=== PATIENT | female | born 1965 | race Two or more races ===

== ENCOUNTER 2020-09-06 08:56 | Outpatient (REF) | payer OTHER, SELFPAY ==
--- NOTE | ~2020-09-06 | XR_ITS ---
EXAMINATION: XR CHEST CLINICAL INFORMATION: R07.89 - Other chest pain COMPARISON: Chest radiographs 06/17/2019, 05/02/2019. TECHNIQUE: 2 views of the chest were obtained. FINDINGS: The lungs are clear. There is no pneumothorax or pleural reaction. No airspace consolidation or groundglass opacity. The costophrenic sulci are well-defined. The heart is normal in size. The hilar and mediastinal contours and bony structures are unremarkable. XR/XR chest 2V IMPRESSION: Unremarkable examination.
[2020-09-06 09:47] LABS: MANUAL DIFF FLAG NO
[2020-09-06 09:50] LABS: Basophils Percent Auto 0.3 % (0-2); Eosinophils Absolute Auto 0.1 X10*3/uL (0.0-0.4); Eosinophils Percent Auto 0.9 % (0-4); Hematocrit 39.3 % (37-47); Imm Gran Abs Auto 0.03 X10*3/uL (0.00-0.03); Imm Gran Pct Auto 0.3 % (0.0-0.4); Lymphocytes Percent Auto 31.1 % (20-40); Mean Corpuscular HGB Conc 33.1 g/dl (31.0-35.0); Mean Corpuscular Hemoglobin 29.7 pg (27.0-33.0); Mean Corpuscular Volume 89.7 fL (80-98); Mean Platelet Volume 10.3 fL (9.4-12.3); Monocytes Absolute Auto 0.7 X10*3/uL (0.1-1.2); Neutrophils Absolute Auto 5.9 X10*3/uL (2.0-8.3); Neutrophils Percent Auto 60.4 % (45-73); Platelet Count 316 X10*3/uL (160-400); Red Blood Count 4.38 X10*6/uL (4.20-5.50); Red Cell Distribution Width 11.9 % (11.0-16.0); White Blood Count 9.7 X10*3/uL (4.8-10.8)
[2020-09-06 09:59] LABS: Estimated Average Glucose 292 mg/dL; Hemoglobin A1c % 11.8 %
[2020-09-06 10:15] LABS: Anion Gap 14 (12-20); Blood Urea Nitrogen 13 mg/dL (9-16); Calcium 8.6 mg/dL (8.4-10.2); Carbon Dioxide 28 mmol/L (22-29); Chloride 99 mmol/L (96-108); Cholesterol 138 mg/dL; Estimated Glomerular Filt Rate > 60; Glucose Fasting 326 mg/dL (60-99); HDL Cholesterol 40 mg/dL; LDL Cholesterol Calculated 83 mg/dl; Potassium 4.3 mmol/L (3.3-5.1); Sodium 137 mmol/L (135-145); Triglycerides 79 mg/dL
[2020-09-06 10:18] LABS: Troponin-I High Sensitivity < 3.5 ng/L (<3.5-17.0)
== END 2020-09-06 08:57 | disposition home or self-care (01) ==
LOC: HO.LAB 08:56
PROVIDERS: PCP Internal Medicine; Visit Provider Nurse Practitioner Family
DX: E11.65 Type 2 diabetes mellitus with hyperglycemia (principal); R07.89 Other chest pain
CPT/HCPCS: 36415; 71046; 80048; 80061; 83036; 84484; 85025

== ENCOUNTER → 2020-10-15 11:13 | Outpatient (BNVA) | payer OTHER, SELFPAY | PROVIDERS: PCP Nurse Practitioner Family; Referring Provider Nurse Practitioner Family; Visit Provider Internal Medicine Endocrinology, Diabetes & Metabolism | DX: E11.65 Type 2 diabetes mellitus with hyperglycemia (principal); Z79.4 Long term (current) use of insulin; E78.5 Hyperlipidemia, unspecified; E55.9 Vitamin D deficiency, unspecified; E66.9 Obesity, unspecified | CPT/HCPCS: 82947; 99212 ==

== ENCOUNTER 2020-11-03 14:07 | Outpatient (REF) | payer OTHER, SELFPAY ==
[2020-11-03 15:33] LABS: COVID-19 Test Negative (Negative)
== END 2020-11-03 14:08 | disposition home or self-care (01) ==
LOC: HO.LAB 14:07
PROVIDERS: Visit Provider Internal Medicine
DX: Z20.822 Contact with and (suspected) exposure to COVID-19 (principal)
CPT/HCPCS: 36415; 87635; C9803

== ENCOUNTER → 2021-01-14 10:38 | Outpatient (BNVA) | payer OTHER, SELFPAY | PROVIDERS: Visit Provider Internal Medicine Endocrinology, Diabetes & Metabolism | DX: E11.65 Type 2 diabetes mellitus with hyperglycemia (principal); E78.5 Hyperlipidemia, unspecified; E55.9 Vitamin D deficiency, unspecified; E66.9 Obesity, unspecified; Z79.4 Long term (current) use of insulin | CPT/HCPCS: 82947; 99212 ==

== ENCOUNTER → 2021-01-31 15:42 | Outpatient (BNVA) | payer OTHER, SELFPAY | PROVIDERS: Visit Provider Nurse Practitioner ==

== ENCOUNTER 2021-03-10 09:37 | Outpatient (REF) | payer OTHER, SELFPAY ==
--- NOTE | 2021-03-10 09:41 | ECG_ITS ---
Test Reason : CHEST PAIN Blood Pressure : / mmHG Vent. Rate : 081 BPM Atrial Rate : 081 BPM P-R Int : 168 ms QRS Dur : 078 ms QT Int : 398 ms P-R-T Axes : 072 034 041 degrees QTc Int : 462 ms Normal sinus rhythm Normal ECG When compared with ECG of 17-JUN-2019 19:48, Vent. rate has decreased BY 41 BPM Nonspecific T wave abnormality no longer evident in Inferior leads T wave inversion no longer evident in Anterior leads Referred By: Mindy Marks Electronically Signed By:JANEEN GUAJARDO
[2021-03-10 11:00] LABS: Alanine Aminotransferase 21 U/L (0-31); Albumin Level 3.9 g/dL (3.5-5.0); Alkaline Phosphatase 85 U/L (39-117); Anion Gap 13 (12-20); Aspartate Amino Transferase 15 U/L (5-31); Bilirubin Total 0.4 mg/dL (0.0-1.0); Blood Urea Nitrogen 10 mg/dL (9-16); Calcium 8.9 mg/dL (8.4-10.2); Carbon Dioxide 25 mmol/L (22-29); Chloride 106 mmol/L (96-108); Cholesterol 171 mg/dL; Estimated Glomerular Filt Rate > 60; Glucose Fasting 153 mg/dL (60-99); HDL Cholesterol 36 mg/dL; LDL Cholesterol Calculated 105 mg/dl; Potassium 4.1 mmol/L (3.3-5.1); Sodium 140 mmol/L (135-145); Total Protein 6.5 g/dL (6.5-8.0); Triglycerides 151 mg/dL
[2021-03-10 11:23] LABS: Creatinine Urine 159.49 mg/dL; Microalbum/Creatinine Ratio Ur 10.6 ug/mg cr
[2021-03-18 13:26] LABS: Vitamin D 25-OH, D2 <4 ng/mL; Vitamin D 25-OH, D3 18 ng/mL; Vitamin D 25-OH, Total 18 ng/mL (30-100)
== END 2021-03-10 09:38 | disposition home or self-care (01) ==
LOC: HO.LAB 09:37
PROVIDERS: PCP Internal Medicine; Visit Provider Internal Medicine
DX: R07.89 Other chest pain (principal); E55.9 Vitamin D deficiency, unspecified; E11.9 Type 2 diabetes mellitus without complications; K21.9 Gastro-esophageal reflux disease without esophagitis; E78.5 Hyperlipidemia, unspecified
CPT/HCPCS: 36415; 80053; 80061; 82043; 82306; 93005

== ENCOUNTER 2021-04-20 10:22 | Outpatient (REF) | payer OTHER, SELFPAY ==
--- NOTE | ~2021-04-20 | MM_ITS ---
EXAMINATION: MM SCREENING DIGITAL BREAST TOMOSYNTHESIS, BILATERAL CLINICAL INFORMATION: Screening. Asymptomatic. The lifetime risk of breast cancer based on the Tyrer-Cuzick Model is 10%. COMPARISON: Mammography: 11/02/2018, 10/13/2017, 05/23/2016 TECHNIQUE: Digital breast tomosynthesis is performed in both the craniocaudal and mediolateral oblique views along with computer-aided detection (CAD). Synthesized 2D images are generated from the tomosynthesis. Additional right CC and bilateral MLO views are provided. FINDINGS: There are scattered areas of fibroglandular density (ACR BI-RADS breast composition Category b). There are no significant masses, abnormal calcifications, or other abnormalities. The the axilla and skin contours are unremarkable. No significant changes. MM/MM tomosynthesis screening BI IMPRESSION: No mammographic evidence of malignancy. ASSESSMENT: BI-RADS 1: Negative RECOMMENDATION: Routine annual mammography screening. This patient's information was entered into a reminder system with a target due date for their next mammogram.
== END 2021-04-20 10:23 | disposition home or self-care (01) ==
LOC: HO.MAMMO 10:22
PROVIDERS: Visit Provider Internal Medicine
DX: Z12.31 Encounter for screening mammogram for malignant neoplasm of breast (principal)
CPT/HCPCS: 77063; 77067

== ENCOUNTER → 2021-04-26 10:35 | Outpatient (BNVA) | payer OTHER, SELFPAY | PROVIDERS: PCP Internal Medicine; Visit Provider Nurse Practitioner Gerontology | DX: E11.65 Type 2 diabetes mellitus with hyperglycemia (principal); E78.5 Hyperlipidemia, unspecified; E55.9 Vitamin D deficiency, unspecified; E66.9 Obesity, unspecified; Z79.4 Long term (current) use of insulin | CPT/HCPCS: 82947; 83036; 99212 ==

== ENCOUNTER → 2021-06-15 12:11 | Outpatient (BNVA) | payer OTHER, SELFPAY | PROVIDERS: PCP Internal Medicine; Referring Provider Internal Medicine; Visit Provider Internal Medicine | DX: Z01.810 Encounter for preprocedural cardiovascular examination (principal); R06.02 Shortness of breath; E11.8 Type 2 diabetes mellitus with unspecified complications | CPT/HCPCS: 93005; 99202 ==

== ENCOUNTER 2021-09-05 09:51 | Outpatient (REF) | payer OTHER, SELFPAY ==
--- NOTE | 2021-09-05 17:18 | PFT_ITS ---
Forced vital capacity 59%, FEV1 45%, FEV1/FVC ratio is 62, ZOT12-99 is 22% and MVV 48%. Post bronchodilator therapy, there is a small, but significant improvement in FVC, FEV1, [id number]. Total lung capacity 77% and residual volume is 99%. Diffusion capacity is 55% and DL/VA 73%. CONCLUSION: Severe obstructive airway disorder. Partial reversibility after bronchodilator therapy is noted. Compared to the results of 2018, there is no significant change in the flow volumes. Total lung capacity is actually little better and diffusion capacity is moderately decreased. Clinical correlation recommended. MD URBANO Magdaleno/MILLI / [phone]
== END 2021-09-05 09:52 | disposition home or self-care (01) ==
LOC: HO.RESP 09:51
PROVIDERS: PCP Internal Medicine; Visit Provider Internal Medicine
DX: R06.02 Shortness of breath (principal)
CPT/HCPCS: 94060; 94727; 94729

== ENCOUNTER → 2021-09-09 10:09 | Outpatient (REF) | payer OTHER, SELFPAY ==
--- NOTE | 2021-09-09 10:12 | CA_ITS ---
Transthoracic Echocardiogram Patient (Last, First, Middle): Dyana Calderon L Gender: Female Date of : 1965 Age: 55 Procedure Date: 09/09/2021 Procedure Type: Transthoracic Echocardiogram Location: OP Height: 162.56 cm Weight: 87.54 kg BSA: 1.93 m2 Heart Rate: bpm BP: 115 / 70 mmHg Favor Maker: ROBSON Referring MD: Cy Cormier MD Neighborhood Aide: Samir Mora MD Symptoms: R06.02 - Shortness of breath Study Quality: Fair/contrast ECG Rhythm: Sinus Conclusions: - Essentially normal study Findings Procedure Information Contrast agent, definity, is being given per protocol without apparent complications. Left Ventricle Normal left ventricular size, thickness, and systolic function. The visually estimated ejection fraction is between 60-65%. Diastolic function is normal for age. Right Ventricle Normal right ventricular cavity size and systolic function. Atria Both atria are normal in size. There is no evidence of interatrial shunt. Aortic Valve Normal aortic valve structure and function. There is no aortic valve stenosis. There is no aortic valve regurgitation. Mitral Valve Normal mitral valve structure and function. There is trace mitral valve regurgitation. There is no mitral valve stenosis. Pulmonic Valve The pulmonic valve was not well visualized. Tricuspid Valve Likely normal tricuspid valve structure and function. There is trace tricuspid valve regurgitation. The right ventricular systolic pressure is normal. The right ventricular systolic pressure is 22 mmHg. Normal right atrial pressure. There is no evidence of pulmonary hypertension. Great Vessels All visible segments of the aorta are normal in size. The pulmonary artery was not well visualized. Venous The inferior vena cava is normal in size and collapses greater than 50% with inspiration. Pericardium/Pleural There is no evidence of pericardial effusion. Prior Study Comparison no previous study in the last 5 years for comparison Measurements 2D Linear Measurements IVSd: 0.76 0.6-0.9/0.6-1.0 cm LVIDd: 4.18 3.9-5.3/4.2-5.9 cm LVIDd Index: 2.17 2.4-3.2/2.2-3.1 cm/m2 LVIDs: 1.90 2.0-3.6 cm LVPWd: 0.73 0.7-1.1 cm Ao Root: 2.80 2.1-3.5 cm LA Diam: 2.80 2.7-3.8/3.0-4.0 cm LAIDs Index: 1.45 1.5-2.3 cm/m2 LV Mass: 113.72 67-162/88-224 g LV Mass Index: 58.92 43-95/49-115 g/m2 LVOT Diam: 2.00 3.0+(-)1.3 cm 2D Systolic Function EF 4C: 63.90 >55% EF 2C: 66.60 >55% EF BiP: 64.90 >55% Mitral Valve E'Lateral: 13.70 E'Medial: 10.30 Aortic Valve AoV Pk Bobby: 1.41 AoV Mn Bobby: 1.05 AoV VTI: 0.30 AoV Pk Grad: 8.00 Aov Mn Grad: 5.00 DERIC Cont.VTI: 2.65 LVOT LVOT Pk Bobby: 1.12 LVOT Mn Bobby: 0.76 LVOT VTI: 0.25 LVOT Pk Grad: 5.00 LVOT Mn Grad: 3.00 LVOT Diam: 2.00 LVOT Area: 3.14 Diastolic Function E'Medial: 10.30 E' Laterial: 13.70 Right Ventricle TAPSE (mm): 20.40 TVS' Bobby: 10.00 Tricuspid Valve TR Pk Bobby: 1.89 TR Pk Grad: 14.00 RA Press: 8.00 RVSP: 22.00 Great Vessels Aorta Ao Root-2D: 2.80 2.0-3.7 cm Ao Asc: 2.80 2.1-3.4 cm Ao Arch: 3.20 Updated in Other Vendor System with Status of Final Samir Mora MD electronically signed on 09/10/2021 11:55:48 AM with status of Final
== END ==
LOC: HO.CARD 10:09
PROVIDERS: PCP Internal Medicine; Visit Provider Internal Medicine
DX: R06.02 Shortness of breath (principal)
CPT/HCPCS: 93306; Q9957

== ENCOUNTER → 2021-10-19 10:05 | Outpatient (BNVA) | payer OTHER, SELFPAY | PROVIDERS: PCP Internal Medicine; Visit Provider Hospitalist | DX: Z23 Encounter for immunization (principal); J44.9 Chronic obstructive pulmonary disease, unspecified; G47.33 Obstructive sleep apnea (adult) (pediatric); R91.1 Solitary pulmonary nodule | CPT/HCPCS: 90471; 90732; 99202 ==

== ENCOUNTER 2021-10-22 07:32 | Outpatient (REF) | payer OTHER, SELFPAY ==
[2021-10-22 09:55] LABS: Microalbum/Creatinine Ratio Ur 41.6 ug/mg cr
[2021-10-22 09:56] LABS: B Type Natriuretic Peptide < 10 pg/mL (<100)
[2021-10-22 09:57] LABS: Alanine Aminotransferase 24 U/L (0-31); Alkaline Phosphatase 93 U/L (39-117); Anion Gap 10 (12-20); Aspartate Amino Transferase 16 U/L (5-31); Bilirubin Total 0.5 mg/dL (0.0-1.0); Blood Urea Nitrogen 10 mg/dL (9-16); C Reactive Protein 1.33 mg/dL (< or = 0.50); Calcium 8.9 mg/dL (8.4-10.2); Carbon Dioxide 29 mmol/L (22-29); Chloride 104 mmol/L (96-108); Cholesterol 166 mg/dL; Estimated Glomerular Filt Rate > 60; Glucose Fasting 218 mg/dL (60-99); HDL Cholesterol 37 mg/dL; LDL Cholesterol Calculated 113 mg/dl; Potassium 4.7 mmol/L (3.3-5.1); Rheumatoid Factor < 15.0 IU/mL (<15.0); Sodium 138 mmol/L (135-145); Total Protein 6.8 g/dL (6.5-8.0); Triglycerides 83 mg/dL
[2021-10-22 10:17] LABS: Erythrocyte Sedimentation Rate 19 MM/HR (0-20)
[2021-10-24 13:17] LABS: Cyclic Citrullinated Peptide <16 UNITS
[2021-10-24 21:25] LABS: Anti DNA DS Antibody 2 IU/mL
[2021-10-25 07:36] LABS: Anti Nuclear Antibody Screen NEGATIVE (NEGATIVE)
[2021-10-26 13:27] LABS: Vitamin D 25-OH, D2 <4 ng/mL; Vitamin D 25-OH, D3 20 ng/mL; Vitamin D 25-OH, Total 20 ng/mL (30-100)
== END 2021-10-22 07:33 | disposition home or self-care (01) ==
LOC: HO.LAB 07:32
PROVIDERS: PCP Internal Medicine; Visit Provider Internal Medicine
DX: R53.82 Chronic fatigue, unspecified (principal); R06.02 Shortness of breath; E11.8 Type 2 diabetes mellitus with unspecified complications; E78.5 Hyperlipidemia, unspecified; E55.9 Vitamin D deficiency, unspecified
CPT/HCPCS: 36415; 80053; 80061; 82043; 82306; 83880; 85652; 86038; 86039; 86140; 86200; 86225; 86431

== ENCOUNTER → 2021-10-27 11:51 | Outpatient (BNVA) | payer OTHER, SELFPAY | PROVIDERS: PCP Internal Medicine; Referring Provider Internal Medicine; Visit Provider Nurse Practitioner | DX: K59.04 Chronic idiopathic constipation (principal); K21.9 Gastro-esophageal reflux disease without esophagitis; R11.2 Nausea with vomiting, unspecified; R12 Heartburn; E11.9 Type 2 diabetes mellitus without complications; E78.5 Hyperlipidemia, unspecified; E55.9 Vitamin D deficiency, unspecified; E66.01 Morbid (severe) obesity due to excess calories; F12.11 Cannabis abuse, in remission; Z68.34 Body mass index [BMI] 34.0-34.9, adult; Z87.891 Personal history of nicotine dependence; Z87.898 Personal history of other specified conditions; Z80.0 Family history of malignant neoplasm of digestive organs | CPT/HCPCS: 99212 ==

== ENCOUNTER 2021-11-03 10:18 | Outpatient (REF) | payer OTHER, SELFPAY ==
--- NOTE | ~2021-11-03 | CT_ITS ---
EXAMINATION: CT CHEST WITHOUT CONTRAST CLINICAL INFORMATION: Solitary pulmonary nodule. COMPARISON: CT chest 06/17/2019 TECHNIQUE: Multidetector volumetric CT imaging of the chest was done. Axial MIP volume rendering provided. Sagittal and coronal reformatted images were obtained. This CT examination was performed using dose optimization techniques as appropriate, variously including the following: *Automated exposure control *Adjustment of mA and/or kV according to patient size (this includes techniques or standardized protocols for targeted exams where dose is matched to indication/reason for exam; i.e. extremities or head) *Use of iterative reconstruction technique DLP: 188 mGy-cm FINDINGS: PRE SCHOOL MANAGER: Well-expanded lungs without acute process. LUNGS: There is a 2 mm nodule right lung apex medially axial image 112/5, stable. Small 1 mm calcifications in the left upper lobe on axial image 123/5, stable, tree-in-bud appearance left lung apex medially axial images 143 through 147/5, left upper lobe images 192 through 200/5, 4 mm nodule left upper lobe axial image 199/5, previously measured 5 mm. There is minimal bronchial wall thickening in bilateral lower lobes but no bronchiectasis or debris. MEDIASTINUM: The thyroid lobes are symmetric and normal. The central trachea and the bronchi are widely patent. The heart size and the great vessels are normal caliber. No pericardial effusion is seen. No abnormal sized mediastinal or hilar lymph nodes are seen. PLEURA: There is no pleural effusion. No pleural mass or thickening. AXILLA: There are small shotty lymph nodes in the axillae. The larger lymph node in the right axilla appears benign. UPPER ABDOMEN: Visualized liver, spleen, pancreas, and bilateral adrenal glands are unremarkable. There are no radiopaque gallstones. OSSEOUS STRUCTURES: Mild ventral spondylosis upper/mid dorsal spine. No aggressive lytic or sclerotic process seen. CT/CT chest wo con IMPRESSION: Small nodules, tree-in-bud appearance and mild bronchial wall thickening suggestive of small airway disease is unchanged to previous study. Small semisolid nodule left upper lobe is also stable or minimally improved. There are no new nodules, acute consolidation or abnormal mediastinal or axillary lymphadenopathy. Fleischner guidelines were followed.
== END 2021-11-03 10:19 | disposition home or self-care (01) ==
LOC: HO.CT 10:18
PROVIDERS: Visit Provider Hospitalist
DX: R91.1 Solitary pulmonary nodule (principal)
CPT/HCPCS: 71250

== ENCOUNTER → 2021-11-21 10:29 | Outpatient (BNVA) | payer OTHER, SELFPAY | PROVIDERS: PCP Internal Medicine; Referring Provider Internal Medicine; Visit Provider Physician Assistant | DX: Z13.89 Encounter for screening for other disorder (principal) ==

== ENCOUNTER → 2021-11-22 14:59 | Outpatient (REF) | payer OTHER, SELFPAY ==
[2021-11-23 12:16] LABS: BV Int Neg Control Negative (Negative); BV Int Pos Control Positive (Positive)
== END ==
LOC: HO.SL 14:59
PROVIDERS: Nurse Practitioner Family; PCP Internal Medicine; Visit Provider Hospitalist
DX: G47.33 Obstructive sleep apnea (adult) (pediatric) (principal); N89.8 Other specified noninflammatory disorders of vagina
CPT/HCPCS: 87480; 87510; 87660; 95806

== ENCOUNTER → 2021-12-01 09:39 | Outpatient (BNVA) | payer OTHER, SELFPAY | PROVIDERS: PCP Internal Medicine; Referring Provider Internal Medicine; Visit Provider Nurse Practitioner | DX: K59.04 Chronic idiopathic constipation (principal); K21.9 Gastro-esophageal reflux disease without esophagitis; K59.9 Functional intestinal disorder, unspecified; Z80.0 Family history of malignant neoplasm of digestive organs | CPT/HCPCS: 99212 ==

== ENCOUNTER 2021-12-22 09:16 | Day surgery (SDC) | payer OTHER, SELFPAY ==
[2021-12-15 15:16] VITALS: BMI 32.9
--- NOTE | 2021-12-21 09:24 | HO.ANESPROP2 ---
Documented by User: Chana Reynoso NP 12/21/21 09:26 HPI - Anesthesia Eval Consult details Narrative: 56yo F for Colonoscopy Cardiac cleared [facility] Active Problems Active Problems: All Active Problems (Updated 12/15/21 @ 15:05 by Brandy Sanchez RN) Asthma (Acute) GERD (gastroesophageal reflux disease) (Acute) Family history of colon cancer (Acute) SOB (shortness of breath) (Acute) ORLIN (obstructive sleep apnea) (Acute) Epigastric pain (Acute) Vaginal itching (Acute) Small bowel motility disorder (Acute) Hyperlipidemia LDL goal <100 (Acute) Microalbuminuria (Acute) Class 1 obesity with serious comorbidity and body mass index (BMI) of 33.0 to 33.9 in adult (Acute) Asthma-COPD overlap syndrome (Acute) Pulmonary nodule (Acute) Chronic idiopathic constipation (Acute) Diabetes type 2, uncontrolled (Acute ~2016) penitentiary (current) use of insulin (Acute) Dyslipidemia (Acute) Severe asthma (Acute) Personal history of nicotine dependence (Acute) Obesity (BMI 30-39.9) (Acute) Vitamin D deficiency (Acute) Chronic fatigue (Acute) Right shoulder pain (Acute) Past Medical History Medical History Asthma Asthma-COPD overlap syndrome Chronic fatigue Chronic idiopathic constipation Class 1 obesity with serious comorbidity and body mass index (BMI) of 33.0 to 33.9 in adult COVID-19 vaccine series completed Diabetes type 2, uncontrolled (~2016) Dyslipidemia Foot abscess GERD (gastroesophageal reflux disease) History of sleep study Hyperlipidemia LDL goal <100 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 Brother In good health Brother In good health Surgical History Surgical History History of section History of colonoscopy History of dilation and curettage (~2004) History of hysterectomy (~2010) Social History Social History (Reviewed 12/01/21 @ 09:45 by TATA Ndiaye Housing: Apartment Alcohol intake: never Patient Tobacco Use Status: Former Tobacco user Quit Date: 2012 Tobacco use type: Cigarette e-Cigarette/Vaping Use: Never Used Second Hand Smoke Exposure: No Substance Use Type: Former Substance User and Marijuana service: No Current occupational status: employed Current occupational exposures/hazards: No Cognitive needs: No Hearing needs: No Vision needs: No Meds Allergies Allergy/AdvReac Type Severity Reaction Status Date / Time No Known Allergies Allergy Verified 12/01/21 09:44 Home Medications Medication Instructions Recorded Confirmed Last Taken Type pen needle, diabetic 32 gauge x #50 ea 10/15/20 11/22/21 Unknown History Exam Exam Date and Time: December 21, 2021 0924 Height,Weight and Vital Signs: Height 5 ft 3 in Weight 84.368 kg Pertinent Lab Results Pertinent Lab Results: Laboratory Tests 09/06/20 10/22/21 09:05 07:58 WBC 9.7 Hgb 13.0 Hct 39.3 Plt Count 316 Sodium 138 Potassium 4.7 Chloride 104 Carbon Dioxide 29 BUN 10 Creatinine 0.74 Narrative Narrative: ECHO 08/2021 Conclusions: - Essentially normal study ? Findings Procedure Information Contrast agent, definity, is being given per protocol without apparent complications. Left Ventricle Normal left ventricular size, thickness, and systolic function. The visually estimated ejection fraction is between 60-65%.? Diastolic function is normal for age. EKG 05/2021 sinus rhythm with 83/Min; no significant ST-T changes and otherwise unremarkable.? Normal IA/QTc. Assessment and Plan Assessment Anesthesia Assessment: Chart Reviewed Documented by User: Rafael Sy MD 12/22/21 16:26 [facility] Past Medical History Medical History Asthma Asthma-COPD overlap syndrome Chronic fatigue Chronic idiopathic constipation Class 1 obesity with serious comorbidity and body mass index (BMI) of 33.0 to 33.9 in adult COVID-19 vaccine series completed Diabetes type 2, uncontrolled (~2015) Dyslipidemia Foot abscess GERD (gastroesophageal reflux disease) History of sleep study Hyperlipidemia LDL goal <100 penitentiary (current) use of insulin Microalbuminuria Obesity (BMI 30-39.9) Personal history of nicotine dependence Pulmonary nodule Right shoulder pain Severe asthma Vitamin D deficiency Family History Family History Father Heart disease Diabetes Hypertension Mother Heart disease Hypertension Diabetes Uterine cancer Sister Uterine cancer Daughter In good health Daughter In good health Son No problems noted. Brother In good health Brother In good health Family history of problems with anesthesia: No Surgical History Surgical History History of section History of colonoscopy History of dilation and curettage (~2004) History of hysterectomy (~2010) History of Problems with Anesthesia: No Social History Social History Housing: Apartment Alcohol intake: never Patient Tobacco Use Status: Former Tobacco user Quit Date: 2012 Tobacco use type: Cigarette e-Cigarette/Vaping Use: Never Used Second Hand Smoke Exposure: No Substance Use Type: Former Substance User and Marijuana service: No Current occupational status: employed Current occupational exposures/hazards: No Cognitive needs: No Hearing needs: No Vision needs: No Meds Allergies Allergy/AdvReac Type Severity Reaction Status Date / Time No Known Allergies Allergy Verified 12/01/21 09:44 Home Medications Medication Instructions Recorded Confirmed Last Taken Type pen needle, diabetic 32 gauge x #50 ea 10/15/20 11/22/21 Unknown History Exam Airway Mallampati Class: III TM Dist: >3cm Neck ROM: Full Denture: Upper Loose/Missing/Broken Teeth: Yes (Lower chipped teeth ) Heart: s1, s2 Lungs: b/l breath Assessment and Plan Final Anesthetic Review Family History of Problems with Anesthesia: No History of Problems with Anesthesia: No NPO: Yes ASA Class: III Final Preanesthetic Review: Meds/Allgs Chart Reviewed, Consent Obtained/Reviewed and Anes Risks/Benef Reviewed Patient Risk: Intermediate Procedure Risk: Intermediate Anesthetic Plan Anesthetic Plan: MAC: Disposition: Standard PACU
--- NOTE | 2021-12-22 09:38 | MHC.SHP ---
Pre-Procedural Eval Section A Date of Service: 12/22/21 Section B Chief Complaint: screening colonoscopy Details of Present Illness: aunt with CRC Relevant Family History (Specify if Yes): Yes Relevant Social History: None (ex smoker) Present Medications: see Short Stay Collaborative assessment Medical History: Significant History (Asthma Asthma-COPD overlap syndrome Chronic fatigue Chronic idiopathic constipation Class 1 obesity with serious comorbidity and body mass index (BMI) of 33.0 to 33.9 in adult COVID-19 vaccine series completed Diabetes type 2, uncontrolled (~2015) Dyslipidemia Foot abscess GERD (gastroesophageal ref) History of Previous Operations: Relevant previous surgery/procedure and date(s) (History of section History of colonoscopy History of dilation and curettage (~2004) History of hysterectomy (~2010)) Allergies: Allergies Allergy/AdvReac Type Severity Reaction Status Date / Time No Known Allergies Allergy Verified 12/01/21 09:44 Review of Systems Sugical H&P ROS: Negative: Constitution, Cardiovascular, Respiratory, Neurological, Psychiatric, Hem-Onc, Allergic/Immunologic, Gastrointestinal, Genitourinary, Musculoskeletal, Integumentary, Endocrine and Eyes/Ears/Nose/Throat Exam Surgical H&P Exam: Normal: HEENT, Normal: Heart, Normal: Lungs, Normal: Extremities, Normal: Abdomen, Normal: Skin and Normal: Neurological Plan Diagnosis/Plan: Unchanged I have reviewed the history and physical and performed a pertinent physical examination on my patient. No changes have occurred unless specified.
[2021-12-22 09:42] VITALS: BP 119/77; PULSE 88; RESP 16; TEMP 36.1; O2SAT 98
[2021-12-22] MEDS: Lactated Ringers 1,000 ML 100 ML IVCONT (09:53)
[2021-12-22 10:00] LABS: Glucose, Whole Blood 169 mg/dL (60-115)
--- NOTE | 2021-12-22 10:37 | P.OP_ITS ---
Operative Note Operative Note Date of Service: 12/22/21 Narrative: Operative Information Procedure Description: Colonoscopy Indication: screening colonoscopy Anesthesia: MAC COLONOSCOPY Instrument: Olympus variable stiffness pediatric scope 190L Colonoscopy Monitoring: Vital signs and clinical assessment, continuous EKG monitoring, Pulse oximetry, Carbon Dioxide monitoring and blood pressure monitoring were done throughout the procedure. Colon withdrawal time was 5 minutes. Procedure: The patient was placed in the left lateral decubitis position and pre-procedure medications were administered. After a digital rectal examination of the ano-rectum, the video colonoscope was inserted into the rectum and advanced through the colon to the cecum/TI. The colonoscope was slowly withdrawn in a retrograde panoramic fashion and the colon mucosa was carefully examined including a retroflexed view of the rectum. Findings and interventions are described below. Procedure Difficulty: easy Findings: Terminal Ileum-normal Cecum:normal Ascending Colon: normal Transverse Colon -normal Descending Colon:normal Sigmoid Colon: normal Rectum: Retroflexion with small internal hemorrhoids, grade I Anorectum - normal Colon preparation: [place] Bowel Preparation Scale Right colon; 1 Transverse colon: 1 Left colon; 1 (0 = Unprepared colon segment with mucosa not seen due to solid stool that cannot be cleared. 1 = Portion of mucosa of the colon segment seen, but other areas of the colon segment not well seen due to staining, residual stool and/or opaque liquid. 2 = Minor amount of residual staining, small fragments of stool and/or opaque liquid, but mucosa of colon segment seen well. 3 = Entire mucosa of colon segment seen well with no residual staining, small fragments of stool or opaque liquid) Impression and Post Procedure Diagnosis: internal hemorrhoids poor prep, no masses seen but flat or smaller polyps could have been missed Plan: High fiber diet leaflet Avoid straining at stool, epsom salts and sitz bath, anusol supps or cream Repeat Colonoscopy in 6-12 months or earlier if clinically indicated, next time needs to be compliant with prep and diet instructions. Above findings were reviewed with the patient and relevant handouts were provided if indicated.
--- NOTE | 2021-12-22 10:37 | PM.OP ---
Brief Operative Note Date of Service: 12/22/21 Pre-op diagnosis: screening colonoscopy Post-op diagnosis: same Procedure: see op note Surgeon: Malcolm Vasquez MD Anesthesia: MAC Was an Tubular Stock Glass Bulb Machine Former used for this Procedure?: No Estimated blood loss (mL): 0 Condition: stable Disposition: PACU
[2021-12-22 11:26] VITALS: BP 115/70; PULSE 84; RESP 16; TEMP 37; O2SAT 97
[2021-12-22 11:41] VITALS: BP 104/69; PULSE 85; RESP 16; O2SAT 99
== END 2021-12-22 12:20 | disposition home or self-care (01) ==
PROVIDERS: PCP Internal Medicine; Visit Provider Internal Medicine Gastroenterology
PROC: 0DJD8ZZ Inspection of Lower Intestinal Tract, Via Natural or Artificial Opening Endoscopic (ICD-10-PCS; CPT 45378; principal; 2021-12-22 11:00)
DX: Z12.11 Encounter for screening for malignant neoplasm of colon (principal); Z80.0 Family history of malignant neoplasm of digestive organs; K64.0 First degree hemorrhoids; K59.04 Chronic idiopathic constipation; K59.9 Functional intestinal disorder, unspecified; K21.9 Gastro-esophageal reflux disease without esophagitis; R10.13 Epigastric pain; J44.9 Chronic obstructive pulmonary disease, unspecified; R91.1 Solitary pulmonary nodule; G47.33 Obstructive sleep apnea (adult) (pediatric); E66.9 Obesity, unspecified; Z68.32 Body mass index [BMI] 32.0-32.9, adult; E78.5 Hyperlipidemia, unspecified; E55.9 Vitamin D deficiency, unspecified; E11.9 Type 2 diabetes mellitus without complications; Z79.4 Long term (current) use of insulin; Z87.891 Personal history of nicotine dependence; Z79.899 Other long term (current) drug therapy
CPT/HCPCS: 45378; 82947

== ENCOUNTER 2022-01-07 22:43 | Emergency (ER) | payer OTHER, SELFPAY ==
[2022-01-07 23:45] VITALS: BP 128/78; PULSE 97; RESP 20; TEMP 37; O2SAT 97; BMI 33.1
--- NOTE | 2022-01-07 23:51 | PC.NURSE ---
BS 480 conveyor line battery charger made aware
[2022-01-08] LABS: Basophils Percent Auto 0.3 % (0-2); Eosinophils Absolute Auto 0.1 X10*3/uL (0.0-0.4); Eosinophils Percent Auto 0.7 % (0-4); Hematocrit 37.1 % (37.0-47.0); Hemoglobin 12.6 g/dl (12.0-16.0); Imm Gran Abs Auto 0.03 X10*3/uL (0.00-0.03); Imm Gran Pct Auto 0.3 % (0.0-0.4); Lymphocytes Absolute Auto 3.4 X10*3/uL (1.2-4.9); Lymphocytes Percent Auto 31.8 % (20-40); MANUAL DIFF FLAG NO; Mean Corpuscular Hemoglobin 29.3 pg (27.0-33.0); Mean Corpuscular Volume 86.3 fL (80.0-98.0); Mean Platelet Volume 10.1 fL (9.4-12.3); Monocytes Absolute Auto 0.8 X10*3/uL (0.1-1.2); Monocytes Percent Auto 7.2 % (2-11); Neutrophils Absolute Auto 6.5 x10*3/uL (2.0-8.3); Neutrophils Percent Auto 59.7 % (45-73); Platelet Count 274 X10*3/uL (160-400); White Blood Count 10.8 X10*3/uL (4.8-10.8)
[2022-01-08 00:21] VITALS: BP 147/90; PULSE 89; RESP 18; O2SAT 98
[2022-01-08 00:22] LABS: Anion Gap 16 (12-20); Blood Urea Nitrogen 8 mg/dL (9-16); Carbon Dioxide 20 mmol/L (22-29); Chloride 100 mmol/L (96-108); Creatinine Clr Calc Pharmacy 71.7; Potassium 4.3 mmol/L (3.3-5.1); Sodium 132 mmol/L (135-145)
[2022-01-08 00:23] LABS: Calcium 8.5 mg/dL (8.4-10.2); Estimated Glomerular Filt Rate > 60; Glucose Random 553 mg/dL (60-115)
--- NOTE | 2022-01-08 00:38 | ED_ITS ---
HPI - General Adult General Chief complaint: Abdominal Pain Stated complaint: blood sugar problem Time Seen by Provider: 01/08/22 00:24 Source: patient Mode of arrival: ambulatory Limitations: no limitations History of Present Illness HPI narrative: Patient comes to the emergency room complaining of elevated blood sugar. Patient checked her blood sugar at home and it was over 500. Patient states that she takes 45 units of insulin at bedtime, Trulicity, and 8-10 units of lispro at home. Patient denies chest pain, no shortness of breath, no abdominal pain, no visual changes Related Data Home Medications Medication Instructions Recorded Confirmed pen needle, diabetic 32 gauge x #50 ea 10/15/20 11/22/21 Previous Rx's Medication Instructions Recorded albuterol sulfate 2.5 mg (3 mL) inhalation Q4-6H PRN 06/04/20 shortness of breath or wheezing #180 mL blood sugar diagnostic (FreeStyle #25 ea 08/10/20 Precision Paul Strips) colloidal oatmeal (Aveeno Soothing 1 packet topical DAILY 8 days #8 ea 09/02/20 Bath) metformin 1,000 mg tablet 1,000 mg PO BID #60 tabs 04/26/21 albuterol sulfate 90 mcg/actuation 2 puff inhalation Q6H PRN 07/13/21 aerosol inhaler (ProAir HFA) shortness of breath or wheezing 30 days #6.7 grams aspirin 81 mg tablet,delayed 81 mg PO DAILY 90 days #90 tabs 07/13/21 release (Enteric Coated Aspirin) atorvastatin 40 mg tablet 40 mg PO BEDTIME #90 tabs 07/13/21 cetirizine 10 mg tablet (Zyrtec) 10 mg PO DAILY 90 days #90 tabs 07/13/21 dulaglutide 4.5 mg/0.5 mL 4.5 mg (0.5 mL) subcut QWEEK #2 mL 07/13/21 subcutaneous pen injector ([facility] fluticasone fur. 200 mcg-umeclid 1 inh inhalation DAILY 30 days #60 10/19/21 62.5 mcg-vilant 25 mcg ea inhalat.powder (Trelegy Ellipta) atorvastatin 80 mg tablet 80 mg PO BEDTIME 90 days #90 tabs 10/25/21 budesonide-formoterol HFA 160 2 puff inhalation BID 30 days 10/25/21 mcg-4.5 mcg/actuation aerosol #10.2 grams inhaler (Symbicort) furosemide 20 mg tablet 20 mg PO DAILY #90 tabs 10/25/21 insulin degludec 100 unit/mL (3 45 unit (0.45 mL) subcut DAILY 90 10/25/21 mL) subcutaneous pen days #40.5 mL tiotropium bromide 2.5 2 puff inhalation DAILY 30 days #1 10/25/21 mcg/actuation mist for inhalation ea (Spiriva Respimat) cholecalciferol (vitamin D3) 50 2,000 unit PO DAILY 90 days #90 10/26/21 mcg (2,000 unit) capsule caps famotidine 40 mg tablet (Pepcid) 40 mg PO BEDTIME #30 tabs 10/27/21 linaclotide 290 mcg capsule 290 mcg PO QAM 30 days #30 caps 10/27/21 (Linzess) pantoprazole 40 mg tablet,delayed 40 mg PO DAILY 90 days #90 tabs 10/27/21 release fluconazole 150 mg tablet 150 mg PO Q3D 2 doses #2 tabs 11/22/21 (Diflucan) insulin lispro 100 unit/mL See Rx Instructions subcut DAILY 12/01/21 subcutaneous pen (Humalog KwikPen #15 mL (U-100) Insulin) metoclopramide HCl 5 mg tablet 5 mg PO .TIDAC #90 tabs 12/01/21 (Reglan) Allergies Allergy/AdvReac Type Severity Reaction Status Date / Time No Known Allergies Allergy Verified 01/07/22 23:50 [facility] Past Medical History Medical History Asthma COVID-19 vaccine series completed Foot abscess GERD (gastroesophageal reflux disease) History of sleep study Surgical History History of section History of colonoscopy History of dilation and curettage (~2004) History of hysterectomy (~2010) Family History Family History Father Heart disease Diabetes Hypertension Mother Heart disease Hypertension Diabetes Uterine cancer Sister Uterine cancer Daughter In good health Daughter In good health Son No problems noted. Brother In good health Brother In good health Social History Social History Housing: Apartment Alcohol intake: never Patient Tobacco Use Status: Former Tobacco user Quit Date: 2012 Tobacco use type: Cigarette e-Cigarette/Vaping Use: Never Used Second Hand Smoke Exposure: No Substance Use Type: Former Substance User and Marijuana Advance Directives: No Advance Directives Information Provided: Yes service: No Current occupational status: employed Current occupational exposures/hazards: No Cognitive needs: No Hearing needs: No Vision needs: No Physical Exam ED Vital Signs: Vital Signs - 24 hr 01/07/22 23:45 01/08/22 00:21 Temperature 98.6 F Pulse Rate 97 89 Respiratory Rate 20 18 Blood Pressure 128/78 147/90 H Pulse Oximetry 97 98 Oxygen Delivery Method Room Air Room Air BMI result Body Mass Index 33.1 Const Other: Appearance: Alert. Oriented X3. No acute distress. Eyes: Pupils equal, round and reactive to light. ENT: Pharynx normal. Neck: Normal inspection. Neck supple. No lymph nodes noted. No crepitus CVS: Normal heart rate and rhythm. Pulses normal. Normal S1 and S2 Respiratory: No respiratory distress. Breath sounds normal. No Wheezing. No rales Abdomen: Soft and nontender. No rigidity. No distention. Skin: Skin warm and dry. Normal skin color. Normal skin turgor. Extremities: No lower extremity edema. No Lacerations. No Rash Neuro: Oriented X 3. No motor deficit. No sensory deficit. Moving all extremities. No slurred speech. CN 2 through 12 grossly intact Psych: calm, cooperative, normal affect Course Course Course Narrative: Patient is a five view it and 10 units of insulin. Patient's blood glucose dropped from 553 to 390. Patient is receiving another L of normal saline and 10 additional units of insulin. Sign-out given to Dr. Mancuso Plan of care to be checked after the 2 L of normal saline and insulin. Patient states that whenever she wakes up, her insulin is in the mid 300s. I discussed with the patient to increase her insulin from 45 units at bedtime to 55 Medical Decision Making Lab Data Result diagrams: 01/07/22 23:53 01/07/22 23:53 Labs: Lab Results 01/07/22 01/07/22 Range/Units 23:53 23:53 WBC 10.8 (4.8-10.8) X10*3/uL RBC 4.30 (4.20-5.50) X10*6/uL Hgb 12.6 (12.0-16.0) g/dl Hct 37.1 (37.0-47.0) % MCV 86.3 (80.0-98.0) fL MCH 29.3 (27.0-33.0) pg MCHC 34.0 (31.0-35.0) g/dl RDW 12.0 (11.0-16.0) % Plt Count 274 (160-400) X10*3/uL MPV 10.1 (9.4-12.3) fL Immature Gran % (Auto) 0.3 (0.0-0.4) % Neut % (Auto) 59.7 (45-73) % Lymph % (Auto) 31.8 (20-40) % Schleicher % (Auto) 7.2 (2-11) % Eos % (Auto) 0.7 (0-4) % Baso % (Auto) 0.3 (0-2) % Lymph # (Auto) 3.4 (1.2-4.9) X10*3/uL Schleicher # (Auto) 0.8 (0.1-1.2) X10*3/uL Eos # (Auto) 0.1 (0.0-0.4) X10*3/uL Baso # (Auto) 0.0 (0.0-0.2) X10*3/uL Abs Immat Gran (auto) 0.03 (0.00-0.03) X10*3/uL Absolute Neuts (auto) 6.5 (2.0-8.3) x10*3/uL Absolute Nucleated RBC 0.000 (0.0-0.012) X10*3/uL Nucleated RBC % (auto) 0.0 (0.0-0.2) /100WBC Sodium 132 L (135-145) mmol/L Potassium 4.3 (3.3-5.1) mmol/L Chloride 100 (96-108) mmol/L Carbon Dioxide 20 L (22-29) mmol/L Anion Gap 16 (12-20) BUN 8 L (9-16) mg/dL Creatinine 0.95 (0.5-1.4) mg/dL Estim Creat Clear Calc 71.7 Estimated GFR > 60 Random Glucose 553 H* (60-115) mg/dL Calcium 8.5 (8.4-10.2) mg/dL Discharge Plan Discharge Clinical Impression: Hyperglycemia Patient Disposition: Home, Self-Care Instructions: Diabetic Hyperglycemia (ED), Diabetes and Exercise (ED) Additional Instructions: Please increase your night insulin to 55 units. Prescriptions: No Action albuterol sulfate 2.5 mg /3 mL (0.083 %) solution for nebulization 2.5 mg inhalation Q4-6H PRN (Reason: shortness of breath or wheezing) Qty: 180 3RF (DME) FreeStyle Precision Paul Strips Strip See Rx Instructions .MEDSUPPLY Qty: 25 6RF Rx Instructions: once a day for calibration Spiriva Respimat 2.5 mcg/actuation mist 2 puff inhalation DAILY 30 Days Qty: 1 11RF budesonide-formoterol [Symbicort] 160-4.5 mcg/actuation HFA aerosol inhaler 2 puff inhalation BID 30 Days Qty: 10.2 11RF cholecalciferol (vitamin D3) 50 mcg (2,000 unit) capsule 2,000 unit PO DAILY 90 Days Qty: 90 1RF insulin lispro [Humalog KwikPen Insulin] 100 unit/mL insulin pen See Rx Instructions subcut DAILY Qty: 15 1RF Rx Instructions: Humalog 8 units with dinner, +2 units for blood glucose over 200, +4 units for blood glucose over 300 subcut daily; Aveeno Soothing Bath Packet 1 packet topical DAILY 8 Days Qty: 8 0RF albuterol sulfate [ProAir HFA] 90 mcg/actuation HFA aerosol inhaler 2 puff inhalation Q6H PRN (Reason: shortness of breath or wheezing) 30 Days Qty: 6.7 2RF aspirin [Enteric Coated Aspirin] 81 mg tablet,delayed release (DR/EC) 81 mg PO DAILY 90 Days Qty: 90 3RF atorvastatin 40 mg tablet 40 mg PO BEDTIME Qty: 90 2RF Hold Instructions: Dose Change cetirizine [Zyrtec] 10 mg tablet 10 mg PO DAILY 90 Days Qty: 90 2RF Trulicity 4.5 mg/0.5 mL pen injector 4.5 mg subcut QWEEK Qty: 2 6RF fluconazole [Diflucan] 150 mg tablet 150 mg PO Q3D Qty: 2 0RF furosemide 20 mg tablet 20 mg PO DAILY Qty: 90 1RF atorvastatin 80 mg tablet 80 mg PO BEDTIME 90 Days Qty: 90 1RF insulin degludec 100 unit/mL (3 mL) insulin pen 45 unit subcut DAILY 90 Days Qty: 40.5 1RF (DME) pen needle, diabetic 32 gauge x 5/32 needle See Rx Instructions .ROUTE QID Qty: 50 Rx Instructions: As directed metformin 1,000 mg tablet 1,000 mg PO BID Qty: 60 6RF Trelegy Ellipta 200-62.5-25 mcg blister with device 1 inh inhalation DAILY 30 Days Qty: 60 12RF metoclopramide HCl [Reglan] 5 mg tablet 5 mg PO .TIDAC Qty: 90 3RF Linzess 290 mcg capsule 290 mcg PO QAM 30 Days Qty: 30 6RF famotidine [Pepcid] 40 mg tablet 40 mg PO BEDTIME Qty: 30 6RF pantoprazole 40 mg tablet,delayed release (DR/EC) 40 mg PO DAILY 90 Days Qty: 90 1RF
[2022-01-08] MEDS: 0.9 % Sodium Chloride 1,000 ML 999 ML IVCONT (00:40)
[2022-01-08] MEDS: Insulin Regular, Human 100 UNIT/ML 3 ML VIAL 10 UNIT IVPUSH (00:56)
[2022-01-08 02:00] LABS: Glucose, Whole Blood 390 mg/dL (60-115)
[2022-01-08 02:10] VITALS: BP 142/89; PULSE 86; RESP 18; O2SAT 99
--- NOTE | 2022-01-08 03:12 | PC.NURSE ---
Per Isaías, primary RN, pt noted to not be in her room @ 0300. Isaías unable to locate pt within the ED, per registration, pt had waved janusz and walked out. This RN calling pt, pt answering her phone, states she is at home because she is tired. Pt states she is feeling well and didn't want to be in the hospital anymore. This RN expressing concern as pt left with an IV in her LAC. Pt states I pulled it out, I know how to do it, it was in my left arm, I'm not even bleeding. Pt advised to return to the ED @ any point if she changed her mind. Nursing safety deposit supervisor aware of incident.
[2022-01-09 10:20] LABS: Glucose, Whole Blood 480 mg/dL (60-115)
== END 2022-01-08 03:34 | disposition left against medical advice (07) ==
PROVIDERS: Emergency Provider Emergency Medicine; PCP Internal Medicine
DX: E11.65 Type 2 diabetes mellitus with hyperglycemia (principal); Z87.891 Personal history of nicotine dependence; Z79.899 Other long term (current) drug therapy; Z79.4 Long term (current) use of insulin
CPT/HCPCS: 36415; 80048; 82947; 85025; 96374; 96375; 99283; 99284

== ENCOUNTER → 2022-02-17 10:47 | Outpatient (BNVA) | payer OTHER, SELFPAY | PROVIDERS: PCP Internal Medicine; Visit Provider Hospitalist | DX: J44.9 Chronic obstructive pulmonary disease, unspecified (principal); R91.1 Solitary pulmonary nodule; G47.33 Obstructive sleep apnea (adult) (pediatric); R60.0 Localized edema; Z79.899 Other long term (current) drug therapy | CPT/HCPCS: 99212 ==

== ENCOUNTER → 2022-03-07 08:40 | Outpatient (BNVA) | payer OTHER, SELFPAY | PROVIDERS: PCP Internal Medicine; Visit Provider Nurse Practitioner | DX: K59.04 Chronic idiopathic constipation (principal); K21.9 Gastro-esophageal reflux disease without esophagitis; K59.9 Functional intestinal disorder, unspecified | CPT/HCPCS: 99212 ==

== ENCOUNTER 2022-05-20 20:22 | Emergency (ER) | payer OTHER, SELFPAY ==
[2022-05-20 20:30] VITALS: BP 133/75; PULSE 97; RESP 17; TEMP 36.6; O2SAT 98; BMI 30.9
[2022-05-20 20:45] LABS: MANUAL DIFF FLAG NO
[2022-05-20 20:46] LABS: Basophils Percent Auto 0.4 % (0-2); Eosinophils Absolute Auto 0.2 X10*3/uL (0.0-0.4); Eosinophils Percent Auto 2.5 % (0-4); Hematocrit 36.1 % (37.0-47.0); Hemoglobin 11.9 g/dl (12.0-16.0); Imm Gran Abs Auto 0.01 X10*3/uL (0.00-0.03); Imm Gran Pct Auto 0.1 % (0.0-0.4); Lymphocytes Percent Auto 28.9 % (20-40); Mean Corpuscular Hemoglobin 29.8 pg (27.0-33.0); Mean Corpuscular Volume 90.5 fL (80.0-98.0); Monocytes Absolute Auto 0.7 X10*3/uL (0.1-1.2); Monocytes Percent Auto 10.7 % (2-11); Neutrophils Absolute Auto 3.9 x10*3/uL (2.0-8.3); Neutrophils Percent Auto 57.4 % (45-73); Platelet Count 256 X10*3/uL (160-400); Red Blood Count 3.99 X10*6/uL (4.20-5.50); Red Cell Distribution Width 12.1 % (11.0-16.0); White Blood Count 6.8 X10*3/uL (4.8-10.8)
[2022-05-20 21:13] LABS: Alanine Aminotransferase 25 U/L (0-31); Albumin Level 4.1 g/dL (3.5-5.0); Alkaline Phosphatase 99 U/L (39-117); Anion Gap 15 (12-20); Aspartate Amino Transferase 17 U/L (5-31); Bilirubin Total 0.4 mg/dL (0.0-1.0); Blood Urea Nitrogen 11 mg/dL (9-16); Calcium 9.4 mg/dL (8.4-10.2); Carbon Dioxide 26 mmol/L (22-29); Chloride 102 mmol/L (96-108); Creatinine Clr Calc Pharmacy 70.6; Estimated Glomerular Filt Rate > 60; Glucose Fasting 370 mg/dL (60-99); Potassium 4.3 mmol/L (3.3-5.1); Sodium 139 mmol/L (135-145); Total Protein 6.8 g/dL (6.5-8.0)
[2022-05-20 21:29] LABS: Influenza A PCR NEGATIVE (Negative); Influenza B PCR NEGATIVE (Negative); Resp Syncy Virus RNA Qual PCR POSITIVE (Negative); SARS COV2 PCR INHOUSE NEGATIVE (Negative)
--- NOTE | 2022-05-20 21:49 | ED.URI ---
HPI - URI/Sore Throat General Chief Complaint: Upper Respiratory Symptoms Stated Complaint: sob,congestion ,fever hx of asthma Time Seen by Provider: 05/20/22 21:43 Source: patient Mode of arrival: ambulatory Limitations: language barrier History of Present Illness HPI Narrative: 56-year-old female presents for evaluation for 2 days of upper respiratory symptoms. She states that she has had elevated temperatures as high as 103, has had a cough, wheeze, and headache. She has been using albuterol regularly with poor effect. She states that her lungs burn when she breathes and that she is unable to sleep because of coughing. MD elicited complaint: fever, cough, nasal congestion and other (Wheezing) Pertinent past history: asthma Onset (ago): day(s) (2) Consistency: constant and progressively worsening Severity: moderate Pain scale (0-10): 4 Description of mucous: clear Able to tolerate fluids by mouth: Yes Exacerbating factors: exertion and deep breaths Relieving factors: nothing Context: sick contacts Associated symptoms: fever, voice changes, headache, nasal congestion, cough, chest pain and shortness of breath Treatments prior to arrival: acetaminophen and ibuprofen Related Data Home Medications Medication Instructions Recorded Confirmed pen needle, diabetic 32 gauge x #50 ea 10/15/20 03/20/22 Previous Rx's Medication Instructions Recorded albuterol sulfate 2.5 mg/3 mL 2.5 mg (3 mL) inhalation Q4-6H PRN 06/04/20 (0.083 %) solution for nebulization shortness of breath or wheezing #180 mL blood sugar diagnostic (FreeStyle #25 ea 08/10/20 Precision Paul Strips) colloidal oatmeal (Aveeno Soothing 1 packet topical DAILY 8 days #8 ea 09/02/20 Bath packet) albuterol sulfate 90 mcg/actuation 2 puff inhalation Q6H PRN 07/13/21 aerosol inhaler (ProAir HFA) shortness of breath or wheezing 30 days #6.7 grams aspirin 81 mg tablet,delayed 81 mg PO DAILY 90 days #90 tabs 07/13/21 release (Enteric Coated Aspirin) cetirizine 10 mg tablet (Zyrtec) 10 mg PO DAILY 90 days #90 tabs 07/13/21 fluticasone fur. 200 mcg-umeclid 1 inh inhalation DAILY 30 days #60 10/19/21 62.5 mcg-vilant 25 mcg ea inhalat.powder (Trelegy Ellipta) budesonide-formoterol HFA 160 2 puff inhalation BID 30 days 10/25/21 mcg-4.5 mcg/actuation aerosol #10.2 grams inhaler (Symbicort) furosemide 20 mg tablet 20 mg PO DAILY #90 tabs 10/25/21 tiotropium bromide 2.5 2 puff inhalation DAILY 30 days #1 10/25/21 mcg/actuation mist for inhalation ea (Spiriva Respimat) cholecalciferol (vitamin D3) 50 2,000 unit PO DAILY 90 days #90 10/26/21 mcg (2,000 unit) capsule caps famotidine 40 mg tablet (Pepcid) 40 mg PO BEDTIME #30 tabs 10/27/21 linaclotide 290 mcg capsule 290 mcg PO QAM 30 days #30 caps 10/27/21 (Linzess) pantoprazole 40 mg tablet,delayed 40 mg PO DAILY 90 days #90 tabs 10/27/21 release fluconazole 150 mg tablet 150 mg PO Q3D 2 doses #2 tabs 11/22/21 (Diflucan) metformin 1,000 mg tablet 1,000 mg PO BID #60 tabs 01/10/22 compress.stocking,knee,reg,med #2 ea 02/17/22 docusate sodium 100 mg capsule 100 mg PO .DAILY WITH FOOD 30 days 03/07/22 (Colace) #30 caps metoclopramide HCl 10 mg tablet 10 mg PO .TIDac #90 tabs 03/07/22 (Reglan) cyclobenzaprine 10 mg tablet 10 mg PO BEDTIME PRN muscle spasm 03/20/22 90 days #90 tabs insulin degludec 100 unit/mL (3 18 unit (0.18 mL) subcut BID 90 03/20/22 mL) subcutaneous pen days #32.4 mL atorvastatin 80 mg tablet 80 mg PO BEDTIME 90 days #90 tabs 04/14/22 benzonatate 200 mg capsule 200 mg PO TID PRN cough #20 caps 05/20/22 Allergies Allergy/AdvReac Type Severity Reaction Status Date / Time d[facility]aglutide [[facility] AdvReac Intermediate Palpitation Verified 04/04/22 11:23 s Review of Systems Review of Systems: Constitutional: Positive Fever, No Chills ENT/Mouth: No sore throat, No Rhinorrhea, No Swallowing Difficulty Eyes: No Eye Pain, No Swelling, No Redness Cardiovascular: No Chest Pain, positive SOB, No Orthopnea, no Edema Respiratory: Positive Cough, No Sputum, positive Wheezing, positive dyspnea Gastrointestinal: No Nausea, No Vomiting, No Diarrhea, No abdominal Pain, No Hematochezia, No Melena Genitourinary: No Dysuria, No Urinary Frequency, No Hematuria Musculoskeletal: No joint pain, No Myalgias Skin: No Skin Lesions, No rash Neuro: No Weakness, No Numbness, No Dizziness, No Headache Psych: No Anxiety/Panic, No Depression Heme/Lymph: No Bruising, No Lymphadenopathy Endocrine: No Polyuria, No Polydipsia Yes all other systems are reviewed and are negative [facility] Past Medical History Attestation statement: The following information was validated with the patient. Source: old records reviewed Medical History Asthma Asthma-COPD overlap syndrome Chronic fatigue Chronic idiopathic constipation Class 1 obesity with serious comorbidity and body mass index (BMI) of 33.0 to 33.9 in adult COVID-19 vaccine series completed Diabetes type 2, uncontrolled (~2015) Dyslipidemia Foot abscess GERD (gastroesophageal reflux disease) History of sleep study Hyperlipidemia LDL goal <100 penitentiary (current) use of insulin Microalbuminuria Obesity (BMI 30-39.9) Personal history of nicotine dependence Pulmonary nodule Right shoulder pain Severe asthma Vitamin D deficiency Surgical History History of section History of colonoscopy History of dilation and curettage (~2004) History of hysterectomy (~2010) Family History Family History Father Heart disease Diabetes Hypertension Mother Heart disease Hypertension Diabetes Uterine cancer Sister Uterine cancer Daughter In good health Daughter In good health Son No problems noted. Brother In good health Brother In good health Social History Social History Housing: Apartment Alcohol intake: never Patient Tobacco Use Status: Former Tobacco user Quit Date: 2012 Tobacco use type: Cigarette e-Cigarette/Vaping Use: Never Used Second Hand Smoke Exposure: No Substance Use Type: Former Substance User and Marijuana Advance Directives: No service: No Current occupational status: employed Current occupational exposures/hazards: No Cognitive needs: No Hearing needs: No Vision needs: No Physical Exam Vital Signs: Vital Signs: Last Vital Signs Temp 97.9 F 05/20/22 20:30 Pulse 123 H 05/20/22 22:06 Resp 18 05/20/22 22:06 BP 133/75 05/20/22 20:30 Pulse Ox 98 05/20/22 20:30 O2 Del Method 05/20/22 20:30 BMI result Body Mass Index 30.9 Appearance: Alert. Oriented X3. Mild distress. Appears fatigued. Eyes: Pupils equal, round and reactive to light. Sclera nonicteric. ENT: Pharynx normal. Moist mucous membranes Neck: Normal inspection. Neck supple. No vertebral tenderness or step-offs. No nuchal rigidity. No mass or tenderness. CVS: Normal heart rate and rhythm. Pulses normal. Respiratory: No respiratory distress. Expiratory wheezing throughout. Abdomen: Soft and nontender. Skin: Skin warm and dry. Normal skin color. Normal skin turgor. Extremities: No lower extremity edema. Gait well-balanced well coordinated. Neuro: No motor deficit. No sensory deficit. Cranial nerves 2-12 intact. Course Course Course Narrative: 56-year-old female presents for evaluation of upper respiratory symptoms. Patient has had fevers as high as 103, cough, wheezing, and fatigue. She has been using her albuterol on a regular basis with minimal effect. She has had multiple sick contacts. 21:49 labs drawn while patient was in the emergency department waiting room, patient positive for RSV, blood sugar 400. Patient usually takes lispro sliding scale, and would give herself 40 units for blood sugar of 400. Will give her 25 units, significant wheezing throughout all lobes. Will order dexamethasone, albuterol hour long. 23:29 lung sounds have improved. Plan of care is to discharge home. criminal investigator customs utilized for correspondence. Google translate utilized for discharge instructions. Patient verbalized understanding of and and agrees to plan of care discharge home. MDM - URI/Sore Throat Differential Diagnosis Differential diagnosis: Likely upper respiratory infection, croup, otitis media, viral infection, bronchitis, influenza and pharyngitis Medical Records Attestation: I reviewed the patient's medical records. Lab Data Attestation: I reviewed the patient's lab results. Result diagrams: 05/20/22 20:40 05/20/22 20:40 Labs: Lab Results 05/20/22 05/20/22 05/20/22 Range/Units 20:38 20:40 20:40 WBC 6.8 (4.8-10.8) X10*3/uL RBC 3.99 L (4.20-5.50) X10*6/uL Hgb 11.9 L (12.0-16.0) g/dl Hct 36.1 L (37.0-47.0) % MCV 90.5 (80.0-98.0) fL MCH 29.8 (27.0-33.0) pg MCHC 33.0 (31.0-35.0) g/dl RDW 12.1 (11.0-16.0) % Plt Count 256 (160-400) X10*3/uL MPV 10.0 (9.4-12.3) fL Immature Gran % (Auto) 0.1 (0.0-0.4) % Neut % (Auto) 57.4 (45-73) % Lymph % (Auto) 28.9 (20-40) % Rolette % (Auto) 10.7 (2-11) % Eos % (Auto) 2.5 (0-4) % Baso % (Auto) 0.4 (0-2) % Lymph # (Auto) 2.0 (1.2-4.9) X10*3/uL [place] # (Auto) 0.7 (0.1-1.2) X10*3/uL Eos # (Auto) 0.2 (0.0-0.4) X10*3/uL Baso # (Auto) 0.0 (0.0-0.2) X10*3/uL Abs Immat Gran (auto) 0.01 (0.00-0.03) X10*3/uL Absolute Neuts (auto) 3.9 (2.0-8.3) x10*3/uL Absolute Nucleated RBC 0.000 (0.0-0.012) X10*3/uL Nucleated RBC % (auto) 0.0 (0.0-0.2) /100WBC Sodium 139 (135-145) mmol/L Potassium 4.3 (3.3-5.1) mmol/L Chloride 102 (96-108) mmol/L Carbon Dioxide 26 (22-29) mmol/L Anion Gap 15 (12-20) BUN 11 (9-16) mg/dL Creatinine 0.93 (0.5-1.4) mg/dL Estim Creat Clear Calc 70.6 Estimated GFR > 60 Random Glucose Not Reportable Fasting Glucose 370 H* (60-99) mg/dL Calcium 9.4 D (8.4-10.2) mg/dL Total Bilirubin 0.4 (0.0-1.0) mg/dL AST 17 (5-31) U/L ALT 25 (0-31) U/L Alkaline Phosphatase 99 (39-117) U/L Total Protein 6.8 (6.5-8.0) g/dL Albumin 4.1 (3.5-5.0) g/dL Influenza Type A (PCR) NEGATIVE (Negative) Influenza Type B (PCR) NEGATIVE (Negative) RSV RNA Qual (PCR) POSITIVE A (Negative) SARS-CoV-2 RNA (RT-PCR) NEGATIVE (Negative) Discharge Plan Discharge Clinical Impression: Respiratory syncytial virus (RSV), Hyperglycemia Patient Disposition: Home, Self-Care Instructions: Respiratory Syncytial Virus (ED), Diabetic Hyperglycemia (ED) Additional Instructions: Le evaluaron por infecci?n de las v?as respiratorias superiores. Usted angel positivo por RSV. Le dimos esteroides mientras estaba en el departamento de emergencias. Puede esperar que vazquez nivel de az?car en la pari sea elevado. Preste derek atenci?n a radha niveles de az?car en la pari y ajuste las dosis de insulina seg?n sea necesario. Use inhaladores de albuterol seg?n sea necesario, use nebulizadores seg?n las indicaciones. No necesita antibi?ticos para esta infecci?n. Esta es ayaka infecci?n viral. [place] Tessalon Perles seg?n sea necesario para la tos. Le tratamos con 25 unidades de lispro por un nivel elevado de az?car en pari de 400. Mylene por elegir iliana departamento de emergencias para vazquez evaluaci?n. Por favor, go un seguimiento con el m?dico de atenci?n primaria seg?n sea necesario. Regrese al departamento de emergencias por cualquier s?ntoma nuevo, preocupante o que empeore. You were evaluated for upper respiratory infection. You tested positive for RSV. We gave you steroids while you were in the emergency department. You can expect her blood sugar to be elevated. Please pay close attention to your blood sugars, and adjust insulin dosages as needed. Use albuterol inhalers as needed, use nebulizers as directed. You do not need antibiotics for this infection. This is a viral infection. Please take Tessalon Perles as needed for cough. We treated you with 25 units of lispro for an elevated blood sugar of 400. Thank you for choosing this emergency department for evaluation. Please follow-up with primary care physician as needed. Return to the emergency department for any new, concerning, or worsening symptoms. Prescriptions: New benzonatate 200 mg capsule 200 mg PO TID PRN (Reason: cough) Qty: 20 0RF No Action albuterol sulfate 2.5 mg /3 mL (0.083 %) solution for nebulization 2.5 mg inhalation Q4-6H PRN (Reason: shortness of breath or wheezing) Qty: 180 3RF (DME) FreeStyle Precision Paul Strips Strip See Rx Instructions .MEDSUPPLY Qty: 25 6RF Rx Instructions: once a day for calibration Spiriva Respimat 2.5 mcg/actuation mist 2 puff inhalation DAILY 30 Days Qty: 1 11RF budesonide-formoterol [Symbicort] 160-4.5 mcg/actuation HFA aerosol inhaler 2 puff inhalation BID 30 Days Qty: 10.2 11RF cholecalciferol (vitamin D3) 50 mcg (2,000 unit) capsule 2,000 unit PO DAILY 90 Days Qty: 90 1RF metformin 1,000 mg tablet 1,000 mg PO BID Qty: 60 6RF atorvastatin 80 mg tablet 80 mg PO BEDTIME 90 Days Qty: 90 1RF Aveeno Soothing Bath Packet 1 packet topical DAILY 8 Days Qty: 8 0RF albuterol sulfate [ProAir HFA] 90 mcg/actuation HFA aerosol inhaler 2 puff inhalation Q6H PRN (Reason: shortness of breath or wheezing) 30 Days Qty: 6.7 2RF aspirin [Enteric Coated Aspirin] 81 mg tablet,delayed release (DR/EC) 81 mg PO DAILY 90 Days Qty: 90 3RF cetirizine [Zyrtec] 10 mg tablet 10 mg PO DAILY 90 Days Qty: 90 2RF fluconazole [Diflucan] 150 mg tablet 150 mg PO Q3D Qty: 2 0RF furosemide 20 mg tablet 20 mg PO DAILY Qty: 90 1RF insulin degludec 100 unit/mL (3 mL) insulin pen 18 unit subcut BID 90 Days Qty: 32.4 3RF cyclobenzaprine 10 mg tablet 10 mg PO BEDTIME PRN (Reason: muscle spasm) 90 Days Qty: 90 1RF (DME) pen needle, diabetic 32 gauge x 5/32 needle See Rx Instructions .ROUTE QID Qty: 50 Rx Instructions: As directed Trelegy Ellipta 200-62.5-25 mcg blister with device 1 inh inhalation DAILY 30 Days Qty: 60 12RF metoclopramide HCl [Reglan] 10 mg tablet 10 mg PO .TIDac Qty: 90 6RF docusate sodium [Colace] 100 mg capsule 100 mg PO .DAILY WITH FOOD 30 Days Qty: 30 3RF (DME) compress.stocking,knee,reg,med Misc See Rx Instructions .Route Qty: 2 0RF Rx Instructions: 15-20 cm Linzess 290 mcg capsule 290 mcg PO QAM 30 Days Qty: 30 6RF famotidine [Pepcid] 40 mg tablet 40 mg PO BEDTIME Qty: 30 6RF pantoprazole 40 mg tablet,delayed release (DR/EC) 40 mg PO DAILY 90 Days Qty: 90 1RF Stand Alone Forms: Work/School Release
[2022-05-20] MEDS: Albuterol Sulfate 7.5 MG, Albuterol Sulfate (0.083%) 2.5 MG 10 MG INHALE (22:03)
[2022-05-20 22:06] VITALS: PULSE 123; RESP 18; O2SAT 98
[2022-05-20] MEDS: dexAMETHasone 2 MG TABLET 10 MG PO (22:08)
[2022-05-20] MEDS: Insulin Lispro 100 UNIT/ML 3 ML VIAL 25 UNIT SUBCUT (22:09)
[2022-05-20] MEDS: Benzonatate 100 MG CAPSULE 200 MG PO (23:44)
== END 2022-05-20 23:51 | disposition home or self-care (01) ==
PROVIDERS: Emergency Provider Emergency Medicine; PCP Internal Medicine
DX: J22 Unspecified acute lower respiratory infection (principal); R06.02 Shortness of breath; R51.9 Headache, unspecified; Z20.822 Contact with and (suspected) exposure to COVID-19; Z79.899 Other long term (current) drug therapy; Z87.891 Personal history of nicotine dependence
CPT/HCPCS: 0241U; 36415; 80053; 85025; 94640; 99283; 99284; J8540

== ENCOUNTER 2022-07-05 09:28 | Outpatient (REF) | payer OTHER, SELFPAY ==
[2022-07-05 11:14] LABS: Microalbum/Creatinine Ratio Ur 62.6 ug/mg cr
[2022-07-05 16:55] LABS: Alanine Aminotransferase 23 U/L (0-31); Albumin Level 4.2 g/dL (3.5-5.0); Alkaline Phosphatase 100 U/L (39-117); Anion Gap 17 (12-20); Aspartate Amino Transferase 14 U/L (5-31); Bilirubin Total 0.9 mg/dL (0.0-1.0); Blood Urea Nitrogen 8 mg/dL (9-16); Calcium 8.9 mg/dL (8.4-10.2); Carbon Dioxide 24 mmol/L (22-29); Chloride 98 mmol/L (96-108); Cholesterol 205 mg/dL; Estimated Glomerular Filt Rate > 60; Glucose Fasting 343 mg/dL (60-99); HDL Cholesterol 41 mg/dL; LDL Cholesterol Calculated 134 mg/dl; Potassium 4.1 mmol/L (3.3-5.1); Sodium 135 mmol/L (135-145); Total Protein 6.9 g/dL (6.5-8.0); Triglycerides 150 mg/dL; Vitamin D 25-OH Total 26.1 ng/mL (>30)
== END 2022-07-05 09:29 | disposition home or self-care (01) ==
LOC: HO.LAB 09:28
PROVIDERS: PCP Internal Medicine; Visit Provider Internal Medicine
DX: E55.9 Vitamin D deficiency, unspecified (principal); E78.5 Hyperlipidemia, unspecified; E11.65 Type 2 diabetes mellitus with hyperglycemia
CPT/HCPCS: 36415; 80053; 80061; 82043; 82306

== ENCOUNTER 2022-09-02 10:03 | Outpatient (REF) | payer OTHER, SELFPAY ==
--- NOTE | ~2022-09-02 | MM_ITS ---
EXAMINATION: MM SCREENING DIGITAL BREAST TOMOSYNTHESIS, BILATERAL CLINICAL INFORMATION: Screening. Asymptomatic. The lifetime risk of breast cancer based on the Tyrer-Cuzick Model is 10%. COMPARISON: Mammography: 04/20/2021, 11/02/2018, 10/13/2017 TECHNIQUE: Digital breast tomosynthesis is performed in both the craniocaudal and mediolateral oblique views along with computer-aided detection (CAD). Synthesized 2D images are generated from the tomosynthesis. Additional bilateral MLO views are provided. FINDINGS: The breasts are almost entirely fatty (ACR BI-RADS breast composition Category a). There are no significant masses, abnormal calcifications, or other abnormalities. Background stromal markings are normal. Incidental small intramammary node again seen mid upper outer right breast. No developing density or architectural abnormality. The axilla and skin contours are unremarkable. MM/MM tomosynthesis screening BI IMPRESSION: No mammographic evidence of malignancy. ASSESSMENT: BI-RADS 2: Benign RECOMMENDATION: Routine annual mammography screening. This patient's information was entered into a reminder system with a target due date for their next mammogram.
== END 2022-09-02 10:04 | disposition home or self-care (01) ==
LOC: HO.MAMMO 10:03
PROVIDERS: PCP Internal Medicine; Visit Provider Internal Medicine
DX: Z12.31 Encounter for screening mammogram for malignant neoplasm of breast (principal)
CPT/HCPCS: 77063; 77067

== ENCOUNTER 2022-11-08 08:13 | Outpatient (REF) | payer OTHER, SELFPAY ==
[2022-11-08 09:22] LABS: Microalbum/Creatinine Ratio Ur 7.6 ug/mg cr
[2022-11-08 09:36] LABS: Alanine Aminotransferase 19 U/L (0-31); Albumin Level 3.9 g/dL (3.5-5.0); Alkaline Phosphatase 86 U/L (39-117); Anion Gap 12 (12-20); Aspartate Amino Transferase 12 U/L (5-31); Bilirubin Total 0.7 mg/dL (0.0-1.0); Blood Urea Nitrogen 13 mg/dL (9-16); Calcium 9.3 mg/dL (8.4-10.2); Carbon Dioxide 28 mmol/L (22-29); Chloride 105 mmol/L (96-108); Cholesterol 152 mg/dL; Estimated Glomerular Filt Rate > 60; Glucose Fasting 170 mg/dL (60-99); HDL Cholesterol 35 mg/dL; LDL Cholesterol Calculated 91 mg/dl; Potassium 4.2 mmol/L (3.3-5.1); Sodium 141 mmol/L (135-145); Total Protein 6.4 g/dL (6.5-8.0); Triglycerides 131 mg/dL
[2022-11-08 09:42] LABS: Vitamin D 25-OH Total 27.3 ng/mL (>30)
== END 2022-11-08 08:14 | disposition home or self-care (01) ==
LOC: HO.LAB 08:13
PROVIDERS: PCP Internal Medicine; Visit Provider Internal Medicine
DX: E55.9 Vitamin D deficiency, unspecified (principal); E78.5 Hyperlipidemia, unspecified; E11.65 Type 2 diabetes mellitus with hyperglycemia
CPT/HCPCS: 36415; 80053; 80061; 82043; 82306

== ENCOUNTER 2023-02-05 09:12 | Outpatient (AMB) | payer OTHER, SELFPAY ==
[2023-02-05 09:18] VITALS: BP 120/70; PULSE 73; O2SAT 97; BMI 31.6
--- NOTE | 2023-02-05 09:18 | A.OFFVIS_ITS ---
Intake Vital Signs 02/05/23 09:18 Height 5 ft 4 in Weight 184 lb BMI 31.6 BP 120/70 Blood Pressure Location Lt brachial Position Standing Pulse 73 Pulse Source Pulse Oximeter Pulse Oximetry (%) 97 Oxygen Delivery Method Room Air Intake Visit Reasons: Obstructive sleep apnea Intake Note: pt is here for follow up and states she is is feeling good, she does cough, wheeze, and short of breath at night, she does feel tight today and for the couple days. 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 She gets very winded very quickly With any activities of daily living. The patient does have a rescue inhaler and she also has Flovent. She was prescribed another inhaler but she is not aware of the name. She was sent for pulmonary function studies which we personally reviewed. It appears that she has severe obstruction concerning for asthma COPD overlap syndrome. The patient did have a significant response to bronchodilators noted. In addition to that she also had a restrictive process and a moderate diffusion impairment. We were able to look back at previous imaging studies. She did have a chest x-ray back in 2020 which demonstrated no acute disease. In addition to that we looked at a CT scan from 2019 that she had in the ER where demonstrated she had a 5-6 mm pulmonary nodule in the left hemithorax. But, no evidence of any interstitial lung disease or emphysema. The patient did have evidence of some chronic bronchitis. At this point will maximize her respiratory therapy. The patient also will need further imaging studies in regards of the nodule follow-up. I am hoping we can maximize her respiratory therapy at this time with the use of Trelegy. On further questioning 6, the patient does have significant daytime drowsiness. She does have headaches in the morning. Her Buffalo score is elevated 12/24. The patient also has lower extremity edema and significant cardiac or vascular risk factors. the patient does need a sleep study at this time. 02/17/2022 the patient is here for a pulmonary follow-up visit. Overall she is responding well to the Trelegy inhaler. She has not had to use her rescue inhaler more than twice a week. Overall she is feeling a lot better from that standpoint. She did have blood work which is reassuring. The patient also had a home sleep study because of symptoms of daytime drowsiness and her AHI was within normal limits. Therefore the patient is reassured that she does not have sleep apnea. Indeed she has some snoring but that is not pathologic the patient otherwise is feeling better. She did have a CT scan that we did review back in October 2021 demonstrating some evidence of minimal tree-in-bud. This is minimal along with very small subcentimeter pulmonary nodules. appears to be suspicious for inflammatory process. Otherwise patient is without any other complaints. 02/05/2023 the patient is here for pulmonary follow-up visit. The patient overall has been feeling fair. She her asthma has been acting up. She had to go on some prednisone recently. She tells that chest tightness. She also has some pleuritic chest discomfort. Denies any cough or fevers or chills. The patient has not been using the Trelegy inhaler. She did not tolerate the powder. She also did not tolerate the Spiriva. She is only taking the Symbicort. She also has a nebulizer that she uses as needed. The patient does have diabetes and has a very careful with any prednisone. I will send additional prednisone because of her chest tightness. However, she response to her other medicines she can hold off on it. I will put in for chest x-ray. She develops any further chest discomfort or pleurisy she is to come in for chest x- ray. FORMERLY [facility], [facility]–1983 Medical History Asthma Asthma-COPD overlap syndrome Chronic fatigue Chronic idiopathic constipation Class 1 obesity with serious comorbidity and body mass index (BMI) of 33.0 to 33.9 in adult COVID-19 vaccine series completed Diabetes type 2, uncontrolled (~2016) Dyslipidemia Foot abscess GERD (gastroesophageal reflux disease) History of sleep study Hyperlipidemia LDL goal <100 terminal carman (current) use of insulin Microalbuminuria Obesity (BMI 30-39.9) Personal history of nicotine dependence Pulmonary nodule Right shoulder pain Severe asthma Vitamin D deficiency Surgical History History of section History of colonoscopy History of dilation and curettage (~2004) History of hysterectomy (~2010) Family History Father Heart disease Diabetes Hypertension Mother Heart disease Hypertension Diabetes Uterine cancer Sister Uterine cancer Daughter In good health Daughter In good health Son No problems noted. Brother In good health Brother In good health Social History Housing: Apartment Alcohol intake: never Patient Tobacco Use Status: Former Tobacco user Quit Date: 2012 Tobacco use type: Cigarette e-Cigarette/Vaping Use: Never Used Second Hand Smoke Exposure: No Substance Use Type: Former Substance User and Marijuana service: No Current occupational status: employed Current occupational exposures/hazards: No Cognitive needs: No Hearing needs: No Vision needs: No Review of Systems Const Reports daytime sleepiness, Reports headache(s) and Reports weight gain Eyes Denies change in vision ENT Reports Normal hearing present, Denies change in voice and Reports headache(s) Card Denies chest pain and Reports dyspnea on exertion Resp Reports cough and Reports dyspnea on exertion GI Reports no additional complaints Musc Reports no additional complaints Skin/Breast Denies rash Neuro Reports Normal hearing present, Denies Abnormal speech present and Reports headache(s) Physical Exam Vital Signs: Last Vital Signs Pulse 73 02/05/23 09:18 BP 120/70 02/05/23 09:18 Pulse Ox 97 02/05/23 09:18 Oxygen Delivery Method Room Air 02/05/23 09:18 BMI result Body Mass Index 31.6 Const General: cooperative, no acute distress, well developed and well groomed Nutritional Appearance: well nourished and obese Orientation/consciousness: oriented to person, oriented to place and oriented to time Limitations: No language barrier HEENT Head: Yes normocephalic and Yes atraumatic Eyes General: appearance normal, both eyes and all related structures Pupils: Equal, round and reactive pupils present Neck Neck: Yes normal visual inspection and Yes no lymphadenopathy Thyroid: Thyroid normal Resp Effort & Inspection: normal respiratory effort Auscultation: clear to auscultation bilaterally Cardio Rate: regular rate Rhythm: regular rhythm Heart sounds: Normal, physiologic split S2 sound present Peripheral pulses: radial pulses present and posterior tibial pulses present GI Inspection: No distended, No Abdominal panniculus present and Yes obesity Palpation (GI): Soft to palpation, nontender, no guarding, not rigid and No hepatosplenomegaly present Percussion: Yes normal to percussion Auscultation: normal bowel sounds Rectal Exam - Female: deferred Skin General skin exam: no rashes or lesions noted, turgor normal, skin not dry, no jaundice, No spider nevi and no striae Rashes: no rashes Nails: normal Neuro General: oriented to person, oriented to place and oriented to time Cranial nerves: Yes Equal, round and reactive pupils present and Yes Normal hearing present Speech: No Abnormal speech present Extrem General: Yes normal to inspection, No clubbing, No cyanosis and Yes edema Psych Appearance: grossly normal and well kempt Mental Status: mental status grossly normal Speech and movement: Normal speech and movement present Affect: normal affect Attitude: cooperative Thought process: Normal thought process present and not confabulating Thought content: Normal thought content present Insight: Limited insight present (Psych) Judgement: Limited judgement present (Psych) Assessment & Plan Assessment & Plan (1) ORLIN (obstructive sleep apnea): Code(s): G47.33 - Obstructive sleep apnea (adult) (pediatric) (2) Pulmonary nodule: Code(s): R91.1 - Solitary pulmonary nodule (3) Asthma-COPD overlap syndrome: Code(s): J44.9 - Chronic obstructive pulmonary disease, unspecified Plan continue Symbicort stopped spiriva ELISABETH as needed prednisone taper benzonates as needed CXR compression stockings during the daytime F/U 6-8 months or sooner if she develops any worsening symptoms Orders: Orders XR chest 2V Today J45.909 - Unspecified asthma, uncomplicated Medications: New benzonatate 200 mg PO BID 30 days PRN 60 caps 3RF cough prednisone PO daily; Take 6 tabs daily x 2 days, then 5 tabs x 2 days, then 4 tabs x 2 days, then 3 tabs x 2 days, then 2 tabs daily x 2 days, then 1 tab x 2 days to complete. 12 days 30 tabs 0RF montelukast 10 mg PO DAILY 30 days 30 tabs 11RF J45.909 - Unspecified asthma, uncomplicated Changed From albuterol sulfate 2.5 mg (3 mL) inhalation Q4-6H PRN 180 mL 3RF shortness of breath or wheezing To albuterol sulfate 2.5 mg (3 mL) inhalation Q6H 30 days PRN 180 mL 9RF shortness of breath or wheezing Discontinued tiotropium bromide 2.5 mcg/actuation (Spiriva Respimat) Discontinued Reason: Doctor's Order 2 puffs inhalation DAILY 30 days 1 ea 11RF Coding Level of Care Code Est Pt Level 4 (86978) Diagnoses ORLIN (obstructive sleep apnea) G47.33 Pulmonary nodule R91.1 Asthma-COPD overlap syndrome J44.9 Time Spent (min) 18
== END 2023-02-05 09:34 | disposition home or self-care (01) ==
PROVIDERS: PCP Internal Medicine; Visit Provider Hospitalist
DX: G47.33 Obstructive sleep apnea (adult) (pediatric) (principal); R91.1 Solitary pulmonary nodule; J44.9 Chronic obstructive pulmonary disease, unspecified
CPT/HCPCS: 99214

== ENCOUNTER → 2023-02-05 09:12 | Outpatient (BNVA) | payer OTHER, SELFPAY | PROVIDERS: PCP Internal Medicine; Visit Provider Hospitalist | DX: G47.33 Obstructive sleep apnea (adult) (pediatric) (principal); J44.9 Chronic obstructive pulmonary disease, unspecified; R91.1 Solitary pulmonary nodule; Z79.899 Other long term (current) drug therapy | CPT/HCPCS: 99212 ==

== ENCOUNTER 2023-02-06 16:29 | Outpatient (AMB) | payer OTHER, SELFPAY ==
--- NOTE | 2023-02-06 16:34 | A.OFFPC_ITS ---
Vital Signs 02/06/23 16:35 Height 5 ft 4 in Weight 184 lb BMI 31.6 BP 130/70 Blood Pressure Location Lt brachial Position Sitting Intake Visit Reasons: DM Intake Note: Patient here for a follow up DM, ? dom medication Soil Scientist Required: No Accompanied by: Self / Same As Patient Allergies [facility] Adverse Reaction (Intermediate, Verified 02/06/23 16:53) Palpitations Medication List - Last Reconciled 02/06/23 by Katy Roberson MD albuterol sulfate 90 mcg/actuation 2 puffs inhalation Q6H PRN 30 days NS albuterol sulfate 2.5 mg (3 mL) inhalation Q6H PRN 30 days aspirin (Enteric Coated Aspirin) 81 mg PO DAILY 90 days atorvastatin 80 mg PO BEDTIME 90 days benzonatate 200 mg PO BID PRN 30 days blood sugar diagnostic (FreeStyle Precision Paul Strips) once a day for calibrat ion budesonide-formoterol 160-4.5 mcg/actuation (Symbicort) 2 puffs inhalation BID 30 days cetirizine (Zyrtec) 10 mg PO DAILY 90 days cholecalciferol (vitamin D3) 2,000 units PO DAILY 90 days colloidal oatmeal (Aveeno Soothing Bath packet) 1 packet topical DAILY 8 days compress.stocking,knee,reg,med 15-20 cm cyclobenzaprine 10 mg PO BEDTIME PRN 90 days docusate sodium (Colace) 100 mg PO .DAILY WITH FOOD 30 days famotidine (Pepcid) 40 mg PO BEDTIME furosemide 20 mg PO DAILY linaclotide (Linzess) 290 mcg PO QAM 30 days metformin 1,000 mg PO BID 90 days metoclopramide HCl (Reglan) 10 mg PO .TIDac montelukast 10 mg PO DAILY 30 days pantoprazole 40 mg PO DAILY 90 days pen needle, diabetic As directed prednisone PO daily; Take 6 tabs daily x 2 days, then 5 tabs x 2 days, then 4 tabs x 2 days, then 3 tabs x 2 days, then 2 tabs daily x 2 days, then 1 tab x 2 days to complete. 12 days semaglutide (Ozempic) 0.25 mg (0.2 mL) subcut QWEEK 30 days Tobacco use date assessed: 02/06/23 Dental Screening Dental Screen Date: 02/06/23 Did you have a dental visit in the last 12 months?: No Did you have a dental problem in the last 6 months where you did not have access to dental care?: No Was dental information given to patient?: Patient has dentist HPI HPI Comments History of Present Illness Details This is a 57-year-old female with diabetes mellitus type 2, hyperlipidemia, asthma-COPD overlap syndrome, chronic idiopathic constipation, GERD and low vitamin-D that comes today for follow-up on her conditions. A1c very close to goal and I will increase Ozempic for this matter. LDL also close to goal and dietary changes were advised. Asthma-COPD overlap syndrome stable with longstanding inhaler and this is follow by pulmonology. Constipation well controlled with Linzess. GERD stable with famotidine. Vitamin-D has markedly improved with vitamin-D supplements. [facility] Medical History (Updated 02/06/23 @ 18:38 by Katy Roberson MD) Asthma Asthma-COPD overlap syndrome Chronic fatigue Chronic idiopathic constipation Class 1 obesity with serious comorbidity and body mass index (BMI) of 33.0 to 33.9 in adult COVID-19 vaccine series completed Diabetes type 2, uncontrolled (~2015) Dyslipidemia Foot abscess GERD (gastroesophageal reflux disease) History of sleep study Hyperlipidemia LDL goal <100 halfway (current) use of insulin Microalbuminuria Obesity (BMI 30-39.9) Personal history of nicotine dependence Pulmonary nodule Right shoulder pain Severe asthma Vitamin D deficiency Surgical History History of section History of colonoscopy History of dilation and curettage (~2004) History of hysterectomy (~2010) Family History Father Heart disease Diabetes Hypertension Mother Heart disease Hypertension Diabetes Uterine cancer Sister Uterine cancer Daughter In good health Daughter In good health Son No problems noted. Brother In good health Brother In good health Social History Housing: Apartment Alcohol intake: never Patient Tobacco Use Status: Former Tobacco user Quit Date: 2012 Tobacco use type: Cigarette e-Cigarette/Vaping Use: Never Used Second Hand Smoke Exposure: No Substance Use Type: Former Substance User and Marijuana service: No Current occupational status: employed Current occupational exposures/hazards: No Cognitive needs: No Hearing needs: No Vision needs: No Questionnaire PHQ-9 Over the last 2 weeks, how often have you been bothered by any of the following problems? 1. Little interest or pleasure in doing things: not at all 2. Feeling down, depressed, or hopeless: not at all 3. Trouble falling or staying asleep, or sleeping too much: not at all 4. Feeling tired or having little energy: not at all 5. Poor appetite or overeating: not at all 6. Feeling bad about yourself - or that you are a failure or have let yourself or your family down: not at all 7. Trouble concentrating on things, such as reading the newspaper or watching television: not at all 8. Moving or speaking so slowly that other people could have noticed. Or the opposite - being so fidgety or restless that you have been moving around a lot more than usual: not at all 9. Thoughts that you would be better off or of hurting yourself in some way: not at all Total score: 0 Depression Screening Interpretation: Negative 03038 - PHQ-9 Billing: Yes Source: Developed by Drs. Aron Coleman, Caro Rodriguez, Landen Strauss and colleagues, with an educational judd from [employer]. Thrive Questionnaire Date Thrive assessed: 02/06/23 I am a: Patient What is your living situation today?: I have a steady place to live Within the past 12 months, did the food you bought not last and you didn't have the money to get more?: Never true Within the past 12 months, did you worry whether your food would run out before you got money to buy more?: Never true Do you have trouble paying for medicines?: No Do you have trouble getting transportation to medical appointments?: No Do you have trouble paying your heating and electricity bill?: No Do you have trouble taking care of your child, family member or friend?: No Do you have trouble with day-to-day activities such as bathing, preparing meals, shopping, managing finances, etc.?: No Are you currently unemployed and looking for a job?: No Are you interested in more education?: No Please select the resources that you would like help with: None Currently or been in a relationship where the following occur: no concerns reported AUDIT C Alcohol Use Questionnaire (AUDIT-C) 1. How often do you have a drink containing alcohol?: Never Total Score: 0 VEENA-7 AMB Questionnaire VEENA-7 Date VEENA - 7 assessed: 02/06/23 Feeling nervous, anxious, or on edge: 0 = Not at all Not being able to stop or control worryin = Not at all Worrying too much about different things: 0 = Not at all Trouble relaxin = Not at all Being so restless that it is hard to sit still: 0 = Not at all Becoming easily annoyed or irritable: 0 = Not at all Feeling afraid as if something awful might happen: 0 = Not at all Total VEENA-7 score (0-4 normal; 5-9 mild; 10-14 moderate; 15-21 severe): 0 Source: Developed by Drs. Aron Coleman, Caro Rodriguez, Landen Strauss and colleagues, with an educational judd from [employer]. VEENA-7 Assessment Billing VEENA-7 Assessment Tool: VEENA-7 Assessment 54497 Review of Systems Const All systems reviewed & are unremarkable except as noted in HPI and below Eyes Reports no additional complaints, Denies change in vision and Denies other visual disturbances Card Denies chest pain at rest, Denies chest pain with activity, Denies edema, Denies irregular heart rhythm, Denies claudication, Denies dyspnea, Denies dyspnea on exertion, Denies orthopnea, Denies paroxysmal nocturnal dyspnea and Denies slow heart rate Resp Denies cough, Denies dyspnea and Denies dyspnea on exertion GI Denies abdominal pain, Denies change in bowel habits, Denies excessive flatus, Denies nausea and Denies vomiting Denies urinary incontinence, Denies urinary hesitancy and Denies urinary urgency Musc Denies abnormal gait, Denies atrophy, Denies deformity and Denies limited range of motion Skin/Breast Denies bleeding lesions, Denies changing lesions and Denies rash Neuro Denies abnormal gait and Denies lack of coordination Physical exam (Primary Care) Vital Signs: Last Vital Signs BP 130/70 02/06/23 16:35 BMI result Body Mass Index 31.6 Tobacco/Smoking Status: Tobacco use Status Tobacco use date assessed 02/06/23 02/06/23 16:45 Patient Tobacco Use Status Former Tobacco user 02/06/23 16:45 Tobacco use type Cigarette 02/06/23 16:45 e-Cigarette/Vaping Use Never Used 02/06/23 16:45 PHQ-9: PHQ-9 Score PHQ-9: Total score 0 02/06/23 17:12 Depression Screening Interpretation: Negative Thrive Assessment: Date of Thrive Assessment Date Thrive assessed 02/06/23 02/06/23 16:45 Currently or been in a relationship where the following occur: no concerns reported Eyes General: appearance normal, both eyes and all related structures Eyelids: Yes eyelids normal Conjunctivae: conjunctivae normal Neck Neck: Yes normal visual inspection and Yes supple Resp Effort & Inspection: normal respiratory effort Auscultation: clear to auscultation bilaterally Cardio Jugular venous distension: no JVD Rate: regular rate Rhythm: regular rhythm Heart sounds: S1 normal heart sound present and S2 normal heart sound present Extrem General: Yes full ROM Results AMB Hemoglobin A1c AMB Hemoglobin A1c 7.1 % Last Edit by EMILY Maloney on 02/06/23 16:4 6 Results Reviewed Results Reviewed: Laboratory Last Values Hgb A1c (Clinic) 7.1 % (4.0-6.0) H 02/06/23 16:34 Assessment and Plan Assessment & Plan (1) Asthma-COPD overlap syndrome: Code(s): J44.9 - Chronic obstructive pulmonary disease, unspecified Plan: Continue Symbicort. Use rescue inhaler as needed. Follow-up with pulmonology. (2) Diabetes type 2, uncontrolled: Onset Date: ~2015 Comment: (IDDM2 - Dx 2015) Code(s): E11.65 - Type 2 diabetes mellitus with hyperglycemia Qualifiers: Glycemic state: with hyperglycemia Qualified Code(s): E11.65 - Type 2 diabetes mellitus with hyperglycemia Plan: Continue metformin. Increase Ozempic. A1c goal is equal or less than 7% (3) GERD (gastroesophageal reflux disease): Code(s): K21.9 - Gastro-esophageal reflux disease without esophagitis Plan: Continue famotidine. (4) Hyperlipidemia LDL goal <70: Code(s): E78.5 - Hyperlipidemia, unspecified Plan: Continue statins. Repeat lipid panel. LDL goal is less than 70. (5) Chronic idiopathic constipation: Code(s): K59.04 - Chronic idiopathic constipation Plan: Continue Linzess (6) Vitamin D deficiency: Code(s): E55.9 - Vitamin D deficiency, unspecified Plan: Continue vitamin-D supplements Orders: Orders Lipid Panel 5 Months E78.5 - Hyperlipidemia, unspecified Microalbumin, Random (w Creat) 5 Months E11.9 - Type 2 diabetes mellitus without complications Vitamin D 25-OH Total 5 Months E55.9 - Vitamin D deficiency, unspecified Complete Blood Count Auto Diff 5 Months D64.9 - Anemia, unspecified IRON PROFILE 5 Months D64.9 - Anemia, unspecified Vitamin B12 and Folate 5 Months E53.8 - Deficiency of other specified B group vitamins Comprehensive [place]. Panel Fast 5 Months E11.65 - Type 2 diabetes mellitus with hyperglycemia AMB Hemoglobin A1c Today E11.65 - Type 2 diabetes mellitus with hyperglycemia Referrals Podiatry Referral M79.673 - Pain in unspecified foot Gastroenterology Referral Z12.11 - Encounter for screening for malignant neoplasm of colon Medications: New semaglutide (Ozempic) 1 mg (0.75 mL) subcut QWEEK 30 days 3.75 mL 6RF E11.65 - Type 2 diabetes mellitus with hyperglycemia Refilled aspirin (Enteric Coated Aspirin) 81 mg PO DAILY 90 days 90 tabs 3RF E11.65 - Type 2 diabetes mellitus with hyperglycemia atorvastatin 80 mg PO BEDTIME 90 days 90 tabs 1RF E11.65 - Type 2 diabetes mellitus with hyperglycemia budesonide-formoterol 160-4.5 mcg/actuation (Symbicort) 2 puffs inhalation BID 30 days 10.2 grams 11RF J44.9 - Chronic obstructive pulmonary disease, unspecified cetirizine (Zyrtec) 10 mg PO DAILY 90 days 90 tabs 2RF E11.65 - Type 2 diabetes mellitus with hyperglycemia cholecalciferol (vitamin D3) 2,000 units PO DAILY 90 days 90 caps 1RF E11.65 - Type 2 diabetes mellitus with hyperglycemia cyclobenzaprine 10 mg PO BEDTIME 90 days PRN 90 tabs 1RF muscle spasm E11.65 - Type 2 diabetes mellitus with hyperglycemia docusate sodium (Colace) 100 mg PO .DAILY WITH FOOD 30 days 30 caps 3RF K59.04 - Chronic idiopathic constipation famotidine (Pepcid) 40 mg PO BEDTIME 30 tabs 6RF R10.13 - Epigastric pain furosemide 20 mg PO DAILY 90 tabs 1RF E11.65 - Type 2 diabetes mellitus with hyperglycemia linaclotide (Linzess) 290 mcg PO QAM 30 days 30 caps 6RF K59.04 - Chronic idiopathic constipation, R10.13 - Epigastric pain metformin 1,000 mg PO BID 90 days 180 tabs 1RF E11.65 - Type 2 diabetes mellitus with hyperglycemia, Z79.4 - superintendent terminal (current) use of insulin metoclopramide HCl (Reglan) 10 mg PO .TIDac 90 tabs 6RF K59.04 - Chronic idiopathic constipation, K59.9 - Functional intestinal disorder, unspecified montelukast 10 mg PO DAILY 30 days 30 tabs 11RF J45.909 - Unspecified asthma, uncomplicated pantoprazole 40 mg PO DAILY 90 days 90 tabs 1RF E11.65 - Type 2 diabetes mellitus with hyperglycemia Discontinued semaglutide (Ozempic) for 4 doses Discontinued Reason: Patient Completed Course 0.25 mg (0.2 mL) subcut QWEEK 30 days 1.5 mL 3RF E11.65 - Type 2 diabetes mellitus with hyperglycemia prednisone Discontinued Reason: Patient Completed Course PO daily; Take 6 tabs daily x 2 days, then 5 tabs x 2 days, then 4 tabs x 2 days, then 3 tabs x 2 days, then 2 tabs daily x 2 days, then 1 tab x 2 days to complete. 12 days 30 tabs 0RF Coding Level of Care Code Est Pt Level 4 (57821) Diagnoses Asthma-COPD overlap syndrome J44.9 Diabetes type 2, uncontrolled E11.65 Glycemic state: with hyperglycemia GERD (gastroesophageal reflux disease) K21.9 Hyperlipidemia LDL goal <70 E78.5 Chronic idiopathic constipation K59.04 Vitamin D deficiency E55.9 Additional Codes VEENA-7 Assessment Billing - VEENA-7 Assessment Tool: VEENA-7 Assessment 11748 ([id number]) Time Spent (min) 24
[2023-02-06 16:35] VITALS: BP 130/70; BMI 31.6
== END 2023-02-06 17:06 | disposition home or self-care (01) ==
PROVIDERS: Visit Provider Internal Medicine
DX: J44.9 Chronic obstructive pulmonary disease, unspecified (principal); E11.65 Type 2 diabetes mellitus with hyperglycemia; K21.9 Gastro-esophageal reflux disease without esophagitis; E55.9 Vitamin D deficiency, unspecified; E78.5 Hyperlipidemia, unspecified; K59.04 Chronic idiopathic constipation
CPT/HCPCS: 83036; 99214

== ENCOUNTER 2023-04-11 11:34 | Outpatient (AMB) | payer OTHER, SELFPAY ==
--- NOTE | 2023-04-11 11:39 | MHC.OFFVIS ---
Intake Vital Signs 04/11/23 11:49 Height 5 ft 4 in Weight 179 lb 7.3 oz BMI 30.8 BP 123/84 Blood Pressure Location Lt brachial Position Sitting Intake Visit Reasons: Colonoscopy screening Intake Note: Patient presents in office today in follow up for colonoscopy screening. CC: Patient reports occasional constipation and nausea. Denies having other GI concerns today. Occupational Health Coordinator Required: Yes Accompanied by: Self / Same As Patient Allergies dulaglutide [From Trulicity] Adverse Reaction (Intermediate, Verified 02/06/23 16:53) Palpitations HPI Colonoscopy screening HPI Details Assessment & Plan (1) Chronic idiopathic constipation: ?Code(s): K59.04 - Chronic idiopathic constipation ?Plan: [place] #declines She did not understand the prep instructions and ate until 6pm the day before!! We review this and will do better next procedure; there was a long lag between the initial presentation and scheduling r/t computer problems, so obviously something was lost in the education. She continues to have trouble with CIC with very hard stools. She feels that my body gets used to medications and they stop working. Based on this assumption, after discussion she admits she is only taking the Linzess qod as she fears my body will get used to it. I tell her that with this many medications on board, I think it will confuse her body and it will not stop working.? This is not what I really think, obviously she has severe constipation that she simply does not respond well to chronic medication but trying to could and terms that will promote her compliance in the appropriate manner.? Obviously her strategies not working because she still feels bloated is not moving her bowels well with very hard stools.? I am also going to add Colace to the regimen to help soften stools and she will continue her Linzess.? She has absolutely no adverse effects from the Reglan so will increase it to 10 mg 3 times a day.? Obviously, she has some compliance issues related to lack of understanding so I right up all of the instructions using [employer] in her [place] language of [place] to try to make it easier for her. I will see her in 3 weeks to assess her results. (2) GERD (gastroesophageal reflux disease): ?Code(s): K21.9 - Gastro-esophageal reflux disease without esophagitis (3) Small bowel motility disorder: ?Code(s): K59.9 - Functional intestinal disorder, unspecified ? ? ? Medications: New metoclopramide HCl (Reglan) 10 mg? PO .TIDac 90 tabs 6RF K59.04 - Chronic i diopathic constipa tion, K59.9 - Func tional intestinal disorder, unspecif ied ? docusate sodium (C olace) 100 mg? PO .DAILY WITH FOOD 30 days 30 caps 3RF K59.04 - Chronic i diopathic constipa tion ? Discontinued metoclopramide HCl (Reglan) ?? Disco ntinued Reason:? D octor's Order 5 mg? PO .TIDAC 9 0 tabs 3RF K59.9 - Functional intestinal disord er, unspecified ?Patient Instructions: Dyana Calderon Para hacer que radha intestinos se muevan, tome vazquez Linzess TODOS LOS D? a primera hora de la ma?prema con un vaso de agua. Tambi?n estoy aumentando la metaclopramida a 10 mg 3 veces al d?a antes de las comidas. Tambi?n estoy agregando docusato ayaka vez al d?a, t?nelson con alimentos. Quiero verte 3 semanas para nohemi si esto est? funcionando. LABS: TODAY'S VISIT [place]an #declines THE PROCEDURE NEEDS TO BE REPEATED IN 6-12 MONTHS SHE WAS NOT PREPPED FOR THE 12/2021 PROCEDURE, SHE HAS BEEN LOST TO FOLLOW-UP SINCE 02/2022 She still is still struggling with severe constipation despite taking Linzess 290 mcg, Reglan 10 mg 4 times a day and Colace once a day. Were going to add Dulcolax up to 3 tablets a day. It might be Linzess is working as well because she has to take in the afternoon because she fears going to the bathroom when she works in the morning. However she has not had a thyroid and while I think this should be checked to see if there is any underlying metabolic reason for the severity of her condition. She is agreeable to having the colonoscopy rescheduled given the difficulties with constipation I think we need to 2 day prep with PEG and magnesium citrate. She was not clear enough we tried to do this year ago. There are no prior problems with anesthesia or sedation. She denies any serious cardiac or respiratory problems. There are no infectious disease problems. She has a family history of colorectal cancer. Return office visit in 4 weeks to see how she is doing and to continue to titrate her regimen for constipation. 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 Brother In good health Brother In good health Social History Housing: Apartment Alcohol intake: never Patient Tobacco Use Status: Former Tobacco user Quit Date: 2012 Tobacco use type: Cigarette e-Cigarette/Vaping Use: Never Used Second Hand Smoke Exposure: No Substance Use Type: Former Substance User and Marijuana service: No Current occupational status: employed Current occupational exposures/hazards: No Cognitive needs: No Hearing needs: No Vision needs: No Review of Systems Const Denies fatigue, Denies fever(s), Denies night sweats, Denies poor appetite and Denies weight loss ENT Reports Normal hearing present, Denies dental pain, Denies dysphagia, Denies hearing loss, Denies mouth pain, Denies odynophagia, Denies throat swelling, Denies tongue swelling and Reports other (Dentition adequate) Card Reports no additional complaints Resp Reports no additional complaints GI Denies abdominal pain, Denies melena, Reports bloating, Denies hematochezia, Reports constipation, Denies GI cramping, Denies dysphagia, Denies excessive flatus, Denies early satiety, Reports heartburn, Denies diarrhea, Denies nausea, Denies odynophagia, Denies vomiting and Denies hematemesis Skin/Breast Denies pruritus, Denies lesions, Denies rash and Denies jaundice Neuro Reports Normal hearing present and Denies Abnormal speech present Endo Denies fatigue Aller/Immun Denies throat swelling and Denies tongue swelling Physical Exam Vital Signs: Last Vital Signs BP 123/84 04/11/23 11:49 BMI result Body Mass Index 30.8 Const General: cooperative, no acute distress, well developed and well groomed Nutritional Appearance: well nourished and obese Orientation/consciousness: oriented to person, oriented to place and oriented to time Limitations: No language barrier HEENT Head: Yes normocephalic and Yes atraumatic Eyes General: appearance normal, both eyes and all related structures Pupils: Equal, round and reactive pupils present Neck Neck: Yes normal visual inspection and Yes no lymphadenopathy Thyroid: Thyroid normal Resp Effort & Inspection: normal respiratory effort and able to speak in complete sentences Auscultation: clear to auscultation bilaterally Cardio Rate: regular rate Rhythm: regular rhythm Heart sounds: Normal, physiologic split S2 sound present Peripheral pulses: radial pulses present and posterior tibial pulses present GI Inspection: No distended, No Abdominal panniculus present and Yes obesity Palpation (GI): Soft to palpation, nontender, no guarding, not rigid and No hepatosplenomegaly present Percussion: Yes normal to percussion Auscultation: normal bowel sounds Rectal Exam - Female: deferred Skin General skin exam: no rashes or lesions noted, turgor normal, skin not dry, no jaundice, No spider nevi and no striae Rashes: no rashes Nails: normal Neuro General: oriented to person, oriented to place and oriented to time Cranial nerves: Yes Equal, round and reactive pupils present and Yes Normal hearing present Speech: No Abnormal speech present Extrem General: Yes normal to inspection, No clubbing, No cyanosis and No edema Psych Appearance: grossly normal and well kempt Mental Status: mental status grossly normal Speech and movement: Normal speech and movement present Affect: normal affect Attitude: cooperative Thought process: Normal thought process present and not confabulating Thought content: Normal thought content present Insight: Limited insight present (Psych) Judgement: Limited judgement present (Psych) Assessment & Plan Assessment & Plan (1) Chronic idiopathic constipation: Code(s): K59.04 - Chronic idiopathic constipation Plan: [place]an #declines THE PROCEDURE NEEDS TO BE REPEATED IN 6-12 MONTHS SHE WAS NOT PREPPED FOR THE 12/2021 PROCEDURE, SHE HAS BEEN LOST TO FOLLOW-UP SINCE 02/2022 She still is still struggling with severe constipation despite taking Linzess 290 mcg, Reglan 10 mg 4 times a day and Colace once a day. Were going to add Dulcolax up to 3 tablets a day. It might be Linzess is working as well because she has to take in the afternoon because she fears going to the bathroom when she works in the morning. However she has not had a thyroid and while I think this should be checked to see if there is any underlying metabolic reason for the severity of her condition. She continues on pantoprazole 40 mg once a day with good control of her GERD. She also has famotidine 40 mg available for breakthrough. She is agreeable to having the colonoscopy rescheduled given the difficulties with constipation I think we need to 2 day prep with PEG and magnesium citrate. She was not clear enough we tried to do this year ago. There are no prior problems with anesthesia or sedation. She denies any serious cardiac or respiratory problems. There are no infectious disease problems. She has a family history of colorectal cancer. Return office visit in 4 weeks to see how she is doing and to continue to titrate her regimen for constipation. (2) Screen for colon cancer: Code(s): Z12.11 - Encounter for screening for malignant neoplasm of colon (3) Family history of colon cancer: Comment: Her maternal aunt was diagnosed with CRC recently in her 60's. 2018 scope she was insufficiently prepped to see well repeat 1-2 years but then COVID happened Code(s): Z80.0 - Family history of malignant neoplasm of digestive organs Orders: Orders Colonoscopy - GI Use Only 04/11/23 Z80.0 - Family history of malignant neoplasm of digestive organs TSH reflex Free T4 04/11/23 K59.04 - Chronic idiopathic constipation, R53.82 - Chronic fatigue, unspecified Medications: New magnesium citrate 150 mL PO DAILY 300 mL 0RF Z12.11 - Encounter for screening for malignant neoplasm of colon, Z80.0 - Family history of malignant neoplasm of digestive organs peg 3350-electrolytes [id number] -5.86 gram (Golytely) until fecal effluent is clear; do not exceed a total volume of 2,000 mL 240 mL PO Q10M 4,000 mL 0RF 1 day Z12.11 - Encounter for screening for malignant neoplasm of colon bisacodyl (Dulcolax (bisacodyl)) 15 mg (3 x 5 mg) PO BEDTIME 90 tabs 6RF 30 days K59.04 - Chronic idiopathic constipation Refilled linaclotide (Linzess) 290 mcg PO QAM 30 caps 6RF 30 days K59.04 - Chronic idiopathic constipation, R10.13 - Epigastric pain metoclopramide HCl (Reglan) 10 mg PO .TIDac 90 tabs 6RF K59.9 - Functional intestinal disorder, unspecified, K59.04 - Chronic idiopathic constipation docusate sodium (Colace) 100 mg PO .DAILY WITH FOOD 30 caps 3RF 30 days K59.04 - Chronic idiopathic constipation Coding Level of Care Code Est Pt Level 4 (45242) Diagnoses Chronic idiopathic constipation K59.04 Screen for colon cancer Z12.11 Family history of colon cancer Z80.0
[2023-04-11 11:49] VITALS: BP 123/84; BMI 30.8
== END 2023-04-11 12:19 | disposition home or self-care (01) ==
PROVIDERS: PCP Internal Medicine; Visit Provider Nurse Practitioner
DX: K59.04 Chronic idiopathic constipation (principal); Z12.11 Encounter for screening for malignant neoplasm of colon; Z80.0 Family history of malignant neoplasm of digestive organs
CPT/HCPCS: 99214

== ENCOUNTER → 2023-04-11 11:34 | Outpatient (BNVA) | payer OTHER, SELFPAY | PROVIDERS: PCP Internal Medicine; Visit Provider Nurse Practitioner | DX: Z12.11 Encounter for screening for malignant neoplasm of colon (principal); K59.04 Chronic idiopathic constipation; Z80.0 Family history of malignant neoplasm of digestive organs | CPT/HCPCS: 99212 ==

== ENCOUNTER 2023-05-10 10:19 | Outpatient (AMB) | payer OTHER, SELFPAY ==
--- NOTE | 2023-05-10 10:23 | A.OFFVIS_ITS ---
Intake Vital Signs 05/10/23 10:24 Height 5 ft 4 in Weight 182 lb 15.739 oz BMI 31.4 BP 126/76 Blood Pressure Location Lt brachial Position Sitting Pulse 85 Intake Visit Reasons: 4 week follow Intake Note: Patient presents in office today in 4 weeks follow up of constipation. CC: Patient reports doing better and denies having other GI concerns today. 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 Accompanied by: Self / Same As Patient Allergies dulaglutide [From [facility]] Adverse Reaction (Intermediate, Verified 02/06/23 16:53) Palpitations HPI 4 week follow HPI Details Assessment & Plan (1) Chronic idiopathic constipation: Code(s): K59.04 - Chronic idiopathic constipation Plan: Turkmen #declines THE PROCEDURE NEEDS TO BE REPEATED IN 6-12 MONTHS SHE WAS NOT PREPPED FOR THE 12/2021 PROCEDURE, SHE HAS BEEN LOST TO FOLLOW-UP SINCE 02/2022 She still is still struggling with severe constipation despite taking Linzess 290 mcg, Reglan 10 mg 4 times a day and Colace once a day. Were going to add Dulcolax up to 3 tablets a day. It might be Linzess is working as well because she has to take in the afternoon because she fears going to the bathroom when she works in the morning. However she has not had a thyroid and while I think this should be checked to see if there is any underlying metabolic reason for the severity of her condition. She continues on pantoprazole 40 mg once a day with good control of her GERD. She also has famotidine 40 mg available for breakthrough. She is agreeable to having the colonoscopy rescheduled given the difficulties with constipation I think we need to 2 day prep with PEG and magnesium citrate. She was not clear enough we tried to do this year ago. There are no prior problems with anesthesia or sedation. She denies any serious cardiac or respiratory problems. There are no infectious disease problems. She has a family history of colorectal cancer. Return office visit in 4 weeks to see how she is doing and to continue to titrate her regimen for constipation. (2) Screen for colon cancer: Code(s): Z12.11 - Encounter for screening for malignant neoplasm of colon (3) Family history of colon cancer: Comment: Her maternal aunt was diagnosed with CRC recently in her 60's. 2018 scope she was insufficiently prepped to see well repeat 1-2 years but then COVID happened Code(s): Z80.0 - Family history of malignant neoplasm of digestive organs Orders: Orders Colonoscopy - GI U se Only 04/11/23 Z80.0 - Family his tory of malignant neoplasm of digest jermaine organs TSH reflex Free T4 04/11/23 K59.04 - Chronic i diopathic constipa tion, R53.82 - Chr onic fatigue, unsp ecified Medications: New magnesium citrate 150 mL PO DAILY 30 0 mL 0RF Z12.11 - Encounter for screening for malignant neoplas m of colon, Z80.0 - Family history o f malignant neopla sm of digestive or kevin peg 3350-electroly eliel [id number] -5.86 gram (Golyt stephani) until feca l effluent is andrés r; do not exceed a total volume of 2 ,000 mL 240 mL PO Q10M 4,0 00 mL 0RF 1 day Z12.11 - Encounter for screening for malignant neoplas m of colon bisacodyl (Dulcola x (bisacodyl)) 15 mg (3 x 5 mg) P O BEDTIME 90 tabs 6RF 30 days K59.04 - Chronic i diopathic constipa tion Refilled linaclotide (Linze ss) 290 mcg PO QAM 30 caps 6RF 30 days K59.04 - Chronic i diopathic constipa tion, R10.13 - Epi gastric pain metoclopramide HCl (Reglan) 10 mg PO .TIDac 90 tabs 6RF K59.9 - Functional intestinal disord er, unspecified, K 59.04 - Chronic id iopathic constipat ion docusate sodium (C olace) 100 mg PO .DAILY W ITH FOOD 30 caps 3 RF 30 days K59.04 - Chronic i diopathic constipa tion LABS: TSH not obtained COLONOSCOPY Was 05/24 but was in afternoon and she needs earlier appt BIOPSY THE PROCEDURE NEEDS TO BE REPEATED IN 6-12 MONTHS SHE WAS NOT PREPPED FOR THE 12/2021 PROCEDURE, SHE HAS BEEN LOST TO FOLLOW-UP SINCE 02/2022 TODAY'S VISIT Turkmen #declines She is moving her bowels better but still not optimally. She still moves it every 2-3 days now. The stools are soft. Still, she can feel bloated and she never passes gas/flatulence. She does have a lot of bloating. This is really a testament to the poor motility overall of her stomach and GI system. She continues on pantoprazole the morning and famotidine at night for her GERD. She is going for the TSH today. I think this is important given the severity of her CIC. SHe is on metformin and Trulicity that complicate her presentation but TSH really should be evaled. She is already on Linzess 290, bisacodyl 3 tabs at night, Colace, fiber, and metoclopramide 10 mg 3 times a day. I think we will add a 4th dose of metoclopramide at this time as rib beginning to run out of viable combinations. She has also tolerated this medication well without any adverse effects. She asks why she can not have a sharepoint web developer colonoscopy prep ?like my friend has,? which apparently is just some MiraLax mixed in juice. I explained to her that her friend probably does not have the severity of constipation that she has and that sort of prep would not clear her system enough. This was also a problem on the last colonoscopy so we do not want to repeat failure. With this she understands better. She has a prep the consists of GoLYTELY, magnesium citrate, and bisacodyl. ROV 6 weeks or whatever makes sense around colonoscopy reschedule. [facility] Medical History History of sleep study Hyperlipidemia LDL goal <100 Microalbuminuria Class 1 obesity with serious comorbidity and body mass index (BMI) of 33.0 to 33.9 in adult Asthma-COPD overlap syndrome Pulmonary nodule Personal history of nicotine dependence Severe asthma Chronic fatigue Right shoulder pain COVID-19 vaccine series completed GERD (gastroesophageal reflux disease) Asthma Obesity (BMI 30-39.9) Vitamin D deficiency care home (current) use of insulin Chronic idiopathic constipation Diabetes type 2, uncontrolled (~2015) Foot abscess Dyslipidemia Surgical History History of dilation and curettage (~2004) History of colonoscopy History of section History of hysterectomy (~2010) Family History Father Heart disease Diabetes Hypertension Mother Heart disease Hypertension Diabetes Uterine cancer Sister Uterine cancer Daughter In good health Daughter In good health Son No problems noted. Brother In good health Brother In good health Social History Housing: Apartment Alcohol intake: never Patient Tobacco Use Status: Former Tobacco user Quit Date: 2012 Tobacco use type: Cigarette e-Cigarette/Vaping Use: Never Used Second Hand Smoke Exposure: No Substance Use Type: Former Substance User and Marijuana service: No Current occupational status: employed Current occupational exposures/hazards: No Cognitive needs: No Hearing needs: No Vision needs: No Review of Systems Const Denies fatigue, Denies fever(s), Denies night sweats, Denies poor appetite and Denies weight loss ENT Reports Normal hearing present, Denies dental pain, Denies dysphagia, Denies hearing loss, Denies mouth pain, Denies odynophagia, Denies throat swelling, Denies tongue swelling and Reports other (Dentition adequate) Card Reports no additional complaints Resp Reports no additional complaints GI Denies abdominal pain, Denies melena, Reports bloating, Denies hematochezia, Reports constipation, Reports GI cramping, Denies dysphagia, Denies excessive flatus, Denies early satiety, Reports heartburn, Denies diarrhea, Denies nausea, Denies odynophagia, Denies vomiting and Denies hematemesis Skin/Breast Denies pruritus, Denies lesions, Denies rash and Denies jaundice Neuro Reports Normal hearing present and Denies Abnormal speech present Endo Denies fatigue Aller/Immun Denies throat swelling and Denies tongue swelling Physical Exam Vital Signs: BMI result Body Mass Index 31.4 Const General: cooperative, no acute distress, well developed and well groomed Nutritional Appearance: well nourished and obese Orientation/consciousness: oriented to person, oriented to place and oriented to time Limitations: No language barrier HEENT Head: Yes normocephalic and Yes atraumatic Eyes General: appearance normal, both eyes and all related structures Pupils: Equal, round and reactive pupils present Neck Neck: Yes normal visual inspection and Yes no lymphadenopathy Thyroid: Thyroid normal Resp Effort & Inspection: normal respiratory effort and able to speak in complete sentences Auscultation: clear to auscultation bilaterally Cardio Rate: regular rate Rhythm: regular rhythm Heart sounds: Normal, physiologic split S2 sound present Peripheral pulses: radial pulses present and posterior tibial pulses present GI Inspection: No distended, No Abdominal panniculus present and Yes obesity Palpation (GI): Soft to palpation, nontender, no guarding, not rigid and No hepatosplenomegaly present Percussion: Yes normal to percussion Auscultation: normal bowel sounds Rectal Exam - Female: deferred Skin General skin exam: no rashes or lesions noted, turgor normal, skin not dry, no jaundice, No spider nevi and no striae Rashes: no rashes Nails: normal Neuro General: oriented to person, oriented to place and oriented to time Cranial nerves: Yes Equal, round and reactive pupils present and Yes Normal hearing present Speech: No Abnormal speech present Extrem General: Yes normal to inspection, No clubbing, No cyanosis and No edema Psych Appearance: grossly normal and well kempt Mental Status: mental status grossly normal Speech and movement: Normal speech and movement present Affect: normal affect Attitude: cooperative Thought process: Normal thought process present and not confabulating Thought content: Normal thought content present Insight: Fair insight present (Psych) Judgement: Fair judgement present (Psych) Assessment & Plan Assessment & Plan (1) Family history of colon cancer: Comment: Her maternal aunt was diagnosed with CRC recently in her 60's. 2018 scope she was insufficiently prepped to see well repeat 1-2 years but then COVID happened Code(s): Z80.0 - Family history of malignant neoplasm of digestive organs Plan: Turk[place] #declines She is moving her bowels better but still not optimally. She still moves it every 2-3 days now. The stools are soft. Still, she can feel bloated and she never passes gas/flatulence. She does have a lot of bloating. This is really a testament to the poor motility overall of her stomach and GI system. She continues on pantoprazole the morning and famotidine at night for her GERD. She is going for the TSH today. I think this is important given the severity of her CIC. SHe is on metformin and Trulicity that complicate her presentation but TSH really should be evaled. She is already on Linzess 290, bisacodyl 3 tabs at night, Colace, fiber, and metoclopramide 10 mg 3 times a day. I think we will add a 4th dose of meto clopramide at this time as rib beginning to run out of viable combinations. She has also tolerated this medication well without any adverse effects. She asks why she can not have a sharepoint web developer colonoscopy prep ?like my friend has,? which apparently is just some MiraLax mixed in juice. I explained to her that her friend probably does not have the severity of constipation that she has and that sort of prep would not clear her system enough. This was also a problem on the last colonoscopy so we do not want to repeat failure. With this she understands better. She has a prep the consists of GoLYTELY, magnesium citrate, and bisacodyl. ROV 6 weeks or whatever makes sense around colonoscopy reschedule. COLONOSCOPY Was 05/24 but was in afternoon and she needs earlier appt BIOPSY THE PROCEDURE NEEDS TO BE REPEATED IN 6-12 MONTHS SHE WAS NOT PREPPED FOR THE 12/2021 PROCEDURE, SHE HAS BEEN LOST TO FOLLOW-UP SINCE 02/2022 (2) GERD (gastroesophageal reflux disease): Code(s): K21.9 - Gastro-esophageal reflux disease without esophagitis (3) Small bowel motility disorder: Code(s): K59.9 - Functional intestinal disorder, unspecified (4) Chronic idiopathic constipation: Code(s): K59.04 - Chronic idiopathic constipation Medications: Changed From metoclopramide HCl (Reglan) 10 mg PO .TIDac 90 tabs 6RF K59.04 - Chronic idiopathic constipation, K59.9 - Functional intestinal disorder, unspecified To metoclopramide HCl (Reglan) 10 mg PO QIDACHS 120 tabs 6RF K59.04 - Chronic idiopathic constipation, K59.9 - Functional intestinal disorder, unspecified Coding Level of Care Code Est Pt Level 3 (16736) Diagnoses Family history of colon cancer Z80.0 GERD (gastroesophageal reflux disease) K21.9 Small bowel motility disorder K59.9 Chronic idiopathic constipation K59.04
[2023-05-10 10:24] VITALS: BP 126/76; PULSE 85; BMI 31.4
== END 2023-05-10 10:45 | disposition home or self-care (01) ==
PROVIDERS: PCP Internal Medicine; Visit Provider Nurse Practitioner
DX: Z80.0 Family history of malignant neoplasm of digestive organs (principal); K21.9 Gastro-esophageal reflux disease without esophagitis; K59.9 Functional intestinal disorder, unspecified; K59.04 Chronic idiopathic constipation
CPT/HCPCS: 99213

== ENCOUNTER 2023-05-10 10:19 | Outpatient (REF) | payer OTHER, SELFPAY ==
[2023-05-10 13:23] LABS: TSH reflex Free T4 0.81 uIU/mL (0.32-4.0)
== END 2023-05-10 10:20 | disposition home or self-care (01) ==
LOC: HO.LAB 10:19
PROVIDERS: PCP Internal Medicine; Visit Provider Nurse Practitioner
DX: K59.04 Chronic idiopathic constipation (principal); K21.9 Gastro-esophageal reflux disease without esophagitis; K59.9 Functional intestinal disorder, unspecified; R53.82 Chronic fatigue, unspecified; Z80.0 Family history of malignant neoplasm of digestive organs; Z79.899 Other long term (current) drug therapy
CPT/HCPCS: 36415; 84443; 99212

== ENCOUNTER 2023-05-20 17:28 | Emergency (ER) | payer OTHER, SELFPAY ==
--- NOTE | ~2023-05-20 | XR_ITS ---
EXAMINATION: XR CHEST CLINICAL INFORMATION: Cough. COMPARISON: CT chest dated 11/03/2021; chest radiograph dated 09/06/2020. TECHNIQUE: Frontal view of the chest was obtained. FINDINGS: The heart, great vessels, pulmonary vasculature and mediastinum are stable. The lungs show no infiltrate, effusion or pneumothorax. There is a small focus of linear scar/subsegmental atelectasis abutting the left cardiac border. No acute osseous abnormality is seen. XR/XR chest 1V IMPRESSION: No active cardiopulmonary disease. There is no significant interim change.
[2023-05-20 17:51] VITALS: BP 130/77; PULSE 90; RESP 18; TEMP 36.7; O2SAT 97; BMI 33.2
--- NOTE | 2023-05-20 17:51 | ED_ITS ---
HPI - General Adult General Chief complaint: Upper Respiratory Symptoms Stated complaint: flu like symptoms Time Seen by Provider: 05/20/23 18:52 Source: patient Mode of arrival: ambulatory Limitations: no limitations History of Present Illness HPI narrative: Patient is a 57-year-old female who presents to the emergency department who presents emergency department for evaluation of productive cough with increasing yellow phlegm from baseline, shortness of breath with significant exertion, diffuse anterior chest discomfort only during episodes of cough, subjective fever. Symptom onset was 4 days ago. Denies known sick contacts. Took an at home COVID-19 test which is negative. She reports a history of asthma/COPD for which she has used Symbicort daily, she does not have an albuterol inhaler at home. She denies dizziness, lightheadedness, headache, pain, nausea, vomiting, abdominal pain, numbness or tingling of the extremities, lower extremity edema, erythema, warmth, or personal history of DVT/PE/malignancy. Related Data Home Medications Medication Instructions Recorded Confirmed pen needle, diabetic 32 gauge x #50 ea 10/15/20 02/06/23 Previous Rx's Medication Instructions Recorded blood sugar diagnostic (FreeStyle #25 ea 08/10/20 Precision Paul Strips) colloidal oatmeal (Aveeno Soothing 1 packet topical DAILY 8 days #8 ea 09/02/20 Bath packet) compress.stocking,knee,reg,med #2 ea 02/17/22 albuterol sulfate 90 mcg/actuation 2 puff inhalation Q6H PRN 07/06/22 aerosol inhaler shortness of breath or wheezing 30 days #8.5 grams albuterol sulfate 2.5 mg/3 mL 2.5 mg (3 mL) inhalation Q6H PRN 02/05/23 (0.083 %) solution for nebulization shortness of breath or wheezing 30 days #180 mL benzonatate 200 mg capsule 200 mg PO BID PRN cough 30 days 02/05/23 #60 caps aspirin 81 mg tablet,delayed 81 mg PO DAILY 90 days #90 tabs 02/06/23 release (Enteric Coated Aspirin) atorvastatin 80 mg tablet 80 mg PO BEDTIME 90 days #90 tabs 02/06/23 budesonide-formoterol HFA 160 2 puff inhalation BID 30 days 02/06/23 mcg-4.5 mcg/actuation aerosol #10.2 grams inhaler (Symbicort) cetirizine 10 mg tablet (Zyrtec) 10 mg PO DAILY 90 days #90 tabs 02/06/23 cholecalciferol (vitamin D3) 50 2,000 unit PO DAILY 90 days #90 02/06/23 mcg (2,000 unit) capsule caps cyclobenzaprine 10 mg tablet 10 mg PO BEDTIME PRN muscle spasm 02/06/23 90 days #90 tabs famotidine 40 mg tablet (Pepcid) 40 mg PO BEDTIME #30 tabs 02/06/23 furosemide 20 mg tablet 20 mg PO DAILY #90 tabs 02/06/23 metformin 1,000 mg tablet 1,000 mg PO BID 90 days #180 tabs 02/06/23 montelukast 10 mg tablet 10 mg PO DAILY 30 days #30 tabs 02/06/23 pantoprazole 40 mg tablet,delayed 40 mg PO DAILY 90 days #90 tabs 02/06/23 release semaglutide 1 mg/dose (4 mg/3 mL) 1 mg (0.75 mL) subcut QWEEK 30 02/06/23 subcutaneous pen injector (Ozempic) days #3.75 mL bisacodyl 5 mg tablet,delayed 15 mg (3 x 5 mg) PO BEDTIME 30 04/11/23 release (Dulcolax (bisacodyl)) days #90 tabs docusate sodium 100 mg capsule 100 mg PO .DAILY WITH FOOD 30 days 04/11/23 (Colace) #30 caps linaclotide 290 mcg capsule 290 mcg PO QAM 30 days #30 caps 04/11/23 (Linzess) magnesium citrate 150 ml PO DAILY #300 mL 04/11/23 peg 3350-electrolytes 236 240 ml PO Q10M 1 day #4,000 mL 04/11/23 gram-22.74 gram-6.74 gram-5.86 gram solution (Golytely) metoclopramide HCl 10 mg tablet 10 mg PO QIDACHS #120 tabs 05/10/23 (Reglan) albuterol sulfate 90 mcg/actuation 2 puff inhalation Q4-6H PRN 05/20/23 aerosol inhaler shortness of breath or wheezing #6.7 grams azithromycin 250 mg tablet See Rx Instructions PO .COMPLEX #6 05/20/23 tabs benzonatate 200 mg capsule 200 mg PO TID PRN cough #20 caps 05/20/23 prednisone 20 mg tablet 40 mg (2 x 20 mg) PO DAILY 5 days 05/20/23 #10 tabs Allergies Allergy/AdvReac Type Severity Reaction Status Date / Time dulaglutide [From Trulicity] AdvReac Intermediate Palpitation Verified 02/06/23 16:53 s Review of Systems Review of Systems: Yes all other systems are reviewed and are negative [facility] Past Medical History Attestation statement: The following information was validated with the patient. 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 Brother In good health Brother In good health Social History Social History Housing: Apartment Alcohol intake: never Patient Tobacco Use Status: Former Tobacco user Quit Date: 2012 Tobacco use type: Cigarette e-Cigarette/Vaping Use: Never Used Second Hand Smoke Exposure: No Substance Use Type: Former Substance User and Marijuana Advance Directives: No service: No Current occupational status: employed Current occupational exposures/hazards: No Cognitive needs: No Hearing needs: No Vision needs: No Physical Exam ED Vital Signs: Vital Signs - 24 hr 05/20/23 17:51 Temperature 98.0 F Pulse Rate 90 Respiratory Rate 18 Blood Pressure 130/77 Pulse Oximetry 97 Oxygen Delivery Method Room Air BMI result Body Mass Index 33.2 Appearance: Alert.?Oriented to person, place and time. No acute distress.?Normal affect. Eyes: Pupils equal, round and reactive to light.? ENT: Pharynx normal.?? Neck: Normal inspection.? Neck supple.?? CVS: Heart sounds normal. Normal heart rate and rhythm.? Pulses normal.?? Respiratory: No respiratory distress.? Lung sounds with expiratory wheezing and rhonchi bilaterally? Abdomen: Soft and non-tender. Normoactive bowel sounds. Skin: Skin warm and dry.? Normal skin color.? ? Extremities: No lower extremity edema.? No calf ttp? Neuro: Moves all extremities spontaneously. Sensation intact bilaterally. No focal neuro deficits. Ambulates with normal steady gait. Course Course Course Narrative: This is an RME: Additional HPI, ROS, PE not included below will be deferred to primary provider.57 yo f hx of asthma, copd, dm, htn, gregorio presents w/ cough, sob and chest discomfort only when she coughs X 4 days. No sick contacts. Tested - for covid at home. Medical Decision Making Medical Decision Making MDM Narrative: Patient is a 57-year-old female past medical history of type 2 diabetes, hyperlipidemia, constipation, GERD, vitamin-D deficiency, asthma-COPD overlap presenting to emergency department with upper respiratory symptoms. At the time of my examination she appears fatigued, generally ill, she is afebrile without tachycardia tachypnea or hypoxia. She is able to speak clear full sentences. She is ambulatory with a steady gait and without significant dyspnea on exertion. COVID-19 was obtained prior to my assumption of care which was negative. Chest x-ray is without acute cardiopulmonary process. Not consistent with ACS/PE/pneumonia. I discussed with patient possible influenza for which we could do testing for she declines at this time, her symptoms have been greater than 48 hours, there would not be indication for Tamiflu. Discussed patient conservative treatment including rest, hydration, Tylenol as needed for fever, body aches. Concern for COPD exacerbation, will send prescription for vancomycin and prednisone to pharmacy in addition to Tessalon and a refill of albuterol inhaler. Reviewed worrisome signs and symptoms that would warrant re- evaluation in the emergency department. Advised outpatient follow-up with her primary care provider. All questions were answered. Stable for discharge. Differential Diagnosis Differential Diagnoses: The differential diagnosis associated with the presentation includes (As noted above) Lab Data MDM Lab Attestation statement: I reviewed the patient's lab results. (As noted above) Labs: Lab Results 05/20/23 Range/Units 18:29 COVID-19 (ANNETTE) Negative (Negative) COVID-19 Clin Com See Note Independent Interpretation I performed an independent interpretation of an: Plain X-Ray (I present turbid chest x-ray and agree with radiologist impression.) Radiology Impression Discussion of test interpretation with radiology: I have reviewed the radiologist's reading. Radiologist Impression: XR/XR chest 1V IMPRESSION: No active cardiopulmonary disease. There is no significant interim change. External Record Review External record reviewed: Outpatient record Prescription Management I considered prescription management with: Antibiotic Discharge Plan Discharge Clinical Impression: COPD exacerbation Patient Disposition: Home, Self-Care Instructions: COPD (Chronic Obstructive Pulmonary Disease) (ED) Prescriptions: New prednisone 20 mg tablet 40 mg PO DAILY 5 Days Qty: 10 0RF azithromycin 250 mg tablet See Rx Instructions .ROUTE .COMPLEX Qty: 6 0RF Rx Instructions: For 250 mg dose pack: take 500 mg today (day 1), then 250 mg for 4 days (days 2-5) albuterol sulfate 90 mcg/actuation HFA aerosol inhaler 2 puff inhalation Q4-6H PRN (Reason: shortness of breath or wheezing) Qty: 6.7 0RF benzonatate 200 mg capsule 200 mg PO TID PRN (Reason: cough) Qty: 20 0RF No Action (DME) FreeStyle Precision Paul Strips Strip See Rx Instructions .MEDSUPPLY Qty: 25 6RF Rx Instructions: once a day for calibration Aveeno Soothing Bath Packet 1 packet topical DAILY 8 Days Qty: 8 0RF albuterol sulfate 90 mcg/actuation HFA aerosol inhaler 2 puff inhalation Q6H PRN (Reason: shortness of breath or wheezing) 30 Days Qty: 8.5 2RF Ozempic 1 mg/dose (4 mg/3 mL) pen injector 1 mg subcut QWEEK 30 Days Qty: 3.75 6RF aspirin [Enteric Coated Aspirin] 81 mg tablet,delayed release (DR/EC) 81 mg PO DAILY 90 Days Qty: 90 3RF atorvastatin 80 mg tablet 80 mg PO BEDTIME 90 Days Qty: 90 1RF budesonide-formoterol [Symbicort] 160-4.5 mcg/actuation HFA aerosol inhaler 2 puff inhalation BID 30 Days Qty: 10.2 11RF cetirizine [Zyrtec] 10 mg tablet 10 mg PO DAILY 90 Days Qty: 90 2RF cholecalciferol (vitamin D3) 50 mcg (2,000 unit) capsule 2,000 unit PO DAILY 90 Days Qty: 90 1RF cyclobenzaprine 10 mg tablet 10 mg PO BEDTIME PRN (Reason: muscle spasm) 90 Days Qty: 90 1RF famotidine [Pepcid] 40 mg tablet 40 mg PO BEDTIME Qty: 30 6RF furosemide 20 mg tablet 20 mg PO DAILY Qty: 90 1RF metformin 1,000 mg tablet 1,000 mg PO BID 90 Days Qty: 180 1RF montelukast 10 mg tablet 10 mg PO DAILY 30 Days Qty: 30 11RF pantoprazole 40 mg tablet,delayed release (DR/EC) 40 mg PO DAILY 90 Days Qty: 90 1RF (DME) pen needle, diabetic 32 gauge x 5/32 needle See Rx Instructions .ROUTE QID Qty: 50 Rx Instructions: As directed (DME) compress.stocking,knee,reg,med Misc See Rx Instructions .Route Qty: 2 0RF Rx Instructions: 15-20 cm benzonatate 200 mg capsule 200 mg PO BID PRN (Reason: cough) 30 Days Qty: 60 3RF albuterol sulfate 2.5 mg /3 mL (0.083 %) solution for nebulization 2.5 mg inhalation Q6H PRN (Reason: shortness of breath or wheezing) 30 Days Qty: 180 9RF Linzess 290 mcg capsule 290 mcg PO QAM 30 Days Qty: 30 6RF docusate sodium [Colace] 100 mg capsule 100 mg PO .DAILY WITH FOOD 30 Days Qty: 30 3RF bisacodyl [Dulcolax (bisacodyl)] 5 mg tablet,delayed release (DR/EC) 15 mg PO BEDTIME 30 Days Qty: 90 6RF magnesium citrate Solution 150 ml PO DAILY Qty: 300 0RF peg 3350-electrolytes [Golytely] 236-22.74-6.74 -5.86 gram recon soln 240 ml PO Q10M 1 Days Qty: 4000 0RF Rx Instructions: until fecal effluent is clear; do not exceed a total volume of 2,000 mL metoclopramide HCl [Reglan] 10 mg tablet 10 mg PO QIDACHS Qty: 120 6RF Referrals: Katy Nazario MD [Primary Care Provider] -
[2023-05-20 18:53] LABS: COVID-19 Test Negative (Negative); IDNOW Serial# BCCEAD1C
== END 2023-05-20 20:38 | disposition home or self-care (01) ==
PROVIDERS: Physician Assistant; Emergency Provider Internal Medicine; PCP Internal Medicine
DX: J44.1 Chronic obstructive pulmonary disease with (acute) exacerbation (principal); R05.9 Cough, unspecified; R06.02 Shortness of breath; Z11.52 Encounter for screening for COVID-19; Z20.822 Contact with and (suspected) exposure to COVID-19
CPT/HCPCS: 71045; 87635; 99282; 99283

== ENCOUNTER 2023-06-30 07:37 | Outpatient (REF) | payer OTHER, SELFPAY ==
[2023-06-30 07:57] LABS: MANUAL DIFF FLAG NO
[2023-06-30 08:13] LABS: Basophils Percent Auto 0.5 % (0-2); Eosinophils Absolute Auto 0.1 X10*3/uL (0.0-0.4); Eosinophils Percent Auto 0.8 % (0-4); Hematocrit 39.7 % (37.0-47.0); Imm Gran Abs Auto 0.03 X10*3/uL (0.00-0.03); Imm Gran Pct Auto 0.3 % (0.0-0.4); Lymphocytes Absolute Auto 3.1 X10*3/uL (1.2-4.9); Lymphocytes Percent Auto 35.8 % (20-40); Mean Corpuscular HGB Conc 32.7 g/dl (31.0-35.0); Mean Corpuscular Volume 88.6 fL (80.0-98.0); Mean Platelet Volume 9.9 fL (9.4-12.3); Monocytes Absolute Auto 0.7 X10*3/uL (0.1-1.2); Monocytes Percent Auto 7.9 % (2-11); Neutrophils Absolute Auto 4.7 x10*3/uL (2.0-8.3); Neutrophils Percent Auto 54.7 % (45-73); Platelet Count 287 X10*3/uL (160-400); Red Blood Count 4.48 X10*6/uL (4.20-5.50); Red Cell Distribution Width 12.1 % (11.0-16.0); White Blood Count 8.7 X10*3/uL (4.8-10.8)
[2023-06-30 08:42] LABS: Alanine Aminotransferase 29 U/L (0-31); Albumin Level 4.1 g/dL (3.5-5.0); Alkaline Phosphatase 95 U/L (39-117); Anion Gap 14 (12-20); Aspartate Amino Transferase 18 U/L (5-31); Bilirubin Total 0.6 mg/dL (0.0-1.0); Blood Urea Nitrogen 13 mg/dL (9-16); Calcium 9.4 mg/dL (8.4-10.2); Carbon Dioxide 24 mmol/L (22-29); Chloride 105 mmol/L (96-108); Cholesterol 148 mg/dL (<200); Estimated Glomerular Filt Rate > 60; Glucose Fasting 208 mg/dL (60-99); HDL Cholesterol 41 mg/dL (>40); Iron 66 mcg/dL (30-160); LDL Cholesterol Calculated 83 mg/dL (<100); Percent Iron Saturation 21 % (15-50); Potassium 4.2 mmol/L (3.3-5.1); Sodium 139 mmol/L (135-145); Total Iron Binding Capacity 311 mcg/dL (228-428); Total Protein 7.1 g/dL (6.5-8.0); Triglycerides 121 mg/dL (<150); Unsaturated Iron Binding 245 ug/dL
[2023-06-30 08:58] LABS: Vitamin D 25-OH Total 22.3 ng/mL (>30)
[2023-06-30 09:15] LABS: Folate 12.8 ng/mL (> or = 4.0); Vitamin B12 675 pg/mL (200-900)
[2023-06-30 09:20] LABS: Creatinine Urine 241.66 mg/dL; Microalbum/Creatinine Ratio Ur 46.7 ug/mg cr (<30)
== END 2023-06-30 07:38 | disposition home or self-care (01) ==
LOC: HO.LAB 07:37
PROVIDERS: PCP Internal Medicine; Visit Provider Internal Medicine
DX: E11.65 Type 2 diabetes mellitus with hyperglycemia (principal); E78.5 Hyperlipidemia, unspecified; E55.9 Vitamin D deficiency, unspecified; D64.9 Anemia, unspecified; E53.8 Deficiency of other specified B group vitamins; E11.9 Type 2 diabetes mellitus without complications
CPT/HCPCS: 36415; 80053; 80061; 82043; 82306; 82570; 82607; 82746; 83540; 85025

== ENCOUNTER 2023-07-19 10:06 | Outpatient (AMB) | payer OTHER, SELFPAY ==
[2023-07-19 10:17] VITALS: BP 112/70; BMI 30.9
--- NOTE | 2023-07-19 10:17 | MHC.PC.OV ---
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 Accompanied by: Self / Same As Patient Allergies dulaglutide [[facility]] Adverse Reaction (Intermediate, Verified 07/19/23 10:40) Palpitations Medication List - Last Reconciled 07/19/23 by Katy Roberson MD albuterol sulfate 90 mcg/actuation 2 puffs inhalation Q4-6H PRN albuterol sulfate 2.5 mg (3 mL) inhalation Q6H PRN 30 days aspirin (Enteric Coated Aspirin) 81 mg PO DAILY 90 days atorvastatin 80 mg PO BEDTIME 90 days bisacodyl (Dulcolax (bisacodyl)) 15 mg (3 x 5 mg) PO BEDTIME 30 days blood sugar diagnostic (FreeStyle Precision Paul Strips) once a day for calibration budesonide-formoterol 160-4.5 mcg/actuation (Symbicort) 2 puffs inhalation DAILY cholecalciferol (vitamin D3) 2,000 units PO DAILY 90 days compress.stocking,knee,reg,med 15-20 cm cyclobenzaprine 10 mg PO BEDTIME PRN 90 days docusate sodium (Colace) 100 mg PO .DAILY WITH FOOD 30 days famotidine (Pepcid) 40 mg PO BEDTIME furosemide 20 mg PO DAILY linaclotide (Linzess) 290 mcg PO QAM 30 days magnesium citrate 150 mL PO DAILY metformin 1,000 mg PO BID 90 days montelukast 10 mg PO DAILY 30 days pantoprazole 40 mg PO DAILY 90 days peg 3350-electrolytes 236-22.74-6.74 -5.86 gram (Golytely) 240 mL PO Q10M 1 day pen needle, diabetic As directed semaglutide (Ozempic) 2 mg (1.5 mL) subcut QWEEK 30 days Tobacco use date assessed: 02/06/23 Dental Screening Dental Screen Date: 07/19/23 Did you have a dental visit in the last 12 months?: No Did you have a dental problem in the last 6 months where you did not have access to dental care?: No Was dental information given to patient?: Patient has dentist HPI HPI Comments History of Present Illness Details This is a 57-year-old female with asthma-COPD overlap syndrome and diabetes mellitus type 2 that comes today for her physical exam. Mammogram done 2022 and was normal. Colonoscopy was done 2017 and will be repeated next year. No need for Pap smear due to hysterectomy. Asthma-COPD overlap syndrome stable with longstanding inhaler. A1c not on goal and I will add Jardiance. No chest pain or shortness of breath. Complains of a productive cough that started about 3 days ago with no fever. She does have sick contacts. Last diabetic eye exam was over a year ago because her insurance does not cover eye exam. 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 Brother In good health Brother In good health Social History Housing: Apartment Alcohol intake: never Patient Tobacco Use Status: Former Tobacco user Quit Date: 2012 Tobacco use type: Cigarette e-Cigarette/Vaping Use: Never Used Second Hand Smoke Exposure: No Substance Use Type: Former Substance User and Marijuana service: No Current occupational status: employed Current occupational exposures/hazards: No Cognitive needs: No Hearing needs: No Vision needs: No Questionnaire Thrive Questionnaire Date Thrive assessed: 02/06/23 VEENA-7 AMB Questionnaire VEENA-7 Date VEENA - 7 assessed: 02/06/23 Source: Developed by Drs. Aron Coleman, Caro Rodriguez, Landen Strauss and colleagues, with an educational judd from [employer]. Review of Systems Const All systems reviewed & are unremarkable except as noted in HPI and below Eyes Reports no additional complaints, Denies change in vision and Denies other visual disturbances Card Denies chest pain at rest, Denies chest pain with activity, Denies edema, Denies irregular heart rhythm, Denies claudication, Denies dyspnea, Denies dyspnea on exertion, Denies orthopnea, Denies paroxysmal nocturnal dyspnea and Denies slow heart rate Resp Denies cough, Denies dyspnea and Denies dyspnea on exertion GI Denies abdominal pain, Denies change in bowel habits, Denies excessive flatus, Denies nausea and Denies vomiting Denies urinary incontinence, Denies urinary hesitancy and Denies urinary urgency Musc Denies abnormal gait, Denies atrophy, Denies deformity and Denies limited range of motion Skin/Breast Denies bleeding lesions, Denies changing lesions and Denies rash Neuro Denies abnormal gait, Denies behavioral changes, Denies confusion and Denies lack of coordination Psych Denies behavioral changes and Denies confusion Physical exam (Primary Care) Vital Signs: Last Vital Signs BP 112/70 07/19/23 10:17 BMI result Body Mass Index 30.9 Tobacco/Smoking Status: Tobacco use Status Tobacco use date assessed 02/06/23 07/19/23 10:24 Patient Tobacco Use Status Former Tobacco user 07/19/23 10:24 Tobacco use type Cigarette 07/19/23 10:24 e-Cigarette/Vaping Use Never Used 07/19/23 10:24 Thrive Assessment: Date of Thrive Assessment Date Thrive assessed 02/06/23 07/19/23 10:24 Const General: No confusion Orientation/consciousness: patient oriented x3 and No confusion HENMT Head: Yes normal to inspection, Yes normocephalic and Yes atraumatic Ears: external ears normal Eyes General: appearance normal, both eyes and all related structures Eyelids: Yes eyelids normal Conjunctivae: conjunctivae normal Neck Neck: Yes normal visual inspection and Yes supple Resp Effort & Inspection: normal respiratory effort Auscultation: clear to auscultation bilaterally Cardio Jugular venous distension: no JVD Rate: regular rate Rhythm: regular rhythm Heart sounds: S1 normal heart sound present and S2 normal heart sound present GI Inspection: Yes normal to inspection Palpation (GI): Soft to palpation and nontender Auscultation: normal bowel sounds Skin General skin exam: no rashes or lesions noted Neuro General: patient oriented x3, no focal motor deficits and No confusion Extrem General: Yes full ROM Psych Appearance: grossly normal Office Procedures Flu Questionnaire Does the patient have a severe egg allergy?: No Results AMB Hemoglobin A1c AMB Hemoglobin A1c 9.3 % Last Edit by EMILY Maloney on 07/19/23 10:27 Immunizations flu vacc [id number] 6mos up(PF) 60 mcg(15 mcgx4)/0.5 mL IM syringe Performing Provider: Katy Roberson MD [facility] [place] [facility] Documented (not given) by: EMILY Maloney on 07/19/23 10:24 Reason Not Given: Patient Refused Results Reviewed Results Reviewed: Laboratory Last Values Hgb A1c (Clinic) 9.3 % (4.0-6.0) H 07/19/23 10:16 Assessment and Plan Assessment & Plan (1) Physical exam: Code(s): Z00.00 - Encounter for general adult medical examination without abnormal findings Plan: Repeat in a year. (2) Asthma-COPD overlap syndrome: Code(s): J44.9 - Chronic obstructive pulmonary disease, unspecified Plan: Continue Symbicort. Use rescue inhaler as needed. (3) Diabetes type 2, uncontrolled: Onset Date: ~2015 Comment: (IDDM2 - Dx 2015) Code(s): E11.65 - Type 2 diabetes mellitus with hyperglycemia Qualifiers: Glycemic state: with hyperglycemia Qualified Code(s): E11.65 - Type 2 diabetes mellitus with hyperglycemia Plan: Continue metformin and Ozempic. Start Jardiance. A1c goal is equal or less than 7%. Orders: Orders AMB Hemoglobin A1c Today E11.65 - Type 2 diabetes mellitus with hyperglycemia Influenza [id number] Immunization Today Z23 - Encounter for immunization SARS-CoV2/FLU/RSV Today R09.89 - Other specified symptoms and signs involving the circulatory and respiratory systems US venous duplex LE RT Today M79.604 - Pain in right leg Medications: New empagliflozin (Jardiance) 10 mg PO DAILY 90 days 90 tabs 0RF E11.65 - Type 2 diabetes mellitus with hyperglycemia Refilled cholecalciferol (vitamin D3) 2,000 units PO DAILY 90 days 90 caps 1RF E11.65 - Type 2 diabetes mellitus with hyperglycemia Coding Level of Care Code Est Pt Prev Care 40-64y(10142) Diagnoses Physical exam Z00.00 Asthma-COPD overlap syndrome J44.9 Uncontrolled type 2 diabetes mellitus with hyperglycemia E11.65 Glycemic state: with hyperglycemia Time Spent (min) 33
== END 2023-07-19 10:55 | disposition home or self-care (01) ==
PROVIDERS: Visit Provider Internal Medicine
DX: Z00.00 Encounter for general adult medical examination without abnormal findings (principal); J44.9 Chronic obstructive pulmonary disease, unspecified; E11.65 Type 2 diabetes mellitus with hyperglycemia; Z79.4 Long term (current) use of insulin
CPT/HCPCS: 83036; 99396

== ENCOUNTER 2023-07-19 11:15 | Outpatient (REF) | payer OTHER, SELFPAY ==
--- NOTE | ~2023-07-19 | US_ITS ---
EXAMINATION: US VENOUS ULTRASOUND WITH DOPPLER LOWER EXTREMITY, RIGHT CLINICAL INFORMATION: Pain in right leg COMPARISON: None available. TECHNIQUE: Ultrasound of the deep veins is performed from the hip to the calf with compression sonography and color and pulse Doppler assessment. Spectral analysis with color-flow imaging is performed. FINDINGS: There is normal venous compression and respiratory variation and augmented flow. The visualized common femoral vein, superficial femoral vein, profunda femoral vein, popliteal vein, and the proximal posterior tibial and peroneal veins shows no evidence of deep venous thrombosis. The contralateral common femoral vein demonstrates normal respiratory variation. US/US venous duplex LE RT IMPRESSION: No DVT demonstrated in the right lower extremity.
[2023-07-19 13:04] LABS: Influenza A PCR NEGATIVE (Negative); Influenza B PCR NEGATIVE (Negative); Resp Syncy Virus RNA Qual PCR NEGATIVE (Negative); SARS COV2 PCR INHOUSE NEGATIVE (Negative)
== END 2023-07-19 11:16 | disposition home or self-care (01) ==
LOC: HO.US 11:15
PROVIDERS: PCP Internal Medicine; Visit Provider Physician Assistant
DX: M79.604 Pain in right leg (principal); Z11.52 Encounter for screening for COVID-19; R09.89 Other specified symptoms and signs involving the circulatory and respiratory systems
CPT/HCPCS: 0241U; 93971

== ENCOUNTER 2023-08-07 10:04 | Outpatient (AMB) | payer OTHER, SELFPAY ==
--- NOTE | 2023-08-07 10:05 | A.OFFPC_ITS ---
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 Required: No Accompanied by: Friend Allergies dulaglutide [From [facility]] Adverse Reaction (Intermediate, Verified 08/07/23 10:13) Palpitations Medication List - Last Reconciled 08/07/23 by Katy Roberson MD albuterol sulfate 90 mcg/actuation 2 puffs inhalation Q4-6H PRN albuterol sulfate 2.5 mg (3 mL) inhalation Q6H PRN 30 days aspirin (Enteric Coated Aspirin) 81 mg PO DAILY 90 days atorvastatin 80 mg PO BEDTIME 90 days azithromycin 250 mg PO DAILY 5 days bisacodyl (Dulcolax (bisacodyl)) 15 mg (3 x 5 mg) PO BEDTIME 30 days blood sugar diagnostic (FreeStyle Precision Paul Strips) once a day for calibration budesonide-formoterol 160-4.5 mcg/actuation (Symbicort) 2 puffs inhalation DAILY cholecalciferol (vitamin D3) 2,000 units PO DAILY 90 days compress.stocking,knee,reg,med 15-20 cm cyclobenzaprine 10 mg PO BEDTIME PRN 90 days docusate sodium (Colace) 100 mg PO .DAILY WITH FOOD 30 days empagliflozin (Jardiance) 10 mg PO DAILY 90 days famotidine (Pepcid) 40 mg PO BEDTIME furosemide 20 mg PO DAILY linaclotide (Linzess) 290 mcg PO QAM 30 days magnesium citrate 150 mL PO DAILY metformin 1,000 mg PO BID 90 days montelukast 10 mg PO DAILY 30 days pantoprazole 40 mg PO DAILY 90 days peg 3350-electrolytes 236-22.74-6.74 -5.86 gram (Golytely) 240 mL PO Q10M 1 day pen needle, diabetic As directed semaglutide (Ozempic) 2 mg (1.5 mL) subcut QWEEK 30 days Tobacco use date assessed: 08/07/23 Dental Screening Dental Screen Date: 08/07/23 Did you have a dental visit in the last 12 months?: No Did you have a dental problem in the last 6 months where you did not have access to dental care?: No Was dental information given to patient?: Patient has dentist HPI HPI Comments History of Present Illness Details This is a 57-year-old female with diabetes mellitus type 2, asthma-COPD overlap syndrome and chronic GERD that comes today accompanied by friend complaining of productive cough, shortness of breath and wheezing that started 2-3 days ago. No fever. She had similar symptoms 07/19/2023 which were treated with antibiotics and resolved. No sick contacts. A1c was elevated and I start her on Jardiance which she has not started yet. Has asthma-COPD overlap syndrome stable with long-acting inhaler and follow by pulmonology. GERD stable with medications as needed. [facility] Medical History (Updated 08/07/23 @ 10:09 by Katy Roberson MD) History of sleep study Hyperlipidemia LDL goal <100 Microalbuminuria Class 1 obesity with serious comorbidity and body mass index (BMI) of 33.0 to 33.9 in adult Asthma-COPD overlap syndrome Pulmonary nodule Personal history of nicotine dependence Severe asthma Chronic fatigue Right shoulder pain COVID-19 vaccine series completed GERD (gastroesophageal reflux disease) Asthma Obesity (BMI 30-39.9) Vitamin D deficiency senior care (current) use of insulin Chronic idiopathic constipation Diabetes type 2, uncontrolled (~2015) Foot abscess Dyslipidemia Surgical History History of dilation and curettage (~2004) History of colonoscopy History of section History of hysterectomy (~2010) Family History Father Heart disease Diabetes Hypertension Mother Heart disease Hypertension Diabetes Uterine cancer Sister Uterine cancer Daughter In good health Daughter In good health Son No problems noted. Brother In good health Brother In good health Social History Housing: Apartment Alcohol intake: never Patient Tobacco Use Status: Former Tobacco user Quit Date: 2012 Tobacco use type: Cigarette e-Cigarette/Vaping Use: Never Used Second Hand Smoke Exposure: No Substance Use Type: Former Substance User and Marijuana service: No Current occupational status: employed Current occupational exposures/hazards: No Cognitive needs: No Hearing needs: No Vision needs: No Questionnaire PHQ-9 Over the last 2 weeks, how often have you been bothered by any of the following problems? 1. Little interest or pleasure in doing things: not at all 2. Feeling down, depressed, or hopeless: not at all 3. Trouble falling or staying asleep, or sleeping too much: not at all 4. Feeling tired or having little energy: not at all 5. Poor appetite or overeating: not at all 6. Feeling bad about yourself - or that you are a failure or have let yourself or your family down: not at all 7. Trouble concentrating on things, such as reading the newspaper or watching television: not at all 8. Moving or speaking so slowly that other people could have noticed. Or the opposite - being so fidgety or restless that you have been moving around a lot more than usual: not at all 9. Thoughts that you would be better off or of hurting yourself in some way: not at all Total score: 0 Depression Screening Interpretation: Negative Depression Screening Done: Yes 46072 - PHQ-9 Billing: Yes Source: Developed by Drs. Aron Coleman, Caro Rodriguez, Landen Strauss and colleagues, with an educational judd from [employer]. Thrive Questionnaire Date Thrive assessed: 08/07/23 I am a: Patient What is your living situation today?: I have a steady place to live Within the past 12 months, did the food you bought not last and you didn't have the money to get more?: Never true Within the past 12 months, did you worry whether your food would run out before you got money to buy more?: Never true Do you have trouble paying for medicines?: No Do you have trouble getting transportation to medical appointments?: No Do you have trouble paying your heating and electricity bill?: No Do you have trouble taking care of your child, family member or friend?: No Do you have trouble with day-to-day activities such as bathing, preparing meals, shopping, managing finances, etc.?: No Are you currently unemployed and looking for a job?: No Are you interested in more education?: No Please select the resources that you would like help with: None AUDIT C Alcohol Use Questionnaire (AUDIT-C) 1. How often do you have a drink containing alcohol?: Never Total Score: 0 VEENA-7 AMB Questionnaire VEENA-7 Date VEENA - 7 assessed: 08/07/23 Feeling nervous, anxious, or on edge: 0 = Not at all Not being able to stop or control worryin = Not at all Worrying too much about different things: 0 = Not at all Trouble relaxin = Not at all Being so restless that it is hard to sit still: 0 = Not at all Becoming easily annoyed or irritable: 0 = Not at all Feeling afraid as if something awful might happen: 0 = Not at all Total VEENA-7 score (0-4 normal; 5-9 mild; 10-14 moderate; 15-21 severe): 0 Source: Developed by Drs. Aron Coleman, Caro Rodriguez, Landen Strauss and colleagues, with an educational judd from [employer]. VEENA-7 Assessment Billing VEENA-7 Assessment Tool: VEENA-7 Assessment 61906 Review of Systems Const All systems reviewed & are unremarkable except as noted in HPI and below Eyes Reports no additional complaints, Denies change in vision and Denies other visual disturbances Card Denies chest pain at rest, Denies chest pain with activity, Denies edema, Denies irregular heart rhythm, Denies claudication, Reports dyspnea, Denies dyspnea on exertion, Denies orthopnea, Denies paroxysmal nocturnal dyspnea and Denies slow heart rate Resp Reports cough, Reports dyspnea, Denies dyspnea on exertion and Reports wheezing GI Denies abdominal pain, Denies change in bowel habits, Denies excessive flatus, Denies nausea and Denies vomiting Denies urinary incontinence, Denies urinary hesitancy and Denies urinary urgency Musc Denies abnormal gait, Denies atrophy, Denies deformity and Denies limited range of motion Skin/Breast Denies bleeding lesions, Denies changing lesions and Denies rash Neuro Denies abnormal gait and Denies lack of coordination Aller/Immun Reports wheezing Physical exam (Primary Care) Vital Signs: Last Vital Signs BP 120/68 08/07/23 10:06 BMI result Body Mass Index 30.9 Tobacco/Smoking Status: Tobacco use Status Tobacco use date assessed 08/07/23 08/07/23 10:11 Patient Tobacco Use Status Former Tobacco user 08/07/23 10:11 Tobacco use type Cigarette 08/07/23 10:11 e-Cigarette/Vaping Use Never Used 08/07/23 10:11 PHQ-9: PHQ-9 Score PHQ-9: Total score 0 08/07/23 10:15 Depression Screening Interpretation: Negative Thrive Assessment: Date of Thrive Assessment Date Thrive assessed 08/07/23 08/07/23 10:11 Eyes General: appearance normal, both eyes and all related structures Eyelids: Yes eyelids normal Conjunctivae: conjunctivae normal Neck Neck: Yes normal visual inspection and Yes supple Resp Effort & Inspection: normal respiratory effort Auscultation: rhonchi and wheezes Cardio Jugular venous distension: no JVD Rate: regular rate Rhythm: regular rhythm Heart sounds: S1 normal heart sound present and S2 normal heart sound present Extrem General: Yes full ROM Assessment and Plan Assessment & Plan (1) Bronchitis: Code(s): J40 - Bronchitis, not specified as acute or chronic Plan: Start Z-Claudio. X-ray ordered. (2) Diabetes type 2, uncontrolled: Onset Date: ~2015 Comment: (IDDM2 - Dx 2015) Code(s): E11.65 - Type 2 diabetes mellitus with hyperglycemia Qualifiers: Glycemic state: with hyperglycemia Qualified Code(s): E11.65 - Type 2 diabetes mellitus with hyperglycemia Plan: Continue metformin and Ozempic. Start Jardiance. A1c goal is equal or less than 7%. (3) Asthma-COPD overlap syndrome: Code(s): J44.9 - Chronic obstructive pulmonary disease, unspecified Plan: Continue Symbicort. Use rescue inhaler as needed. Follow-up with pulmonology. (4) GERD (gastroesophageal reflux disease): Code(s): K21.9 - Gastro-esophageal reflux disease without esophagitis Plan: Continue famotidine as needed. Coding Level of Care Code Est Pt Level 4 (62377) Diagnoses Bronchitis J40 Uncontrolled type 2 diabetes mellitus with hyperglycemia E11.65 Glycemic state: with hyperglycemia Asthma-COPD overlap syndrome J44.9 GERD (gastroesophageal reflux disease) K21.9 Additional Codes VEENA-7 Assessment Billing - VEENA-7 Assessment Tool: VEENA-7 Assessment [id number] ([id number]) Time Spent (min) 24
[2023-08-07 10:06] VITALS: BP 120/68; BMI 30.9
== END 2023-08-07 11:49 | disposition home or self-care (01) ==
PROVIDERS: PCP Internal Medicine; Visit Provider Internal Medicine
DX: J40 Bronchitis, not specified as acute or chronic (principal); E11.65 Type 2 diabetes mellitus with hyperglycemia; J44.9 Chronic obstructive pulmonary disease, unspecified; K21.9 Gastro-esophageal reflux disease without esophagitis
CPT/HCPCS: 99214

== ENCOUNTER 2023-08-07 10:27 | Outpatient (REF) | payer OTHER, SELFPAY ==
--- NOTE | ~2023-08-07 | XR_ITS ---
EXAMINATION: XR CHEST 2 VIEWS CLINICAL INFORMATION: Bronchitis. COMPARISON: Chest endograft dated 05/20/2023; CT chest dated 11/03/2021. TECHNIQUE: Frontal and lateral views of the chest were obtained. FINDINGS: The heart, great vessels, pulmonary vasculature and mediastinum are normal. The lungs show no focal infiltrate, effusion or pneumothorax. There is mild chronic scar/subsegmental atelectasis along the left cardiac border. There is no acute osseous abnormality. XR/XR chest 2V IMPRESSION: No active cardiopulmonary disease.
[2023-08-07 11:38] LABS: Influenza A PCR NEGATIVE (Negative); Influenza B PCR NEGATIVE (Negative); Resp Syncy Virus RNA Qual PCR NEGATIVE (Negative); SARS COV2 PCR INHOUSE NEGATIVE (Negative)
== END 2023-08-07 10:28 | disposition home or self-care (01) ==
LOC: HO.XRAY 10:27
PROVIDERS: PCP Internal Medicine; Visit Provider Internal Medicine
DX: Z11.52 Encounter for screening for COVID-19 (principal); R09.89 Other specified symptoms and signs involving the circulatory and respiratory systems; J40 Bronchitis, not specified as acute or chronic
CPT/HCPCS: 0241U; 71046

== ENCOUNTER 2023-08-10 09:03 | Outpatient (AMB) | payer OTHER, SELFPAY ==
[2023-08-10 09:08] VITALS: BP 118/68; PULSE 87; O2SAT 98; BMI 34.1
--- NOTE | 2023-08-10 09:08 | MHC.OFFVIS ---
Intake Vital Signs 08/10/23 09:08 Height 5 ft 2 in Weight 186 lb 4.65 oz BMI 34.1 BP 118/68 Blood Pressure Location Rt brachial Position Sitting Pulse 87 Pulse Source Pulse Oximeter Pulse Oximetry (%) 98 Oxygen Delivery Method Room Air Intake Visit Reasons: Obstructive sleep apnea Allergies dulaglutide [From [facility]] Adverse Reaction (Intermediate, Verified 08/10/23 09:12) Palpitations HPI HPI Comments History of Present Illness Details The patient is a 57-year-old woman with a known history of asthma who apparently has been complaining worsening dyspnea on exertion. 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 She gets very winded very quickly With any activities of daily living. The patient does have a rescue inhaler and she also has Flovent. She was prescribed another inhaler but she is not aware of the name. She was sent for pulmonary function studies which we personally reviewed. It appears that she has severe obstruction concerning for asthma COPD overlap syndrome. The patient did have a significant response to bronchodilators noted. In addition to that she also had a restrictive process and a moderate diffusion impairment. We were able to look back at previous imaging studies. She did have a chest x-ray back in 2020 which demonstrated no acute disease. In addition to that we looked at a CT scan from 2019 that she had in the ER where demonstrated she had a 5-6 mm pulmonary nodule in the left hemithorax. But, no evidence of any interstitial lung disease or emphysema. The patient did have evidence of some chronic bronchitis. At this point will maximize her respiratory therapy. The patient also will need further imaging studies in regards of the nodule follow-up. I am hoping we can maximize her respiratory therapy at this time with the use of Trelegy. On further questioning 6, the patient does have significant daytime drowsiness. She does have headaches in the morning. Her [place] score is elevated 07/15. The patient also has lower extremity edema and significant cardiac or vascular risk factors. the patient does need a sleep study at this time. 02/17/2022 the patient is here for a pulmonary follow-up visit. Overall she is responding well to the Trelegy inhaler. She has not had to use her rescue inhaler more than twice a week. Overall she is feeling a lot better from that standpoint. She did have blood work which is reassuring. The patient also had a home sleep study because of symptoms of daytime drowsiness and her AHI was within normal limits. Therefore the patient is reassured that she does not have sleep apnea. Indeed she has some snoring but that is not pathologic the patient otherwise is feeling better. She did have a CT scan that we did review back in October 2021 demonstrating some evidence of minimal tree-in-bud. This is minimal along with very small subcentimeter pulmonary nodules. appears to be suspicious for inflammatory process. Otherwise patient is without any other complaints. 02/05/2023 the patient is here for pulmonary follow-up visit. The patient overall has been feeling fair. She her asthma has been acting up. She had to go on some prednisone recently. She tells that chest tightness. She also has some pleuritic chest discomfort. Denies any cough or fevers or chills. The patient has not been using the Trelegy inhaler. She did not tolerate the powder. She also did not tolerate the Spiriva. She is only taking the Symbicort. She also has a nebulizer that she uses as needed. The patient does have diabetes and has a very careful with any prednisone. I will send additional prednisone because of her chest tightness. However, she response to her other medicines she can hold off on it. I will put in for chest x-ray. She develops any further chest discomfort or pleurisy she is to come in for chest x-ray. 08/10/2023 the patient is here for a pulmonary follow-up visit. She is feeling fair. The patient again has been having worsening cough. This has been the case for the last 2 weeks. Feels some chest tightness and chest congestion. The cough is typically worse at nighttime. Does not let her sleep. She did have a chest x-ray which I personally reviewed demonstrating some degree bronchitis. Will go ahead and treat her for a lower respiratory infection along with an asthma exacerbation at this time. She does have concerns because of sugars go up when she uses prednisone so she will hold off at this time. If she noticed she does not respond to her respiratory therapy in the antibiotics then she can start the prednisone at that point with close monitoring of her blood sugars. [facility] Medical History History of sleep study Hyperlipidemia LDL goal <100 Microalbuminuria Class 1 obesity with serious comorbidity and body mass index (BMI) of 33.0 to 33.9 in adult Asthma-COPD overlap syndrome Pulmonary nodule Personal history of nicotine dependence Severe asthma Chronic fatigue Right shoulder pain COVID-19 vaccine series completed GERD (gastroesophageal reflux disease) Asthma Obesity (BMI 30-39.9) Vitamin D deficiency group home (current) use of insulin Chronic idiopathic constipation Diabetes type 2, uncontrolled (~2015) Foot abscess Dyslipidemia Surgical History History of dilation and curettage (~2004) History of colonoscopy History of section History of hysterectomy (~2010) Family History Father Heart disease Diabetes Hypertension Mother Heart disease Hypertension Diabetes Uterine cancer Sister Uterine cancer Daughter In good health Daughter In good health Son No problems noted. Brother In good health Brother In good health Social History Housing: Apartment Alcohol intake: never Patient Tobacco Use Status: Former Tobacco user Quit Date: 2012 Tobacco use type: Cigarette e-Cigarette/Vaping Use: Never Used Second Hand Smoke Exposure: No Substance Use Type: Former Substance User and Marijuana service: No Current occupational status: employed Current occupational exposures/hazards: No Cognitive needs: No Hearing needs: No Vision needs: No Review of Systems Const Reports daytime sleepiness, Reports headache(s) and Reports weight gain Eyes Denies change in vision ENT Reports Normal hearing present, Denies change in voice and Reports headache(s) Card Denies chest pain and Reports dyspnea on exertion Resp Reports chest congestion, Reports cough and Reports dyspnea on exertion GI Reports no additional complaints Musc Reports no additional complaints Skin/Breast Denies rash Neuro Reports Normal hearing present, Denies Abnormal speech present and Reports headache(s) Physical Exam Vital Signs: Last Vital Signs Pulse 87 08/10/23 09:08 BP 118/68 08/10/23 09:08 Pulse Ox 98 08/10/23 09:08 Oxygen Delivery Method Room Air 08/10/23 09:08 BMI result Body Mass Index 34.1 Const General: cooperative, no acute distress, well developed and well groomed Nutritional Appearance: well nourished and obese Orientation/consciousness: oriented to person, oriented to place and oriented to time Limitations: No language barrier HEENT Head: Yes normocephalic and Yes atraumatic Eyes General: appearance normal, both eyes and all related structures Pupils: Equal, round and reactive pupils present Neck Neck: Yes normal visual inspection and Yes no lymphadenopathy Thyroid: Thyroid normal Chest Chest palpation & inspection: normal inspection of the chest Resp Effort & Inspection: normal respiratory effort and prolonged expiratory phase Auscultation: wheezes and diminished lung sounds Cardio Rate: regular rate Rhythm: regular rhythm Heart sounds: Normal, physiologic split S2 sound present Peripheral pulses: radial pulses present and posterior tibial pulses present GI Inspection: No distended, No Abdominal panniculus present and Yes obesity Palpation (GI): Soft to palpation, nontender, no guarding, not rigid and No hepatosplenomegaly present Percussion: Yes normal to percussion Auscultation: normal bowel sounds Rectal Exam - Female: deferred Skin General skin exam: no rashes or lesions noted, turgor normal, skin not dry, no jaundice, No spider nevi and no striae Rashes: no rashes Nails: normal Neuro General: oriented to person, oriented to place and oriented to time Cranial nerves: Yes Equal, round and reactive pupils present and Yes Normal hearing present Speech: No Abnormal speech present Extrem General: Yes normal to inspection, No clubbing, No cyanosis and Yes edema Psych Appearance: grossly normal and well kempt Mental Status: mental status grossly normal Speech and movement: Normal speech and movement present Affect: normal affect Attitude: cooperative Thought process: Normal thought process present and not confabulating Thought content: Normal thought content present Insight: Limited insight present (Psych) Judgement: Limited judgement present (Psych) Assessment & Plan Assessment & Plan (1) Pulmonary nodule: Code(s): R91.1 - Solitary pulmonary nodule (2) Asthma-COPD overlap syndrome: Code(s): J44.9 - Chronic obstructive pulmonary disease, unspecified (3) Bronchitis: Code(s): J40 - Bronchitis, not specified as acute or chronic Plan start Doxycycline Prednisone taper if no better cough medicine continue Symbicort stopped spiriva ELISABETH as needed benzonates as needed compression stockings during the daytime F/U 4 months Medications: New doxycycline hyclate 100 mg PO BID 10 days 20 caps 0RF codeine-guaifenesin 10-100 mg/5 mL 10 mL PO Q6H 10 days PRN 300 mL 0RF cough prednisone PO daily; Take 2 tabs daily x 5 days, then 1 tablet daily x 5 days 10 days 15 tabs 0RF Coding Level of Care Code Est Pt Level 4 (27519) Diagnoses Pulmonary nodule R91.1 Asthma-COPD overlap syndrome J44.9 Bronchitis J40 Time Spent (min) 17
== END 2023-08-10 09:27 | disposition home or self-care (01) ==
PROVIDERS: PCP Internal Medicine; Visit Provider Hospitalist
DX: R91.1 Solitary pulmonary nodule (principal); J44.9 Chronic obstructive pulmonary disease, unspecified; J40 Bronchitis, not specified as acute or chronic
CPT/HCPCS: 99214

== ENCOUNTER → 2023-08-10 09:03 | Outpatient (BNVA) | payer OTHER, SELFPAY | PROVIDERS: PCP Internal Medicine; Visit Provider Hospitalist | DX: R91.1 Solitary pulmonary nodule (principal); J44.9 Chronic obstructive pulmonary disease, unspecified; J40 Bronchitis, not specified as acute or chronic | CPT/HCPCS: 99212 ==

== ENCOUNTER 2023-10-17 07:13 | Day surgery (SDC) | payer OTHER, SELFPAY ==
[2023-10-15 12:31] VITALS: BMI 30.9
--- NOTE | 2023-10-17 07:54 | HO.ANESPROP2 ---
[facility] Active Problems Active Problems: All Active Problems (Updated 10/15/23 @ 12:36 by Brandy Sanchez RN) Bronchitis (Acute) Right leg pain (Acute) Hyperlipidemia LDL goal <70 (Acute) Foot pain (Acute) Screen for colon cancer (Acute) Physical exam (Acute) Leg edema (Acute) Small bowel motility disorder (Acute) Vaginal itching (Acute) Epigastric pain (Acute) ORLIN (obstructive sleep apnea) (Acute) SOB (shortness of breath) (Acute) Family history of colon cancer (Acute) GERD (gastroesophageal reflux disease) (Acute) Asthma (Acute) Hyperlipidemia LDL goal <100 (Acute) Microalbuminuria (Acute) Class 1 obesity with serious comorbidity and body mass index (BMI) of 33.0 to 33.9 in adult (Acute) Asthma-COPD overlap syndrome (Acute) Pulmonary nodule (Acute) Chronic idiopathic constipation (Acute) Diabetes type 2, uncontrolled (Acute ~2016) 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 (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) Dyslipidemia (Acute) Severe asthma (Acute) Personal history of nicotine dependence (Acute) Obesity (BMI 30-39.9) (Acute) Vitamin D deficiency (Acute) Chronic fatigue (Acute) Right shoulder pain (Acute) Past Medical History Medical History (Updated 10/15/23 @ 12:36 by Brandy Sanchez RN) History of sleep study Hyperlipidemia LDL goal <100 Microalbuminuria Class 1 obesity with serious comorbidity and body mass index (BMI) of 33.0 to 33.9 in adult Asthma-COPD overlap syndrome Pulmonary nodule Personal history of nicotine dependence Severe asthma Chronic fatigue Right shoulder pain COVID-19 vaccine series completed GERD (gastroesophageal reflux disease) Asthma Obesity (BMI 30-39.9) Vitamin D deficiency 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 Brother In good health Brother In good health Family history of problems with anesthesia: No Surgical History Surgical History (Updated 10/15/23 @ 12:25 by Brandy Sanchez RN) History of dilation and curettage (~2004) History of colonoscopy History of section History of hysterectomy (~2010) History of Problems with Anesthesia: No Social History Social History Housing: Apartment Alcohol intake: never Patient Tobacco Use Status: Former Tobacco user Quit Date: 2012 Tobacco use type: Cigarette e-Cigarette/Vaping Use: Never Used Second Hand Smoke Exposure: No Substance Use Type: Former Substance User and Marijuana Advance Directives: No Advance Directives Information Provided: Yes service: No Current occupational status: employed Current occupational exposures/hazards: No Cognitive needs: No Hearing needs: No Vision needs: No Meds Allergies Allergy/AdvReac Type Severity Reaction Status Date / Time [facility] [[facility] AdvReac Intermediate Palpitation Verified 10/17/23 07:57 s Home Medications Medication Instructions Recorded Confirmed Last Taken Type pen needle, diabetic 32 gauge x #50 ea 10/15/20 10/17/23 Unknown History budesonide-formoterol HFA 160 2 puff inhalation DAILY 06/28/23 10/17/23 Unknown History mcg-4.5 mcg/actuation aerosol inhaler (Symbicort) Exam Height,Weight and Vital Signs: Height 5 ft 4 in Weight 81.647 kg Airway Mallampati Class: III TM Dist: <=3cm Neck ROM: Full Denture: Upper Loose/Missing/Broken Teeth: No Heart: rrr Lungs: cta b/l Assessment and Plan Final Anesthetic Review Family History of Problems with Anesthesia: No History of Problems with Anesthesia: No NPO: Yes ASA Class: III Final Preanesthetic Review: No Changes in Pt Med Stat, Meds/Allgs Chart Reviewed, Consent Obtained/Reviewed and Anes Risks/Benef Reviewed Patient Risk: Intermediate Procedure Risk: Intermediate Anesthetic Plan Anesthetic Plan: MAC: Disposition: Standard PACU
[2023-10-17 08:01] VITALS: BP 101/70; PULSE 82; RESP 16; TEMP 36.8; O2SAT 97; BMI 30.6
[2023-10-17 08:17] LABS: Glucose, Whole Blood 176 mg/dL (60-115)
--- NOTE | 2023-10-17 08:31 | MHC.SHP ---
Pre-Procedural Eval Section A - 24 Hr Update-Section A only Date of Service: 10/17/23 Section B - Complete if H&P > 30 days Chief Complaint: Family history of malignant neoplasm of digestive Details of Present Illness: aunt with CRC Relevant Family History (Specify if Yes): Yes Relevant Social History: None Present Medications: see Short Stay Collaborative assessment Medical History: Significant History (History of sleep study Hyperlipidemia LDL goal <100 Microalbuminuria Class 1 obesity with serious comorbidity and body mass index (BMI) of 33.0 to 33.9 in adult Asthma-COPD overlap syndrome Pulmonary nodule Personal history of nicotine dependence Severe asthma Chronic fatigue Right shoulder pain COV) History of Previous Operations: Relevant previous surgery/procedure and date(s) (History of dilation and curettage (~2004) History of colonoscopy History of section History of hysterectomy (~2010)) Allergies: Allergies Allergy/AdvReac Type Severity Reaction Status Date / Time dulaglutide [From [facility]] AdvReac Intermediate Palpitation Verified 10/17/23 07:57 s Review of Systems Sugical H&P ROS: Negative: Constitution, Cardiovascular, Respiratory, Neurological, Psychiatric, Hem-Onc, Allergic/Immunologic, Gastrointestinal, Genitourinary, Musculoskeletal, Integumentary, Endocrine and Eyes/Ears/Nose/Throat Exam Surgical H&P Exam: Normal: HEENT, Normal: Heart, Normal: Lungs, Normal: Extremities, Normal: Abdomen, Normal: Skin and Normal: Neurological Plan Diagnosis/Plan: Unchanged I have reviewed the history and physical and performed a pertinent physical examination on my patient. No changes have occurred unless specified. Time Spent With Patient Time: Total time managing care of this patient today ____ minutes.
--- NOTE | 2023-10-17 08:59 | P.OP_ITS ---
Operative Note Operative Note Date of Service: 10/17/23 Narrative: Operative Information Procedure Description: Colonoscopy Indication: screening Anesthesia: MAC COLONOSCOPY Instrument: Olympus variable stiffness pediatric scope 190L Colonoscopy Monitoring: Vital signs and clinical assessment, continuous EKG monitoring, Pulse oximetry, Carbon Dioxide monitoring and blood pressure monitoring were done throughout the procedure. Colon withdrawal time was 9 minutes. Procedure: The patient was placed in the left lateral decubitis position and pre-procedure medications were administered. After a digital rectal examination of the ano-rectum, the video colonoscope was inserted into the rectum and advanced through the colon to the cecum/TI. The colonoscope was slowly withdrawn in a retrograde panoramic fashion and the colon mucosa was carefully examined including a retroflexed view of the rectum. Findings and interventions are described below. Procedure Difficulty: easy Findings: Terminal Ileum-normal Cecum:normal Ascending Colon: normal Transverse Colon -normal Descending Colon:normal Sigmoid Colon: mild diverticulosis Rectum: Retroflexion with small internal hemorrhoids seen, grade I Anorectum - normal Intervention: none Colon preparation: [place] Bowel Preparation Scale Right colon; 2 Transverse colon: 2 Left colon; 2 (0 = Unprepared colon segment with mucosa not seen due to solid stool that cannot be cleared. 1 = Portion of mucosa of the colon segment seen, but other areas of the colon segment not well seen due to staining, residual stool and/or opaque liquid. 2 = Minor amount of residual staining, small fragments of stool and/or opaque liquid, but mucosa of colon segment seen well. 3 = Entire mucosa of colon segment seen well with no residual staining, small fragments of stool or opaque liquid) Impression and Post Procedure Diagnosis: diverticulosis internal hemorrhoids Plan: High fiber diet leaflet Avoid straining at stool, epsom salts and sitz bath, anusol supps or cream Repeat Colonoscopy in 10 years or earlier if clinically indicated Above findings were reviewed with the patient and relevant handouts were provided if indicated.
[2023-10-17 09:33] VITALS: BP 111/65; PULSE 79; RESP 17; TEMP 36.4; O2SAT 99
[2023-10-17 09:56] VITALS: BP 106/63; PULSE 91; RESP 17; TEMP 36.1; O2SAT 100
== END 2023-10-17 10:28 | disposition home or self-care (01) ==
PROVIDERS: PCP Internal Medicine; Visit Provider Internal Medicine Gastroenterology
PROC: 0DJD8ZZ Inspection of Lower Intestinal Tract, Via Natural or Artificial Opening Endoscopic (ICD-10-PCS; CPT 45378; principal; 2023-10-17 09:30)
DX: Z12.11 Encounter for screening for malignant neoplasm of colon (principal); K57.30 Diverticulosis of large intestine without perforation or abscess without bleeding; K64.0 First degree hemorrhoids; K59.04 Chronic idiopathic constipation; E78.5 Hyperlipidemia, unspecified; E66.8 Other obesity; E55.9 Vitamin D deficiency, unspecified; Z68.33 Body mass index [BMI] 33.0-33.9, adult; K21.9 Gastro-esophageal reflux disease without esophagitis; J44.9 Chronic obstructive pulmonary disease, unspecified; G47.33 Obstructive sleep apnea (adult) (pediatric); R91.1 Solitary pulmonary nodule; R53.82 Chronic fatigue, unspecified; E11.69 Type 2 diabetes mellitus with other specified complication; Z79.4 Long term (current) use of insulin; Z79.84 Long term (current) use of oral hypoglycemic drugs; Z79.85 Long-term (current) use of injectable non-insulin antidiabetic drugs; Z88.8 Allergy status to other drugs, medicaments and biological substances; Z87.891 Personal history of nicotine dependence
CPT/HCPCS: 45378; 82947; J2704

== ENCOUNTER → 2023-10-17 07:13 | Outpatient (BNV) | payer OTHER, SELFPAY | PROVIDERS: PCP Internal Medicine; Visit Provider Internal Medicine Gastroenterology | DX: Z12.11 Encounter for screening for malignant neoplasm of colon (principal); K57.30 Diverticulosis of large intestine without perforation or abscess without bleeding; K64.0 First degree hemorrhoids | CPT/HCPCS: 45378 ==

== ENCOUNTER 2023-11-22 10:35 | Outpatient (AMB) | payer OTHER, SELFPAY ==
[2023-11-22 10:40] VITALS: BP 112/68; BMI 30.6
--- NOTE | 2023-11-22 10:40 | A.OFFPC_ITS ---
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 Accompanied by: Self / Same As Patient Allergies [facility] Adverse Reaction (Intermediate, Verified 11/22/23 10:53) Palpitations Medication List - Last Reconciled 11/22/23 by Katy Roberson MD albuterol sulfate 90 mcg/actuation 2 puffs inhalation Q4-6H PRN albuterol sulfate 2.5 mg (3 mL) inhalation Q6H PRN 30 days aspirin (Enteric Coated Aspirin) 81 mg PO DAILY 90 days atorvastatin 80 mg PO BEDTIME 90 days blood sugar diagnostic (FreeStyle Precision Paul Strips) once a day for calibration budesonide-formoterol 160-4.5 mcg/actuation (Symbicort) 2 puffs inhalation DAILY canagliflozin (Invokana) 100 mg PO DAILY 30 days cholecalciferol (vitamin D3) 2,000 units PO DAILY 90 days compress.stocking,knee,reg,med 15-20 cm cyclobenzaprine 10 mg PO BEDTIME PRN 90 days docusate sodium (Colace) 100 mg PO .DAILY WITH FOOD 30 days famotidine (Pepcid) 40 mg PO BEDTIME furosemide 20 mg PO DAILY insulin degludec (Tresiba FlexTouch U-100 insulin) 10 units (0.1 mL) subcut DAILY 30 days linaclotide (Linzess) 290 mcg PO QAM 30 days magnesium citrate 150 mL PO DAILY metformin 1,000 mg PO BID 90 days montelukast 10 mg PO DAILY 30 days pantoprazole 40 mg PO DAILY 90 days pen needle, diabetic (CareFine Pen Needle) As directed pen needle, diabetic As directed semaglutide (Ozempic) 2 mg (1.5 mL) subcut QWEEK 30 days Tobacco use date assessed: 08/07/23 Dental Screening Dental Screen Date: 08/07/23 HPI HPI Comments History of Present Illness Details This is a 58-year-old female with diabetes mellitus type 2 on long-term current use of insulin, hyperlipidemia, asthma-COPD overlap syndrome and GERD that comes today complaining of bilateral pain in feet burning like in quality. She goes to raise [employer] and received local injection in feet which relieved the pain for few months but comes back again. The pain is constant and she has to sleep with feet outside of the bed. I will start her on low-dose gabapentin 3 times a day. Patient was advised that if she has to drive or do anything else that requires attention to not take her gabapentin because it can cause sleepiness, addiction and sedation. Her A1c is elevated but she has not start her Tresiba yet due to being not able to pay for it. Lipid panel was order and her LDL goal should be less than 70. Has asthma-COPD overlap syndrome follow by pulmonology and well controlled with Symbicort. Use rescue inhaler as needed. GERD stable with PPIs. 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 Brother In good health Brother In good health Social History Housing: Apartment Alcohol intake: never Patient Tobacco Use Status: Former Tobacco user Quit Date: 2012 Tobacco use type: Cigarette e-Cigarette/Vaping Use: Never Used Second Hand Smoke Exposure: No Substance Use Type: Former Substance User and Marijuana service: No Current occupational status: employed Current occupational exposures/hazards: No Cognitive needs: No Hearing needs: No Vision needs: No Questionnaire Thrive Questionnaire Date Thrive assessed: 08/07/23 VEENA-7 AMB Questionnaire VEENA-7 Date VEENA - 7 assessed: 08/07/23 Source: Developed by Drs. Aron Coleman, Caro Rodriguez, Landen Strauss and colleagues, with an educational judd from [employer]. Review of Systems Const All systems reviewed & are unremarkable except as noted in HPI and below Card Denies chest pain at rest, Denies chest pain with activity, Denies edema, Denies irregular heart rhythm, Denies claudication, Denies dyspnea, Denies dyspnea on exertion, Denies orthopnea, Denies paroxysmal nocturnal dyspnea and Denies slow heart rate Resp Denies cough, Denies dyspnea and Denies dyspnea on exertion Physical exam (Primary Care) Vital Signs: Last Vital Signs BP 112/68 11/22/23 10:40 BMI result Body Mass Index 30.6 Tobacco/Smoking Status: Tobacco use Status Tobacco use date assessed 08/07/23 11/22/23 10:44 Patient Tobacco Use Status Former Tobacco user 11/22/23 10:44 Tobacco use type Cigarette 11/22/23 10:44 e-Cigarette/Vaping Use Never Used 11/22/23 10:44 Thrive Assessment: Date of Thrive Assessment Date Thrive assessed 08/07/23 11/22/23 10:44 Resp Effort & Inspection: normal respiratory effort Auscultation: clear to auscultation bilaterally Cardio Jugular venous distension: no JVD Rate: regular rate Rhythm: regular rhythm Heart sounds: S1 normal heart sound present and S2 normal heart sound present Extrem General: Yes full ROM Results AMB Hemoglobin A1c AMB Hemoglobin A1c 10.2 % Last Edit by EMILY Maloney on 11/22/23 10: 55 Results Reviewed Results Reviewed: Laboratory Last Values Hgb A1c (Clinic) 10.2 % (4.0-6.0) H 11/22/23 10:40 Assessment and Plan Assessment & Plan (1) Diabetes type 2, uncontrolled: Onset Date: ~2015 Comment: (IDDM2 - Dx 2016) Code(s): E11.65 - Type 2 diabetes mellitus with hyperglycemia Qualifiers: Glycemic state: with hyperglycemia Qualified Code(s): E11.65 - Type 2 diabetes mellitus with hyperglycemia Plan: Start Tresiba. Continue metformin, Ozempic and Invokana. A1c goal is equal or less than 7%. (2) Asthma-COPD overlap syndrome: Code(s): J44.9 - Chronic obstructive pulmonary disease, unspecified Plan: Continue Symbicort. Use rescue inhaler as needed. Follow-up with pulmonology. (3) GERD (gastroesophageal reflux disease): Code(s): K21.9 - Gastro-esophageal reflux disease without esophagitis Plan: Continue PPIs. (4) Hyperlipidemia LDL goal <70: Code(s): E78.5 - Hyperlipidemia, unspecified Plan: Continue statins. LDL goal is less than 70. (5) Diabetic neuropathy: Code(s): E11.40 - Type 2 diabetes mellitus with diabetic neuropathy, unspecified Plan: Start gabapentin. Orders: Orders AMB Hemoglobin A1c Today E11.65 - Type 2 diabetes mellitus with hyperglycemia Lipid Panel Today E78.5 - Hyperlipidemia, unspecified Vitamin D 25-OH Total Today E55.9 - Vitamin D deficiency, unspecified Microalbumin, Random (w Creat) Today E11.9 - Type 2 diabetes mellitus without complications Comprehensive [place]. Panel Fast Today E11.65 - Type 2 diabetes mellitus with hyperglycemia Medications: New gabapentin 100 mg PO TID 90 caps 0RF 30 days Discontinued cyclobenzaprine Discontinued Reason: Patient Completed Course 10 mg PO BEDTIME 90 days PRN 90 tabs 1RF muscle spasm E11.65 - Type 2 diabetes mellitus with hyperglycemia Coding Level of Care Code Est Pt Level 4 (88893) Diagnoses Uncontrolled type 2 diabetes mellitus with hyperglycemia E11.65 Glycemic state: with hyperglycemia Asthma-COPD overlap syndrome J44.9 GERD (gastroesophageal reflux disease) K21.9 Hyperlipidemia LDL goal <70 E78.5 Diabetic neuropathy E11.40 Time Spent (min) 25
== END 2023-11-22 11:13 | disposition home or self-care (01) ==
PROVIDERS: PCP Internal Medicine; Visit Provider Internal Medicine
DX: E11.65 Type 2 diabetes mellitus with hyperglycemia (principal); J44.9 Chronic obstructive pulmonary disease, unspecified; K21.9 Gastro-esophageal reflux disease without esophagitis; E11.40 Type 2 diabetes mellitus with diabetic neuropathy, unspecified; E78.5 Hyperlipidemia, unspecified
CPT/HCPCS: 83036; 99214

== ENCOUNTER 2023-12-21 09:04 | Outpatient (AMB) | payer OTHER, SELFPAY ==
--- NOTE | 2023-12-21 09:11 | MHC.OFFVIS ---
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 She gets very winded very quickly With any activities of daily living. The patient does have a rescue inhaler and she also has Flovent. She was prescribed another inhaler but she is not aware of the name. She was sent for pulmonary function studies which we personally reviewed. It appears that she has severe obstruction concerning for asthma COPD overlap syndrome. The patient did have a significant response to bronchodilators noted. In addition to that she also had a restrictive process and a moderate diffusion impairment. We were able to look back at previous imaging studies. She did have a chest x-ray back in 2020 which demonstrated no acute disease. In addition to that we looked at a CT scan from 2019 that she had in the ER where demonstrated she had a 5-6 mm pulmonary nodule in the left hemithorax. But, no evidence of any interstitial lung disease or emphysema. The patient did have evidence of some chronic bronchitis. At this point will maximize her respiratory therapy. The patient also will need further imaging studies in regards of the nodule follow-up. I am hoping we can maximize her respiratory therapy at this time with the use of Trelegy. On further questioning 6, the patient does have significant daytime drowsiness. She does have headaches in the morning. Her Preston score is elevated 07/15. The patient also has lower extremity edema and significant cardiac or vascular risk factors. the patient does need a sleep study at this time. 02/17/2022 the patient is here for a pulmonary follow-up visit. Overall she is responding well to the Trelegy inhaler. She has not had to use her rescue inhaler more than twice a week. Overall she is feeling a lot better from that standpoint. She did have blood work which is reassuring. The patient also had a home sleep study because of symptoms of daytime drowsiness and her AHI was within normal limits. Therefore the patient is reassured that she does not have sleep apnea. Indeed she has some snoring but that is not pathologic the patient otherwise is feeling better. She did have a CT scan that we did review back in October 2021 demonstrating some evidence of minimal tree-in-bud. This is minimal along with very small subcentimeter pulmonary nodules. appears to be suspicious for inflammatory process. Otherwise patient is without any other complaints. 02/05/2023 the patient is here for pulmonary follow-up visit. The patient overall has been feeling fair. She her asthma has been acting up. She had to go on some prednisone recently. She tells that chest tightness. She also has some pleuritic chest discomfort. Denies any cough or fevers or chills. The patient has not been using the Trelegy inhaler. She did not tolerate the powder. She also did not tolerate the Spiriva. She is only taking the Symbicort. She also has a nebulizer that she uses as needed. The patient does have diabetes and has a very careful with any prednisone. I will send additional prednisone because of her chest tightness. However, she response to her other medicines she can hold off on it. I will put in for chest x-ray. She develops any further chest discomfort or pleurisy she is to come in for chest x-ray. 08/10/2023 the patient is here for a pulmonary follow-up visit. She is feeling fair. The patient again has been having worsening cough. This has been the case for the last 2 weeks. Feels some chest tightness and chest congestion. The cough is typically worse at nighttime. Does not let her sleep. She did have a chest x-ray which I personally reviewed demonstrating some degree bronchitis. Will go ahead and treat her for a lower respiratory infection along with an asthma exacerbation at this time. She does have concerns because of sugars go up when she uses prednisone so she will hold off at this time. If she noticed she does not respond to her respiratory therapy in the antibiotics then she can start the prednisone at that point with close monitoring of her blood sugars. 12/21/2023 the patient is here for a pulmonary follow-up visit. Overall she is doing well. She has not required any prednisone which is reassuring. She does have issues with elevated blood sugars and diabetes so she needs to be very careful with that. She continues use respiratory inhalers with good effect. We did go over her inhalers. She responds very well to the Symbicort. She has not using the Spiriva. Therefore will continue just the Symbicort. This is a little more expensive for her but it does work well for her. No recent imaging to review. The patient does have a smoking history. She quit about 8-9 years ago. She has a greater than 40 pack-year history of smoking. Therefore she has a great candidate for the lung cancer screening program. [facility] Medical History (Updated 12/21/23 @ 09:33 by Lalo Montenegro MD) Smoking history History of sleep study Hyperlipidemia LDL goal <100 Microalbuminuria Class 1 obesity with serious comorbidity and body mass index (BMI) of 33.0 to 33.9 in adult Asthma-COPD overlap syndrome Pulmonary nodule Personal history of nicotine dependence Severe asthma Chronic fatigue Right shoulder pain COVID-19 vaccine series completed GERD (gastroesophageal reflux disease) Asthma Obesity (BMI 30-39.9) Vitamin D deficiency detention (current) use of insulin Chronic idiopathic constipation Diabetes type 2, uncontrolled (~2015) Foot abscess Dyslipidemia Surgical History History of dilation and curettage (~2004) History of colonoscopy History of section History of hysterectomy (~2010) Family History Father Heart disease Diabetes Hypertension Mother Heart disease Hypertension Diabetes Uterine cancer Sister Uterine cancer Daughter In good health Daughter In good health Son No problems noted. Brother In good health Brother In good health Social History Housing: Apartment Alcohol intake: never Patient Tobacco Use Status: Former Tobacco user Tobacco use type: Cigarette e-Cigarette/Vaping Use: Never Used Second Hand Smoke Exposure: No Substance Use Type: Former Substance User and Marijuana service: No Current occupational status: employed Current occupational exposures/hazards: No Cognitive needs: No Hearing needs: No Vision needs: No Review of Systems Const Reports daytime sleepiness, Reports headache(s) and Reports weight gain Eyes Denies change in vision ENT Reports Normal hearing present, Denies change in voice and Reports headache(s) Card Denies chest pain and Reports dyspnea on exertion Resp Reports cough and Reports dyspnea on exertion GI Reports no additional complaints Musc Reports no additional complaints Skin/Breast Denies rash Neuro Reports Normal hearing present, Denies Abnormal speech present and Reports headache(s) Physical Exam Vital Signs: Last Vital Signs Pulse 83 12/21/23 09:12 Pulse Ox 99 12/21/23 09:12 Oxygen Delivery Method Room Air 12/21/23 09:12 BMI result Body Mass Index 30.3 Const General: cooperative, no acute distress, well developed and well groomed Nutritional Appearance: well nourished and obese Orientation/consciousness: oriented to person, oriented to place and oriented to time Limitations: No language barrier HEENT Head: Yes normocephalic and Yes atraumatic Eyes General: appearance normal, both eyes and all related structures Pupils: Equal, round and reactive pupils present Neck Neck: Yes normal visual inspection and Yes no lymphadenopathy Thyroid: Thyroid normal Chest Chest palpation & inspection: normal inspection of the chest Resp Effort & Inspection: normal respiratory effort Auscultation: no wheezes and diminished lung sounds Cardio Rate: regular rate Rhythm: regular rhythm Heart sounds: Normal, physiologic split S2 sound present Peripheral pulses: radial pulses present and posterior tibial pulses present GI Inspection: No distended, No Abdominal panniculus present and Yes obesity Palpation (GI): Soft to palpation, nontender, no guarding, not rigid and No hepatosplenomegaly present Percussion: Yes normal to percussion Auscultation: normal bowel sounds Rectal Exam - Female: deferred Skin General skin exam: no rashes or lesions noted, turgor normal, skin not dry, no jaundice, No spider nevi and no striae Rashes: no rashes Nails: normal Neuro General: oriented to person, oriented to place and oriented to time Cranial nerves: Yes Equal, round and reactive pupils present and Yes Normal hearing present Speech: No Abnormal speech present Extrem General: Yes normal to inspection, No clubbing, No cyanosis and Yes edema Psych Appearance: grossly normal and well kempt Mental Status: mental status grossly normal Speech and movement: Normal speech and movement present Affect: normal affect Attitude: cooperative Thought process: Normal thought process present and not confabulating Thought content: Normal thought content present Insight: Limited insight present (Psych) Judgement: Limited judgement present (Psych) Assessment & Plan Assessment & Plan (1) Pulmonary nodule: Code(s): R91.1 - Solitary pulmonary nodule Category: Medical (2) Asthma-COPD overlap syndrome: Code(s): J44.9 - Chronic obstructive pulmonary disease, unspecified Category: Medical Plan continue Symbicort stopped spiriva ELISABETH as needed benzonates as needed LDCT program F/U 6-8 months Orders: Referrals Lung Cancer Screening Referral Z87.241 - Personal history of nicotine dependence Medications: New prednisone PO daily; Take 4 tabs x 3 days, then 3 tabs x 3 days, then 2 tabs daily x 3 days, then 1 tab x 3 days to complete. 30 tabs 0RF 12 days Changed From budesonide-formoterol 160-4.5 mcg/actuation (Symbicort) 2 puffs inhalation DAILY J44.9 - Chronic obstructive pulmonary disease, unspecified To budesonide-formoterol 160-4.5 mcg/actuation (Symbicort) 2 puffs inhalation DAILY 3 ea 3RF 90 days J44.9 - Chronic obstructive pulmonary disease, unspecified Coding Level of Care Code Est Pt Level 4 (91726) Diagnoses Pulmonary nodule R91.1 Asthma-COPD overlap syndrome J44.9 Time Spent (min) 16
[2023-12-21 09:12] VITALS: PULSE 83; O2SAT 99; BMI 30.3
== END 2023-12-21 09:34 | disposition home or self-care (01) ==
PROVIDERS: PCP Internal Medicine; Visit Provider Hospitalist
DX: R91.1 Solitary pulmonary nodule (principal); J44.9 Chronic obstructive pulmonary disease, unspecified
CPT/HCPCS: 99214

== ENCOUNTER → 2023-12-21 09:04 | Outpatient (BNVA) | payer OTHER, SELFPAY | PROVIDERS: PCP Internal Medicine; Visit Provider Hospitalist | DX: J44.9 Chronic obstructive pulmonary disease, unspecified (principal); R91.1 Solitary pulmonary nodule | CPT/HCPCS: 99212 ==

== ENCOUNTER 2023-12-27 06:47 | Outpatient (REF) | payer OTHER, SELFPAY | END 2023-12-27 06:48 | disposition home or self-care (01) | LOC: HO.HOSX 06:47 | PROVIDERS: Visit Provider Orthopaedic Surgery | DX: Z13.89 Encounter for screening for other disorder (principal) ==

== ENCOUNTER → 2024-01-10 16:06 | Outpatient (BNVA) | payer OTHER, SELFPAY | PROVIDERS: PCP Internal Medicine; Visit Provider Hospitalist ==

== ENCOUNTER 2024-04-24 10:25 | Outpatient (AMB) | payer OTHER, SELFPAY ==
--- NOTE | 2024-04-24 08:28 | A.OFFVIS_ITS ---
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 She was last seen by endocrine nurse practitioner in 2020. She is loraine 65 antibody negative 03/2020. Past medical history: Diabetes type 2, hyperlipidemia, GERD, asthma Micro and macrovascular complications: + microalbuminuria She is intolerant of Jardiance due to vaginal pruritus. She developed tachycardia with Trulicity. Diabetes medications: Tresiba 15 units Invokana 100mg (never took) Metformin 1000 mg BID (not using didn't tolerate any metformin but has occasionally taken twice per month 500 mg) Ozempic 2 mg weekly (takes consistently) Symptoms reported: denies numbness, tingling, cramping in lower extremities has upcoming appointment with podiatry. She has had cortisone shots in the past. Hypoglycemia: none Hyperglycemia: readings in 300+ range, tests in consistently reports urinary frequency, denies nocturia, reports polydypsia Retinopathy: Denies Last eye exam:2023 +nephropathy: 07/14 eGFR >60, microalbumin 113 Breakfast: skips lunch skips Dinner: 1 large meal per day due to having to jobs. 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 at [facility] Dental exam: edentulous [facility] Medical History Diabetes type 2, uncontrolled (~2015) care home (current) use of insulin Hyperlipidemia LDL goal <100 GERD (gastroesophageal reflux disease) Asthma-COPD overlap syndrome History of sleep study Pulmonary nodule Personal history of nicotine dependence Chronic idiopathic constipation Chronic fatigue Obesity (BMI 30-39.9) Vitamin D deficiency Foot abscess Right shoulder pain COVID-19 vaccine series completed Surgical History History of dilation and curettage (~2004) History of colonoscopy History of section History of hysterectomy (~2010) Family History Father Heart disease Diabetes Hypertension Mother Heart disease Hypertension Diabetes Uterine cancer Sister Uterine cancer Daughter In good health Daughter In good health Son No problems noted. Brother In good health Brother In good health Social History Housing: Apartment Alcohol intake: never Patient Tobacco Use Status: Former Tobacco user Tobacco use type: Cigarette e-Cigarette/Vaping Use: Never Used Second Hand Smoke Exposure: No Substance Use Type: Former Substance User and Marijuana service: No Current occupational status: employed Current occupational exposures/hazards: No Cognitive needs: No Hearing needs: No Vision needs: No Physical Exam Vital Signs: Last Vital Signs Pulse 86 04/24/24 10:31 BP 112/68 04/24/24 10:31 BMI result Body Mass Index 31.0 Const Other: Absence of Cushingoid features. Absence of acromegalic features. Neck exam reveals nl size thyroid about 15 gms. No thyroid nodules palpable.Heart S1 S2, Reg R/R. No M/R G. Skin exam reveals absence of vitiligo or acanthosis nigricans. No edema Visual exam of foot performed. No ulcerations or open lesions. No inter digit maceration or fissuring. No onychomycosis, no callouses. Sensation intact to monofilament exam. Vibratory sensation is normal with 128 Hz tuning fork. Skin dry. Results AMB Hemoglobin A1c AMB Hemoglobin A1c 11.3 % Last Edit by EMILY Jama on 04/24/24 10:4 4 Results Reviewed Results Reviewed: Laboratory Last Values Glucose (Clinic) 226 mg/dL (60-115) H 04/24/24 10:36 Laboratory Tests 06/30/23 06/30/23 07/19/23 07:54 07:55 10:16 Plt Count 287 Potassium 4.2 Creatinine 0.70 Estimated GFR > 60 Hgb A1c (Clinic) 9.3 H AST 18 ALT 29 Triglycerides 121 Cholesterol 148 LDL Cholesterol, Calc 83 HDL Cholesterol 41 Urine Microalbumin 113.0 Microalb/Creat Ratio 46.7 H 11/22/23 10:40 Plt Count Potassium Creatinine Estimated GFR Hgb A1c (Clinic) 10.2 H AST ALT Triglycerides Cholesterol LDL Cholesterol, Calc HDL Cholesterol Urine Microalbumin Microalb/Creat Ratio Assessment & Plan Assessment & Plan (1) Diabetes type 2, uncontrolled: Onset Date: ~2015 Comment: (IDDM2 - Dx 2015) Code(s): E11.65 - Type 2 diabetes mellitus with hyperglycemia Category: Medical Qualifiers: Glycemic state: with hyperglycemia Qualified Code(s): E11.65 - Type 2 diabetes mellitus with hyperglycemia Plan: 58-year-old type 2 diabetic with nephropathy with poor glycemic control presents today to reestablish contact with Endocrine Clinic. We will obtain a prior authorization for his i3 membrane Jon 3+ and she will contact the office when she receives this set up training. In the interim she has agreed to start testing her fingerstick sugars. She declines restarting metformin at a low dose extended release and had been given a prescription for Invokana which she declin ed to take secondary to vaginal pruritus experienced with Jardiance. I discussed the need that she would most likely need to go on short-acting insulin to cover at least her largest meal of the day for now we will have her take Tresiba 30 units and continue with Ozempic 2 mg weekly. I will meet with her intensively over the next few months to get her under better control She has follow up with her silk trimmer last month and she was advised that his sugars should be under better control before she considers having any additional cortisone shots. At her next visit most likely will start short acting insulin and she will be given a sliding scale particularly in light of possible cortisone injection. She has blood work and urine tests ordered in the system from her PCP and I have ordered a BNP to rule out congestive heart failure. We will calculate fib 4 at next visit if she has had her labs drawn and at that time we will order an FLAQUITA. Orders: Orders B Type Natriuretic Peptide Today E11.65 - Type 2 diabetes mellitus with hyperglycemia Complete Blood Count no Diff Today E11.65 - Type 2 diabetes mellitus with hyperglycemia AMB Hemoglobin A1c Today E11.65 - Type 2 diabetes mellitus with hyperglycemia Medications: New blood-glucose sensor (FreeStyle Jno 3 Plus Sensor device) As directed every 15 days 2 ea 11RF Changed From insulin degludec (Tresiba FlexTouch U-100 insulin) 15 units (0.15 mL) subcut DAILY 30 days 4.5 mL 6RF E11.65 - Type 2 diabetes mellitus with hyperglycemia To insulin degludec (Tresiba FlexTouch U-100 insulin) 30 units (0.3 mL) subcut DAILY 30 days 9 mL 6RF E11.65 - Type 2 diabetes mellitus with hyperglycemia Discontinued prednisone Discontinued Reason: Doctor's Order PO daily; Take 4 tabs x 3 days, then 3 tabs x 3 days, then 2 tabs daily x 3 days, then 1 tab x 3 days to complete. 12 days 30 tabs 0RF metformin Discontinued Reason: Doctor's Order 1,000 mg PO BID 90 days 180 tabs 1RF E11.65 - Type 2 diabetes mellitus with hyperglycemia, Z79.4 - care home (current) use of insulin canagliflozin (Invokana) Discontinued Reason: Doctor's Order 100 mg PO DAILY 30 days 30 tabs 1RF Coding Level of Care Code Est Pt Level 5 (14041) Complex EM visit Add On G2211 Diagnoses Uncontrolled type 2 diabetes mellitus with hyperglycemia E11.65 Glycemic state: with hyperglycemia Time Spent (min) 45 Comment Time spent reviewing labs/provider notes, face to face, chart doc
[2024-04-24 10:31] VITALS: BP 112/68; PULSE 86; BMI 31.0
[2024-04-24 10:39] LABS: Glucose, Whole Blood 226 mg/dL (60-115)
== END 2024-04-24 11:06 | disposition home or self-care (01) ==
PROVIDERS: PCP Internal Medicine; Visit Provider Nurse Practitioner Adult Health
DX: E11.65 Type 2 diabetes mellitus with hyperglycemia (principal)
CPT/HCPCS: 99215; G2211

== ENCOUNTER → 2024-04-24 10:25 | Outpatient (BNVA) | payer OTHER, SELFPAY | PROVIDERS: PCP Internal Medicine; Visit Provider Nurse Practitioner Adult Health | DX: E11.65 Type 2 diabetes mellitus with hyperglycemia (principal) | CPT/HCPCS: 82947; 83036; 99212 ==

== ENCOUNTER 2024-05-07 09:10 | Outpatient (REF) | payer OTHER, SELFPAY ==
[2024-05-07 10:19] LABS: Microalbum/Creatinine Ratio Ur 10.2 ug/mg cr (<30)
[2024-05-07 10:21] LABS: Alanine Aminotransferase 20 U/L (0-31); Albumin Level 4.1 g/dL (3.5-5.0); Alkaline Phosphatase 94 U/L (39-117); Anion Gap 10 (12-20); Aspartate Amino Transferase 16 U/L (5-31); Bilirubin Total 0.5 mg/dL (0.0-1.0); Blood Urea Nitrogen 16 mg/dL (9-16); Calcium 9.1 mg/dL (8.4-10.2); Carbon Dioxide 27 mmol/L (22-29); Chloride 107 mmol/L (96-108); Cholesterol 218 mg/dL (<200); Estimated Glomerular Filt Rate > 60; Glucose Fasting 146 mg/dL (60-99); HDL Cholesterol 42 mg/dL (>40); LDL Cholesterol Calculated 150 mg/dL (<100); Potassium 4.1 mmol/L (3.3-5.1); Sodium 140 mmol/L (135-145); Triglycerides 133 mg/dL (<150)
[2024-05-07 10:39] LABS: Vitamin D 25-OH Total 21.4 ng/mL (>30)
== END 2024-05-07 09:11 | disposition home or self-care (01) ==
LOC: HO.LAB 09:10
PROVIDERS: PCP Internal Medicine; Visit Provider Internal Medicine
DX: E78.5 Hyperlipidemia, unspecified (principal); E11.65 Type 2 diabetes mellitus with hyperglycemia; E11.9 Type 2 diabetes mellitus without complications; E55.9 Vitamin D deficiency, unspecified
CPT/HCPCS: 36415; 80053; 80061; 82043; 82306; 82570

== ENCOUNTER 2024-05-08 10:13 | Outpatient (AMB) | payer OTHER, SELFPAY ==
--- NOTE | 2024-05-08 08:23 | A.OFFVIS_ITS ---
Intake Visit Reasons: Nontoxic single thyroid nodule/C Intake Note: Patient presents today for a follow-up on Nontoxic Single Thyroid Nodule: Pediatric Oncologist Required: No Accompanied by: Self / Same As Patient Allergies [facility] Adverse Reaction (Intermediate, Verified 04/24/24 10:29) Palpitations HPI Comments Details: Patient is a 58-year-old with DM type 2 diagnosed 2016 presents for management of diabetes. She was last seen by myself several weeks ago after not seeing endocrinology since 2020. At that time she was given a prescription for freestyle Jon 3 which was approved by insurance however the co-pay was high and she was not able to start this. She is loraine 65 antibody negative 03/2020. Past medical history: Diabetes type 2, hyperlipidemia, GERD, asthma Micro and macrovascular complications: + microalbuminuria She is intolerant of Jardiance due to vaginal pruritus. She previously declined prescription for Invokana and extended release metformin at her last visit. She has GI intolerance to metformin She developed tachycardia with Trulicity. Diabetes medications: Tresiba 15 units Metformin 1000 mg BID (not using didn't tolerate any metformin but has occasionally taken twice per month 500 mg) Ozempic 2 mg weekly (takes consistently) No neuropathy. Symptoms reported: denies numbness, tingling, cramping in lower extremities has upcoming appointment with podiatry. She has had cortisone shots in the past. Retinopathy: Denies Last eye exam:2023 +nephropathy: 07/14 eGFR >60, microalbumin 113 Hypoglycemia: none Hyperglycemia: readings in 300+ range, tests in consistently reports urinary frequency, denies nocturia, reports polydypsia Breakfast: skips lunch skips Dinner: 1 large meal per day due to having to jobs. 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 to [place] [facility] [place] Dental exam: edentulous [facility] Medical History Diabetes type 2, uncontrolled (~2015) shelter (current) use of insulin Hyperlipidemia LDL goal <100 GERD (gastroesophageal reflux disease) Asthma-COPD overlap syndrome History of sleep study Pulmonary nodule Personal history of nicotine dependence Chronic idiopathic constipation Chronic fatigue Obesity (BMI 30-39.9) Vitamin D deficiency Foot abscess Right shoulder pain COVID-19 vaccine series completed Surgical History History of dilation and curettage (~2004) History of colonoscopy History of section History of hysterectomy (~2010) Family History Father Heart disease Diabetes Hypertension Mother Heart disease Hypertension Diabetes Uterine cancer Sister Uterine cancer Daughter In good health Daughter In good health Son No problems noted. Brother In good health Brother In good health Social History Housing: Apartment Alcohol intake: never Patient Tobacco Use Status: Former Tobacco user Tobacco use type: Cigarette e-Cigarette/Vaping Use: Never Used Second Hand Smoke Exposure: No Substance Use Type: Former Substance User and Marijuana service: No Current occupational status: employed Current occupational exposures/hazards: No Cognitive needs: No Hearing needs: No Vision needs: No Physical Exam Const Other: Absence of Cushingoid features. Absence of acromegalic features. Neck exam reveals nl size thyroid about 15 gms. No thyroid nodules palpable. No carotid bruits present. Lungs CTA. Heart S1 S2, Reg R/R. No M/R G. Skin exam reveals absence of vitiligo or acanthosis nigricans. No edema Visual exam of foot performed. No ulcerations or open lesions. No inter digit maceration or fissuring. No onychomycosis, no callouses. Sensation intact to monofilament exam. Vibratory sensation is normal with 128 Hz tuning fork. Assessment & Plan Assessment & Plan (1) Diabetes type 2, uncontrolled: Onset Date: ~2015 Comment: (IDDM2 - Dx 2015) Code(s): E11.65 - Type 2 diabetes mellitus with hyperglycemia Category: Medical Qualifiers: Glycemic state: with hyperglycemia Qualified Code(s): E11.65 - Type 2 diabetes mellitus with hyperglycemia Plan: 58-year-old type 2 diabetic with nephropathy and poorly controlled A1c. Coding Diagnoses Uncontrolled type 2 diabetes mellitus with hyperglycemia E11.65 Glycemic state: with hyperglycemia
--- NOTE | 2024-05-08 10:23 | A.OFFVIS_ITS ---
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 She was last seen by myself earlier this month and previously by endocrine nurse practitioner in 2020. She is loraine 65 antibody negative 03/2020. Most recent A1c was 11.3% and she has a several year history of poorly controlled diabetes. At her last visit she was given a prescription for freestyle 3 which was approved by insurance but the co-pay was too high. Tresiba was increased to 30 units at her last visit and she has been testing her sugars twice daily readings in the morning 160s later in the day 160s at bedtime Past medical history: Diabetes type 2, hyperlipidemia, GERD, asthma Micro and macrovascular complications: + microalbuminuria She is intolerant of Jardiance due to vaginal pruritus. She developed tachycardia with Trulicity. Metformin regular strength had too much diarrhea Diabetes medications: Tresiba 30 units daily Ozempic 2 mg weekly Symptoms reported: denies numbness, tingling, cramping in lower extremities has upcoming appointment with podiatry. She has had cortisone shots in the past. Has new podiatry on [facility] she anticipates that she will need steroid shots for heel pain Hypoglycemia: none Hyperglycemia: readings in 300+ range, tests in consistently reports urinary frequency, denies nocturia, reports polydypsia Retinopathy: Denies Last eye exam:2023 +nephropathy: 07/14 eGFR >60, microalbumin 113 PFSH Medical History Diabetes type 2, uncontrolled (~2015) assisted (current) use of insulin Hyperlipidemia LDL goal <100 GERD (gastroesophageal reflux disease) Asthma-COPD overlap syndrome History of sleep study Pulmonary nodule Personal history of nicotine dependence Chronic idiopathic constipation Chronic fatigue Obesity (BMI 30-39.9) Vitamin D deficiency Foot abscess Right shoulder pain COVID-19 vaccine series completed Surgical History History of dilation and curettage (~2004) History of colonoscopy History of section History of hysterectomy (~2010) Family History Father Heart disease Diabetes Hypertension Mother Heart disease Hypertension Diabetes Uterine cancer Sister Uterine cancer Daughter In good health Daughter In good health Son No problems noted. Brother In good health Brother In good health Social History Housing: Apartment Alcohol intake: never Patient Tobacco Use Status: Former Tobacco user Tobacco use type: Cigarette e-Cigarette/Vaping Use: Never Used Second Hand Smoke Exposure: No Substance Use Type: Former Substance User and Marijuana service: No Current occupational status: employed Current occupational exposures/hazards: No Cognitive needs: No Hearing needs: No Vision needs: No Physical Exam Const Other: Absence of Cushingoid features. Absence of acromegalic features. No thyroid nodules palpable. Heart S1 S2, Reg R/R. No M/R G. Skin exam reveals absence of vitiligo or acanthosis nigricans. No edema Assessment & Plan Assessment & Plan (1) Diabetes type 2, uncontrolled: Onset Date: ~2015 Comment: (IDDM2 - Dx 2015) Code(s): E11.65 - Type 2 diabetes mellitus with hyperglycemia Category: Medical Qualifiers: Glycemic state: with hyperglycemia Qualified Code(s): E11.65 - Type 2 diabetes mellitus with hyperglycemia Plan: 58-year-old type 2 diabetic with nephropathy and poorly controlled diabetes: Patient did not bring in meter today but reports testing twice daily with a.m. and bedtime readings in the 160s which is dramatic improvement for her. Unfortunately due to high co-pay she is not able to use a glucose sensor. We will increase Tresiba and add low-dose metformin extended release At 500 mg as she has been unable to tolerate regular strength in the past Tresiba 34 units daily Ozempic 2 mg weekly Metformin 500 mg XR daily She was also given a prescription for short-acting insulin to be taken 6 units with meals if her sugars become elevated with cortisone shots or steroids for asthma flare. She was asked to closely follow her sugars. The patient had an opportunity to ask questions regarding treatment plan. The patient expressed understanding and agreement with the above treatment plan. The patient is aware they should contact our office by phone for worsening glucose readings or for any low blood sugars which may warrant a change in diabetes medication. Compliance is encouraged with any medications and followup testing that is ordered Medications: New insulin aspart U-100 (Novolog FlexPen U-100 Insulin aspart) 6 units (0.06 mL) subcut TID 30 days PRN 15 mL 1RF P.r.n. glucose elevation with steroid injections// metformin ER 500 mg PO DAILY 90 days 90 tabs 3RF Changed From insulin degludec (Tresiba FlexTouch U-100 insulin) 30 units (0.3 mL) subcut DAILY 30 days 9 mL 6RF E11.65 - Type 2 diabetes mellitus with hyperglycemia To insulin degludec (Tresiba FlexTouch U-100 insulin) 34 units (0.34 mL) subcut DAILY 30 days 12 mL 6RF E11.65 - Type 2 diabetes mellitus with hyperglycemia Discontinued FreeStyle Jon 3 Sensor (blood-glucose sensor) Discontinued Reason: No Longer Medically Relevant As directed 2 ea 11RF NS Patient Instructions: The patient was counseled to achieve a target A1C of 7% (154 avg). Fasting blood sugars should be 90-130 in the morning and less than 180 two hours after meals. Reviewed the relationship between poor diabetic control and the development of complications. Coding Level of Care Code Est Pt Level 4 (12650) Complex EM visit Add On G2211 Diagnoses Uncontrolled type 2 diabetes mellitus with hyperglycemia E11.65 Glycemic state: with hyperglycemia Time Spent (min) 30 Comment Time spent reviewing labs/provider notes, face to face, chart doc
[2024-05-08 10:26] VITALS: BP 108/68; PULSE 83; BMI 31.4
[2024-05-08 10:31] LABS: Glucose, Whole Blood 165 mg/dL (60-115)
== END 2024-05-08 10:41 | disposition home or self-care (01) ==
PROVIDERS: PCP Internal Medicine; Visit Provider Nurse Practitioner Adult Health
DX: E11.65 Type 2 diabetes mellitus with hyperglycemia (principal)
CPT/HCPCS: 99214; G2211

== ENCOUNTER → 2024-05-08 10:13 | Outpatient (BNVA) | payer OTHER, SELFPAY | PROVIDERS: PCP Internal Medicine; Visit Provider Nurse Practitioner Adult Health | DX: E11.65 Type 2 diabetes mellitus with hyperglycemia (principal); J44.9 Chronic obstructive pulmonary disease, unspecified; E78.5 Hyperlipidemia, unspecified; E55.9 Vitamin D deficiency, unspecified; Z79.4 Long term (current) use of insulin; Z79.85 Long-term (current) use of injectable non-insulin antidiabetic drugs; Z79.899 Other long term (current) drug therapy; Z28.21 Immunization not carried out because of patient refusal | CPT/HCPCS: 82947; 90471; 99212 ==

== ENCOUNTER 2024-05-08 10:48 | Outpatient (AMB) | payer OTHER, SELFPAY ==
[2024-05-08 11:14] VITALS: BP 120/72; BMI 30.7
--- NOTE | 2024-05-08 11:14 | A.OFFPC_ITS ---
Vital Signs 05/08/24 11:14 Height 5 ft 4 in Weight 179 lb BMI 30.7 BP 120/72 Blood Pressure Location Lt brachial Position Sitting Intake Visit Reasons: dm, NEEDS 30 MINUTES Intake Note: Patient here for a follow up DM Pre Billing Specialist Required: No Accompanied by: Self / Same As Patient [facility]ies [facility] Adverse Reaction (Intermediate, Verified 05/08/24 11:23) Palpitations Medication List - Last Reconciled 05/08/24 by Katy Roberson MD albuterol sulfate 90 mcg/actuation 2 puffs inhalation Q4-6H PRN albuterol sulfate 2.5 mg (3 mL) inhalation Q6H PRN 30 days aspirin (Enteric Coated Aspirin) 81 mg PO DAILY 90 days atorvastatin 80 mg PO BEDTIME 90 days blood sugar diagnostic (FreeStyle Precision Paul Strips) once a day for calibration budesonide-formoterol 160-4.5 mcg/actuation (Symbicort) 2 puffs inhalation DAILY 90 days cholecalciferol (vitamin D3) 2,000 units PO DAILY 90 days compress.stocking,knee,reg,med 15-20 cm docusate sodium (Colace) 100 mg PO .DAILY WITH FOOD 30 days famotidine (Pepcid) 40 mg PO BEDTIME furosemide 20 mg PO DAILY gabapentin 100 mg PO TID 30 days insulin aspart U-100 (Novolog FlexPen U-100 Insulin aspart) 6 units (0.06 mL) subcut TID PRN 30 days insulin degludec (Tresiba FlexTouch U-100 insulin) 34 units (0.34 mL) subcut DAILY 30 days linaclotide (Linzess) 290 mcg PO QAM 30 days magnesium citrate 150 mL PO DAILY metformin ER 500 mg PO DAILY 90 days montelukast 10 mg PO DAILY 30 days pantoprazole 40 mg PO DAILY 90 days pen needle, diabetic (CareFine Pen Needle) As directed semaglutide (Ozempic) 2 mg (0.75 mL) subcut QWEEK 4 weeks Tobacco use date assessed: 08/07/23 Dental Screening Dental Screen Date: 05/08/24 Did you have a dental visit in the last 12 months?: Yes Did you have a dental problem in the last 6 months where you did not have access to dental care?: No Was dental information given to patient?: Patient has dentist HPI HPI Comments History of Present Illness Details This is a 58-year-old female with diabetes mellitus type 2 on long-term current use of insulin, hyperlipidemia, vitamin-D deficiency and asthma-COPD overlap syndrome that comes today for follow-up on her conditions. A1c elevated and some adjustments in her insulin were made today by Endocrinology. LDL not on goal and I will add Zetia. Vitamin-D low and supplement was sent to the pharmacy. Asthma-COPD overlap syndrome has been well controlled with long- acting inhaler and use rescue inhaler as needed and this is follow by pulmonology. Denies any chest pain or shortness on breath. 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 Hyperlipidemia LDL goal <100 GERD (gastroesophageal reflux disease) Asthma-COPD overlap syndrome History of sleep study Pulmonary nodule Personal history of nicotine dependence Chronic idiopathic constipation Chronic fatigue Obesity (BMI 30-39.9) Vitamin D deficiency Foot abscess Right shoulder pain COVID-19 vaccine series completed Surgical History History of dilation and curettage (~2004) History of colonoscopy History of section History of hysterectomy (~2010) Family History Father Heart disease Diabetes Hypertension Mother Heart disease Hypertension Diabetes Uterine cancer Sister Uterine cancer Daughter In good health Daughter In good health Son No problems noted. Brother In good health Brother In good health Social History Housing: Apartment Alcohol intake: never Patient Tobacco Use Status: Former Tobacco user Tobacco use type: Cigarette e-Cigarette/Vaping Use: Never Used Second Hand Smoke Exposure: No Substance Use Type: Former Substance User and Marijuana service: No Current occupational status: employed Current occupational exposures/hazards: No Cognitive needs: No Hearing needs: No Vision needs: No Questionnaire Thrive Questionnaire Date Thrive assessed: 08/07/23 VEENA-7 AMB Questionnaire VEENA-7 Date VEENA - 7 assessed: 08/07/23 Source: Developed by Drs. Aron Coleman, Caro Rodriguez, Landen Strauss and colleagues, with an educational judd from [employer]. Review of Systems Const All systems reviewed & are unremarkable except as noted in HPI and below Card Denies chest pain at rest, Denies chest pain with activity, Denies edema, Denies irregular heart rhythm, Denies claudication, Denies dyspnea, Denies dyspnea on exertion, Denies orthopnea, Denies paroxysmal nocturnal dyspnea and Denies slow heart rate Resp Denies cough, Denies dyspnea and Denies dyspnea on exertion GI Denies abdominal pain, Denies change in bowel habits, Denies excessive flatus, Denies nausea and Denies vomiting Physical exam (Primary Care) Vital Signs: Last Vital Signs BP 120/72 05/08/24 11:14 BMI result Body Mass Index 30.7 BMI Assessment/Plan discussion: High BMI High, discussed plan: lifestyle, weight reduction, dietary and physical activity Tobacco/Smoking Status: Tobacco use Status Tobacco use date assessed 08/07/23 05/08/24 11:14 Patient Tobacco Use Status Former Tobacco user 05/08/24 11:14 Tobacco use type Cigarette 05/08/24 11:14 e-Cigarette/Vaping Use Never Used 05/08/24 11:14 Thrive Assessment: Date of Thrive Assessment Date Thrive assessed 08/07/23 05/08/24 11:14 Resp Effort & Inspection: normal respiratory effort Auscultation: clear to auscultation bilaterally Cardio Jugular venous distension: no JVD Rate: regular rate Rhythm: regular rhythm Heart sounds: S1 normal heart sound present and S2 normal heart sound present Extrem General: Yes full ROM Office Procedures Flu Questionnaire Does the patient have a severe egg allergy?: No Immunizations Fluarix Triv 1660-1933 (PF) 45 mcg (15 mcg x 3)/0.5 mL IM syringe Performing Provider: Katy Roberson MD [facility] Documented (not given) by: EMILY Maloney on 05/08/24 11:20 Reason Not Given: Patient Refused Coding Level of Care Code Est Pt Level 4 (40543) Complex EM visit Add On G2211 Diagnoses Uncontrolled type 2 diabetes mellitus with hyperglycemia E11.65 Glycemic state: with hyperglycemia Asthma-COPD overlap syndrome J44.9 Hyperlipidemia LDL goal <70 E78.5 Vitamin D deficiency E55.9 Time Spent (min) 22 Assessment & Plan Assessment & Plan (1) Diabetes type 2, uncontrolled: Onset Date: ~2016 Comment: (IDDM2 - Dx 2016) Code(s): E11.65 - Type 2 diabetes mellitus with hyperglycemia Category: Medical Qualifiers: Glycemic state: with hyperglycemia Qualified Code(s): E11.65 - Type 2 diabetes mellitus with hyperglycemia Plan: Start new insulin adjustment. Continue Ozempic. Decrease metformin. A1c goal is equal or less than 7%. Follow-up with endocrinology. (2) Asthma-COPD overlap syndrome: Code(s): J44.9 - Chronic obstructive pulmonary disease, unspecified Category: Medical Plan: Continue Symbicort. Use rescue inhaler as needed. (3) Hyperlipidemia LDL goal <70: Code(s): E78.5 - Hyperlipidemia, unspecified Category: Medical Plan: Continue statins. Start Zetia. Advise low-cholesterol diet. LDL goal is less than 70. (4) Vitamin D deficiency: Code(s): E55.9 - Vitamin D deficiency, unspecified Category: Medical Plan: Restart vitamin-D supplements. Orders: Orders Influenza [id number] Immunization Today Z23 - Encounter for immunization Medications: New ezetimibe 10 mg PO DAILY 90 tabs 0RF 90 days cyclobenzaprine 10 mg PO BEDTIME PRN 90 tabs 0RF muscle spasm 90 days Refilled cholecalciferol (vitamin D3) 2,000 units PO DAILY 90 caps 1RF 90 days E11.65 - Type 2 diabetes mellitus with hyperglycemia atorvastatin 80 mg PO BEDTIME 90 tabs 1RF 90 days E11.65 - Type 2 diabetes mellitus with hyperglycemia Discontinued gabapentin Discontinued Reason: Patient Completed Course 100 mg PO TID 30 days 90 caps 0RF
== END 2024-05-08 11:33 | disposition home or self-care (01) ==
PROVIDERS: PCP Internal Medicine; Visit Provider Internal Medicine
DX: E11.65 Type 2 diabetes mellitus with hyperglycemia (principal); J44.9 Chronic obstructive pulmonary disease, unspecified; E78.5 Hyperlipidemia, unspecified; E55.9 Vitamin D deficiency, unspecified; Z23 Encounter for immunization

== ENCOUNTER 2024-06-27 09:14 | Outpatient (AMB) | payer OTHER, SELFPAY ==
--- NOTE | 2024-06-27 09:18 | A.OFFVIS_ITS ---
Vital Signs 06/27/24 09:19 Height 5 ft 4 in Weight 181 lb BMI 31.1 BP 110/60 Blood Pressure Location Lt brachial Position Sitting Pulse 84 Pulse Source Pulse Oximeter Pulse Oximetry (%) 98 Oxygen Delivery Method Room Air Intake Visit Reasons: Obstructive sleep apnea Clinical Research Director Required: No Allergies dulaglutide [From Trulicity] Adverse Reaction (Intermediate, Verified 06/27/24 09:21) Palpitations HPI Comments Details: The patient is a 58-year-old woman with a known history of asthma who ap parently has been complaining worsening dyspnea on exertion. 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 She gets very winded very quickly With any activities of daily living. The patient does have a rescue inhaler and she also has Flovent. She was prescribed another inhaler but she is not aware of the name. She was sent for pulmonary function studies which we personally reviewed. It appears that she has severe obstruction concerning for asthma COPD overlap syndrome. The patient did have a significant response to bronchodilators noted. In addition to that she also had a restrictive process and a moderate diffusion impairment. We were able to look back at previous imaging studies. She did have a chest x-ray back in 2020 which demonstrated no acute disease. In addition to that we looked at a CT scan from 2019 that she had in the ER where demonstrated she had a 5-6 mm pulmonary nodule in the left hemithorax. But, no evidence of any interstitial lung disease or emphysema. The patient did have evidence of some chronic bronchitis. At this point will maximize her respiratory therapy. The patient also will need further imaging studies in regards of the nodule follow-up. I am hoping we can maximize her respiratory therapy at this time with the use of Trelegy. On further questioning 6, the patient does have significant daytime drowsiness. She does have headaches in the morning. Her Wahkiacus score is elevated 07/15. The patient also has lower extremity edema and significant cardiac or vascular risk factors. the patient does need a sleep study at this time. 02/17/2022 the patient is here for a pulmonary follow-up visit. Overall she is responding well to the Trelegy inhaler. She has not had to use her rescue inhaler more than twice a week. Overall she is feeling a lot better from that standpoint. She did have blood work which is reassuring. The patient also had a home sleep study because of symptoms of daytime drowsiness and her AHI was within normal limits. Therefore the patient is reassured that she does not have sleep apnea. Indeed she has some snoring but that is not pathologic the patient otherwise is feeling better. She did have a CT scan that we did review back in October 2021 demonstrating some evidence of minimal tree-in-bud. This is minimal along with very small subcentimeter pulmonary nodules. appears to be suspicious for inflammatory process. Otherwise patient is without any other complaints. 02/05/2023 the patient is here for pulmonary follow-up visit. The patient overall has been feeling fair. She her asthma has been acting up. She had to go on some prednisone recently. She tells that chest tightness. She also has some pleuritic chest discomfort. Denies any cough or fevers or chills. The patient has not been using the Trelegy inhaler. She did not tolerate the powder. She also did not tolerate the Spiriva. She is only taking the Symbicort. She also has a nebulizer that she uses as needed. The patient does have diabetes and has a very careful with any prednisone. I will send additional prednisone because of her chest tightness. However, she response to her other medicines she can hold off on it. I will put in for chest x-ray. She develops any further chest discomfort or pleurisy she is to come in for chest x- ray. 08/10/2023 the patient is here for a pulmonary follow-up visit. She is feeling fair. The patient again has been having worsening cough. This has been the case for the last 2 weeks. Feels some chest tightness and chest congestion. T he cough is typically worse at nighttime. Does not let her sleep. She did have a chest x-ray which I personally reviewed demonstrating some degree bronchitis. Will go ahead and treat her for a lower respiratory infection along with an asthma exacerbation at this time. She does have concerns because of sugars go up when she uses prednisone so she will hold off at this time. If she noticed she does not respond to her respiratory therapy in the antibiotics then she can start the prednisone at that point with close monitoring of her blood sugars. 12/21/2023 the patient is here for a pulmonary follow-up visit. Overall she is doing well. She has not required any prednisone which is reassuring. She does have issues with elevated blood sugars and diabetes so she needs to be very careful with that. She continues use respiratory inhalers with good effect. We did go over her inhalers. She responds very well to the Symbicort. She has not using the Spiriva. Therefore will continue just the Symbicort. This is a little more expensive for her but it does work well for her. No recent imaging to review. The patient does have a smoking history. She quit about 8-9 years ago. She has a greater than 40 pack-year history of smoking. Therefore she has a great candidate for the lung cancer screening program. 06/27/2024 the patient is here for a pulmonary follow-up visit. The patient overall still feels about the same. She does complaint of dyspnea on exertion and also body aches. Kind of chronic pains overall. The Symbicort inhaler and Spiriva have been effective for her. She quit smoking a few years back. She has about a 40 pack-year history of smoking. We had referred her to the lung cancer screening program back in November although the patient did not get an appointment. We will look into that to see if we can get her situated with the lung cancer screening program. 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 Hyperlipidemia LDL goal <100 GERD (gastroesophageal reflux disease) Asthma-COPD overlap syndrome History of sleep study Pulmonary nodule Personal history of nicotine dependence Chronic idiopathic constipation Chronic fatigue Obesity (BMI 30-39.9) Vitamin D deficiency Foot abscess Right shoulder pain COVID-19 vaccine series completed Surgical History History of dilation and curettage (~2004) History of colonoscopy History of section History of hysterectomy (~2010) Family History Father Heart disease Diabetes Hypertension Mother Heart disease Hypertension Diabetes Uterine cancer Sister Uterine cancer Daughter In good health Daughter In good health Son No problems noted. Brother In good health Brother In good health Social History Housing: Apartment Alcohol intake: never Patient Tobacco Use Status: Former Tobacco user Tobacco use type: Cigarette e-Cigarette/Vaping Use: Never Used Second Hand Smoke Exposure: No Substance Use Type: Former Substance User and Marijuana service: No Current occupational status: employed Current occupational exposures/hazards: No Cognitive needs: No Hearing needs: No Vision needs: No Review of Systems Const Reports daytime sleepiness, Reports headache(s) and Reports weight gain Eyes Denies change in vision ENT Reports Normal hearing present, Denies change in voice and Reports headache(s) Card Denies chest pain and Reports dyspnea on exertion Resp Reports cough and Reports dyspnea on exertion GI Reports no additional complaints Musc Reports myalgias Skin/Breast Denies rash Neuro Reports Normal hearing present, Denies Abnormal speech present and Reports headache(s) Physical Exam Vital Signs: Last Vital Signs Pulse 84 06/27/24 09:19 BP 110/60 06/27/24 09:19 Pulse Ox 98 06/27/24 09:19 Oxygen Delivery Method Room Air 06/27/24 09:19 BMI result Body Mass Index 31.1 Const General: cooperative, no acute distress, well developed and well groomed Nutritional Appearance: well nourished and obese Orientation/consciousness: oriented to person, oriented to place and oriented to time Limitations: No language barrier HEENT Head: Yes normocephalic and Yes atraumatic Eyes General: appearance normal, both eyes and all related structures Pupils: Equal, round and reactive pupils present Neck Neck: Yes normal visual inspection and Yes no lymphadenopathy Thyroid: Thyroid normal Chest Chest palpation & inspection: normal inspection of the chest Resp Effort & Inspection: normal respiratory effort Auscultation: no wheezes and diminished lung sounds Cardio Rate: regular rate Rhythm: regular rhythm Heart sounds: Normal, physiologic split S2 sound present Peripheral pulses: radial pulses present and posterior tibial pulses present GI Inspection: No distended, No Abdominal panniculus present and Yes obesity Palpation (GI): Soft to palpation, nontender, no guarding, not rigid and No hepatosplenomegaly present Percussion: Yes normal to percussion Auscultation: normal bowel sounds Rectal Exam - Female: deferred Skin General skin exam: no rashes or lesions noted, turgor normal, skin not dry, no jaundice, No spider nevi and no striae Rashes: no rashes Nails: normal Neuro General: oriented to person, oriented to place and oriented to time Cranial nerves: Yes Equal, round and reactive pupils present and Yes Normal hearing present Speech: No Abnormal speech present Extrem General: Yes normal to inspection, No clubbing, No cyanosis and Yes edema Psych Appearance: grossly normal and well kempt Mental Status: mental status grossly normal Speech and movement: Normal speech and movement present Affect: normal affect Attitude: cooperative Thought process: Normal thought process present and not confabulating Thought content: Normal thought content present Insight: Limited insight present (Psych) Judgement: Limited judgement present (Psych) Assessment & Plan Assessment & Plan (1) Pulmonary nodule: Code(s): R91.1 - Solitary pulmonary nodule Category: Medical (2) Asthma-COPD overlap syndrome: Code(s): J44.9 - Chronic obstructive pulmonary disease, unspecified Category: Medical Plan continue Symbicort stopped spiriva ELISABETH as needed benzonates as needed [facility] LDCT program referral F/U 6-8 months Medications: New azithromycin 500 mg PO DAILY 3 days 3 tabs 0RF azithromycin 500 mg PO DAILY 5 tabs 0RF 5 days Coding Level of Care Code Est Pt Level 4 (42390) Diagnoses Pulmonary nodule R91.1 Asthma-COPD overlap syndrome J44.9 Time Spent (min) 16
[2024-06-27 09:19] VITALS: BP 110/60; PULSE 84; O2SAT 98; BMI 31.1
== END 2024-06-27 09:38 | disposition home or self-care (01) ==
PROVIDERS: PCP Internal Medicine; Visit Provider Hospitalist
DX: R91.1 Solitary pulmonary nodule (principal); J44.9 Chronic obstructive pulmonary disease, unspecified
CPT/HCPCS: 99214

== ENCOUNTER → 2024-06-27 09:14 | Outpatient (BNVA) | payer OTHER, SELFPAY | PROVIDERS: PCP Internal Medicine; Visit Provider Hospitalist | DX: J44.9 Chronic obstructive pulmonary disease, unspecified (principal); R91.1 Solitary pulmonary nodule; G47.33 Obstructive sleep apnea (adult) (pediatric); Z87.891 Personal history of nicotine dependence | CPT/HCPCS: 99212 ==

== ENCOUNTER 2024-08-12 09:22 | Outpatient (AMB) | payer OTHER, SELFPAY ==
--- NOTE | 2024-08-12 09:25 | A.OFFPC_ITS ---
Vital Signs 08/12/24 09:28 Height 5 ft 4 in Weight 182 lb BMI 31.2 BP 128/76 Blood Pressure Location Lt brachial Position Sitting Intake Visit Reasons: Annual Exam Intake Note: Patient here for an annual physical exam Summer Sessions Director Required: Yes Summer Sessions Director Language: Laborer Name: Katy Roberson MD Information Interpreted: non-clinical & clinical Accompanied by: Self / Same As Patient Allergies [facility]aglut[facility] Adverse Reaction (Intermediate, Verified 08/12/24 09:38) Palpitations Medication List - Last Reconciled 08/12/24 by Katy Roberson MD albuterol sulfate 90 mcg/actuation 2 puffs inhalation Q4-6H PRN albuterol sulfate 2.5 mg (3 mL) inhalation Q6H PRN 30 days aspirin (Enteric Coated Aspirin) 81 mg PO DAILY 90 days atorvastatin 80 mg PO BEDTIME 90 days blood sugar diagnostic (FreeStyle Precision Paul Strips) once a day for calibration budesonide-formoterol 160-4.5 mcg/actuation (Symbicort) 2 puffs inhalation DAILY 90 days cholecalciferol (vitamin D3) 2,000 units PO DAILY 90 days compress.stocking,knee,reg,med 15-20 cm cyclobenzaprine 10 mg PO BEDTIME PRN 90 days docusate sodium (Colace) 100 mg PO .DAILY WITH FOOD 30 days ezetimibe 10 mg PO DAILY 90 days famotidine (Pepcid) 40 mg PO BEDTIME furosemide 20 mg PO DAILY insulin aspart U-100 (Novolog FlexPen U-100 Insulin aspart) 6 units (0.06 mL) subcut TID PRN 30 days insulin degludec (Tresiba FlexTouch U-100 insulin) 34 units (0.34 mL) subcut DAILY 30 days linaclotide (Linzess) 290 mcg PO QAM 30 days magnesium citrate 150 mL PO DAILY metformin ER 500 mg PO DAILY 90 days montelukast 10 mg PO DAILY 30 days pantoprazole 40 mg PO DAILY 90 days pen needle, diabetic (CareFine Pen Needle) As directed semaglutide (Ozempic) 2 mg (0.75 mL) subcut QWEEK 4 weeks Tobacco use date assessed: 08/12/24 Dental Screening Dental Screen Date: 08/12/24 Did you have a dental visit in the last 12 months?: Yes Did you have a dental problem in the last 6 months where you did not have access to dental care?: No Was dental information given to patient?: Patient has dentist HPI HPI Comments History of Present Illness Details The patient is a 58-year-old female presenting for an annual physical examination. She has a history of Asthma-Chronic Obstructive Pulmonary Disease (COPD) overlap syndrome, managed with a bronchodilator and medications prescribed by a lineman. She also has a history of Type 2 Diabetes Mellitus, with a recent Hemoglobin A1c of 7.6%. Hyperlipidemia is being managed with atorvastatin, and she takes several medications for other health concerns, including aspirin and furosemide. Her last colonoscopy was in 2021 with recommendations for follow-up in 2023. Her last mammogram was in August 2022. A history of uterine fibroids required surgical intervention in 2010, and she had a dilation and curettage (D&C) procedure in 2004. She experiences constipation, for which she takes medication. The patient reports palpitations when using Trulicity. She quit smoking previously. She had hysterectomy therefore no need for Pap smears. COUNTS INCLUDE 234 BEDS AT THE [facility] Medical History (Updated 08/12/24 @ 09:52 by Katy Roberson MD) Diabetes type 2, uncontrolled (~2015) alf (current) use of insulin Hyperlipidemia LDL goal <100 GERD (gastroesophageal reflux disease) Asthma-COPD overlap syndrome History of sleep study Pulmonary nodule Personal history of nicotine dependence Chronic idiopathic constipation Chronic fatigue Obesity (BMI 30-39.9) Vitamin D deficiency Foot abscess Right shoulder pain COVID-19 vaccine series completed Surgical History History of dilation and curettage (~2004) History of colonoscopy History of section History of hysterectomy (~2010) Family History Father Heart disease Diabetes Hypertension Mother Heart disease Hypertension Diabetes Uterine cancer Sister Uterine cancer Daughter In good health Daughter In good health Son No problems noted. Brother In good health Brother In good health Social History Housing: Apartment Alcohol intake: never Patient Tobacco Use Status: Former Tobacco user Tobacco use type: Cigarette e-Cigarette/Vaping Use: Never Used Second Hand Smoke Exposure: No Substance Use Type: Former Substance User and Marijuana service: No Current occupational status: employed Current occupational exposures/hazards: No Cognitive needs: No Hearing needs: No Vision needs: No Questionnaire PHQ-9 Over the last 2 weeks, how often have you been bothered by any of the following problems? 1. Little interest or pleasure in doing things: not at all 2. Feeling down, depressed, or hopeless: not at all 3. Trouble falling or staying asleep, or sleeping too much: not at all 4. Feeling tired or having little energy: not at all 5. Poor appetite or overeating: not at all 6. Feeling bad about yourself - or that you are a failure or have let yourself or your family down: not at all 7. Trouble concentrating on things, such as reading the newspaper or watching television: not at all 8. Moving or speaking so slowly that other people could have noticed. Or the opposite - being so fidgety or restless that you have been moving around a lot more than usual: not at all 9. Thoughts that you would be better off or of hurting yourself in some way: not at all Total score: 0 Depression Screening Interpretation: Negative Depression Screening Done: Yes 09691 - PHQ-9 Billing: Yes Source: Developed by Drs. Aron Coleman, Caro Rodriguez, Landen Strauss and colleagues, with an educational judd from [employer]. Thrive Questionnaire Date Thrive assessed: 08/12/24 I am a: Patient What is your living situation today?: I have a steady place to live Within the past 12 months, did the food you bought not last and you didn't have the money to get more?: Never true Within the past 12 months, did you worry whether your food would run out before you got money to buy more?: Never true Do you have trouble paying for medicines?: No Do you have trouble getting transportation to medical appointments?: No Do you have trouble paying your heating and electricity bill?: No Do you have trouble taking care of your child, family member or friend?: No Do you have trouble with day-to-day activities such as bathing, preparing meals, shopping, managing finances, etc.?: No Are you currently unemployed and looking for a job?: No Are you interested in more education?: No Please select the resources that you would like help with: None Currently or been in a relationship where the following occur: No concerns reported THRIVE Score: 0 AUDIT C Alcohol Use Questionnaire (AUDIT-C) 1. How often do you have a drink containing alcohol?: Never Total Score: 0 VEENA-7 AMB Questionnaire VEENA-7 Date VEENA - 7 assessed: 08/12/24 Feeling nervous, anxious, or on edge: 0 = Not at all Not being able to stop or control worryin = Not at all Worrying too much about different things: 0 = Not at all Trouble relaxin = Not at all Being so restless that it is hard to sit still: 0 = Not at all Becoming easily annoyed or irritable: 0 = Not at all Feeling afraid as if something awful might happen: 0 = Not at all Total VEENA-7 score (0-4 normal; 5-9 mild; 10-14 moderate; 15-21 severe): 0 Source: Developed by Drs. Aron Coleman, Caro Rodriguez, Landen Strauss and colleagues, with an educational judd from [employer]. VEENA-7 Assessment Billing VEENA-7 Assessment Tool: VEENA-7 Assessment 80736 Review of Systems Const All systems reviewed & are unremarkable except as noted in HPI and below Eyes Reports no additional complaints, Denies change in vision and Denies other visual disturbances Card Denies chest pain at rest, Denies chest pain with activity, Denies edema, Denies irregular heart rhythm, Denies claudication, Denies dyspnea, Denies dyspnea on exertion, Denies orthopnea, Denies paroxysmal nocturnal dyspnea and Denies slow heart rate Resp Denies cough, Denies dyspnea and Denies dyspnea on exertion GI Denies abdominal pain, Denies change in bowel habits, Denies excessive flatus, Denies nausea and Denies vomiting Physical exam (Primary Care) Vital Signs: Last Vital Signs BP 128/76 08/12/24 09:28 BMI result Body Mass Index 31.2 BMI Assessment/Plan discussion: High BMI High, discussed plan: lifestyle, weight reduction, dietary and physical activity Tobacco/Smoking Status: Tobacco use Status Tobacco use date assessed 08/12/24 08/12/24 09:32 Patient Tobacco Use Status Former Tobacco user 08/12/24 09:27 Tobacco use type Cigarette 08/12/24 09:27 e-Cigarette/Vaping Use Never Used 08/12/24 09:27 PHQ-9: PHQ-9 Score PHQ-9: Total score 0 08/12/24 09:41 Depression Screening Interpretation: Negative Thrive Assessment: Date of Thrive Assessment Date Thrive assessed 08/12/24 08/12/24 09:27 Currently or been in a relationship where the following occur: No concerns reported HENMT Head: Yes normal to inspection, Yes normocephalic and Yes atraumatic Ears: external ears normal Eyes General: appearance normal, both eyes and all related structures Eyelids: Yes eyelids normal Conjunctivae: conjunctivae normal Neck Neck: Yes normal visual inspection and Yes supple Resp Effort & Inspection: normal respiratory effort Auscultation: clear to auscultation bilaterally Cardio Jugular venous distension: no JVD Rate: regular rate Rhythm: regular rhythm Heart sounds: S1 normal heart sound present and S2 normal heart sound present GI Inspection: Yes normal to inspection Palpation (GI): Soft to palpation and nontender Auscultation: normal bowel sounds Skin General skin exam: no rashes or lesions noted Neuro General: no focal motor deficits Extrem General: Yes full ROM Psych Appearance: grossly normal Office Procedures Flu Questionnaire Does the patient have a severe egg allergy?: No Results AMB Hemoglobin A1c AMB Hemoglobin A1c 7.6 % Last Edit by EMILY Maloney on 08/12/24 09:4 2 Immunizations Fluarix Triv [id number] (PF) 45 mcg (15 mcg x 3)/0.5 mL IM syringe Performing Provider: Katy Roberson MD [facility] Documented (not given) by: EMILY Maloney on 08/12/24 09:32 Reason Not Given: Patient Refused Coding Level of Care Code Est Pt Prev Care 40-64y(60498) Diagnoses Physical exam Z00.00 Uncontrolled type 2 diabetes mellitus with hyperglycemia E11.65 Glycemic state: with hyperglycemia 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 Z79.4 Asthma-COPD overlap syndrome J44.9 Additional Codes PHQ-9 - 71818 - PHQ-9 Billing: Yes ([id number]) VEENA-7 Assessment Billing - VEENA-7 Assessment Tool: VEENA-7 Assessment 75238 ([id number]) Time Spent (min) 31 Assessment & Plan Assessment & Plan (1) Physical exam: Code(s): Z00.00 - Encounter for general adult medical examination without abnormal findings Category: Medical (2) Diabetes type 2, uncontrolled: Onset Date: ~2015 Comment: (IDDM2 - Dx 2015) Code(s): E11.65 - Type 2 diabetes mellitus with hyperglycemia Category: Medical Qualifiers: Glycemic state: with hyperglycemia Qualified Code(s): E11.65 - Type 2 diabetes mellitus with hyperglycemia (3) alf (current) use of insulin: Comment: taking tresiba, metformin, invokana daily and ozempic once/week Code(s): Z79.4 - 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 - Maintain cholesterol control with atorvastatin and encourage lifestyle modifications. - Manage diabetes mellitus by monitoring Hemoglobin A1c and discussing potential adjustments to achieve optimal control. - Advise ongoing management of hypertension. - Ensure regular screening for necessary health maintenance measures, such as vaccinations. - Discuss any adverse drug reactions indicated by the patient, notably palpitations with Trulicity. - Encourage follow-up for anticipated procedures and screenings, such as the upcoming colonoscopy in 2023. Patient was informed and verbally consented to the use of an ambient scribe for clinic note documentation during this visit. During our discussion, I explained the significance of maintaining control over her chronic conditions, including COPD, diabetes, and hyperlipidemia. We reviewed her current treatment regimen and noted her intolerance to certain medications, like Trulicity. I emphasized the importance of routine screenings, which have been well maintained in this patient. I encouraged adherence to prescribed therapies while considering her lifestyle in achieving her health goals. We discussed her medication side effects and ensured she understood when to return for further consultations or if new symptoms arise. Orders: Orders Influenza [id number] Immunization Today Z23 - Encounter for immunization AMB Hemoglobin A1c Today E11.65 - Type 2 diabetes mellitus with hyperglycemia MM tomosynthesis screening BI Today Z12.31 - Encounter for screening mammogram for malignant neoplasm of breast Vitamin D 25-OH Total 4 Months E55.9 - Vitamin D deficiency, unspecified Lipid Panel 4 Months E78.5 - Hyperlipidemia, unspecified Microalbumin, Random (w Creat) 4 Months R80.9 - Proteinuria, unspecified Comprehensive [place]. Panel Fast 4 Months E11.65 - Type 2 diabetes mellitus with hyperglycemia Patient Instructions: - Continue prescribed medications as directed. - Monitor and maintain control over blood sugar levels. - Attend upcoming scheduled screenings like the colonoscopy. - Report any new side effects or symptoms arising from current treatments. - Adhere to lifestyle changes and recommendations discussed regarding diet and exercise.
[2024-08-12 09:28] VITALS: BP 128/76; BMI 31.2
== END 2024-08-12 09:56 | disposition home or self-care (01) ==
PROVIDERS: PCP Internal Medicine; Visit Provider Internal Medicine
DX: Z00.00 Encounter for general adult medical examination without abnormal findings (principal); E11.65 Type 2 diabetes mellitus with hyperglycemia; Z79.4 Long term (current) use of insulin; J44.9 Chronic obstructive pulmonary disease, unspecified; Z23 Encounter for immunization

== ENCOUNTER → 2024-08-12 09:22 | Outpatient (BNVA) | payer OTHER, SELFPAY | PROVIDERS: PCP Internal Medicine; Visit Provider Internal Medicine | DX: Z00.00 Encounter for general adult medical examination without abnormal findings (principal); E11.65 Type 2 diabetes mellitus with hyperglycemia; J44.9 Chronic obstructive pulmonary disease, unspecified; Z79.4 Long term (current) use of insulin | CPT/HCPCS: 83036; 90471; 96127; 99396 ==

== ENCOUNTER → 2024-08-21 10:02 | Outpatient (BNVA) | payer OTHER, SELFPAY | PROVIDERS: PCP Internal Medicine; Visit Provider Nurse Practitioner Adult Health | DX: E11.65 Type 2 diabetes mellitus with hyperglycemia (principal) | CPT/HCPCS: 82947; 99212 ==

== ENCOUNTER 2024-10-16 10:32 | Outpatient (REF) | payer OTHER, SELFPAY ==
--- OUTSIDE RECORDS SUMMARY | 2024-10-16 13:42 | XMS_ITS | Clinical Summary ---
Author Organization [address] [facility] Address [address] [place] [address] Phone Care Team Providers Care Express Clerk Name Role Phone Katy Roberson MD Primary Care Provider Allergies No known active allergies Medications semaglutide (Ozempic) 1 mg/dose (2 mg/1.5 mL) injection pen Inject 1 mg under the skin every 7 (seven) days. Active pantoprazole (PROTONIX) 40 mg EC tablet Take 1 tablet (40 mg total) by mouth 1 (one) time each day before breakfast. Do not crush, chew, or split. Active montelukast (SINGULAIR) 10 mg tablet Take 1 tablet (10 mg total) by mouth at bedtime. Active metFORMIN (FORTAMET) 1,000 mg 24 hr tablet Take 1 tablet (1,000 mg total) by mouth 1 (one) time each day with dinner. Do not crush, chew, or split. Active magnesium citrate solution Take 150 mL by mouth 1 (one) time each day. Active aspirin 81 mg chewable tablet Chew 1 tablet (81 mg total) 1 (one) time each day. Active atorvastatin (LIPITOR) 80 mg tablet Take 1 tablet (80 mg total) by mouth at bedtime. Active budesonide-form oteroL (SYMBICORT) 160-4.5 mcg/actuation inhaler Inhale 2 puffs by mouth 2 (two) times a day. Rinse mouth with water after use to reduce aftertaste and incidence of candidiasis. Do not swallow. Active canagliflozin (INVOKANA) 100 mg tablet Take 1 tablet (100 mg total) by mouth 1 (one) time each day. Active famotidine (PEPCID) 40 mg tablet Take 1 tablet (40 mg total) by mouth at bedtime as needed for heartburn. Active furosemide (LASIX) 20 mg tablet Take 1 tablet (20 mg total) by mouth. Active linaCLOtide (LINZESS) 290 mcg capsule Take 1 capsule (290 mcg total) by mouth 1 (one) time each day. Active Active Problems Problem Noted Date Diagnosed Date Type 2 diabetes mellitus with hyperglycemia 10/2023 COPD (chronic obstructive pulmonary disease) 10/2023 GERD with apnea without esophagitis 05/26/2024 Hyperlipidemia 05/26/2024 Social History Tobacco Use Types Packs/Day Years Used Date Smoking Tobacco: Never Assessed Comments Unknown Sex and Gender Information Value Date Recorded Sex Assigned at Not on file Legal Sex Female 11:40 AM EDT Gender Identity Not on file Sexual Orientation Not on file Last Filed Vital Signs Vital Sign Reading Time Taken Comments Blood Pressure - - Pulse - - Temperature - - Respiratory Rate - - Oxygen Saturation - - Inhaled Oxygen Concentration - - Weight 81.2 kg (179 lb) 07/03/2024 9:47 AM EST Height 162.6 cm (5' 4 ) 07/03/2024 9:47 AM EST Body Mass Index 30.73 07/03/2024 9:47 AM EST Plan of Treatment Upcoming Encounters Date Type Department Care Team (Late st Contact Info) Description 10/28/2024 11:00 AM EDT Office Visit Orthopedic Surgery - [place] [address] [id number] Home Palmer, DPM [address] [address] Health Maintenance Due Date Last Done Comments Breast Cancer Screening 1966 Diabetes: Annual GFR (Glomerular Filtration Rate) 1966 Diabetes: Annual Foot Exam 1976 Diabetes: Annual Retina Eye Exam 1976 DTaP,Tdap,and Td Vaccines (1 - Tdap) 1985 Hepatitis B Vaccines (1 of 3 - 19+ 3-dose series) 1985 Cervical Cancer Screening: P ap Smear 09/24/1987 Zoster Vaccines (2 of 2) 05/16/2022 03/21/2022 Pneumococcal Vaccine: 50+ Years (2 of 2 - PCV) 10/19/2022 10/19/2021, 05/02/2019 Pneumococcal Vaccine: Pediatrics (0 to 5 Years) and At-Risk Patients (6 to 64 Years) (2 of 2 - PCV) 10/19/2022 10/19/2021, 05/02/2019 COVID-19 Vaccine (1 - 2023-2 5 season) 2024 Influenza Vaccine (#1) 2024 , 04/01/2021 Cholesterol Screening (Lipid Panel) 05/06/2024 Colorectal Cancer Screening: Colonoscopy 05/06/2024 Depression Screening 05/06/2024 HIV Screening 05/06/2024 Hepatitis C Screening 05/06/2024 Social Influencers of Health Screening 05/06/2024 Diabetes: Annual Urine Albumin-Creatinine Ratio (uACR) 05/24/2024 Diabetes: Blood Sugar Contro l Test (HGBA1C) 05/24/2024 HIB Vaccines Aged Out No longer eligi ble based on patient's age to complete this topic HPV Vaccines Aged Out No longer eligi ble based on patient's age to complete this topic Hepatitis A Vaccines Aged Out No long er eligible based on patient's age to complete this topic IPV Vaccines Aged Out No longer eligi ble based on patient's age to complete this topic MMR Vaccines Aged Out No longer eligi ble based on patient's age to complete this topic Meningococcal ACWY Vaccine Aged Out N o longer eligible based on patient's age to complete this topic Meningococcal B Vacine Aged Out No lo nger eligible based on patient's age to complete this topic RSV Immunization Patients Under 20 months Aged Out No longer eligible b ased on patient's age to complete this topic Varicella Vaccines Aged Out No longer eligible based on patient's age to complete this topic Insurance [facility] Care Teams Express Clerk Relationship Specialty Start Date End Date Katy Roberson MD [address] [place] [address] , [address] Physician Associ D/B/A: [facility] JESUS MANUEL Mock PCP - General 02/19/24
--- OUTSIDE RECORDS SUMMARY | 2024-10-16 13:42 | XMS_ITS | Clinical Summary ---
Author Organization [facility] Address [address] [address] Care Team Providers Care Host/Hostess Ground Name Role Phone Katy Nazario MD Primary Care Provider [phone] Allergies No known active allergies Medications albuterol (2.5 MG/3ML) 0.083% nebulizer solution Take 2.5 mg by nebulization every 6 (six) hours if needed for wheezing Active albuterol HFA (PROVENTIL HFA;VENTOLIN HFA) 108 (90 Base) MCG/ACT inhaler Inhale 2 puffs every 6 (six) hours if needed for wheezing Active aspirin (ST PORTER) 81 MG EC tablet Take 81 mg by mouth 1 (one) time each day Active atorvastatin (LIPITOR) 40 MG tablet Take 40 mg by mouth at bed time Active cetirizine (ZyrTEC) 10 MG tablet Take 10 mg by mouth 1 (one) time each day Active cholecalciferol (VITAMIN D-3 SUPER STRENGTH) 50 MCG (2000 UT) tablet Take 2,000 Units by mouth 1 (one) time each day Active COLLOIDAL OATMEAL BATH EX Apply 1 Package topically 1 (one) time each day Active Dulaglutide 4.5 MG/0.5ML solution pen-injector Inject 4.5 mg under the skin every 7 (seven) days Active Fluticasone Propionate, Inhal, (FLOVENT IN) Inhale 200 mcg 1 (one) time each day Inhaler Active furosemide (LASIX) 20 MG tablet Take 20 mg by mouth 1 (one) time each day Active INSULIN DEGLUDEC SC Inject 40 Units under the skin 1 (one) time each day Active metFORMIN (GLUCOPHAGE) 1000 MG tablet Take 1,000 mg by mouth in the morning and 1,000 mg in the evening. Active Active Problems Problem Noted Date Diagnosed Date Asthma 12/22/2021 Edema 12/22/2021 Gastroesophageal reflux disease 12/22/2021 Hyperlipidemia 12/22/2021 Type 2 diabetes mellitus without complication Chronic obstructive pulmonary disease 12/22/2021 Family History Medical History Relation Comments Diabetes Father Heart disease Father Hypertension Father Diabetes Mother Heart disease Mother Hypertension Mother Diabetes Sibling Relation Status Comments Father Unknown Mother Unknown Sibling Social History Tobacco Use Types Packs/Day Years Used Date Smoking Tobacco: Former Smokeless Tobacco: Former Alcohol Use Standard Drinks/Week Comments Never 0 (1 standard drink = 0.6 oz pur e alcohol) Comments Unknown Sex and Gender Information Value Date Recorded Sex Assigned at Not on file Legal Sex Female 4:47 PM EST Gender Identity Not on file Sexual Orientation Not on file Last Filed Vital Signs Vital Sign Reading Time Taken Comments Blood Pressure 114/60 12/26/2021 3:16 PM EDT Pulse 79 12/26/2021 3:16 PM EDT Temperature - - Respiratory Rate - - Oxygen Saturation 97% 12/26/2021 3:16 PM EDT Inhaled Oxygen Concentration - - Weight 85.3 kg (188 lb) 12/26/2021 3:16 PM EDT Height - - Body Mass Index - - Plan of Treatment Health Maintenance Due Date Last Done Comments Breast Cancer Screening 1966 Pneumococcal Vaccine: Pediat rics (0 to 5 Years) and At-Risk Patients (6 to 64 Years) (1 of 2 - PCV) 1972 Hepatitis B Vaccine (1 of 3 - 19+ 3-dose series) 09/23 Colorectal Cancer Screening: Annual FOBT 09/24/2015 Colorectal Cancer Screening: Colonoscopy 09/24/2015 Colorectal Cancer Screening: Sigmoidoscopy 09/24/2015 Diabetes: Hemoglobin A1C 08/22/2020 Diabetes: Ophthalmology Exam 08/22/2020 Diabetes: Pedal Pulse Checked 08/22/2020 Diabetes: Sensory Foot Exam 08/22/2020 Diabetes: Visual Foot Exam 08/22/2020 Influenza Vaccine (#1) [address] [address] [place] [address] [employer] Care Teams Host/Hostess Ground Relationship Specialty Start Date End Date Katy Nazario MD [address] [place], [place] PCP - General Internal Medicine 10/31/21
== END 2024-10-16 10:33 | disposition home or self-care (01) ==
LOC: HO.MAMMO 10:32
PROVIDERS: PCP Hospitalist; Visit Provider Internal Medicine
DX: Z12.31 Encounter for screening mammogram for malignant neoplasm of breast (principal)
CPT/HCPCS: 77063; 77067

== ENCOUNTER → 2024-10-16 10:45 | Outpatient (BNV) | payer OTHER, SELFPAY | PROVIDERS: PCP Hospitalist; Visit Provider Internal Medicine | DX: Z12.31 Encounter for screening mammogram for malignant neoplasm of breast (principal) | CPT/HCPCS: 77063; 77067 ==

== ENCOUNTER 2024-10-23 09:51 | Outpatient (AMB) | payer OTHER, SELFPAY ==
--- NOTE | 2024-10-23 10:12 | A.OFFVIS_ITS ---
Vital Signs 10/23/24 10:13 Height 5 ft 4 in Weight 178 lb 9.191 oz BMI 30.6 BP 120/70 Blood Pressure Location Rt brachial Position Sitting Pulse 82 Pulse Source Pulse Oximeter Pulse Oximetry (%) 98 Oxygen Delivery Method Room Air Intake Visit Reasons: Obstructive sleep apnea Allergies dulaglutide [From Trulicity] Adverse Reaction (Intermediate, Verified 10/23/24 10:18) Palpitations HPI Comments Details: The patient is a 59-year-old woman with a known history of asthma who apparently has been complaining worsening dyspnea on exertion. 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 She gets very winded very quickly With any activities of daily living. The patient does have a rescue inhaler and she also has Flovent. She was prescribed another inhaler but she is not aware of the name. She was sent for pulmonary function studies which we personally reviewed. It appears that she has severe obstruction concerning for asthma COPD overlap syndrome. The patient did have a significant response to bronchodilators noted. In addition to that she also had a restrictive process and a moderate diffusion impairment. We were able to look back at previous imaging studies. She did have a chest x-ray back in 2020 which demonstrated no acute disease. In addition to that we looked at a CT scan from 2019 that she had in the ER where demonstrated she had a 5-6 mm pulmonary nodule in the left hemithorax. But, no evidence of any interstitial lung disease or emphysema. The patient did have evidence of some chronic bronchitis. At this point will maximize her respiratory therapy. The patient also will need further imaging studies in regards of the nodule follow-up. I am hoping we can maximize her respiratory therapy at this time with the use of Trelegy. On further questioning 6, the patient does have significant daytime drowsiness. She does have headaches in the morning. Her [place] score is elevated 07/15. The patient also has lower extremity edema and significant cardiac or vascular risk factors. the patient does need a sleep study at this time. 02/17/2022 the patient is here for a pulmonary follow-up visit. Overall she is responding well to the Trelegy inhaler. She has not had to use her rescue inhaler more than twice a week. Overall she is feeling a lot better from that standpoint. She did have blood work which is reassuring. The patient also had a home sleep study because of symptoms of daytime drowsiness and her AHI was within normal limits. Therefore the patient is reassured that she does not have sleep apnea. Indeed she has some snoring but that is not pathologic the patient otherwise is feeling better. She did have a CT scan that we did review back in October 2021 demonstrating some evidence of minimal tree-in-bud. This is minimal along with very small subcentimeter pulmonary nodules. appears to be suspicious for inflammatory process. Otherwise patient is without any other complaints. 02/05/2023 the patient is here for pulmonary follow-up visit. The patient overall has been feeling fair. She her asthma has been acting up. She had to go on some prednisone recently. She tells that chest tightness. She also has some pleuritic chest discomfort. Denies any cough or fevers or chills. The patient has not been using the Trelegy inhaler. She did not tolerate the powder. She also did not tolerate the Spiriva. She is only taking the Symbicort. She also has a nebulizer that she uses as needed. The patient does have diabetes and has a very careful with any prednisone. I will send additional prednisone because of her chest tightness. However, she response to her other medicines she can hold off on it. I will put in for chest x-ray. She develops any further chest discomfort or pleurisy she is to come in for chest x- ray. 08/10/2023 the patient is here for a pulmonary follow-up visit. She is feeling fair. The patient again has been having worsening cough. This has been the case for the last 2 weeks. Feels some chest tightness and chest congestion. The cough is typically worse at nighttime. Does not let her sleep. She did have a chest x-ray which I personally reviewed demonstrating some degree bronchitis. Will go ahead and treat her for a lower respiratory infection along with an asthma exacerbation at this time. She does have concerns because of sugars go up when she uses prednisone so she will hold off at this time. If she noticed she does not respond to her respiratory therapy in the antibiotics then she can start the prednisone at that point with close monitoring of her blood sugars. 12/21/2023 the patient is here for a pulmonary follow-up visit. Overall she is doing well. She has not required any prednisone which is reassuring. She does have issues with elevated blood sugars and diabetes so she needs to be very careful with that. She continues use respiratory inhalers with good effect. We did go over her inhalers. She responds very well to the Symbicort. She has not using the Spiriva. Therefore will continue just the Symbicort. This is a little more expensive for her but it does work well for her. No recent imaging to review. The patient does have a smoking history. She quit about 8-9 years ago. She has a greater than 40 pack-year history of smoking. Therefore she has a great candidate for the lung cancer screening program. 06/27/2024 the patient is here for a pulmonary follow-up visit. The patient overall still feels about the same. She does complaint of dyspnea on exertion and also body aches. Kind of chronic pains overall. The Symbicort inhaler and Spiriva have been effective for her. She quit smoking a few years back. She bar s about a 40 pack-year history of smoking. We had referred her to the lung cancer screening program back in November although the patient did not get an appointment. We will look into that to see if we can get her situated with the lung cancer screening program. 10/23/2024 the patient is here for a pulmonary follow-up visit. Overall she is doing well from a respiratory status. She continues use her respiratory medicines with good effect. She denies having to use her rescue inhaler. The patient also happy participating in the lung cancer screening program. We did review her last CT scan from 2021 demonstrating numerous pulmonary nodules. She has not had 1 since 2021. We did personally review it and she does have multiple pulmonary nodules. She needs to get back to the lung cancer screening program with a history of smoking and high risk for having lung cancer. She is agreeable this time and we will make arrangements for her to have her CAT scan soon. [facility] Medical History Diabetes type 2, uncontrolled (~2016) long-term (current) use of insulin Hyperlipidemia LDL goal <100 GERD (gastroesophageal reflux disease) Asthma-COPD overlap syndrome History of sleep study Pulmonary nodule Personal history of nicotine dependence Chronic idiopathic constipation Chronic fatigue Obesity (BMI 30-39.9) Vitamin D deficiency Foot abscess Right shoulder pain COVID-19 vaccine series completed Surgical History History of dilation and curettage (~2004) History of colonoscopy History of section History of hysterectomy (~2010) Family History Father Heart disease Diabetes Hypertension Mother Heart disease Hypertension Diabetes Uterine cancer Sister Uterine cancer Daughter In good health Daughter In good health Son No problems noted. Brother In good health Brother In good health Social History Housing: Apartment Alcohol intake: never Patient Tobacco Use Status: Former Tobacco user Tobacco use type: Cigarette e-Cigarette/Vaping Use: Never Used Second Hand Smoke Exposure: No Substance Use Type: Former Substance User and Marijuana service: No Current occupational status: employed Current occupational exposures/hazards: No Cognitive needs: No Hearing needs: No Vision needs: No Review of Systems Const All systems reviewed & are unremarkable except as noted in HPI and below Eyes Reports no additional complaints, Denies change in vision and Denies other visual disturbances ENT Reports Normal hearing present Card Denies chest pain at rest, Denies chest pain with activity, Denies edema, Denies irregular heart rhythm, Denies claudication, Denies dyspnea, Denies dyspnea on e xertion, Denies orthopnea, Denies paroxysmal nocturnal dyspnea and Denies slow heart rate Resp Denies cough, Denies dyspnea and Denies dyspnea on exertion GI Denies abdominal pain, Denies change in bowel habits, Denies excessive flatus, Denies nausea and Denies vomiting Neuro Reports Normal hearing present and Denies Abnormal speech present Physical Exam Vital Signs: Last Vital Signs Pulse 82 10/23/24 10:13 BP 120/70 10/23/24 10:13 Pulse Ox 98 10/23/24 10:13 Oxygen Delivery Method Room Air 10/23/24 10:13 BMI result Body Mass Index 30.6 Const General: cooperative, no acute distress, well developed and well groomed Nutritional Appearance: well nourished and obese Orientation/consciousness: oriented to person, oriented to place and oriented to time Limitations: No language barrier HEENT Head: Yes normocephalic and Yes atraumatic Eyes General: appearance normal, both eyes and all related structures Pupils: Equal, round and reactive pupils present Neck Neck: Yes normal visual inspection and Yes no lymphadenopathy Thyroid: Thyroid normal Chest Chest palpation & inspection: normal inspection of the chest Resp Effort & Inspection: normal respiratory effort Auscultation: no wheezes and diminished lung sounds Cardio Rate: regular rate Rhythm: regular rhythm Heart sounds: Normal, physiologic split S2 sound present Peripheral pulses: radial pulses present and posterior tibial pulses present GI Inspection: No distended, No Abdominal panniculus present and Yes obesity Palpation (GI): Soft to palpation, nontender, no guarding, not rigid and No hepatosplenomegaly present Percussion: Yes normal to percussion Auscultation: normal bowel sounds Rectal Exam - Female: deferred Skin General skin exam: no rashes or lesions noted, turgor normal, skin not dry, no jaundice, No spider nevi and no striae Rashes: no rashes Nails: normal Neuro General: oriented to person, oriented to place and oriented to time Cranial nerves: Yes Equal, round and reactive pupils present and Yes Normal hearing present Speech: No Abnormal speech present Extrem General: Yes normal to inspection, No clubbing, No cyanosis and Yes edema Psych Appearance: grossly normal and well kempt Mental Status: mental status grossly normal Speech and movement: Normal speech and movement present Affect: normal affect Attitude: cooperative Thought process: Normal thought process present and not confabulating Thought content: Normal thought content present Insight: Limited insight present (Psych) Judgement: Limited judgement present (Psych) Assessment & Plan Assessment & Plan (1) Pulmonary nodule: Code(s): R91.1 - Solitary pulmonary nodule Category: Medical (2) Asthma-COPD overlap syndrome: Code(s): J44.9 - Chronic obstructive pulmonary disease, unspecified Category: Medical Plan continue Symbicort stopped spiriva ELISABETH as needed benzonates as needed LDCT program referral F/U 12 months Medications: New prednisone PO daily; Take 6 tabs daily x 3 days, then 5 tabs x 3 days, then 4 tabs x 3 days, then 3 tabs x 3 days, then 2 tabs daily x 3 days, then 1 tab x 3 days to complete. 63 tabs 0RF 18 days Coding Level of Care Code Est Pt Level 4 (59932) Diagnoses Pulmonary nodule R91.1 Asthma-COPD overlap syndrome J44.9 Time Spent (min) 16
[2024-10-23 10:13] VITALS: BP 120/70; PULSE 82; O2SAT 98; BMI 30.6
--- OUTSIDE RECORDS SUMMARY | 2024-10-23 10:30 | XMS_ITS | Clinical Summary ---
Author Organization [facility] Facility Address [address] [address] Care Team Providers Care Internal Carver Name Role Phone Katy Nazario MD Primary Care Provider [phone] Allergies No known active allergies Medications albuterol [...] 08/22/2020 Influenza Vaccine (#1) [address] [place] [address] [employer] Care Teams Internal Carver Relationship Specialty Start Date End Date Katy Nazario MD [address] [place], [place] PCP - General Internal Medicine 10/31/21
--- OUTSIDE RECORDS SUMMARY | 2024-10-23 10:30 | XMS_ITS | Clinical Summary ---
Author Organization [address] [facility] Address [address] [place] [address] Phone Care Team Providers Care Commercial Baker Helper Name Role Phone Katy Roberson MD Primary Care Provider [phone] Allergies No known active allergies Medications semaglutide [...] AM EDT Office Visit Orthopedic Surgery - [place] [address] [id number] Home Palmer, DPM [address] [address] Health Maintenance Due Date Last Done Comments [...] patient's age to complete this topic Insurance [facility] [employer] Care Teams Commercial Baker Helper Relationship Specialty Start Date End Date Katy Roberson MD [address] [place] [address] , [address] Physician Associ D/B/A: [facility] JESUS MANUEL Mock PCP - General 02/19/24
== END 2024-10-23 10:31 | disposition home or self-care (01) ==
LOC: HO.HPS 09:52
PROVIDERS: PCP Internal Medicine; Visit Provider Hospitalist
DX: R91.1 Solitary pulmonary nodule (principal); J44.9 Chronic obstructive pulmonary disease, unspecified
CPT/HCPCS: 99214

== ENCOUNTER → 2024-10-23 09:51 | Outpatient (BNVA) | payer OTHER, SELFPAY | PROVIDERS: PCP Internal Medicine; Visit Provider Hospitalist | DX: J44.9 Chronic obstructive pulmonary disease, unspecified (principal); R91.1 Solitary pulmonary nodule | CPT/HCPCS: 99212 ==

== ENCOUNTER 2024-12-03 11:23 | Outpatient (AMB) | payer OTHER, SELFPAY ==
--- NOTE | 2024-12-03 07:41 | A.OFFVIS_ITS ---
Vital Signs 12/03/24 11:34 Height 5 ft 4 in Weight 180 lb 12.465 oz BMI 31.0 BP 122/78 Blood Pressure Location Rt brachial Position Sitting Pulse 87 Pulse Source Pulse Oximeter Pulse Oximetry (%) 98 Oxygen Delivery Method Room Air Intake Visit Reasons: T2DM Intake Note: Patient presents today for a follow-up on Type 2 Diabetes Mellitus: Last Diabetic eye exam was on: 01/03/2024 at [facility] Last Podiatry exam was on: 05/26/2025 at [facility] [address] Palmer Most recent HbA1c: 6.9%, 12/03/2024 Random Glucose- 224 mg/dL, Today Professor Of Kinesiology Required: No Accompanied by: Self / Same As Patient Allergies dulaglutide [From [facility]] Adverse Reaction (Intermediate, Verified 10/23/24 10:18) Palpitations HPI Comments Details: Patient is a 59-year-old with DM type 2 diagnosed 2016 presents for management of diabetes. She was last seen in Endocrine Clinic 08/21/2024. Insulin has been changed from Lantus to Tresiba and she has been doing well on this. Hgb A1C 12/03/24 6.9 % 08/12/23 7.6% down from 11.3%. She is loraine 65 antibody negative 03/2020. Past medical history: Diabetes type 2, hyperlipidemia, GERD, asthma Micro and macrovascular complications: + microalbuminuria She is intolerant of Jardiance due to vaginal pruritus. She developed tachycardia with Trulicity. Metformin regular strength caused too much diarrhea. Patient reports copays were too high freestyle mando She ran out of tresiba for a few weeks and numbers have increased. Was on Lantus in the past. 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 She has had cortisone shots in the past. Has new podiatry on [facility] she anticipates that she will need steroid shots for heel pain Hypoglycemia: none recent N0 Retinopathy: Denies Last eye exam:2023 +nephropathy: 07/14 eGFR >60, microalbumin 113. [facility] Medical History Diabetes type 2, uncontrolled (~2015) [facility] (current) use of insulin Hyperlipidemia LDL goal <100 GERD (gastroesophageal reflux disease) Asthma-COPD overlap syndrome History of sleep study Pulmonary nodule Personal history of nicotine dependence Chronic idiopathic constipation Chronic fatigue Obesity (BMI 30-39.9) Vitamin D deficiency Foot abscess Right shoulder pain COVID-19 vaccine series completed Surgical History History of dilation and curettage (~2004) History of colonoscopy History of section History of hysterectomy (~2010) Family History Father Heart disease Diabetes Hypertension Mother Heart disease Hypertension Diabetes Uterine cancer Sister Uterine cancer Daughter In good health Daughter In good health Son No problems noted. Brother In good health Brother In good health Social History Housing: Apartment Alcohol intake: never Patient Tobacco Use Status: Former Tobacco user Tobacco use type: Cigarette e-Cigarette/Vaping Use: Never Used Second Hand Smoke Exposure: No Substance Use Type: Former Substance User and Marijuana service: No Current occupational status: employed Current occupational exposures/hazards: No Cognitive needs: No Hearing needs: No Vision needs: No Physical Exam Vital Signs: Last Vital Signs Pulse 87 12/03/24 11:34 BP 122/78 12/03/24 11:34 Pulse Ox 98 12/03/24 11:34 Oxygen Delivery Method Room Air 12/03/24 11:34 BMI result Body Mass Index 31.0 Const Other: Absence of Cushingoid features. Absence of acromegalic features. Neck exam reveals nl size thyroid about 15 gms. No thyroid nodules palpable. Heart S1 S2, Reg R/R. No M/R G. Skin exam reveals absence of vitiligo or acanthosis nigricans. Results AMB Hemoglobin A1c AMB Hemoglobin A1c 6.9 % Last Edit by EMILY Jama on 12/03/24 11:49 Results Reviewed Results Reviewed: Laboratory Last Values Glucose (Clinic) 224 mg/dL (60-115) H 12/03/24 11:40 Hgb A1c (Clinic) 6.9 % (4.0-6.0) H 12/03/24 11:46 Assessment & Plan Assessment & Plan (1) Diabetes type 2, uncontrolled: Onset Date: ~2015 Comment: (IDDM2 - Dx 2016) Code(s): E11.65 - Type 2 diabetes mellitus with hyperglycemia Category: Medical Qualifiers: Glycemic state: with hyperglycemia Qualified Code(s): E11.65 - Type 2 diabetes mellitus with hyperglycemia Plan: 59 year old type 2 diabetic with nephropathy and recently improved glycemic control. Her Lantus was changed to Tresiba a number of months ago and her A1c previously was close to 11% in his now down to 6.9%. Insurance is requiring a prior authorization on this insulin. She is doing much better on Tresiba and her numbers have smooth down in her now in control. Would not recommend changing to Lantus at this time The patient had an opportunity to ask questions regarding treatment plan. The patient expressed understanding and agreement with the above treatment plan. The patient is aware they should contact our office by phone for worsening glucose readings or for any low blood sugars which may warrant a change in diabetes medication. Compliance is encouraged with medications and any followup testing/consults which may have been ordered. Orders: Orders AMB Hemoglobin A1c Today E11.65 - Type 2 diabetes mellitus with hyperglycemia Medications: Refilled metformin ER 500 mg PO DAILY 90 days 90 tabs 1RF semaglutide (Ozempic) 2 mg (0.75 mL) subcut QWEEK 4 weeks 3 mL 11RF insulin degludec (Tresiba FlexTouch U-100 insulin) 34 units (0.34 mL) subcut DAILY 30 days 12 mL 6RF E11.65 - Type 2 diabetes mellitus with hyperglycemia Discontinued prednisone Discontinued Reason: Patient Completed Course PO daily; Take 6 tabs daily x 3 days, then 5 tabs x 3 days, then 4 tabs x 3 days, then 3 tabs x 3 days, then 2 tabs daily x 3 days, then 1 tab x 3 days to complete. 18 days 63 tabs 0RF Patient Instructions: The patient was counseled to achieve a target A1C of 7% (154 avg). Fasting blood sugars should be 90-130 in the morning and less than 180 two hours after meals. Reviewed the relationship between poor diabetic control and the development of complications. Coding Level of Care Code Est Pt Level 4 (02524) Complex EM visit Add On G2211 Diagnoses Uncontrolled type 2 diabetes mellitus with hyperglycemia E11.65 Glycemic state: with hyperglycemia
[2024-12-03 11:34] VITALS: BP 122/78; PULSE 87; O2SAT 98; BMI 31.0
[2024-12-03 11:45] LABS: Glucose, Whole Blood 224 mg/dL (60-115)
--- OUTSIDE RECORDS SUMMARY | 2024-12-03 12:24 | XMS_ITS | Clinical Summary ---
Author Organization 175 [facility] Address [address] [place] [address] Phone Care Team Providers Care Wardrobe Technician Name Role Phone Katy Roberson MD Primary Care Provider [phone] Allergies No known active allergies Medications semaglutide [...] Date Diagnosed Date Type 2 diabetes mellitus wit h hyperglycemia ([facility] V24, [facility] V28) 05/26/2024 COPD (chronic obstructive pu lmonary disease) ([facility] V24, [facility] V28) 05/26/2024 GERD with apnea without esophagitis 05/26/2024 Hyperlipidemia [...] 07/03/2024 9:47 AM EST Plan of Treatment Health Maintenance Due Date [...] - PCV) 10/19/2022 10/19/2021, 05/02/2019 COVID-19 Vaccine ( - 2023-2 5 season) 2024 Cholesterol Screening (Lipid Panel) 05/06/2024 Colorectal Cancer Screening: Colonoscopy 05/06/2024 Depression Screening 05/06/2024 HIV Screening 05/06/2024 Hepatitis C Screening 05/06/2024 Social Influencers of Health Screening 05/06/2024 Diabetes: Annual Urine Albumin-Creatinine Ratio (uACR) 05/24/2024 Diabetes: Blood Sugar Contro l Test (HGBA1C) 05/24/2024 Influenza Vaccine (Season Ended) 2025 06/27/2022, 04/01/2021 HIB Vaccines Aged Out No longer eligi [...] age to complete this topic Meningococcal B Vaccine Aged Out No l onger eligible based on patient's age to complete this topic RSV Immunization Patients Under 20 months Aged Out No longer eligible b ased on patient's age to complete this topic Varicella Vaccines Aged Out No longer eligible based on patient's age to complete this topic Insurance [facility] [employer] Care Teams Wardrobe Technician Relationship Specialty Start Date End Date Katy Roberson MD [address] [place] [address] , [address] [facility] Physician Associ D/B/A: [facility] JESUS MANUEL Mock PCP - General 02/19/24
--- OUTSIDE RECORDS SUMMARY | 2024-12-03 12:24 | XMS_ITS | Clinical Summary ---
Author Organization [facility] Facility Address [address] [address] Care Team Providers Care Animal Shelter Supervisor Name Role Phone Katy Nazario MD Primary Care Provider [phone] Allergies No known active allergies Medications albuterol [...] Last Done Comments Breast Cancer Screening 1965 Hepatitis B Vaccine (1 of 3 - 19+ 3-dose series) 09/23 Pneumococcal Vaccine: 50+ Years (1 of 2 - PCV) 986 Colorectal Cancer Screening: Annual FOBT 09/24/2015 Colorectal Cancer Screening: Colonoscopy 09/24/2015 Colorectal Cancer Screening: Sigmoidoscopy 09/24/2015 Diabetes: Hemoglobin A1C 08/22/2020 Diabetes: Ophthalmology Exam 08/22/2020 Diabetes: Pedal Pulse Checked 08/22/2020 Diabetes: Sensory Foot Exam 08/22/2020 Diabetes: Visual Foot Exam 08/22/2020 Influenza Vaccine (Season Ended) [address] [place] [address] [place] [address] [employer] Care Teams Animal Shelter Supervisor Relationship Specialty Start Date End Date Katy Nazario MD [address] [place], [place] PCP - General Internal Medicine 10/31/21
== END 2024-12-03 12:07 | disposition home or self-care (01) ==
LOC: HO.ENCR 11:24
PROVIDERS: PCP Internal Medicine; Visit Provider Nurse Practitioner Adult Health
DX: E11.65 Type 2 diabetes mellitus with hyperglycemia (principal)
CPT/HCPCS: 99214; G2211

== ENCOUNTER → 2024-12-03 11:23 | Outpatient (BNVA) | payer OTHER, SELFPAY | PROVIDERS: PCP Internal Medicine; Visit Provider Nurse Practitioner Adult Health | DX: E11.65 Type 2 diabetes mellitus with hyperglycemia (principal); Z79.84 Long term (current) use of oral hypoglycemic drugs; Z79.899 Other long term (current) drug therapy | CPT/HCPCS: 82947; 83036; 99212 ==

== ENCOUNTER 2024-12-19 09:49 | Outpatient (AMB) | payer OTHER, SELFPAY ==
--- NOTE | 2024-12-19 08:00 | A.OFFVIS_ITS ---
Intake Visit Reasons: Former Smoker Allergies dulaglutide [From [facility]] Adverse Reaction (Intermediate, Verified 10/23/24 10:18) Palpitations HPI HPI Former Smoker: Details: Initial visit for this 59yo former smoker with a 30PYH. Patient started smoking at age 15 for 32 years at 1ppd. She quit 12 years ago in 2012. . Does note marijuana use. Denies second hand smoke exposure. Denies exposure to chemicals or substances like asbestos. . Denies known family history of lung cancer. Denies personal history of cancers. . Denies chest CT in last year. Chest CT in 2021 showed some small nodules - none of suspicion . Denies recent travel outside the [place]. Denies recent respiratory illness or recent hospitalization for respiratory issues. History testing positive for COVID. Admits receiving COVID Vaccine. . Denies fever, chills, new/worsening cough, hemoptysis, hoarseness or dysphagia. Denies significant chest pain, significant dyspnea or unintentional weight loss. Patient Lung Cancer Screening Questionnaire reviewed with patient by provider. . Shared Decision Making Completed. Patient meets criteria. Discussed in detail with patient, the risk vs benefit of LDCT screening. Patient consents to proceed with scan. Discussed and encouraged continued smoking cessation. 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 Hyperlipidemia LDL goal <100 GERD (gastroesophageal reflux disease) Asthma-COPD overlap syndrome History of sleep study Pulmonary nodule Personal history of nicotine dependence Chronic idiopathic constipation Chronic fatigue Obesity (BMI 30-39.9) Vitamin D deficiency Foot abscess Right shoulder pain COVID-19 vaccine series completed Surgical History History of dilation and curettage (~2004) History of colonoscopy History of section History of hysterectomy (~2010) Family History Father Heart disease Diabetes Hypertension Mother Heart disease Hypertension Diabetes Uterine cancer Sister Uterine cancer Daughter In good health Daughter In good health Son No problems noted. Brother In good health Brother In good health Social History (Updated 12/19/24 @ 10:02 by Lula Hines PA-C) Housing: Apartment Alcohol intake: never Patient Tobacco Use Status: Former Tobacco user Tobacco use type: Cigarette Years Smoked: (onset 15yo, 1ppd x 32yrs, 30pyh - quit 2012) e-Cigarette/Vaping Use: Never Used Second Hand Smoke Exposure: No Substance Use Type: Former Substance User and Marijuana service: No Current occupational status: employed Current occupational exposures/hazards: No Cognitive needs: No Hearing needs: No Vision needs: No Assessment & Plan Assessment & Plan (1) Personal history of nicotine dependence: Comment: (onset 15yo, 1ppd x 32yrs, 30pyh - quit 2012) Code(s): Z87.891 - Personal history of nicotine dependence Category: Medical Plan: - SDM visit completed today in office. - Patient meets criteria for LDCT for lung cancer screening purposes and is asymptomatic. - Smoking cessation counseling offered. Patients can always call [phone]. - Will arrange for a LDCT scan of the chest for screening purposes at [facility]. - Risks, benefits, and alternatives were discussed in detail and the patient agrees to proceed. - Risks discussed include but are not limited to: radiation exposure, anxiety during testing and while awaiting results, false negatives, false positives and possibility of additional intervention such as further imaging or surgical procedures for benign disease. - Benefits are obviously detection of lung cancer at an early stage which can lead to improved outcomes. - Discussed the importance of screening program compliance with adherence to yearly LDCT scan as scheduled - or sooner interval scans for personalized screening regimen. - Discussed follow up plan. Our office will send a letter discussing results and if needed set up phone call and office visit based on CT findings. - Patient educated on results categorization and the management decisions for suspicious findings potentially found on the screening LDCT scan. Any patient with a Lung RADS score of 3 or 4 will be reviewed by a multidisciplinary team at [facility] to form a plan of action in regards to scan findings. - If further work up is warranted for a suspicious lung finding this will be fol lowed by the Lung Cancer Screening program in conjunction with the Thoracic Surgery Department at [facility]. - A copy of the office note and LDCT will be sent to the patient's PCP - as well as documentation on any associated further plans of care. - Incidental findings on LDCT are the PCP's responsibility. These findings are indicated with an S finding on the LDCT Assessment. A note discussing the findings will be sent to the PCP who is then responsible for further management. - All questions answered.? Coding Level of Care Code Lung Cancer Screening G0296 Diagnoses Personal history of nicotine dependence Z87.891
--- OUTSIDE RECORDS SUMMARY | 2024-12-19 10:15 | XMS_ITS | Clinical Summary ---
Author Organization [facility] Facility Address [address] [address] Care Team Providers Care Field Installation Technician Name Role Phone Katy Nazario MD Primary Care Provider [phone] Allergies No known active allergies Medications albuterol [...] 08/22/2020 Influenza Vaccine (Season Ended) [address] [place] [address] [place] [address] [employer] Care Teams Field Installation Technician Relationship Specialty Start Date End Date Katy Nazario MD [address] [place], [place] PCP - General Internal Medicine 10/31/21
== END 2024-12-19 10:12 | disposition home or self-care (01) ==
LOC: HO.HPS 09:50
PROVIDERS: PCP Internal Medicine; Referring Provider Hospitalist; Visit Provider Physician Assistant Medical
DX: Z87.891 Personal history of nicotine dependence (principal)
CPT/HCPCS: G0296

== ENCOUNTER 2024-12-19 10:02 | Outpatient (REF) | payer OTHER, SELFPAY ==
--- NOTE | ~2024-12-19 | CT_ITS ---
EXAMINATION: CT LUNG SCREENING HISTORY: Z87.891 - Personal history of nicotine dependence TECHNIQUE: Low dose axial images were obtained from the sternal notch to upper abdomen without IV contrast per standard departmental protocol. Sagittal and coronal reformatted images were also obtained and reviewed. One or more of the following techniques was used for dose reduction: Automated exposure control, adjustment of the mA and/or kV according to patient size, use of iterative reconstruction technique. DLP: 56 mGy-cm COMPARISON: Comparison is made with the prior examination dated 11/03/2021. FINDINGS: Lung nodules: Again seen is a punctate nodule at the medial aspect of the right apex (series 4, image 25) without change. There is a 2 mm nodule at the medial aspect of the left lung apex (series 4, image 33) without change. There is a 4 mm nodule in the left upper lobe (series 4, image 46) without change. An additional 3 mm nodule more inferiorly in the left upper lobe (series 4, image 70) is also stable. No new pulmonary nodules are identified. Emphysema: none Coronary Calcification: mild Aortic Arch Calcification: mild Potentially Significant Incidentals : none Additional Chest Findings: There is no pleural or pericardial effusion. No mediastinal or axillary lymphadenopathy is identified. Visualized upper abdomen: The visualized portions of the liver, spleen, and adrenals have an unremarkable unenhanced appearance. CT/CT lung screening IMPRESSION: No suspicious pulmonary nodules are identified. LUNG-RADS ASSESSMENT: Lung-RADS 2: Benign MANAGEMENT: Continue annual screening with LDCT in 12 months Category S: N/A Electronically signed by: Aron Sy MD 12/19/2024 11:46 AM EDT
== END 2024-12-19 10:03 | disposition home or self-care (01) ==
LOC: HO.CT 10:02
PROVIDERS: PCP Internal Medicine; Visit Provider Physician Assistant Medical
DX: Z12.2 Encounter for screening for malignant neoplasm of respiratory organs (principal); Z87.891 Personal history of nicotine dependence
CPT/HCPCS: 71271; G0296

== ENCOUNTER → 2024-12-19 10:03 | Outpatient (BNV) | payer OTHER, SELFPAY | PROVIDERS: PCP Internal Medicine; Visit Provider Radiology Diagnostic Radiology | DX: Z87.891 Personal history of nicotine dependence (principal) | CPT/HCPCS: 71271 ==

== ENCOUNTER 2025-04-03 09:34 | Outpatient (AMB) | payer OTHER, SELFPAY ==
--- NOTE | 2025-04-03 09:42 | A.OFFVIS_ITS ---
Vital Signs 04/03/25 09:45 Height 5 ft 4 in Weight 179 lb 3.773 oz BMI 30.8 BP 100/72 Blood Pressure Location Rt brachial Position Sitting Pulse 86 Pulse Source Pulse Oximeter Pulse Oximetry (%) 97 Oxygen Delivery Method Room Air Intake Visit Reasons: T2DM Intake Note: Patient present today to follow up on Type 2 Diabetes Mellitus. Last seen by Lakesha Nascimento on 12/03/2024. Last Diabetic Eye exam: Last year, unsure exactly when is seen yearly. Last Podiatry Visit: Needs a new Clinical Project Leader, requesting referral. 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 Required: No Accompanied by: Self / Same As Patient Allergies dulaglutide (From [facility]) Adverse Reaction (Intermediate, Verified 04/03/25 09:48) Palpitations Medication List - Last Reconciled 04/03/25 by COLBY Townsend albuterol sulfate 90 mcg/actuation 2 puffs inhalation Q4-6H PRN albuterol sulfate 2.5 mg (3 mL) inhalation Q6H PRN 30 days atorvastatin 80 mg PO BEDTIME 90 days azithromycin 500 mg PO DAILY 5 days blood sugar diagnostic (FreeStyle Precision Paul Strips) once a day for calibration budesonide-formoterol 160-4.5 mcg/actuation (Symbicort) 2 puffs inhalation DAILY 90 days cholecalciferol (vitamin D3) 2,000 units PO DAILY 90 days compress.stocking,knee,reg,med 15-20 cm cyclobenzaprine 10 mg PO BEDTIME PRN 90 days docusate sodium (Colace) 100 mg PO .DAILY WITH FOOD 30 days ezetimibe 10 mg PO DAILY 90 days famotidine (Pepcid) 40 mg PO BEDTIME furosemide 20 mg PO DAILY glipizide ER 2.5 mg PO DAILY linaclotide (Linzess) 290 mcg PO QAM 30 days magnesium citrate 150 mL PO DAILY metformin ER 500 mg PO BID 90 days pantoprazole 40 mg PO DAILY 90 days pen needle, diabetic (CareFine Pen Needle) As directed semaglutide (Ozempic) 2 mg (0.75 mL) subcut QWEEK 4 weeks HPI Comments Details: This is a 59-year-old female with a past medical history of type 2 diabetes, hyperlipidemia, asthma-COPD, ORLIN, GERD, chronic constipation and vitamin-D deficiency presenting for diabetic management. She was seen by my colleague 12/03/2024. She was diagnosed about 8 years ago. She endorses a family history of Type II DM. Hemoglobin A1c 7.9% today 04/03/2025. Past medications: Jardiance discontinued due to vaginal pruritus. She developed tachycardia with Trulicity. Metformin regular formula caused diarrhea. No diarrhea on ER. Current regimen: Toujeo 34 units daily, Ozempic 2 mg weekly, metformin ER 500 mg daily Takes Ozempic because co-pay is 25 dollars. Takes Metformin everyday She is not taking Toujeo at all. Last administered 2 months ago. Patient says she hates needles and the co-pay is expensive. 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 Complications: Nephropathy (microalbuminuria) and neuropathy in her feet (mild) Denies hypoglycemia. She is not checking blood sugars. CGM co-pay was too expensive. ROS: Constitutional: No fevers, chills or unexplained weight loss Respiratory: No shortness of breath Cardiovascular: No chest pain Gastrointestinal: No anorexia, nausea, vomiting or diarrhea. No abdominal pain Neurologic: Denies lower extremity weakness. Endorses tingling in her toes. Endocrine: No cold or heat intolerance. No polyuria or polydipsia. Physical exam: Constitutional: Alert, in no distress. Neck: Supple, Full range of motion. No lymphadenopathy. No palpable thyroid masses. Respiratory: Clear to auscultation. Cardiovascular: S1 S2 regular. No murmurs. Right foot: Warm and well perfused. No clubbing, cyanosis or edema. Intact DP pulse. Decreased vibratory sensation. Intact sensation to monofilament. No open wounds. Left foot: Warm and well perfused. No clubbing, cyanosis or edema. Intact DP pulse. Decreased vibratory sensation. Intact sensation to monofilament. No open wounds. 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 Hyperlipidemia LDL goal <100 GERD (gastroesophageal reflux disease) Asthma-COPD overlap syndrome History of sleep study Pulmonary nodule Personal history of nicotine dependence Chronic idiopathic constipation Chronic fatigue Obesity (BMI 30-39.9) Vitamin D deficiency Foot abscess Right shoulder pain COVID-19 vaccine series completed Surgical History History of dilation and curettage (~2004) History of colonoscopy History of section History of hysterectomy (~2010) Family History Father Heart disease Diabetes Hypertension Mother Heart disease Hypertension Diabetes Uterine cancer Sister Uterine cancer Daughter In good health Daughter In good health Son No problems noted. Brother In good health Brother In good health Social History Housing: Apartment Alcohol intake: never Patient Tobacco Use Status: Former Tobacco user Tobacco use type: Cigarette Years Smoked: (onset 15yo, 1ppd x 32yrs, 30pyh - quit 2012) e-Cigarette/Vaping Use: Never Used Second Hand Smoke Exposure: No Substance Use Type: Former Substance User and Marijuana service: No Current occupational status: employed Current occupational exposures/hazards: No Cognitive needs: No Hearing needs: No Vision needs: No Physical Exam Vital Signs: Last Vital Signs Pulse 97 04/03/25 09:45 BP 100/72 04/03/25 09:45 BMI result Body Mass Index 30.8 Results AMB Hemoglobin A1c AMB Hemoglobin A1c 7.9 % Last Edit by EMILY Pinedo on 04/03/25 10:04 Results Reviewed Results Reviewed: Laboratory Last Values Glucose (Clinic) 165 mg/dL (60-115) H 04/03/25 09:52 Assessment & Plan Assessment & Plan (1) Diabetes type 2, uncontrolled: Onset Date: ~2015 Code(s): E11.65 - Type 2 diabetes mellitus with hyperglycemia Category: Medical Qualifiers: Glycemic state: with hyperglycemia Qualified Code(s): E11.65 - Type 2 diabetes mellitus with hyperglycemia (2) Diabetic neuropathy: Code(s): E11.40 - Type 2 diabetes mellitus with diabetic neuropathy, unspecified Category: Medical Qualifiers: Diabetes mellitus complication detail: diabetic polyneuropathy Diabetes mellitus type: type 2 Qualified Code(s): E11.42 - Type 2 diabetes mellitus with diabetic polyneuropathy Plan Start Glipizide ER 2.5 mg once daily Increase Metformin to 500 mg twice daily Continue Ozempic 2 mg She hasn't taken insulin in months due to co-pay and A1c is 7.9% so she will stay off of this for now, and we will adjust her other medications. Discussed pathophysiology of Type II Diabetes Mellitus with the patient in detail.? 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 Discussed lifestyle modification with the patient. Recommended 30 minutes of moderately vigorous exercise 5 days per week to promote weight loss. Referred to Podiatry. She is going to start checking blood sugars and bring glucometer to the next appointment. She will have her lab work done. Reviewed treatment of hypoglycemia. Written instructions given. Follow up in 1 month. 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 C Peptide Today E11.65 - Type 2 diabetes mellitus with hyperglycemia, Z79.4 - skilled nursing (current) use of insulin Referrals Podiatry Referral E11.65 - Type 2 diabetes mellitus with hyperglycemia Medications: New glipizide ER 2.5 mg PO DAILY 90 tabs 0RF Changed From metformin ER 500 mg PO DAILY 90 days 90 tabs 1RF To metformin ER 500 mg PO BID 180 tabs 1RF 90 days Discontinued Touchaka SoloStar U-300 Insulin (insulin glargine U-300 conc) Discontinued Reason: Doctor's Order 34 units (0.1133 mL) subcut BEDTIME 30 days 4.5 mL 10RF NS insulin degludec (Tresiba FlexTouch U-100 insulin) Discontinued Reason: Doctor's Order 34 units (0.34 mL) subcut DAILY 30 days 12 mL 6RF E11.65 - Type 2 diabetes mellitus with hyperglycemia Patient Instructions: Start Glipizide 2.5 mg once daily Increase Metformin to 500 mg twice daily Continue Ozempic 2 mg You have not been taking insulin so remain off this for now since the A1c today is 7.9% with a goal of less 7% If you experience low blood sugar, treat this by eating a chewable fruit candy like skittles or jelly beans (about 8 pieces), 4 ounces (1/2 cup) of fruit juice (not diet), 1 tablespoon of honey or 4 glucose tablets. If your blood sugar is under 50, take double the amount of one of the above. Recheck your blood sugar in 15 minutes. Gold Watts for Diabetes or Vanicream Coding Level of Care Code Est Pt Level 4 (41783) Complex EM visit Add On G2211 Diagnoses Uncontrolled type 2 diabetes mellitus with hyperglycemia E11.65 Glycemic state: with hyperglycemia Diabetic polyneuropathy associated with type 2 diabetes mellitus E11.42 Diabetes mellitus complication detail: diabetic polyneuropathy Diabetes mellitus type: type 2
[2025-04-03 09:45] VITALS: BP 100/72; PULSE 86; O2SAT 97; BMI 30.8
[2025-04-03 09:57] LABS: Glucose, Whole Blood 165 mg/dL (60-115)
--- OUTSIDE RECORDS SUMMARY | 2025-04-03 10:41 | XMS_ITS | Clinical Summary ---
Author Organization [facility] Facility Address [address] [address] Care Team Providers Care Sausage Wrapper Name Role Phone Katy Nazario MD Primary Care Provider [phone] Allergies No known active allergies Medications albuterol [...] Colonoscopy 09/24/2015 Colorectal Cancer Screening: Sigmoidoscopy 09/24/2015 Pneumococcal Vaccine: 50+ Years (1 of 1 - PCV) 017 Diabetes: Hemoglobin A1C 08/22/2020 Diabetes: Ophthalmology Exam 08/22/2020 Diabetes: Pedal Pulse Checked 08/22/2020 Diabetes: Sensory Foot Exam 08/22/2020 Diabetes: Visual Foot Exam 08/22/2020 Influenza Vaccine (#1) [address] [place] [address] [place] [address] [employer] Care Teams Sausage Wrapper Relationship Specialty Start Date End Date Katy Nazario MD [address] [place], [place] PCP - General Internal Medicine 10/31/21
--- OUTSIDE RECORDS SUMMARY | 2025-04-03 10:41 | XMS_ITS | Clinical Summary ---
Author Organization [address] [facility] Address [address] [place] [address] Phone Care Team Providers Care Engineering Technician Name Role Phone Katy Roberson MD Primary Care Provider [phone] Allergies No known active allergies Medications semaglutide [...] Type 2 diabetes mellitus wit h hyperglycemia ([facility], [facility] V28) 05/26/2024 COPD (chronic obstructive pu lmonary disease) ([facility] [place], [facility] V28) 05/26/2024 GERD with apnea without esophagitis [...] of 2 - PCV) 10/19/2022 10/19/2021, 05/02/2019 Cholesterol Screening (Lipid Panel) 05/06/2024 Colorectal Cancer Screening: Colonoscopy 05/06/2024 HIV Screening 05/06/2024 Hepatitis C Screening 05/06/2024 Social Influencers of Health Screening 05/06/2024 Diabetes: Annual Urine Albumin-Creatinine Ratio (uACR) 05/24/2024 Diabetes: Blood Sugar Contro l Test (HGBA1C) 05/24/2024 Depression Screening 07/23/2024 COVID-19 Vaccine (2023-2 5 season) 2025 Influenza Vaccine (#1) 2025 2, 04/01/2021 HIB Vaccines Aged Out No longer [...] patient's age to complete this topic Insurance [place] [id number] [facility] Care Teams Engineering Technician Relationship Specialty Start Date End Date Katy Roberson MD [address] [place] [address] , [address] [facility] Physician [facility] D/B/A: [facility] [place] PCP - General 02/19/24
== END 2025-04-03 10:33 | disposition home or self-care (01) ==
LOC: HO.ENCR 09:35
PROVIDERS: PCP Internal Medicine; Visit Provider Physician Assistant Medical
DX: E11.65 Type 2 diabetes mellitus with hyperglycemia (principal); E11.42 Type 2 diabetes mellitus with diabetic polyneuropathy

== ENCOUNTER → 2025-04-03 09:34 | Outpatient (BNVA) | payer OTHER, SELFPAY | PROVIDERS: PCP Internal Medicine; Visit Provider Physician Assistant Medical | DX: E11.65 Type 2 diabetes mellitus with hyperglycemia (principal); E11.42 Type 2 diabetes mellitus with diabetic polyneuropathy; Z79.4 Long term (current) use of insulin | CPT/HCPCS: 82947; 83036; 99212 ==

== ENCOUNTER 2025-04-15 09:26 | Outpatient (AMB) | payer OTHER, SELFPAY ==
[2025-04-15 09:32] VITALS: BP 108/64; PULSE 93; TEMP 36.7; O2SAT 97; BMI 30.9
--- NOTE | 2025-04-15 09:32 | MHC.OFFWIV ---
Intake Vital Signs 04/15/25 09:32 Height 5 ft 4 in Weight 180 lb BMI 30.9 BP 108/64 Blood Pressure Location Lt brachial Position Sitting Pulse 93 Pulse Source Pulse Oximeter Temp 98.0 F Temp Source Oral Pulse Oximetry (%) 97 Oxygen Delivery Method Room Air Intake Visit Reasons: EP right hand swelling Intake Note: pt presents with right hand swelling and pain since yesterday denies injury Patient Tobacco Use Status: Former Tobacco user Allergies dulaglutide (From [facility]) Adverse Reaction (Intermediate, Verified 04/15/25 09:34) Palpitations Do you need a note to return to daycare/school/sports/work: No HPI HPI Comments History of Present Illness Details History of Present Illness - The patient is a 59-year-old female presenting with right wrist pain and swelling. - The pain began suddenly upon waking the previous day without any known injury. - The pain progressively worsened throughout the day, leading to significant discomfort by night. - The patient attempted to alleviate the pain with Tylenol, taking five doses, but reported no relief. - The patient denies any history of gout or arthritis. 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 Physical Exam General: Cooperative, healthy appearing, comfortable, no acute distress and well developed Orientation: Patient oriented x3 Limitations: Limited movement in the right wrist, unable to make a fist Head: Normal to inspection Ears: Hearing grossly normal bilaterally Nose: Normal External nose present Face and sinus: Normal facial exam Eyes: Appearance normal, both eyes and all related structures Neck: Normal visual inspection and Yes full ROM Respiratory: Normal respiratory effort and able to speak in complete sentences. Skin: No rashes or lesions noted Neuro: Patient oriented x3 Extremities: Slight edema right hand/wrist, positive tinels, positive scaphoid tenderness, negative phalens, cannot twister hand 2/2 pain, fingers NVI and full ROM fingers of the right hand. TTP right hand from wrist to finger joints. no skin changes. 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 Hyperlipidemia LDL goal <100 GERD (gastroesophageal reflux disease) Asthma-COPD overlap syndrome History of sleep study Pulmonary nodule Personal history of nicotine dependence Chronic idiopathic constipation Chronic fatigue Obesity (BMI 30-39.9) Vitamin D deficiency Foot abscess Right shoulder pain COVID-19 vaccine series completed Surgical History History of dilation and curettage (~2004) History of colonoscopy History of section History of hysterectomy (~2010) Family History Father Heart disease Diabetes Hypertension Mother Heart disease Hypertension Diabetes Uterine cancer Sister Uterine cancer Daughter In good health Daughter In good health Son No problems noted. Brother In good health Brother In good health Social History Housing: Apartment Alcohol intake: never Patient Tobacco Use Status: Former Tobacco user Tobacco use type: Cigarette Years Smoked: (onset 15yo, 1ppd x 32yrs, 30pyh - quit 2012) e-Cigarette/Vaping Use: Never Used Second Hand Smoke Exposure: No Substance Use Type: Former Substance User and Marijuana service: No Current occupational status: employed Current occupational exposures/hazards: No Cognitive needs: No Hearing needs: No Vision needs: No Physical Exam Vital Signs: Last Vital Signs Temp 98.0 F 04/15/25 09:32 Pulse 93 04/15/25 09:32 BP 108/64 04/15/25 09:32 Pulse Ox 97 04/15/25 09:32 Oxygen Delivery Method Room Air 04/15/25 09:32 BMI result Body Mass Index 30.9 Assessment & Plan Assessment & Plan (1) Pain and swelling of right wrist: Code(s): M25.531 - Pain in right wrist; M25.431 - Effusion, right wrist Plan: Plan Patient was informed and verbally consented to the use of an ambient scribe for clinic note documentation during this visit. Right Wrist Pain and swelling - An x-ray of the right wrist with scaphoid view was ordered to assess for any fractures or abnormalities. - The patient was advised to try Aleve or naproxen for pain management instead of Tylenol. - my interpretation of the x-ray is nothing acute. Pending Rads read. - gave patient a wrist brace and advised to wean off of it over the next 10 to 14 days, she can use ice frequently 15-20 minutes at a time, naproxen 440 mg every 12 hours for 2-3 days and then wean to only as needed. She should do [id number] exercises twice daily to ensure she does not get a frozen joint. If her pain does not improve over the coming 2-3 weeks, she should follow up with her PCP or return to the clinic for a possible orthopedics referral. She likely sprained it. (2) Sprain of wrist, right: Code(s): S63.501A - Unspecified sprain of right wrist, initial encounter Qualifiers: Encounter type: initial encounter Wrist sprain location: radiocarpal joint Qualified Code(s): S63.521A - Sprain of radiocarpal joint of right wrist, initial encounter Plan: as above Orders: Orders XR wrist RT w scaphoid Today M25.431 - Effusion, right wrist, M25.531 - Pain in right wrist Coding Level of Care Code Est Pt Level 4 (74077) Diagnoses Pain and swelling of right wrist M25.531; M25.431 Sprain of right radiocarpal ligament, initial encounter S63.521A Encounter type: initial encounter Wrist sprain location: radiocarpal joint
--- OUTSIDE RECORDS SUMMARY | 2025-04-15 11:15 | XMS_ITS | Clinical Summary ---
Author Organization [address] [facility] Address [address] [place] [address] Phone Care Team Providers Care Dietetic Intern Name Role Phone Katy Roberson MD Primary Care Provider [phone] Allergies No known active allergies Medications semaglutide [...] Type 2 diabetes mellitus wit h hyperglycemia ([facility] [place], [facility] [place]28) 05/26/2024 COPD (chronic obstructive pu lmonary disease) ([facility] [place], [facility] V28) 05/26/2024 GERD with apnea without esophagitis [...] complete this topic Insurance [employer]UEL [employer]ILL[place] [id number] [facility] PL[facility] Care Teams Dietetic Intern Relationship Specialty Start Date End Date Katy Roberson MD [address] [place] [address] , [address] [facility] [place] PCP - General 02/19/24
--- OUTSIDE RECORDS SUMMARY | 2025-04-15 11:15 | XMS_ITS | Clinical Summary ---
Author Organization [facility] Facility Address [address] [address] Care Team Providers Care Route Clerk Name Role Phone Katy Nazario MD Primary Care Provider [phone] Allergies No known active allergies Medications albuterol [...] Exam 08/22/2020 Influenza Vaccine (#1) [address] [place] [address] [place] [address] [employer] Care Teams Route Clerk Relationship Specialty Start Date End Date Katy Nazario MD [address] [place], [place] PCP - General Internal Medicine 10/31/21
== END 2025-04-15 10:36 | disposition home or self-care (01) ==
PROVIDERS: PCP Internal Medicine; Visit Provider Physician Assistant
DX: M25.531 Pain in right wrist (principal); M25.431 Effusion, right wrist; S63.521A Sprain of radiocarpal joint of right wrist, initial encounter

== ENCOUNTER 2025-04-15 09:26 | Outpatient (REF) | payer OTHER, SELFPAY ==
--- NOTE | ~2025-04-15 | XR_ITS ---
EXAMINATION: XR WRIST, RIGHT CLINICAL INFORMATION: M25.531 - Pain in right wrist COMPARISON: None available. TECHNIQUE: PA, lateral, and oblique views of the right wrist. FINDINGS: The bones and soft tissues are normal. No fracture. Alignment is anatomic with normal joint spaces. No erosions or abnormal soft tissue calcifications. XR/XR wrist RT w scaphoid IMPRESSION: Unremarkable right wrist Electronically signed by: Monroe Darden MD 04/15/2025 10:32 AM EDT
== END 2025-04-15 09:27 | disposition home or self-care (01) ==
LOC: HO.HMGCX 09:26
PROVIDERS: PCP Internal Medicine; Visit Provider Physician Assistant
DX: S63.521A Sprain of radiocarpal joint of right wrist, initial encounter (principal); X58.XXXA Exposure to other specified factors, initial encounter
CPT/HCPCS: 73110; 99212

== ENCOUNTER → 2025-04-15 09:48 | Outpatient (BNV) | payer OTHER, SELFPAY | PROVIDERS: PCP Internal Medicine; Visit Provider Radiology Diagnostic Radiology | DX: M25.531 Pain in right wrist (principal) | CPT/HCPCS: 73110 ==

== ENCOUNTER 2025-04-18 07:38 | Outpatient (REF) | payer OTHER, SELFPAY ==
--- OUTSIDE RECORDS SUMMARY | 2025-04-18 07:40 | XMS_ITS | Clinical Summary ---
Author Organization [facility] Facility Address [address] [address] Care Team Providers Care Respite Worker Name Role Phone Katy Nazario MD Primary Care Provider [phone] Allergies No known active allergies Medications albuterol (2.5 MG/3ML) 0.083% nebulizer solution Take 2.5 mg by nebulization every 6 (six) hours if needed for wheezing Active albuterol HFA (PROVENTIL HFA;VENTOLIN HFA) 108 (90 Base) MCG/ACT inhaler Inhale 2 puffs every 6 (six) hours if needed for wheezing Active aspirin (ST PROTER) 81 MG EC tablet Take 81 mg [...] Exam 08/22/2020 Influenza Vaccine (#1) [address] [place] [address] [place] [address] [employer] Care Teams Respite Worker Relationship Specialty Start Date End Date Katy Nazario MD [address] [place], [place] PCP - General Internal Medicine 10/31/21
--- OUTSIDE RECORDS SUMMARY | 2025-04-18 07:40 | XMS_ITS | Clinical Summary ---
Author Organization [address] [facility] Address [address] [place] [address] Phone Care Team Providers Care Cooler Worker Name Role Phone Katy Roberson MD Primary Care Provider [phone] Allergies No known active allergies Medications semaglutide [...] Type 2 diabetes mellitus wit h hyperglycemia ([facility] [place], [facility] [place]28) 05/26/2024 COPD (chronic obstructive pu lmonary disease) ([facility] [place]24, [facility] V28) 05/26/2024 GERD with apnea without esophagitis [...] complete this topic Insurance [employer] [id number] [facility] [employer] Care Teams Cooler Worker Relationship Specialty Start Date End Date Katy Roberson MD [address] [place] [address] , [address] [facility] D/B/A[facility] [place] PCP - General 02/19/24
[2025-04-18 09:29] LABS: Alanine Aminotransferase 38 U/L (0-31); Albumin Level 4.1 g/dL (3.5-5.0); Alkaline Phosphatase 90 U/L (39-117); Anion Gap 11 (12-20); Aspartate Amino Transferase 26 U/L (5-31); Blood Urea Nitrogen 14 mg/dL (9-16); Calcium 8.5 mg/dL (8.4-10.2); Carbon Dioxide 24 mmol/L (22-29); Chloride 108 mmol/L (96-108); Cholesterol 233 mg/dL (<200); Estimated Glomerular Filt Rate > 60; HDL Cholesterol 42 mg/dL (>40); Potassium 4.1 mmol/L (3.3-5.1); Sodium 139 mmol/L (135-145); Total Protein 6.8 g/dL (6.5-8.0); Triglycerides 144 mg/dL (<150)
[2025-04-18 09:41] LABS: Microalbum/Creatinine Ratio Ur 16.3 ug/mg cr (<30)
[2025-04-18 09:54] LABS: Vitamin B12 1089 pg/mL (200-900)
== END 2025-04-18 07:39 | disposition home or self-care (01) ==
LOC: HO.LAB 07:38
PROVIDERS: Absent Provider Internal Medicine; PCP Internal Medicine; Visit Provider Physician Assistant Medical
DX: E11.65 Type 2 diabetes mellitus with hyperglycemia (principal); E78.5 Hyperlipidemia, unspecified; Z79.4 Long term (current) use of insulin; Z91.89 Other specified personal risk factors, not elsewhere classified
CPT/HCPCS: 36415; 80053; 80061; 82043; 82570; 82607; 84443; 84681

== ENCOUNTER 2025-04-18 08:26 | Emergency (ER) | payer OTHER, SELFPAY ==
--- NOTE | ~2025-04-18 | XR_ITS ---
CLINICAL HISTORY: pain 3 view right hand Comparison: None provided Findings: Bones intact. No dislocations. No significant loss of joint space or osteophytes. No erosions. No radiopaque foreign body. IMPRESSION: 1. No acute findings This document has been electronically signed by: Tiago Head MD on 04/18/2025 09:15:44
--- NOTE | ~2025-04-18 | XR_ITS ---
CLINICAL HISTORY: pain 4 view right wrist Comparison: CR/SR - XR WRIST NAVICULAR RIGHT - 04/15/25 10:01 EDT Findings: Bones intact. No dislocations. No significant arthritic change or erosions. No radiopaque foreign body. IMPRESSION: 1. No acute findings This document has been electronically signed by: Tiago Head MD on 04/18/2025 09:13:40
[2025-04-18 08:31] VITALS: BP 123/63; PULSE 92; RESP 16; TEMP 36.2; O2SAT 97; BMI 31.1
--- NOTE | 2025-04-18 09:00 | ED_ITS ---
HPI - Extremity Problem General Chief complaint: Extremity Injury, Upper Stated complaint: r hand pain Time Seen by Provider: 04/18/25 08:58 Source: patient Mode of arrival: ambulatory Limitations: no limitations History of Present Illness ED Provider: Scarlett Gonzalez APRN HPI Narrative: 59 yo female with PMH of IDDM, asthma, HLD, GERD here with complaints of right wrist pain/swelling since Sunday. 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 No known injury or trauma. Went to Sunday with negative x-rays. Taking tylenol/naproxen and using wrist splint at home. Here with continued pain. Patient reports that she has pain, swelling and difficulty with range of motion. She denies any associated numbness or tingling. No previous injuries to this wrist. No recent surgeries, hospitalizations, travel or recent procedures. No history of hormone use therapy. No history of DVT or PE. Related Data Previous Rx's ?Medication ?Instructions ?Recorded blood sugar diagnostic (FreeStyle #25 ea 08/10/20 Precision Paul Strips) compress.stocking,knee,reg,med #2 ea 02/17/22 famotidine 40 mg tablet (Pepcid) 40 mg PO BEDTIME #30 tabs 02/06/23 furosemide 20 mg tablet 20 mg PO DAILY #90 tabs 01/20 03/14 docusate sodium 100 mg capsule 100 mg PO .DAILY WITH F OOD 30 days 04/11/23 (Colace) #30 caps magnesium citrate 150 ml PO DAILY #300 mL 03/24 albuterol sulfate 90 mcg/actuation 2 puff inhalation Q 4-6H PRN 05/20/23 aerosol inhaler shortness of breath or wheez ing #6.7 grams pen needle, diabetic 31 gauge x #12 ea 09/25/2312/05 (CareFine Pen Needle) budesonide-formoterol HFA 160 2 puff inhalation DAILY 90 days #3 12/21/23 mcg-4.5 mcg/actuation aerosol ea inhaler (Symbicort) linaclotide 290 mcg capsule 290 mcg PO QAM 30 days #30 caps 04/17/24 (Linzess) atorvastatin 80 mg tablet 80 mg PO BEDTIME 90 days #90 tabs 05/08/24 cholecalciferol (vitamin D3) 50 2,000 unit PO DAILY 90 days #90 05/08/24 mcg (2,000 unit) capsule caps cyclobenzaprine 10 mg tablet 10 mg PO BEDTIME PRN musc le spasm 05/08/24 90 days #90 tabs ezetimibe 10 mg tablet 10 mg PO DAILY 90 days #90 t abs 08/07/24 semaglutide 2 mg/dose (8 mg/3 mL) 2 mg (0.75 mL) subcu t QWEEK 4 12/03/24 subcutaneous pen injector (Ozempic) weeks #3 mL albuterol sulfate 2.5 mg/3 mL 2.5 mg (3 mL) inhalation Q6H PRN 02/17/25 (0.083 %) solution for nebulization shortness of breat h or wheezing 30 days #180 mL pantoprazole 40 mg tablet,delayed 40 mg PO DAILY 90 da ys #90 tabs 03/09/25 release glipizide 2.5 mg tablet, extended 2.5 mg PO DAILY #90 tabs 04/03/25 release 24 hr metformin 500 mg tablet,extended 500 mg PO BID 90 days #180 tabs 04/03/25 release 24 hr prednisone 20 mg tablet 20 mg PO DAILY #5 tabs 04/18 Allergies Allergy/AdvReac Type Severity Reaction Status Date / Time dulaglutide (From [facility]) AdvReac Intermediate Palpitation Verified 04/18/25 08:31 s Review of Systems 2 Review of Systems: Yes all other systems are reviewed and are negative Constitutional: Constitutional: Reports no additional constitutional complaints, Denies body ache(s), Denies chills, Denies fever(s), Denies headache(s) and Denies weakness Eyes: Eyes: Reports no additional eye complaints and Denies change in vision ENT: Reports system reviewed and no additional complaints, except as documented, Denies dizziness, Denies headache(s), Denies nasal congestion, Denies nasal discharge and Denies neck pain Cardiovascular: Cardiovascular: Reports no additional cardiovascular complaints, Denies chest pain, Denies leg edema and Denies dyspnea Respiratory: Respiratory: Reports no additional respiratory complaints, Denies cough and Denies dyspnea Gastrointestinal: Gastrointestinal: Reports no additional gastrointestinal complaints, Denies abdominal pain, Denies diarrhea, Denies nausea and Denies vomiting Genitourinary: Genitourinary: Reports no additional female genitourinary complaints and Denies urinary incontinence Musculoskeletal: Musculoskeletal: Reports no additional musculoskeletal complaints, Denies back pain, Reports arthralgias, Reports joint swelling, Reports limited range of motion, Denies neck pain, Denies numbness and Denies tingling Integumentary/Breasts: Skin/Breast: Reports system reviewed and no additional complaints, except as docu and Denies rash Neurologic: Reports system reviewed and no additional complaints, except as documented, Denies Abnormal speech present, Denies dizziness, Denies headache(s), Denies numbness, Denies tingling and Denies weakness PMFSH Past Medical History Attestation statement: The following information was validated with the patient. Source: old records reviewed and nursing notes reviewed Medical History Diabetes type 2, uncontrolled (~2015) [facility] (current) use of insulin Hyperlipidemia LDL goal <100 GERD (gastroesophageal reflux disease) Asthma-COPD overlap syndrome History of sleep study Pulmonary nodule Personal history of nicotine dependence Chronic idiopathic constipation Chronic fatigue Obesity (BMI 30-39.9) Vitamin D deficiency Foot abscess Right shoulder pain COVID-19 vaccine series completed Surgical History History of dilation and curettage (~2004) History of colonoscopy History of section History of hysterectomy (~2010) Family History Family History Father Heart disease Diabetes Hypertension Mother Heart disease Hypertension Diabetes Uterine cancer Sister Uterine cancer Daughter In good health Daughter In good health Son No problems noted. Brother In good health Brother In good health Social History Social History Housing: Apartment Unable to assess alcohol history related to: Unknown Alcohol intake: never Patient Tobacco Use Status: Former Tobacco user Tobacco use type: Cigarette Years Smoked: (onset 15yo, 1ppd x 32yrs, 30pyh - quit 2012) e-Cigarette/Vaping Use: Never Used Second Hand Smoke Exposure: No Substance Use Type: Former Substance User and Marijuana Advance Directives: No Advance Directives Information Provided: No service: No Current occupational status: employed Current occupational exposures/hazards: No Cognitive needs: No Hearing needs: No Vision needs: No Physical Exam 2 Vital Signs: Vital Signs: Last Vital Signs Temp 97.1 F 04/18/25 08:31 Pulse 92 04/18/25 08:31 Resp 16 04/18/25 08:31 BP 123/63 04/18/25 08:31 Pulse Ox 97 04/18/25 08:31 O2 Del Method Room Air 04/18/25 08:31 BMI result Body Mass Index 31.1 Const: General: cooperative, healthy appearing, comfortable and no acute distress Orientation/consciousness: patient oriented x3 Limitations: no limitations HEENT: Head: Yes normal to inspection Ears: hearing grossly normal bilaterally General nose exam: Normal external nose present Face and sinus: Yes normal facial exam Mouth: Normal oral and palatal mucosa present Throat: Yes posterior oropharynx normal Eyes: General: appearance normal, both eyes and all related structures P upils: Equal, round and reactive pupils present Neck: Neck: Yes normal visual inspection Chest: Chest palpation & inspection: normal inspection of the chest Resp: Effort & Inspection: normal respiratory effort Auscultation: clear to auscultation bilaterally Cardio: Rate: regular rate Rhythm: regular rhythm Peripheral pulses: P eripheral pulses 2+ throughout GI: Inspection: Yes normal to inspection Palpation (GI): Soft to palpation and nontender Auscultation: normal bowel sounds Back/Spine/Pelvis: Thoracic/Lumbar Spine: thoracic and lumbar spine normal to inspection Skin: General skin exam: no rashes or lesions noted Neuro: General: patient oriented x3, no focal motor deficits and normal sensation to monofilament Cranial nerves: Yes Equal, round and reactive pupils present Cognition (Neuro): normal cognition Speech: No Abnormal speech present Gait exam (Neuro): Normal gait present Motor exam (neuro): 5/5 motor strength present throughout Extrem: Other: There is swelling to the right wrist. There is limited flexion and extension of the wrist due to pain. There is also pain diffusely over the right hand with limited flexion of the hand due to pain. Patient is able to extend the digits with no difficulty. There are 2+ radial and ulnar pulses. There is normal sensation. There is +finklestein. Unable to participate in Phalen. Negative tinel Course Course Course Narrative: X-ray shows no acute finding. Labs are unremarkable. Exam is consistent with de Quervain tenosynovitis. Patient will be placed in a thumb spica wrist splint. Will give low-dose prednisone for home. Patient uses sliding scale coverage for insulin and so I recommended that she check her sugar as scheduled and adjust her insulin accordingly. She is aware that her blood sugar might be elevated while on the prednisone. Recommend she continue Tylenol and anti- inflammatory. Recommend follow up with her primary care doctor orthopedics as needed. Reviewed worrisome signs and symptoms of when to return to the emergency room. Comfortable plan for discharge home. Medical Decision Making Medical Decision Making [facility] Narrative: 59 yo female with PMH of IDDM, asthma, HLD, GERD here with complaints of right wrist pain/swelling since Sunday. 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 No known injury or trauma. Went to Sunday with negative x-rays. Taking tylenol/naproxen and using wrist splint at home. Here with continued pain. Patient reports that she has pain, swelling and difficulty with range of motion. She denies any associated numbness or tingling. No previous injuries to this wrist. No recent surgeries, hospitalizations, travel or recent procedures. No history of hormone use therapy. No history of DVT or PE. There is swelling to the right wrist. There is limited flexion and extension of the wrist due to pain. There is also pain diffusely over the right hand due to pain. Patient is able to extend the digits with no difficulty. There are 2+ radial and ulnar pulses. There is normal sensation. There is +finklestein. Unable to participate in Phalen. Negative tinel. Will check x-rays, obtain labs Differential Diagnosis Differential Diagnoses: The differential diagnosis associated with the presentation includes Low suspicion for septic arthritis, DVT, cellulitis, fracture Consider sprain, strain, tenosynovitis, gout, arthritis Admission/Observation Consideration of admission/observation: Escalation of care including admission/observation considered Lab Data [facility] Lab Attestation statement: I reviewed the patient's lab results. 04/18/25 09:22 04/18/25 09:22 Labs: Lab Results 04/18/25 Range/Units 09:22 WBC 8.1 (4.8-10.8) X10*3/uL RBC 4.20 (4.20-5.50) X10*6/uL Hgb 12.6 (12.0-16.0) g/dl Hct 36.3 L (37.0-47.0) % MCV 86.4 (80.0-98.0) fL MCH 30.0 (27.0-33.0) pg MCHC 34.7 (31.0-35.0) g/dl RDW 12.2 (11.0-16.0) % Plt Count 241 (160-400) X10*3/uL MPV 9.4 (9.4-12.3) fL Immature Gran % (Auto) 0.2 (0.0-0.4) % Neut % (Auto) 57.1 (45-73) % Lymph % (Auto) 32.1 (20-40) % Taylor % (Auto) 8.7 (2-11) % Eos % (Auto) 1.4 (0-4) % Baso % (Auto) 0.5 (0-2) % Lymph # (Auto) 2.6 (1.2-4.9) X10*3/uL Taylor # (Auto) 0.7 (0.1-1.2) X10*3/uL Eos # (Auto) 0.1 (0.0-0.4) X10*3/uL Baso # (Auto) 0.0 (0.0-0.2) X10*3/uL Abs Immat Gran (auto) 0.02 (0.00-0.03) X10*3/uL Absolute Neuts (auto) 4.7 (2.0-8.3) x10*3/uL Absolute Nucleated RBC 0.000 (0.0-0.012) X10*3/uL Nucleated RBC % (auto) 0.0 (0.0-0.2) /100WBC ESR 18 (0-20) MM/HR Sodium 140 (135-145) mmol/L Potassium 4.2 (3.3-5.1) mmol/L Chloride 108 (96-108) mmol/L Carbon Dioxide 24 (22-29) mmol/L Anion Gap 12 (12-20) BUN 13 (9-16) mg/dL Creatinine 0.54 (0.5-1.4) mg/dL Estim Creat Clear Calc 117.6 Estimated GFR > 60 Random Glucose 163 H (60-115) mg/dL Uric Acid 4.2 (2.4-5.7) mg/dL Calcium 8.6 (8.4-10.2) mg/dL Total Bilirubin 0.6 (0.0-1.0) mg/dL Direct Bilirubin 0.2 (0.0-0.5) mg/dL AST 26 (5-31) U/L ALT 34 H (0-31) U/L Alkaline Phosphatase 87 (39-117) U/L C-Reactive Protein 1.07 H (< or = 0.50) mg/dL Total Protein 6.8 (6.5-8.0) g/dL Albumin 3.9 (3.5-5.0) g/dL Independent Interpretation I performed an independent interpretation of an: Plain X-Ray Interpretation: I independently viewed the x-ray and agree with the radiology report Radiology Impression Discussion of test interpretation with radiology: I have reviewed the radiologist's reading. Radiologist Impression: [place] [id number] XRay Report Signed Patient: Dyana Calderon MR#: [id number] : 1965 Acct:[id number] Age/Sex: 59 / F ADM Date: 04/18/25 Loc: HO.ED Attending Dr: Ordering Physician: Aurelio Dunn MD Date of Service: 04/18/25 Procedure(s): XR hand RT 2V Accession Number(s): [id number] cc: Katy Nazario MD; Aurelio Dunn MD~ Reason for Exam: pain CLINICAL HISTORY: pain 3 view right hand Comparison: None provided Findings: Bones intact. No dislocations. No significant loss of joint space or osteophytes. No erosions. No radiopaque foreign body. IMPRESSION: 1. No acute findings This document has been electronically signed by: Tiago Head MD on 04/18/2025 09:15:[address] [address] XRay Report Signed Patient: Dyana Calderon MR#: [id number] : 1965 Acct:[id number] Age/Sex: 59 / F ADM Date: 04/18/25 Loc: HO.ED Attending Dr: Ordering Physician: Aurelio Dunn MD Date of Service: 04/18/25 Procedure(s): XR wrist RT 2V Accession Number(s): [id number] cc: Katy Nazario MD; Aurelio Dunn MD~ Reason for Exam: pain CLINICAL HISTORY: pain 4 view right wrist Comparison: CR/SR - XR WRIST NAVICULAR RIGHT - 04/15/25 10:01 EDT Findings: Bones intact. No dislocations. No significant arthritic change or erosions. No radiopaque foreign body. IMPRESSION: 1. No acute findings This document has been electronically signed by: Tiago Head MD on 04/18/2025 09:13:40 Procedures Orthopedic Splinting/Casting Injury #1: Side: right Upper Extremity Injury Location: wrist Upper Extremity Immobilizer: wrist splint (Thumb spica splint) Discharge Plan Discharge Clinical Impression: De Quervain's tenosynovitis, right Patient Disposition: Home, Self-Care Instructions: De Quervain Disease (ED), Tenosynovitis (ED) Additional Instructions: Use the splint we provided Continue Tylenol or naproxen for pain Take the prednisone as prescribed Adjust your insulin accordingly Follow-up with your primary care doctor as needed Prescriptions: New prednisone 20 mg tablet 20 mg PO DAILY Qty: 5 0RF No Action (DME) FreeStyle Precision Paul Strips Strip See Rx Instructions .MEDSUPPLY Qty: 25 6RF Rx Instructions: once a day for calibration (DME) pen needle, diabetic [CareFine Pen Needle] 31 gauge x 5/16 needle See Rx Instructions .Route Qty: 12 0RF Rx Instructions: As directed Linzess 290 mcg capsule 290 mcg PO QAM 30 Days Qty: 30 6RF ezetimibe 10 mg tablet 10 mg PO DAILY 90 Days Qty: 90 0RF albuterol sulfate 2.5 mg /3 mL (0.083 %) solution for nebulization 2.5 mg inhalation Q6H PRN (Reason: shortness of breath or wheezing) 30 Days Qty: 180 9RF pantoprazole 40 mg tablet,delayed release (DR/EC) 40 mg PO DAILY 90 Days Qty: 90 1RF albuterol sulfate 90 mcg/actuation HFA aerosol inhaler 2 puff inhalation Q4-6H PRN (Reason: shortness of breath or wheezing) Qty: 6.7 0RF famotidine [Pepcid] 40 mg tablet 40 mg PO BEDTIME Qty: 30 6RF furosemide 20 mg tablet 20 mg PO DAILY Qty: 90 1RF (DME) compress.stocking,knee,reg,med Misc See Rx Instructions .Route Qty: 2 0RF Rx Instructions: 15-20 cm Ozempic 2 mg/dose (8 mg/3 mL) pen injector 2 mg subcut QWEEK 28 Days Qty: 3 11RF metformin 500 mg tablet extended release 24 hr 500 mg PO BID 90 Days Qty: 180 1RF glipizide 2.5 mg tablet extended release 24hr 2.5 mg PO DAILY Qty: 90 0RF docusate sodium [Colace] 100 mg capsule 100 mg PO .DAILY WITH FOOD 30 Days Qty: 30 3RF magnesium citrate Solution 150 ml PO DAILY Qty: 300 0RF budesonide-formoterol [Symbicort] 160-4.5 mcg/actuation HFA aerosol inhaler 2 puff inhalation DAILY 90 Days Qty: 3 3RF cholecalciferol (vitamin D3) 50 mcg (2,000 unit) capsule 2,000 unit PO DAILY 90 Days Qty: 90 1RF atorvastatin 80 mg tablet 80 mg PO BEDTIME 90 Days Qty: 90 1RF cyclobenzaprine 10 mg tablet 10 mg PO BEDTIME PRN (Reason: muscle spasm) 90 Days Qty: 90 0RF Referrals: [facility] [place] Orthopedic Surgeons [Provider Group] Referral Note: as needed Katy Nazario MD [Primary Care Provider, Internal Medicine] Referral Note: as needed Print Language: Armenian
[2025-04-18 09:36] LABS: MANUAL DIFF FLAG NO
[2025-04-18 09:38] LABS: Hematocrit 36.3 % (37.0-47.0); Hemoglobin 12.6 g/dl (12.0-16.0); Imm Gran Abs Auto 0.02 X10*3/uL (0.00-0.03); Imm Gran Pct Auto 0.2 % (0.0-0.4); Lymphocytes Absolute Auto 2.6 X10*3/uL (1.2-4.9); Mean Corpuscular HGB Conc 34.7 g/dl (31.0-35.0); Mean Corpuscular Hemoglobin 30.0 pg (27.0-33.0); Mean Corpuscular Volume 86.4 fL (80.0-98.0); NRBC Abs Auto 0.000 X10*3/uL (0.0-0.012); NRBC Pct Auto 0.0 /100WBC (0.0-0.2); Platelet Count 241 X10*3/uL (160-400); Red Blood Count 4.20 X10*6/uL (4.20-5.50); White Blood Count 8.1 X10*3/uL (4.8-10.8)
[2025-04-18 10:00] LABS: Alanine Aminotransferase 34 U/L (0-31); Albumin Level 3.9 g/dL (3.5-5.0); Alkaline Phosphatase 87 U/L (39-117); Anion Gap 12 (12-20); Aspartate Amino Transferase 26 U/L (5-31); Blood Urea Nitrogen 13 mg/dL (9-16); Calcium 8.6 mg/dL (8.4-10.2); Carbon Dioxide 24 mmol/L (22-29); Chloride 108 mmol/L (96-108); Creatinine Clr Calc Pharmacy 117.6; Estimated Glomerular Filt Rate > 60; Potassium 4.2 mmol/L (3.3-5.1); Sodium 140 mmol/L (135-145); Total Protein 6.8 g/dL (6.5-8.0); Uric Acid 4.2 mg/dL (2.4-5.7)
[2025-04-18 11:05] VITALS: BP 112/69; PULSE 82; RESP 20; TEMP 36.2; O2SAT 96
== END 2025-04-18 11:10 | disposition home or self-care (01) ==
PROVIDERS: Nurse Practitioner Family; Emergency Provider Emergency Medicine Emergency Medical Services; PCP Internal Medicine
DX: M65.4 Radial styloid tenosynovitis [de Quervain] (principal); J44.9 Chronic obstructive pulmonary disease, unspecified; E11.9 Type 2 diabetes mellitus without complications; Z79.899 Other long term (current) drug therapy; Z79.84 Long term (current) use of oral hypoglycemic drugs; Z87.891 Personal history of nicotine dependence
CPT/HCPCS: 29130; 36415; 73100; 73120; 80048; 80076; 84550; 85025; 85652; 86140; 99283; 99284

== ENCOUNTER → 2025-04-18 08:46 | Outpatient (BNV) | payer OTHER, SELFPAY | PROVIDERS: Emergency Provider Emergency Medicine Emergency Medical Services; PCP Internal Medicine; Visit Provider Radiology Diagnostic Radiology | DX: M79.641 Pain in right hand (principal); M25.531 Pain in right wrist | CPT/HCPCS: 73100; 73120 ==

== ENCOUNTER 2025-04-28 11:10 | Outpatient (AMB) | payer OTHER, SELFPAY ==
--- NOTE | 2025-04-28 11:12 | A.OFFVIS_ITS ---
Vital Signs 04/28/25 11:14 Height 5 ft 4 in Weight 178 lb 9.191 oz BMI 30.6 BP 124/78 Blood Pressure Location Rt brachial Position Sitting Pulse 92 Pulse Source Pulse Oximeter Pulse Oximetry (%) 97 Oxygen Delivery Method Room Air Intake Visit Reasons: T2DM Intake Note: Patient present today to follow up on Type 2 Diabetes Mellitus. Last Diabetic Eye exam: Patient stated having an appt soon Last Podiatry Visit: Patient stated having an appt soon. Random Glucose: 219 mg/dL Hgb A1C: 7.9% 04/03/2025 Outfitter Cabin Required: No Accompanied by: Self / Same As Patient Allergies dulaglutide (From [facility]) Adverse Reaction (Intermediate, Verified 04/28/25 11:22) Palpitations Medication List - Last Reconciled 04/28/25 by COLBY Townsend albuterol sulfate 90 mcg/actuation 2 puffs inhalation Q4-6H PRN albuterol sulfate 2.5 mg (3 mL) inhalation Q6H PRN 30 days blood sugar diagnostic (FreeStyle Precision Paul Strips) once a day for calibration budesonide-formoterol 160-4.5 mcg/actuation (Symbicort) 2 puffs inhalation DAILY 90 days cholecalciferol (vitamin D3) 2,000 units PO DAILY 90 days compress.stocking,knee,reg,med 15-20 cm cyclobenzaprine 10 mg PO BEDTIME PRN 90 days docusate sodium (Colace) 100 mg PO .DAILY WITH FOOD 30 days famotidine (Pepcid) 40 mg PO BEDTIME furosemide 20 mg PO DAILY glipizide ER orally daily; Take 2 tab in the morning and 1 in the evening. linaclotide (Linzess) 290 mcg PO QAM 30 days magnesium citrate 150 mL PO DAILY metformin 1,000 mg PO QAM pantoprazole 40 mg PO DAILY 90 days pen needle, diabetic (CareFine Pen Needle) As directed rosuvastatin 20 mg PO BEDTIME tirzepatide (Mounjaro) 2.5 mg (0.5 mL) subcut QWEEK HPI Comments Details: This is a 59-year-old female with a past medical history of type 2 diabetes, hyperlipidemia, asthma-COPD, ORLIN, GERD, chronic constipation and vitamin-D deficiency presenting for diabetic management. She was diagnosed about 8 years ago. She endorses a family history of Type II DM. Hemoglobin A1c 7.9% 04/03/2025. CGM was declined by patient due to cost. 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 Past medications: Jardiance discontinued due to vaginal pruritus. She developed tachycardia with Trulicity. Metformin IR caused diarrhea. No diarrhea on ER. She stopped Toujeo because she hates needles. Current regimen: Glipizide ER 2.5 mg daily, Ozempic 2 mg weekly, metformin ER 500 mg daily She is not taking Ozempic because she has vomiting, nausea and decreased appetite. She did not report this at her last visit. She is taking metformin ER a 1000 mg daily because the extended release pill is too expensive. She is actually taking glipizide ER 2.5 mg twice daily. She denies side effects. 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 Complications: Nephropathy (microalbuminuria) and neuropathy in her feet (mild) Atorvastatin and Zetia were on her medication list. Her LDL cholesterol is 163. Patient reports she is not taking either medication. The last prescription for atorvastatin was from April 2024 for a 90 day supply with 1 refill, and the last prescription for Zetia was in July for a 90 day supply. Her B12 level is elevated. She is taking 3000 mcg daily. One of her liver enzymes is mildly elevated. Her other liver tests are normal. ROS: Constitutional: No fevers, chills or unexplained weight loss Respiratory: No shortness of breath Cardiovascular: No chest pain Gastrointestinal: No anorexia, nausea, vomiting or diarrhea. No abdominal pain Neurologic: Denies lower extremity weakness. Endorses tingling in her toes. Endocrine: No cold or heat intolerance. No polyuria or polydipsia. Physical exam: Constitutional: Alert, in no distress. Neck: Supple, Full range of motion. No lymphadenopathy. No palpable thyroid masses. Respiratory: Clear to auscultation. Cardiovascular: S1 S2 regular. No murmurs. 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 Hyperlipidemia LDL goal <100 GERD (gastroesophageal reflux disease) Asthma-COPD overlap syndrome History of sleep study Pulmonary nodule Personal history of nicotine dependence Chronic idiopathic constipation Chronic fatigue Obesity (BMI 30-39.9) Vitamin D deficiency Foot abscess Right shoulder pain COVID-19 vaccine series completed Surgical History History of dilation and curettage (~2004) History of colonoscopy History of section History of hysterectomy (~2010) Family History Father Heart disease Diabetes Hypertension Mother Heart disease Hypertension Diabetes Uterine cancer Sister Uterine cancer Daughter In good health Daughter In good health Son No problems noted. Brother In good health Brother In good health Social History Housing: Apartment Alcohol intake: never Patient Tobacco Use Status: Former Tobacco user Tobacco use type: Cigarette Years Smoked: (onset 15yo, 1ppd x 32yrs, 30pyh - quit 2012) e-Cigarette/Vaping Use: Never Used Second Hand Smoke Exposure: No Substance Use Type: Former Substance User and Marijuana service: No Current occupational status: employed Current occupational exposures/hazards: No Cognitive needs: No Hearing needs: No Vision needs: No Physical Exam Vital Signs: Last Vital Signs Pulse 92 04/28/25 11:14 BP 124/78 04/28/25 11:14 Pulse Ox 97 04/28/25 11:14 Oxygen Delivery Method Room Air 04/28/25 11:14 BMI result Body Mass Index 30.6 Results Reviewed Results Reviewed: Laboratory Last Values Glucose (Clinic) 219 mg/dL (60-115) H 04/28/25 11:19 Laboratory Tests 04/18/25 04/18/25 04/18/25 08:14 08:19 09:22 Plt Count 241 Creatinine 0.54 Estimated GFR > 60 C-Peptide 2.88 AST 26 ALT 34 H Triglycerides 144 Cholesterol 233 H LDL Cholesterol, Calc 163 H HDL Cholesterol 42 Vitamin B12 1089 H TSH 1.12 Urine Creatinine 146.89 Urine Microalbumin 24.0 Microalb/Creat Ratio 16.3 Assessment & Plan Assessment & Plan (1) Diabetes type 2, uncontrolled: Onset Date: ~2015 Code(s): E11.65 - Type 2 diabetes mellitus with hyperglycemia Category: Medical Qualifiers: Glycemic state: with hyperglycemia Qualified Code(s): E11.65 - Type 2 diabetes mellitus with hyperglycemia (2) Diabetic neuropathy: Code(s): E11.40 - Type 2 diabetes mellitus with diabetic neuropathy, unspecified Category: Medical Qualifiers: Diabetes mellitus complication detail: diabetic polyneuropathy Diabetes mellitus type: type 2 Qualified Code(s): E11.42 - Type 2 diabetes mellitus with diabetic polyneuropathy (3) Pure hypercholesterolemia: Code(s): E78.00 - Pure hypercholesterolemia, unspecified Category: Medical (4) LFT elevation: Code(s): R79.89 - Other specified abnormal findings of blood chemistry Category: Medical (5) High serum vitamin B12: Code(s): R79.89 - Other specified abnormal findings of blood chemistry Category: Medical Plan Increase glipizide ER to 2 tablets in the morning and one in the evening. Continue metformin 1000 mg daily with breakfast. Stop Ozempic. Trial of Mounjaro 2.5 mg weekly. Side effects and administration reviewed. Denies contraindications. Discussed pathophysiology of Type II Diabetes Mellitus with the patient in detail.? I explained the meterman risks and complications associated with uncontrolled diabetes including nephropathy, neuropathy, peripheral vascular disease, retinopathy, increased risk of heart disease and stroke.? Discussed lifestyle modification with the patient. Recommended 30 minutes of moderately vigorous exercise 5 days per week to promote weight loss. She was referred to Podiatry. Continue monitoring blood sugars and bring glucometer to appointments. CGM was too expensive. Reviewed treatment of hypoglycemia. She has written instructions. Start rosuvastatin 20 mg at bedtime. Side effects reviewed. If she develops problems on the medication she will discontinue it and contact the office. Elevated LFT-Avoid processed foods and alcohol. One liver enzyme is mildly elevated. If this persists I will order testing for hepatitis and a liver ultrasound. Reduce vitamin B12 supplement to every other day. Recheck labs in 8 weeks. Orders: Orders Lipid Panel 8 Weeks E78.5 - Hyperlipidemia, unspecified, R79.89 - Other specified abnormal findings of blood chemistry Liver Panel 8 Weeks E78.5 - Hyperlipidemia, unspecified, R79.89 - Other specified abnormal findings of blood chemistry Vitamin B12 8 Weeks E78.5 - Hyperlipidemia, unspecified, R79.89 - Other specified abnormal findings of blood chemistry, Z91.89 - Other specified personal risk factors, not elsewhere classified Medications: New rosuvastatin 20 mg PO BEDTIME 90 tabs 0RF tirzepatide (Mounjaro) for 4 weeks 2.5 mg (0.5 mL) subcut QWEEK 2 mL 0RF metformin 1,000 mg PO QAM 90 tabs 0RF Changed From glipizide ER 2.5 mg PO DAILY 90 tabs 0RF To glipizide ER orally daily; Take 2 tab in the morning and 1 in the evening. 270 tabs 0RF Discontinued prednisone Discontinued Reason: Doctor's Order 20 mg PO DAILY 5 tabs 0RF atorvastatin Discontinued Reason: Doctor's Order 80 mg PO BEDTIME 90 days 90 tabs 1RF E11.65 - Type 2 diabetes mellitus with hyperglycemia ezetimibe Discontinued Reason: Doctor's Order 10 mg PO DAILY 90 days 90 tabs 0RF metformin ER Discontinued Reason: Doctor's Order 500 mg PO BID 90 days 180 tabs 1RF Patient Instructions: Increase Glipizide to two 2.5 mg tablets in the morning and 1 in the evening Continue Metformin 1000 mg in the morning with food Stop Ozempic and start Mounjaro 2.5 mg weekly If you experience low blood sugar, treat this by eating a chewable fruit candy like skittles or jelly beans (about 8 pieces), 4 ounces (1/2 cup) of fruit juice (not diet), 1 tablespoon of honey or 4 glucose tablets. If your blood sugar is under 50, take double the amount of one of the above. Recheck your blood sugar in 15 minutes. Decrease vitamin b12 to every other night. Start Rosuvastatin (Crestor) 20 mg at bedtime. If you get muscle weakness or body aches stop taking it. Please have repeat labwork done in 8 weeks (fasting). Coding Level of Care Code Est Pt Level 4 (59703) Complex EM visit Add On G2211 Diagnoses Uncontrolled type 2 diabetes mellitus with hyperglycemia E11.65 Glycemic state: with hyperglycemia Diabetic polyneuropathy associated with type 2 diabetes mellitus E11.42 Diabetes mellitus complication detail: diabetic polyneuropathy Diabetes mellitus type: type 2 Pure hypercholesterolemia E78.00 LFT elevation R79.89 High serum vitamin B12 R79.89
[2025-04-28 11:14] VITALS: BP 124/78; PULSE 92; O2SAT 97; BMI 30.6
[2025-04-28 11:23] LABS: Glucose, Whole Blood 219 mg/dL (60-115)
--- OUTSIDE RECORDS SUMMARY | 2025-04-28 13:57 | XMS_ITS | Clinical Summary ---
Author Organization [address] [facility] Address [address] [place] [address] Phone Care Team Providers Care Development Coordinator Name Role Phone Katy Roberson MD Primary Care Provider [phone] Allergies No known active allergies Medications semaglutide [...] Type 2 diabetes mellitus wit h hyperglycemia ([facility] V24, [facility] V28) 05/26/2024 COPD (chronic obstructive pu lmonary disease) ([facility] V24, [facility] V28) 05/26/2024 GERD with apnea without esophagitis [...] Last Done Comments Breast Cancer Screening 1966 Colorectal Cancer Screening: Colonoscopy 1966 Diabetes: Annual GFR (Glomerular Filtration Rate) [...] 10/19/2021, 05/02/2019 Cholesterol Screening (Lipid Panel) 05/06/2024 HIV Screening 05/06/2024 Hepatitis C Screening 05/06/2024 Social Influencers of Health Screening 05/06/2024 Diabetes: Annual Urine Albumin-Creatinine Ratio (uACR) 05/24/2024 Diabetes: Blood Sugar Contro l Test (HGBA1C) 05/24/2024 Depression Screening 07/23/2024 COVID-19 Vaccine ( - 2023-2 5 season) 2025 Influenza Vaccine (#1) 2025 2, 04/01/2021 RSV Immunization Adult Patients (1 - 1-dose 75+ series) 2041 HIB Vaccines Aged Out No longer eligi [...] patient's age to complete this [place] [id number] [employer] Care Teams Development Coordinator Relationship Specialty Start Date End Date Katy Roberson MD [address] [place] [address] , [address] [facility] D/B/A: [facility] [place], [place] PCP - General 02/19/24
--- OUTSIDE RECORDS SUMMARY | 2025-04-28 13:57 | XMS_ITS | Clinical Summary ---
Author Organization [facility] Address [address] [address] Care Team Providers Care Technical Testing Engineer Name Role Phone Katy Nazario MD Primary Care Provider [phone] Allergies No known active allergies Medications albuterol [...] Exam 08/22/2020 Influenza Vaccine (#1) [address] [place] [address] [place] [address] [employer] Care Teams Technical Testing Engineer Relationship Specialty Start Date End Date Katy Nazario MD [address] [place], [place] PCP - General Internal Medicine 10/31/21
== END 2025-04-28 11:53 | disposition home or self-care (01) ==
LOC: HO.ENCR 11:11
PROVIDERS: PCP Internal Medicine; Visit Provider Physician Assistant Medical
DX: E11.65 Type 2 diabetes mellitus with hyperglycemia (principal); E11.42 Type 2 diabetes mellitus with diabetic polyneuropathy; E78.00 Pure hypercholesterolemia, unspecified; R79.89 Other specified abnormal findings of blood chemistry

== ENCOUNTER → 2025-04-28 11:10 | Outpatient (BNVA) | payer OTHER, SELFPAY | PROVIDERS: PCP Internal Medicine; Visit Provider Physician Assistant Medical | DX: E11.65 Type 2 diabetes mellitus with hyperglycemia (principal); E11.42 Type 2 diabetes mellitus with diabetic polyneuropathy; E11.21 Type 2 diabetes mellitus with diabetic nephropathy; R80.9 Proteinuria, unspecified; E78.00 Pure hypercholesterolemia, unspecified; R79.89 Other specified abnormal findings of blood chemistry | CPT/HCPCS: 82947; 99212 ==

== ENCOUNTER 2025-05-07 16:24 | Outpatient (AMB) | payer OTHER, SELFPAY ==
[2025-05-07 16:25] VITALS: BP 122/54; PULSE 93; RESP 18; TEMP 36.2; O2SAT 95; BMI 30.9
--- NOTE | 2025-05-07 16:25 | A.OFFPC_ITS ---
Vital Signs 05/07/25 16:25 Height 5 ft 4 in Weight 180 lb BMI 30.9 BP 122/54 L Blood Pressure Location Lt brachial Position Sitting Respiration 18 Pulse 93 Pulse Source Pulse Oximeter Temp 97.1 F Temp Source Temporal Artery Scan Pulse Oximetry (%) 95 Oxygen Delivery Method Room Air Intake Visit Reasons: Joint pain, chest pain Pipe Bowls Paint Trimmer Required: No Accompanied by: Self / Same As Patient Allergies dulaglutide (From [facility]) Adverse Reaction (Intermediate, Verified 05/07/25 16:35) Palpitations Medication List - Last Reconciled 05/07/25 by Jorgito Medina MD albuterol sulfate 90 mcg/actuation 2 puffs inhalation Q4-6H PRN albuterol sulfate 2.5 mg (3 mL) inhalation Q6H PRN 30 days blood sugar diagnostic (FreeStyle Precision Paul Strips) once a day for calibration budesonide-formoterol 160-4.5 mcg/actuation (Symbicort) 2 puffs inhalation DAILY 90 days cholecalciferol (vitamin D3) 2,000 units PO DAILY 90 days compress.stocking,knee,reg,med 15-20 cm cyclobenzaprine 10 mg PO BEDTIME PRN 90 days docusate sodium (Colace) 100 mg PO .DAILY WITH FOOD 30 days famotidine (Pepcid) 40 mg PO BEDTIME furosemide 20 mg PO DAILY glipizide ER orally daily; Take 2 tab in the morning and 1 in the evening. linaclotide (Linzess) 290 mcg PO QAM 30 days magnesium citrate 150 mL PO DAILY metformin 1,000 mg PO QAM pantoprazole 40 mg PO DAILY 90 days pen needle, diabetic (CareFine Pen Needle) As directed rosuvastatin 20 mg PO BEDTIME tirzepatide (Mounjaro) 2.5 mg (0.5 mL) subcut QWEEK Tobacco use date assessed: 05/07/25 Dental Screening Dental Screen Date: 05/07/25 Did you have a dental visit in the last 12 months?: No Did you have a dental problem in the last 6 months where you did not have access to dental care?: No Was dental information given to patient?: Patient has dentist HPI HPI Comments History of Present Illness Details The patient is a 59-year-old female presenting with symptoms of lower respiratory infection. She reports the onset of symptoms, including cough and chest discomfort, beginning yesterday. The patient has tested negative for COVID-19 and received a flu vaccination last month. The patient describes her cough as severe, with green secretions, and notes that it causes significant discomfort. She has been taking Tylenol every four hours to manage potential fever, although she is unsure if she has had a fever due to taking the medication. The patient has a history of asthma and uses albuterol as needed. 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 Hyperlipidemia LDL goal <100 GERD (gastroesophageal reflux disease) Asthma-COPD overlap syndrome History of sleep study Pulmonary nodule Personal history of nicotine dependence Chronic idiopathic constipation Chronic fatigue Obesity (BMI 30-39.9) Vitamin D deficiency Foot abscess Right shoulder pain COVID-19 vaccine series completed Surgical History History of dilation and curettage (~2004) History of colonoscopy History of section History of hysterectomy (~2010) Family History Father Heart disease Diabetes Hypertension Mother Heart disease Hypertension Diabetes Uterine cancer Sister Uterine cancer Daughter In good health Daughter In good health Son No problems noted. Brother In good health Brother In good health Social History Housing: Apartment Alcohol intake: never Patient Tobacco Use Status: Former Tobacco user Tobacco use type: Cigarette Years Smoked: (onset 15yo, 1ppd x 32yrs, 30pyh - quit 2012) e-Cigarette/Vaping Use: Never Used Second Hand Smoke Exposure: No Substance Use Type: Former Substance User and Marijuana service: No Current occupational status: employed Current occupational exposures/hazards: No Cognitive needs: No Hearing needs: No Vision needs: No Questionnaire Thrive Questionnaire Date Thrive assessed: 08/12/24 AUDIT C Alcohol Use Questionnaire (AUDIT-C) 1. How often do you have a drink containing alcohol?: Never 3. How often do you have six or more drinks on one occasion?: Never Total Score: 0 VEENA-7 AMB Questionnaire VEENA-7 Date VEENA - 7 assessed: 08/12/24 Source: Developed by Drs. Aron Coleman, Caro Rodriguez, Landen Strauss and colleagues, with an educational judd from [employer]. Physical exam (Primary Care) Vital Signs: Last Vital Signs Temp 97.1 F 05/07/25 16: Pulse 93 05/07/25 16:25 Resp 18 05/07/25 16:25 BP 122/54 L 05/07/25 16:25 Pulse Ox 95 05/07/25 16:25 Oxygen Delivery Method Room Air 05/07/25 16:25 BMI result Body Mass Index 30.9 Tobacco/Smoking Status: Tobacco use Status Tobacco use date assessed 05/07/25 05/07/25 16:28 Patient Tobacco Use Status Former Tobacco user 05/07/25 16:28 Tobacco use type Cigarette 05/07/25 16:28 e-Cigarette/Vaping Use Never Used 05/07/25 16:28 Thrive Assessment: Date of Thrive Assessment Date Thrive assessed 08/12/24 05/07/25 16:28 Const Other: Pertinent findings are in BOLD GENERAL APPEARANCE NAD, activity normal for age, well developed/ well nourished, no cyanosis, pallor, or diaphoresis. EYES lids/conjunctiva normal. EARS/NOSE/THROAT Mucous membranes moist, nares normal, lips/teeth normal uvula midline without oral pharyngeal erythema, exudate or swelling TMs normal bilaterally. No lymphangitis/lymphedema. HEAD/NECK normocephalic atraumatic, no facial trauma, neck is supple. RESPIRATORY respiratory effort normal, speaks in full sentences, no tripod position, no accessory muscle use. Positive for wheezing and ronchi. CARDIAC Regular rate and rhythm, no edema. ABDOMINAL Soft, ND/NT. No evidence of fluid wave. No pulsatile masses on exam, rebound tenderness, Dempsey sign or pain over Mcburney's point. MUSCLES/EXTREMITIES No abnormal range of motion, no swelling. SKIN Warm, pink and dry. No rashes, dermatoses, petechiae or lesions. NEUROLOGICAL Speech is clear and appropriate. Normal level of consciousness. Gait and coordination are normal. 5/5 strength in all extremities. PSYCH Normal mood and affect. Judgement/competence is appropriate Coding Level of Care Code Est Pt Level 3 (99926) Diagnoses Lower respiratory infection J22 Time Spent (min) 20 Assessment & Plan Assessment & Plan (1) Lower respiratory infection: Code(s): J22 - Unspecified acute lower respiratory infection Category: Medical Plan: - Prescribed azithromycin for five days to address potential bacterial component. - Recommended continued use of Tylenol for symptom management and hydration. Plan I discussed wioth the patient that she is having asthma exacerbation due to potential infection. We agreed on a treatment plan including azithromycin and prednisone to manage her symptoms and asthma exacerbation. I advised her to continue using Tylenol and maintain hydration, and to monitor her blood sugar levels due to prednisone use. Medications: New prednisone 20 mg PO DAILY 5 tabs 0RF azithromycin start on day 2 of therapy 250 mg PO DAILY 6 tabs 0RF 6 days
--- OUTSIDE RECORDS SUMMARY | 2025-05-07 19:42 | XMS_ITS | Clinical Summary ---
Author Organization [facility] Facility Address [address] [address] Care Team Providers Care Systems Librarian Name Role Phone Katy Nazario MD Primary Care Provider [phone] Allergies No known active allergies Medications albuterol [...] Exam 08/22/2020 Influenza Vaccine (#1) [address] [place] [address] [place] [address] [employer] Care Teams Systems Librarian Relationship Specialty Start Date End Date Katy Nazario MD [address] [place], [place] PCP - General Internal Medicine 10/31/21
--- OUTSIDE RECORDS SUMMARY | 2025-05-07 19:42 | XMS_ITS | Clinical Summary ---
Author Organization [address] [facility] Address [address] [place] [address] Phone Care Team Providers Care Toolroom Helper Name Role Phone Katy Roberson MD Primary Care Provider [phone] Allergies No known active allergies Medications semaglutide [...] Type 2 diabetes mellitus wit h hyperglycemia ([facility] V24, [facility] V28) 05/26/2024 COPD (chronic obstructive pu lmonary disease) ([facility] V24, [facility] V28) 05/26/2024 GERD with apnea without esophagitis [...] Cervical Cancer Screening: P ap Smear 09/24/1987 RSV Immunization Adult Patients (1 - Risk 50-74 years 1-dose series) 2016 Zoster Vaccines (2 of 2) 05/16/2022 03/21/2022 [...] age to complete [place] [id number] [facility] Care Teams Toolroom Helper Relationship Specialty Start Date End Date Katy Roberson MD [address] [place] [address] , [address] [facility] D/B/A: Nish Silvestre In Internal Medicine [place], [place] PCP - General 02/19/24
== END 2025-05-07 17:36 | disposition home or self-care (01) ==
LOC: HO.HMCH 16:24
PROVIDERS: PCP Internal Medicine; Visit Provider Internal Medicine
DX: J22 Unspecified acute lower respiratory infection (principal)

== ENCOUNTER → 2025-05-07 16:24 | Outpatient (BNVA) | payer OTHER, SELFPAY | PROVIDERS: PCP Internal Medicine; Visit Provider Internal Medicine | DX: E11.9 Type 2 diabetes mellitus without complications (principal); J22 Unspecified acute lower respiratory infection; J45.909 Unspecified asthma, uncomplicated; Z79.899 Other long term (current) drug therapy | CPT/HCPCS: 99212 ==

== ENCOUNTER 2025-05-11 10:55 | Outpatient (AMB) | payer OTHER, SELFPAY ==
[2025-05-11 11:05] VITALS: BP 138/90; PULSE 99; TEMP 36.8; O2SAT 98; BMI 30.6
--- NOTE | 2025-05-11 11:05 | AM.OFFWIN_ITS ---
Intake Vital Signs 05/11/25 11:05 Height 5 ft 4 in Weight 178 lb BMI 30.6 BP 138/90 H Blood Pressure Location Lt brachial Position Sitting Pulse 99 Pulse Source Pulse Oximeter Temp 98.2 F Temp Source Oral Pulse Oximetry (%) 98 Oxygen Delivery Method Room Air Intake Visit Reasons: EP Fever,cough,head ache,chest pain,SOB Intake Note: Patient presents for SOB/wheezing, chest tightness/heaviness/congestion, headache/body aches, cough, fever x4 days - has one day left of ABX azithromycin & prednisone Patient Tobacco Use Status: Former Tobacco user Allergies dulaglutide (From [employer]) Adverse Reaction (Intermediate, Verified 05/11/25 11:10) Palpitations Do you need a note to return to daycare/school/sports/work: Yes HPI HPI Comments History of Present Illness Details History - The patient is a 59-year-old female pr esenting with symptoms suggestive of a respiratory infection and asthma exacerbation. - Respiratory symptoms began on , with congestion and productive cough with green sputum. - She has been SOB with coughing. - She has been having body aches all ove r when she coughs. - Prescribed prednisone and an antibioti c, but no viral testing was conducted. - Reports asthma and uses a nebulizer, a lthough the equipment is currently broken. - She has not felt any better after taki ng the antibiotics. - Continues with a cough and worse [facility]. - She has had a subjective fever at home . - She has no sick contacts. - She denies recent travel, CP, abd pain , n/v/d. Physical Exam General: Cooperative, healthy appearing, comfortable and no acute distress Orientation/consciousness: Patient oriented x3 Limitations: No limitations Head: Normal to inspection Ears: Hearing grossly normal bilaterally, external ears normal and TM's normal bilaterally Nose: Normal external nose present, normal nares present, and no nasal discharge present. Face and sinus: Sinuses nontender to palpation. Mouth: Normal oral and palatal mucosa present and moist mucous membranes noted. Throat: Tonsils normal. Uvula is midline. Posterior oropharynx with erythema and no exudates. Eyes: Appearance normal, both eyes and all related structures Neck: Normal visual inspection, full ROM. No lymphadenopathy noted. Respiratory: Clear to auscultation bilaterally. Normal respiratory effort, able to speak in complete sentences. No respiratory distress, not tachypneic, no tripod positioning and no use of accessory muscles. Cardiovascular: Regular rate and rhythm. Normal S1 and S2 Skin: No rashes or lesions noted Patient was informed and verbally consented to the use of an ambient scribe for clinic note documentation during this visit [facility] Medical History (Updated 05/07/25 @ 17:05 by Jorgito Medina MD) High serum vitamin B12 LFT elevation Pure hypercholesterolemia Diabetes type 2, uncontrolled (~2015) shelter (current) use of insulin Hyperlipidemia LDL goal <100 GERD (gastroesophageal reflux disease) Asthma-COPD overlap syndrome History of sleep study Pulmonary nodule Personal history of nicotine dependence Chronic idiopathic constipation Chronic fatigue Obesity (BMI 30-39.9) Vitamin D deficiency Foot abscess Right shoulder pain COVID-19 vaccine series completed Surgical History History of dilation and curettage (~2004) History of colonoscopy History of section History of hysterectomy (~2010) Family History Father Heart disease Diabetes Hypertension Mother Heart disease Hypertension Diabetes Uterine cancer Sister Uterine cancer Daughter In good health Daughter In good health Son No problems noted. Brother In good health Brother In good health Social History Housing: Apartment Alcohol intake: never Patient Tobacco Use Status: Former Tobacco user Tobacco use type: Cigarette Years Smoked: (onset 15yo, 1ppd x 32yrs, 30pyh - quit 2012) e-Cigarette/Vaping Use: Never Used Second Hand Smoke Exposure: No Substance Use Type: Former Substance User and Marijuana service: No Current occupational status: employed Current occupational exposures/hazards: No Cognitive needs: No Hearing needs: No Vision needs: No Review of Systems Const All systems reviewed & are unremarkable except as noted in HPI and below Physical Exam Vital Signs: Last Vital Signs Temp 98.2 F 05/11/25 11:05 Pulse 99 05/11/25 11:05 BP 138/90 H 05/11/25 11:05 Pulse Ox 98 05/11/25 11:05 Oxygen Delivery Method Room Air 05/11/25 11:05 BMI result Body Mass Index 30.6 Office Procedures Nebulizer Treatment Nebulizer Treatment 70212-Xnhvxsjua/MDI RX initial, or Nebulizer Subsequent Treatment Office Meds ipratropium 0.5 mg-albuterol 3 mg (2.5 mg base)/3 mL nebulization soln Performing Provider: Hoa Hernandez PA-C Performing Location: [facility] Administered by: Hoa Hernandez PA-C on 05/11/25 12:31 Dose Route Admin Location Dispensed Lot Number Expiration Date [facility] Teletypewriter Installer 3 mL inhalation 3 mL [id number] 08/22/26 81717-734-88 [employer] Results Reviewed Results Reviewed: will review the CXR in the office Assessment & Plan Assessment & Plan (1) Cough: Code(s): R05.9 - Cough, unspecified Qualifiers: Cough type: acute Qualified Code(s): R05.1 - Acute cough Plan Most likely URI vs viral illness vs bronchitis vs pneumonia plan - Conduct a viral panel to determine the presence of a viral infection. - Prescribed prednisone and tessalon perles as needed for cough - continue with inhalers and home nebulizers - Administered nebulizer treatment during the visit and provided tubing for home use. - Recommended chest X-ray to assess for complications or underlying issues. - will call with the results and add abx if needed Orders: Orders AMB Nebulizer Treatment Today R05.9 - Cough, unspecified XR chest 2V Today R05.9 - Cough, unspecified Resp Pathogen Panel - [facility] Today J06.9 - Acute upper respiratory infection, unspecified Medications: New benzonatate 100 mg PO bid-tid PRN 21 caps 0RF Cough 7 days amoxicillin-pot clavulanate 875-125 mg 1 tab PO Q12H 14 tabs 0RF prednisone 40 mg (2 x 20 mg) PO DAILY 10 tabs 0RF 5 days Coding Level of Care Code Est Pt Level 4 (11443) Diagnoses Acute cough R05.1 Cough type: acute CPT Codes Nebulizer Treatment - Nebulizer Treatment, initial or subsequent: 87133- Nebulizer/MDI RX initial, or Nebulizer Subsequent Treatment ([id number])
--- OUTSIDE RECORDS SUMMARY | 2025-05-11 13:12 | XMS_ITS | Clinical Summary ---
Author Organization [address] [facility] Address [address] [place] [address] Phone Care Team Providers Care Real Estate Rep Name Role Phone Katy Roberson MD Primary Care Provider [phone] Allergies No known active allergies Medications semaglutide [...] Type 2 diabetes mellitus wit h hyperglycemia ([place] V24, [place] V28) 05/26/2024 COPD (chronic obstructive pu lmonary disease) ([place] V24, [place] V28) 05/26/2024 GERD with apnea without esophagitis [...] age to complete [place] [id number] [facility] Care Teams Real Estate Rep Relationship Specialty Start Date End Date Katy Roberson MD [address] [place] [address] , [address] [facility] D/B/A: [facility] [place], [place] PCP - General 02/19/24
--- OUTSIDE RECORDS SUMMARY | 2025-05-11 13:12 | XMS_ITS | Clinical Summary ---
Author Organization [facility] Facility Address [address] [address] Care Team Providers Care Corrosion Control Technician Name Role Phone Katy Nazario MD Primary Care Provider [phone] Allergies No known active allergies Medications albuterol [...] Exam 08/22/2020 Influenza Vaccine (#1) [address] [place] [address] [place] [address] [employer] Care Teams Corrosion Control Technician Relationship Specialty Start Date End Date Katy Nazario MD [address] [place], [place] PCP - General Internal Medicine 10/31/21
== END 2025-05-11 12:51 | disposition home or self-care (01) ==
PROVIDERS: PCP Internal Medicine; Visit Provider Physician Assistant Medical
DX: R05.9 Cough, unspecified (principal); R05.1 Acute cough

== ENCOUNTER 2025-05-11 10:55 | Outpatient (REF) | payer OTHER, SELFPAY ==
--- NOTE | ~2025-05-11 | XR_ITS ---
EXAMINATION: XR CHEST 2 VIEWS HISTORY: R05.9 - Cough, unspecified COMPARISON: Comparison is made with the prior examination dated 08/07/2023. FINDINGS: PA and lateral views of the chest are submitted. There is a small airspace opacity in the left midlung zone, consistent with pneumonia. The right lung is clear. There is no pleural effusion, pneumothorax, or pulmonary vascular congestion. The heart is normal in size. The bones are intact. XR/XR chest 2V IMPRESSION: Left midlung pneumonia. Follow-up is recommended to document resolution. Electronically signed by: Aron Sy MD 05/11/2025 01:14 PM EDT
[2025-05-11 17:38] LABS: Chlamydia pneumoniae PCR Not Detected (Not Detect.); Coronavirus 229E PCR Not Detected (Not Detect.); Coronavirus HKU1 PCR Not Detected (Not Detect.); Coronavirus NL63 PCR Not Detected (Not Detect.); Coronavirus OC43 PCR Not Detected (Not Detect.); RSV PCR Not Detected (Not Detect.); Rhino/Enterovirus PCR Not Detected (Not Detect.)
[2025-05-11 17:55] LABS: SARS-CoV-2 PCR Not Detected (Not Detect.)
== END 2025-05-11 10:56 | disposition home or self-care (01) ==
LOC: HO.HMGCX 10:55
PROVIDERS: PCP Internal Medicine; Visit Provider Physician Assistant Medical
DX: R05.1 Acute cough (principal); R09.81 Nasal congestion; R06.02 Shortness of breath; R52 Pain, unspecified; Z87.891 Personal history of nicotine dependence
CPT/HCPCS: 71046; 87633; 94640; 99212

== ENCOUNTER → 2025-05-11 13:04 | Outpatient (BNV) | payer OTHER, SELFPAY | PROVIDERS: PCP Internal Medicine; Visit Provider Radiology Diagnostic Radiology | DX: J18.9 Pneumonia, unspecified organism (principal) | CPT/HCPCS: 71046 ==

== ENCOUNTER 2025-06-24 10:06 | Outpatient (REF) | payer OTHER, SELFPAY ==
--- OUTSIDE RECORDS SUMMARY | 2025-06-25 11:58 | XMS_ITS | Clinical Summary ---
Author Organization 175 [facility] Address [address] [place] [address] Phone Care Team Providers Care Cushion Cover Inspector Name Role Phone Katy Roberson MD Primary Care Provider [phone] Allergies No known active allergies Medications semaglutide [...] Type 2 diabetes mellitus wit h hyperglycemia ([facility] V24, [facility] V28) 05/26/2024 COPD (chronic obstructive pu lmonary disease) ([facility] V24, [facility] V28) 05/26/2024 GERD with [...] (HGBA1C) 05/24/2024 Depression Screening 07/23/2024 COVID-19 Vaccine (1 - 2024-2 6 season) 2025 Influenza Vaccine (#1) 2025 2, [...] age to complete [place] [id number] [facility] [employer] Care Teams Cushion Cover Inspector Relationship Specialty Start Date End Date Katy Roberson MD [address] [place] [address] , [address] [facility] D/B/A: [facility] [place], [place] PCP - General 02/19/24
== END 2025-06-24 10:07 | disposition home or self-care (01) ==
LOC: HO.HOSX 10:06
DX: J44.9 Chronic obstructive pulmonary disease, unspecified (principal); R91.1 Solitary pulmonary nodule; Z87.891 Personal history of nicotine dependence
CPT/HCPCS: 99212

== ENCOUNTER 2025-06-24 10:33 | Outpatient (AMB) | payer OTHER, SELFPAY ==
[2025-06-24 10:36] VITALS: BP 118/58; PULSE 94; O2SAT 99; BMI 31.2
--- NOTE | 2025-06-24 10:36 | MHC.OFFVIS ---
Vital Signs 06/24/25 10:36 Height 5 ft 4 in Weight 182 lb BMI 31.2 BP 118/58 L Blood Pressure Location Lt brachial Position Sitting Pulse 94 Pulse Source Pulse Oximeter Pulse Oximetry (%) 99 Oxygen Delivery Method Room Air Intake Visit Reasons: gregorio Allergies dulaglutide (From [facility]) Adverse Reaction (Intermediate, Verified 06/24/25 10:42) Palpitations HPI Comments Details: The patient is a 59-year-old woman with a known history of asthma who apparently has been complaining worsening dyspnea on exertion. 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 She gets very winded very quickly With any activities of daily living. The patient does have a rescue inhaler and she also has Flovent. She was prescribed another inhaler but she is not aware of the name. She was sent for pulmonary function studies which we personally reviewed. It appears that she has severe obstruction concerning for asthma COPD overlap syndrome. The patient did have a significant response to bronchodilators noted. In addition to that she also had a restrictive process and a moderate diffusion impairment. We were able to look back at previous imaging studies. She did have a chest x-ray back in 2020 which demonstrated no acute disease. In addition to that we looked at a CT scan from 2019 that she had in the ER where demonstrated she had a 5-6 mm pulmonary nodule in the left hemithorax. But, no evidence of any interstitial lung disease or emphysema. The patient did have evidence of some chronic bronchitis. At this point will maximize her respiratory therapy. The patient also will need further imaging studies in regards of the nodule follow-up. I am hoping we can maximize her respiratory therapy at this time with the use of Trelegy. On further questioning 6, the patient does have significant daytime drowsiness. She does have headaches in the morning. Her [place] score is elevated 07/15. The patient also has lower extremity edema and significant cardiac or vascular risk factors. the patient does need a sleep study at this time. 02/17/2022 the patient is here for a pulmonary follow-up visit. Overall she is responding well to the Trelegy inhaler. She has not had to use her rescue inhaler more than twice a week. Overall she is feeling a lot better from that standpoint. She did have blood work which is reassuring. The patient also had a home sleep study because of symptoms of daytime drowsiness and her AHI was within normal limits. Therefore the patient is reassured that she does not have sleep apnea. Indeed she has some snoring but that is not pathologic the patient otherwise is feeling better. She did have a CT scan that we did review back in October 2021 demonstrating some evidence of minimal tree-in-bud. This is minimal along with very small subcentimeter pulmonary nodules. appears to be suspicious for inflammatory process. Otherwise patient is without any other complaints. 02/05/2023 the patient is here for pulmonary follow-up visit. The patient overall has been feeling fair. She her asthma has been acting up. She had to go on some prednisone recently. She tells that chest tightness. She also has some pleuritic chest discomfort. Denies any cough or fevers or chills. The patient has not been using the Trelegy inhaler. She did not tolerate the powder. She also did not tolerate the Spiriva. She is only taking the Symbicort. She also has a nebulizer that she uses as needed. The patient does have diabetes and has a very careful with any prednisone. I will send additional prednisone because of her chest tightness. However, she response to her other medicines she can hold off on it. I will put in for chest x-ray. She develops any further chest discomfort or pleurisy she is to come in for chest x-ray. 08/10/2023 the patient is here for a pulmonary follow-up visit. She is feeling fair. The patient again has been having worsening cough. This has been the case for the last 2 weeks. Feels some chest tightness and chest congestion. The cough is typically worse at nighttime. Does not let her sleep. She did have a chest x-ray which I personally reviewed demonstrating some degree bronchitis. Will go ahead and treat her for a lower respiratory infection along with an asthma exacerbation at this time. She does have concerns because of sugars go up when she uses prednisone so she will hold off at this time. If she noticed she does not respond to her respiratory therapy in the antibiotics then she can start the prednisone at that point with close monitoring of her blood sugars. 12/21/2023 the patient is here for a pulmonary follow-up visit. Overall she is doing well. She has not required any prednisone which is reassuring. She does have issues with elevated blood sugars and diabetes so she needs to be very careful with that. She continues use respiratory inhalers with good effect. We did go over her inhalers. She responds very well to the Symbicort. She has not using the Spiriva. Therefore will continue just the Symbicort. This is a little more expensive for her but it does work well for her. No recent imaging to review. The patient does have a smoking history. She quit about 8-9 years ago. She has a greater than 40 pack-year history of smoking. Therefore she has a great candidate for the lung cancer screening program. 06/27/2024 the patient is here for a pulmonary follow-up visit. The patient overall still feels about the same. She does complaint of dyspnea on exertion and also body aches. Kind of chronic pains overall. The Symbicort inhaler and Spiriva have been effective for her. She quit smoking a few years back. She has about a 40 pack-year history of smoking. We had referred her to the lung cancer screening program back in November although the patient did not get an appointment. We will look into that to see if we can get her situated with the lung cancer screening program. 10/23/2024 the patient is here for a pulmonary follow-up visit. Overall she is doing well from a respiratory status. She continues use her respiratory medicines with good effect. She denies having to use her rescue inhaler. The patient also happy participating in the lung cancer screening program. We did review her last CT scan from 2021 demonstrating numerous pulmonary nodules. She has not had 1 since 2021. We did personally review it and she does have multiple pulmonary nodules. She needs to get back to the lung cancer screening program with a history of smoking and high risk for having lung cancer. She is agreeable this time and we will make arrangements for her to have her CAT scan soon. 06/24/2025 the patient is here for pulmonary follow-up visit. The patient had developed a respiratory infection in April. She was seen by primary care and then went to urgent care. She did have a chest x-ray which I did personally reviewed demonstrating no acute disease. Likely bronchitis. She was given a course of Augmentin and also had been using her respiratory inhalers. The Symbicort is too expensive and she can not get it. She does not tolerate the powdered inhalers either. Will go ahead and have her continue the nebulizer with albuterol and also add budesonide. The patient does have significant asthma. She also complaining of some pleuritic discomfort. Likely some degree of pleurisy or musculoskeletal costochondritis from coughing. The patient will start the medicine if not better she can always call. She is participating in the lung cancer screening program in her last CT scan we did personally reviewed from November 2024 demonstrating no significant findings. Except for some bronchitis at the bases. She will continue with the low-dose CT scan program at this time. The patient will start treatment for persistent asthmatic bronchitis and will start her nebulizer as well. The patient follow-up in the spring if any issues arise she can always call for further recommendations. [facility] Medical History (Updated 05/07/25 @ 17:05 by Jorgito Medina MD) High serum vitamin B12 LFT elevation Pure hypercholesterolemia Diabetes type 2, uncontrolled (~2015) intermediate (current) use of insulin Hyperlipidemia LDL goal <100 GERD (gastroesophageal reflux disease) Asthma-COPD overlap syndrome History of sleep study Pulmonary nodule Personal history of nicotine dependence Chronic idiopathic constipation Chronic fatigue Obesity (BMI 30-39.9) Vitamin D deficiency Foot abscess Right shoulder pain COVID-19 vaccine series completed Surgical History History of dilation and curettage (~2004) History of colonoscopy History of section History of hysterectomy (~2010) Family History Father Heart disease Diabetes Hypertension Mother Heart disease Hypertension Diabetes Uterine cancer Sister Uterine cancer Daughter In good health Daughter In good health Son No problems noted. Brother In good health Brother In good health Social History Housing: Apartment Alcohol intake: never Patient Tobacco Use Status: Former Tobacco user Tobacco use type: Cigarette Years Smoked: (onset 15yo, 1ppd x 32yrs, 30pyh - quit 2012) e-Cigarette/Vaping Use: Never Used Second Hand Smoke Exposure: No Substance Use Type: Former Substance User and Marijuana service: No Current occupational status: employed Current occupational exposures/hazards: No Cognitive needs: No Hearing needs: No Vision needs: No Review of Systems Const All systems reviewed & are unremarkable except as noted in HPI and below Eyes Reports no additional complaints, Denies change in vision and Denies other visual disturbances ENT Reports Normal hearing present Card Denies chest pain at rest, Denies chest pain with activity, Denies edema, Denies irregular heart rhythm, Denies claudication, Denies dyspnea, Denies dyspnea on exertion, Denies orthopnea, Denies paroxysmal nocturnal dyspnea and Denies slow heart rate Resp Reports chest congestion, Reports cough, Reports pain on inspiration, Denies dyspnea, Denies dyspnea on exertion and Reports wheezing GI Denies abdominal pain, Denies change in bowel habits, Denies excessive flatus, Denies nausea and Denies vomiting Neuro Reports Normal hearing present and Denies Abnormal speech present Aller/Immun Reports wheezing Physical Exam Const General: cooperative, no acute distress, well developed and well groomed Nutritional Appearance: well nourished and obese Orientation/consciousness: oriented to person, oriented to place and oriented to time Limitations: No language barrier HEENT Head: Yes normocephalic and Yes atraumatic Eyes General: appearance normal, both eyes and all related structures Pupils: Equal, round and reactive pupils present Neck Neck: Yes normal visual inspection and Yes no lymphadenopathy Thyroid: Thyroid normal Chest Chest palpation & inspection: normal inspection of the chest Resp Effort & Inspection: normal respiratory effort Auscultation: wheezes and diminished lung sounds Cardio Rate: regular rate Rhythm: regular rhythm Heart sounds: Normal, physiologic split S2 sound present Peripheral pulses: radial pulses present and posterior tibial pulses present GI Inspection: No distended, No Abdominal panniculus present and Yes obesity Palpation (GI): Soft to palpation, nontender, no guarding, not rigid and No hepatosplenomegaly present Percussion: Yes normal to percussion Auscultation: normal bowel sounds Rectal Exam - Female: deferred Skin General skin exam: no rashes or lesions noted, turgor normal, skin not dry, no jaundice, No spider nevi and no striae Rashes: no rashes Nails: normal Neuro General: oriented to person, oriented to place and oriented to time Cranial nerves: Yes Equal, round and reactive pupils present and Yes Normal hearing present Speech: No Abnormal speech present Extrem General: Yes normal to inspection, No clubbing, No cyanosis and Yes edema Psych Appearance: grossly normal and well kempt Mental Status: mental status grossly normal Speech and movement: Normal speech and movement present Affect: normal affect Attitude: cooperative Thought process: Normal thought process present and not confabulating Thought content: Normal thought content present Insight: Limited insight present (Psych) Judgement: Limited judgement present (Psych) Assessment & Plan Assessment & Plan (1) Pulmonary nodule: Code(s): R91.1 - Solitary pulmonary nodule Category: Medical (2) Asthma-COPD overlap syndrome: Code(s): J44.9 - Chronic obstructive pulmonary disease, unspecified Category: Medical Plan stop Symbicort start Budesonide nebs BID Abuterol nebs ELISABETH as needed start Doxycycline start Medrol pk if no better LDCT program referral F/U 4-6 months Medications: New budesonide 0.5 mg (2 mL) inhalation BID 120 mL 11RF 30 days J44.9 - Chronic obstructive pulmonary disease, unspecified doxycycline monohydrate 100 mg PO BID 28 tabs 0RF 14 days methylprednisolone (Medrol (Claudio)) PO PER PKG DIR 21 ea 0RF 6 days Refilled albuterol sulfate 2.5 mg (3 mL) inhalation Q6H PRN 180 mL 11RF shortness of breath or wheezing 30 days Coding Level of Care Code Complex visit Add On G2211 Diagnoses Pulmonary nodule R91.1 Asthma-COPD overlap syndrome J44.9 Time Spent (min) 17
== END 2025-06-24 11:05 | disposition home or self-care (01) ==
LOC: HO.HPS 10:34
PROVIDERS: PCP Internal Medicine; Visit Provider Hospitalist
DX: R91.1 Solitary pulmonary nodule (principal); J44.9 Chronic obstructive pulmonary disease, unspecified
CPT/HCPCS: 99214

== ENCOUNTER 2025-06-30 11:18 | Outpatient (AMB) | payer OTHER, SELFPAY ==
[2025-06-30 11:20] VITALS: BP 136/70; PULSE 90; O2SAT 98; BMI 31.4
--- NOTE | 2025-06-30 11:20 | MHC.OFFVIS ---
Vital Signs 06/30/25 11:20 Height 5 ft 4 in Weight 183 lb 3.266 oz BMI 31.4 BP 136/70 Blood Pressure Location Lt brachial Position Sitting Pulse 90 Pulse Source Pulse Oximeter Pulse Oximetry (%) 98 Oxygen Delivery Method Room Air Intake Visit Reasons: T2DM Intake Note: Patient present today to follow up on Type 2 Diabetes Mellitus. Last Diabetic Eye exam: Patient's last exam was in 2023 Last Podiatry Visit: Patient stated having an appt soon but missed it. She will be calling to schedule. 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 She was diagnosed about 8 years ago. She endorses a family history of Type II DM. Hemoglobin A1c 7.6% down from 7.9%. She forgot her glucometer today. Past medications: Jardiance discontinued due to vaginal pruritus. She developed tachycardia with Trulicity. Metformin ER was too expensive. She discontinued Toujeo because she hates needles. Ozempic discontinued due to GI side effects. 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 Complications: Nephropathy (microalbuminuria) and neuropathy in her feet (mild) Hyperlipidemia-taking rosuvastatin 20 mg. Denies side effects. She will repeat the lipid profile. Previously prescribed atorvastatin and Zetia but was not taking them. Her B12 level was elevated when she was taking 3000 mcg daily. She stopped this in April. One of her liver enzymes was mildly elevated. Her other liver tests are normal. ROS: Constitutional: No fevers, chills or unexplained weight loss Respiratory: No shortness of breath Cardiovascular: No chest pain Gastrointestinal: No anorexia, nausea, vomiting or diarrhea. No abdominal pain Neurologic: Denies lower extremity weakness. Endorses tingling in her toes. Endocrine: No cold or heat intolerance. No polyuria or polydipsia. Physical exam: Constitutional: Alert, in no distress. Neck: Supple, Full range of motion. No lymphadenopathy. No palpable thyroid masses. Respiratory: Clear to auscultation. Cardiovascular: S1 S2 regular. No murmurs. [facility] Medical History (Updated 05/07/25 @ 17:05 by Jorgito Medina MD) High serum vitamin B12 LFT elevation Pure hypercholesterolemia Diabetes type 2, uncontrolled (~2015) FPC (current) use of insulin Hyperlipidemia LDL goal <100 GERD (gastroesophageal reflux disease) Asthma-COPD overlap syndrome History of sleep study Pulmonary nodule Personal history of nicotine dependence Chronic idiopathic constipation Chronic fatigue Obesity (BMI 30-39.9) Vitamin D deficiency Foot abscess Right shoulder pain COVID-19 vaccine series completed Surgical History History of dilation and curettage (~2004) History of colonoscopy History of section History of hysterectomy (~2010) Family History Father Heart disease Diabetes Hypertension Mother Heart disease Hypertension Diabetes Uterine cancer Sister Uterine cancer Daughter In good health Daughter In good health Son No problems noted. Brother In good health Brother In good health Social History Housing: Apartment Alcohol intake: never Patient Tobacco Use Status: Former Tobacco user Tobacco use type: Cigarette Years Smoked: (onset 15yo, 1ppd x 32yrs, 30pyh - quit 2012) e-Cigarette/Vaping Use: Never Used Second Hand Smoke Exposure: No Substance Use Type: Former Substance User and Marijuana service: No Current occupational status: employed Current occupational exposures/hazards: No Cognitive needs: No Hearing needs: No Vision needs: No Physical Exam Vital Signs: Last Vital Signs Pulse 90 06/30/25 11:20 BP 136/70 06/30/25 11:20 Pulse Ox 98 06/30/25 11:20 Oxygen Delivery Method Room Air 06/30/25 11:20 BMI result Body Mass Index 31.4 Results AMB Hemoglobin A1c AMB Hemoglobin A1c 7.6 % Last Edit by EMILY Yan on 06/30/25 11:39 Results Reviewed Results Reviewed: Laboratory Last Values Glucose (Clinic) 237 mg/dL (60-115) H 06/30/25 11:28 Hgb A1c (Clinic) 7.6 % (4.0-6.0) H 06/30/25 11:31 Laboratory Tests 04/18/25 04/18/25 04/18/25 08:14 08:19 09:22 Plt Count 241 Creatinine 0.54 Estimated GFR > 60 C-Peptide 2.88 AST 26 ALT 34 H Triglycerides 144 Cholesterol 233 H LDL Cholesterol, Calc 163 H HDL Cholesterol 42 Vitamin B12 1089 H TSH 1.12 Urine Creatinine 146.89 Urine Microalbumin 24.0 Microalb/Creat Ratio 16.3 Assessment & Plan Assessment & Plan (1) Diabetes type 2, uncontrolled: Onset Date: ~2015 Code(s): E11.65 - Type 2 diabetes mellitus with hyperglycemia Category: Medical Qualifiers: Glycemic state: with hyperglycemia Qualified Code(s): E11.65 - Type 2 diabetes mellitus with hyperglycemia (2) Diabetic neuropathy: Code(s): E11.40 - Type 2 diabetes mellitus with diabetic neuropathy, unspecified Category: Medical Qualifiers: Diabetes mellitus complication detail: diabetic polyneuropathy Diabetes mellitus type: type 2 Qualified Code(s): E11.42 - Type 2 diabetes mellitus with diabetic polyneuropathy (3) Pure hypercholesterolemia: Code(s): E78.00 - Pure hypercholesterolemia, unspecified Category: Medical (4) LFT elevation: Code(s): R79.89 - Other specified abnormal findings of blood chemistry Category: Medical (5) High serum vitamin B12: Code(s): R79.89 - Other specified abnormal findings of blood chemistry Category: Medical Plan Continue glipizide ER 5 mg in the morning and 2.5 mg in the evening. Continue metformin 1000 mg daily with breakfast. Increase Mounjaro to 5 mg weekly. Discussed pathophysiology of Type II Diabetes Mellitus with the patient in detail.? 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 Discussed lifestyle modification with the patient. Recommended 30 minutes of moderately vigorous exercise 5 days per week to promote weight loss. Referred anew to Podiatry. They did not receive the referral. Continue monitoring blood sugars and bring glucometer to appointments. CGM was too expensive. Reviewed treatment of hypoglycemia. She has written instructions. Continue rosuvastatin. Check lipid profile. Elevated LFT-Avoid processed foods and alcohol. One liver enzyme is mildly elevated. If this persists I will order testing for hepatitis and a liver ultrasound. Recheck B12 off supplement. Follow up in 8 weeks because she has 3 injections left on the lower dose of Mounjaro. Orders: Orders AMB Hemoglobin A1c Today E11.65 - Type 2 diabetes mellitus with hyperglycemia, Z13.9 - Encounter for screening, unspecified Referrals Podiatry Referral E11.42 - Type 2 diabetes mellitus with diabetic polyneuropathy Medications: New tirzepatide (Mounjaro) 5 mg (0.5 mL) subcut QWEEK 2 mL 2RF Refilled metformin 1,000 mg PO QAM 90 tabs 1RF rosuvastatin 20 mg PO BEDTIME 90 tabs 1RF Discontinued tirzepatide (Mounjaro) for 4 weeks Discontinued Reason: Doctor's Order 2.5 mg (0.5 mL) subcut QWEEK 2 mL 0RF Coding Level of Care Code Est Pt Level 4 (01044) Complex visit Add On G2211 Diagnoses Uncontrolled type 2 diabetes mellitus with hyperglycemia E11.65 Glycemic state: with hyperglycemia Diabetic polyneuropathy associated with type 2 diabetes mellitus E11.42 Diabetes mellitus complication detail: diabetic polyneuropathy Diabetes mellitus type: type 2 Pure hypercholesterolemia E78.00 LFT elevation R79.89 High serum vitamin B12 R79.89
[2025-06-30 11:32] LABS: Glucose, Whole Blood 237 mg/dL (60-115)
== END 2025-06-30 12:04 | disposition home or self-care (01) ==
LOC: HO.ENCR 11:19
PROVIDERS: PCP Internal Medicine; Visit Provider Physician Assistant Medical
DX: E11.65 Type 2 diabetes mellitus with hyperglycemia (principal); E11.42 Type 2 diabetes mellitus with diabetic polyneuropathy; E78.00 Pure hypercholesterolemia, unspecified; R79.89 Other specified abnormal findings of blood chemistry; Z13.9 Encounter for screening, unspecified

== ENCOUNTER → 2025-06-30 11:18 | Outpatient (BNVA) | payer OTHER, SELFPAY | PROVIDERS: PCP Internal Medicine; Visit Provider Physician Assistant Medical | DX: E11.65 Type 2 diabetes mellitus with hyperglycemia (principal); E11.42 Type 2 diabetes mellitus with diabetic polyneuropathy; E78.00 Pure hypercholesterolemia, unspecified; R79.89 Other specified abnormal findings of blood chemistry; Z79.84 Long term (current) use of oral hypoglycemic drugs; Z79.85 Long-term (current) use of injectable non-insulin antidiabetic drugs; Z79.899 Other long term (current) drug therapy | CPT/HCPCS: 82947; 83036; 99212 ==